=== PATIENT | female | born 1950 | race Caucasian/White ===

== ENCOUNTER 2020-02-12 14:49 | Outpatient (REF) | payer MEDICARE, OTHER, SELFPAY ==
--- NOTE | 2020-02-12 15:06 | XR_ITS ---
EXAMINATION: XR CHEST CLINICAL INFORMATION: Squamous cell carcinoma of the left lung. COMPARISON: Chest x-ray 11/20/2019. CT chest 08/18/2018 TECHNIQUE: 2 views of the chest were obtained. FINDINGS: There are linear opacities at the left lung around the hilum and left upper lobe with elevation of the left hilum. This is stable since CAT scan 08/18/2018. There is no acute change. No focal consolidation. No pulmonary vascular congestion. There is no pleural effusion or pneumothorax. The cardiac and mediastinal contours are unchanged. Heart size is normal. Multilevel degenerative spondylosis spine. XR/XR chest 2V IMPRESSION: 1. No acute abnormality. 2. Stable chronic changes in left lung.
[2020-02-12 15:20] LABS: MANUAL DIFF FLAG NO
[2020-02-12 15:21] LABS: Basophils Percent Auto 0.5 % (0-2); Eosinophils Absolute Auto 0.3 X10*3/uL (0.0-0.4); Eosinophils Percent Auto 3.5 % (0-4); Hematocrit 39.3 % (37-47); Hemoglobin 12.8 g/dl (12.0-16.0); Imm Gran Abs Auto 0.04 X10*3/uL (0.00-0.03); Imm Gran Pct Auto 0.5 % (0.0-0.4); Lymphocytes Absolute Auto 1.1 X10*3/uL (1.2-4.9); Lymphocytes Percent Auto 14.1 % (20-40); Mean Corpuscular HGB Conc 32.6 g/dl (31.0-35.0); Mean Corpuscular Hemoglobin 31.8 pg (27.0-33.0); Mean Corpuscular Volume 97.8 fL (80-98); Mean Platelet Volume 9.3 fL (9.4-12.3); Monocytes Absolute Auto 0.5 X10*3/uL (0.1-1.2); Monocytes Percent Auto 6.6 % (2-11); Neutrophils Absolute Auto 6.1 X10*3/uL (2.0-8.3); Neutrophils Percent Auto 74.8 % (45-73); Platelet Count 282 X10*3/uL (160-400); Red Blood Count 4.02 X10*6/uL (4.20-5.50); Red Cell Distribution Width 13.2 % (11.0-16.0); White Blood Count 8.1 X10*3/uL (4.8-10.8)
[2020-02-12 15:47] LABS: Alanine Aminotransferase 16 U/L (0-31); Albumin Level 4.3 g/dL (3.5-5.0); Alkaline Phosphatase 69 U/L (39-117); Anion Gap 13 (12-20); Aspartate Amino Transferase 16 U/L (5-31); Bilirubin Total 0.2 mg/dL (0.0-1.0); Blood Urea Nitrogen 15 mg/dL (9-16); Calcium 8.7 mg/dL (8.4-10.2); Carbon Dioxide 30 mmol/L (22-29); Chloride 102 mmol/L (96-108); Estimated Glomerular Filt Rate > 60; Glucose Random 123 mg/dL (60-115); Sodium 140 mmol/L (135-145); Total Protein 6.7 g/dL (6.5-8.0)
[2020-02-12 16:08] LABS: Free T4 (Free Thyroxine) 1.27 ng/dL (0.71-1.85); Thyroid Stimulating Hormone 1.68 uIU/mL (0.32-4.0); Vitamin D 25-OH Total 23.8 ng/mL (>30)
== END 2020-02-12 14:50 | disposition home or self-care (01) ==
LOC: HO.LAB 14:49
PROVIDERS: Absent Provider Internal Medicine Medical Oncology; PCP Internal Medicine; Visit Provider Internal Medicine
DX: E55.9 Vitamin D deficiency, unspecified (principal); E03.9 Hypothyroidism, unspecified; C34.92 Malignant neoplasm of unspecified part of left bronchus or lung; E78.00 Pure hypercholesterolemia, unspecified; E66.9 Obesity, unspecified
CPT/HCPCS: 36415; 71046; 80053; 82306; 84439; 84443; 85025

== ENCOUNTER 2020-05-25 11:09 | Outpatient (REF) | payer MEDICARE, OTHER, SELFPAY ==
--- NOTE | ~2020-05-25 | MM_ITS ---
EXAMINATION: MM SCREENING DIGITAL BREAST TOMOSYNTHESIS, BILATERAL CLINICAL INFORMATION: Screening. Asymptomatic. The lifetime risk of breast cancer based on the Tyrer-Cuzick Model is 4%. COMPARISON: Mammography: 01/19/2019, 01/09/2018, 11/26/2016 TECHNIQUE: Digital breast tomosynthesis is performed in both the craniocaudal and mediolateral oblique views along with computer-aided detection (CAD). Synthesized 2D images are generated from the tomosynthesis. FINDINGS: There are scattered areas of fibroglandular density (ACR BI-RADS breast composition Category b). There are no significant masses, abnormal calcifications, or other abnormalities. Parenchymal pattern is similar to prior studies. The axilla and skin contours are unremarkable. MM/MM tomosynthesis screening BI IMPRESSION: No mammographic evidence of malignancy. ASSESSMENT: BI-RADS 1: Negative RECOMMENDATION: Routine annual mammography screening. This patient's information was entered into a reminder system with a target due date for their next mammogram.
== END 2020-05-25 11:10 | disposition home or self-care (01) ==
LOC: HO.MAMMO 11:09
PROVIDERS: PCP Internal Medicine; Visit Provider Internal Medicine
DX: Z12.31 Encounter for screening mammogram for malignant neoplasm of breast (principal)
CPT/HCPCS: 77063; 77067

== ENCOUNTER 2020-06-15 08:42 | Outpatient (REF) | payer MEDICARE, OTHER, SELFPAY ==
--- NOTE | ~2020-06-15 | XR_ITS ---
EXAMINATION: XR CHEST CLINICAL INFORMATION: Squamous cell carcinoma of left lung. COMPARISON: None TECHNIQUE: 2 views of the chest were obtained. FINDINGS: The lungs are well-expanded and clear. The heart size and pulmonary vascularity is normal. There is mild ventral spondylosis throughout dorsal spine. No lytic or sclerotic process seen. XR/XR chest 2V IMPRESSION: Unremarkable chest exam.
[2020-06-15 09:42] LABS: MANUAL DIFF FLAG NO
[2020-06-15 09:48] LABS: Basophils Percent Auto 0.6 % (0-2); Eosinophils Absolute Auto 0.3 X10*3/uL (0.0-0.4); Eosinophils Percent Auto 4.2 % (0-4); Hematocrit 40.1 % (37-47); Imm Gran Abs Auto 0.02 X10*3/uL (0.00-0.03); Imm Gran Pct Auto 0.3 % (0.0-0.4); Lymphocytes Absolute Auto 0.8 X10*3/uL (1.2-4.9); Lymphocytes Percent Auto 11.7 % (20-40); Mean Corpuscular HGB Conc 32.4 g/dl (31.0-35.0); Mean Corpuscular Hemoglobin 31.3 pg (27.0-33.0); Mean Corpuscular Volume 96.6 fL (80-98); Mean Platelet Volume 9.9 fL (9.4-12.3); Monocytes Absolute Auto 0.5 X10*3/uL (0.1-1.2); Neutrophils Percent Auto 75.2 % (45-73); Platelet Count 280 X10*3/uL (160-400); Red Blood Count 4.15 X10*6/uL (4.20-5.50); Red Cell Distribution Width 13.1 % (11.0-16.0); White Blood Count 6.6 X10*3/uL (4.8-10.8)
[2020-06-15 09:58] LABS: Estimated Average Glucose 111 mg/dL; Hemoglobin A1c % 5.5 %
[2020-06-15 10:04] LABS: Alanine Aminotransferase 15 U/L (0-31); Albumin Level 4.2 g/dL (3.5-5.0); Alkaline Phosphatase 67 U/L (39-117); Anion Gap 12 (12-20); Aspartate Amino Transferase 16 U/L (5-31); Bilirubin Total 0.5 mg/dL (0.0-1.0); Blood Urea Nitrogen 16 mg/dL (9-16); Calcium 9.1 mg/dL (8.4-10.2); Carbon Dioxide 29 mmol/L (22-29); Chloride 104 mmol/L (96-108); Cholesterol 180 mg/dL; Estimated Glomerular Filt Rate > 60; Glucose Fasting 89 mg/dL (60-99); HDL Cholesterol 42 mg/dL; LDL Cholesterol Calculated 91 mg/dl; Potassium 4.4 mmol/L (3.3-5.1); Sodium 141 mmol/L (135-145); Total Protein 6.4 g/dL (6.5-8.0); Triglycerides 237 mg/dL
== END 2020-06-15 08:43 | disposition home or self-care (01) ==
LOC: HO.LAB 08:42
PROVIDERS: Absent Provider Internal Medicine Medical Oncology; PCP Internal Medicine; Visit Provider Internal Medicine
DX: E03.9 Hypothyroidism, unspecified (principal); E78.5 Hyperlipidemia, unspecified; R73.03 Prediabetes; C34.92 Malignant neoplasm of unspecified part of left bronchus or lung
CPT/HCPCS: 36415; 71046; 80053; 80061; 83036; 84439; 84443; 85025

== ENCOUNTER 2020-09-22 11:47 | Outpatient (REF) | payer MEDICARE, OTHER, SELFPAY ==
--- NOTE | ~2020-09-22 | XR_ITS ---
EXAMINATION: XR CHEST CLINICAL INFORMATION: Squamous cell carcinoma of left lung. COMPARISON: None TECHNIQUE: 2 views of the chest were obtained. FINDINGS: The lungs are well-expanded with platelike atelectasis/scarring left parahilar region. Heart size and pulmonary vascularity is normal. No gross bony abnormality seen. XR/XR chest 2V IMPRESSION: Left midlung parahilar atelectasis/scarring.
[2020-09-22 12:35] LABS: MANUAL DIFF FLAG NO
[2020-09-22 12:44] LABS: Basophils Percent Auto 0.4 % (0-2); Eosinophils Absolute Auto 0.2 X10*3/uL (0.0-0.4); Eosinophils Percent Auto 2.5 % (0-4); Hematocrit 38.6 % (37-47); Hemoglobin 12.4 g/dl (12.0-16.0); Imm Gran Abs Auto 0.03 X10*3/uL (0.00-0.03); Imm Gran Pct Auto 0.4 % (0.0-0.4); Lymphocytes Percent Auto 13.3 % (20-40); Mean Corpuscular HGB Conc 32.1 g/dl (31.0-35.0); Mean Corpuscular Hemoglobin 30.8 pg (27.0-33.0); Mean Corpuscular Volume 95.8 fL (80-98); Mean Platelet Volume 9.8 fL (9.4-12.3); Monocytes Absolute Auto 0.6 X10*3/uL (0.1-1.2); Monocytes Percent Auto 8.6 % (2-11); Neutrophils Absolute Auto 5.4 X10*3/uL (2.0-8.3); Neutrophils Percent Auto 74.8 % (45-73); Platelet Count 294 X10*3/uL (160-400); Red Blood Count 4.03 X10*6/uL (4.20-5.50); Red Cell Distribution Width 12.8 % (11.0-16.0); White Blood Count 7.2 X10*3/uL (4.8-10.8)
[2020-09-22 13:15] LABS: Alanine Aminotransferase 15 U/L (0-31); Albumin Level 4.3 g/dL (3.5-5.0); Alkaline Phosphatase 76 U/L (39-117); Anion Gap 12 (12-20); Aspartate Amino Transferase 17 U/L (5-31); Bilirubin Total 0.6 mg/dL (0.0-1.0); Blood Urea Nitrogen 13 mg/dL (9-16); Calcium 9.8 mg/dL (8.4-10.2); Carbon Dioxide 30 mmol/L (22-29); Chloride 105 mmol/L (96-108); Estimated Glomerular Filt Rate > 60; Glucose Random 104 mg/dL (60-115); Sodium 142 mmol/L (135-145); Total Protein 6.6 g/dL (6.5-8.0)
== END 2020-09-22 11:48 | disposition home or self-care (01) ==
LOC: HO.LAB 11:47
PROVIDERS: PCP Internal Medicine; Visit Provider Internal Medicine Medical Oncology
DX: C34.92 Malignant neoplasm of unspecified part of left bronchus or lung (principal)
CPT/HCPCS: 36415; 71046; 80053; 85025

== ENCOUNTER 2020-10-31 10:40 | Outpatient (REF) | payer MEDICARE, OTHER, SELFPAY ==
[2020-10-31 11:14] LABS: MANUAL DIFF FLAG NO
[2020-10-31 11:18] LABS: Basophils Percent Auto 0.6 % (0-2); Eosinophils Absolute Auto 0.3 X10*3/uL (0.0-0.4); Eosinophils Percent Auto 3.9 % (0-4); Hematocrit 39.2 % (37-47); Hemoglobin 12.6 g/dl (12.0-16.0); Imm Gran Abs Auto 0.04 X10*3/uL (0.00-0.03); Imm Gran Pct Auto 0.6 % (0.0-0.4); Lymphocytes Percent Auto 14.3 % (20-40); Mean Corpuscular HGB Conc 32.1 g/dl (31.0-35.0); Mean Corpuscular Hemoglobin 30.5 pg (27.0-33.0); Mean Corpuscular Volume 94.9 fL (80-98); Mean Platelet Volume 9.9 fL (9.4-12.3); Monocytes Absolute Auto 0.6 X10*3/uL (0.1-1.2); Monocytes Percent Auto 8.3 % (2-11); Neutrophils Percent Auto 72.3 % (45-73); Platelet Count 289 X10*3/uL (160-400); Red Blood Count 4.13 X10*6/uL (4.20-5.50); White Blood Count 6.9 X10*3/uL (4.8-10.8)
[2020-10-31 11:39] LABS: Alanine Aminotransferase 16 U/L (0-31); Albumin Level 4.4 g/dL (3.5-5.0); Alkaline Phosphatase 67 U/L (39-117); Anion Gap 13 (12-20); Aspartate Amino Transferase 17 U/L (5-31); Bilirubin Total 0.3 mg/dL (0.0-1.0); Blood Urea Nitrogen 16 mg/dL (9-16); Calcium 9.2 mg/dL (8.4-10.2); Carbon Dioxide 26 mmol/L (22-29); Chloride 105 mmol/L (96-108); Estimated Glomerular Filt Rate > 60; Glucose Random 115 mg/dL (60-115); Potassium 4.2 mmol/L (3.3-5.1); Sodium 140 mmol/L (135-145); Total Protein 6.6 g/dL (6.5-8.0)
[2020-10-31 12:03] LABS: Free T4 (Free Thyroxine) 1.33 ng/dL (0.71-1.85); Thyroid Stimulating Hormone 0.66 uIU/mL (0.32-4.0); Vitamin D 25-OH Total 24.8 ng/mL (>30)
== END 2020-10-31 10:41 | disposition home or self-care (01) ==
LOC: HO.LAB 10:40
PROVIDERS: PCP Internal Medicine; Visit Provider Internal Medicine
DX: E03.9 Hypothyroidism, unspecified (principal); E55.9 Vitamin D deficiency, unspecified; E78.5 Hyperlipidemia, unspecified
CPT/HCPCS: 36415; 80053; 82306; 84439; 84443; 85025

== ENCOUNTER 2020-12-28 12:59 | Outpatient (REF) | payer MEDICARE, OTHER, SELFPAY ==
--- NOTE | ~2020-12-28 | XR_ITS ---
EXAMINATION: XR CHEST CLINICAL INFORMATION: Chronic cough. COMPARISON: Multiple priors. Most recent chest radiograph dated from 09/22/2020. TECHNIQUE: 2 views of the chest were obtained. FINDINGS: Unchanged appearance of the cardiomediastinal silhouette. Redemonstration of platelike atelectasis/scarring in the left perihilar region without significant change. No new airspace opacities. No pleural effusions or pneumothorax. No acute osseous abnormalities. Thoracic spondylosis. XR/XR chest 2V IMPRESSION: Left mid lung atelectasis/scarring unchanged.
[2020-12-28 13:29] LABS: MANUAL DIFF FLAG NO
[2020-12-28 13:36] LABS: Basophils Percent Auto 0.6 % (0-2); Eosinophils Absolute Auto 0.2 X10*3/uL (0.0-0.4); Eosinophils Percent Auto 3.3 % (0-4); Hematocrit 39.4 % (37-47); Hemoglobin 12.9 g/dl (12.0-16.0); Imm Gran Abs Auto 0.03 X10*3/uL (0.00-0.03); Imm Gran Pct Auto 0.4 % (0.0-0.4); Lymphocytes Absolute Auto 1.2 X10*3/uL (1.2-4.9); Lymphocytes Percent Auto 17.1 % (20-40); Mean Corpuscular HGB Conc 32.7 g/dl (31.0-35.0); Mean Corpuscular Hemoglobin 31.4 pg (27.0-33.0); Mean Corpuscular Volume 95.9 fL (80-98); Mean Platelet Volume 9.8 fL (9.4-12.3); Monocytes Absolute Auto 0.6 X10*3/uL (0.1-1.2); Monocytes Percent Auto 8.5 % (2-11); Neutrophils Absolute Auto 4.9 X10*3/uL (2.0-8.3); Neutrophils Percent Auto 70.1 % (45-73); Platelet Count 295 X10*3/uL (160-400); Red Blood Count 4.11 X10*6/uL (4.20-5.50); Red Cell Distribution Width 13.4 % (11.0-16.0); White Blood Count 6.9 X10*3/uL (4.8-10.8)
[2020-12-28 14:03] LABS: Alanine Aminotransferase 17 U/L (0-31); Albumin Level 4.3 g/dL (3.5-5.0); Alkaline Phosphatase 70 U/L (39-117); Anion Gap 13 (12-20); Aspartate Amino Transferase 18 U/L (5-31); Bilirubin Total 0.5 mg/dL (0.0-1.0); Blood Urea Nitrogen 12 mg/dL (9-16); Calcium 9.3 mg/dL (8.4-10.2); Carbon Dioxide 27 mmol/L (22-29); Chloride 106 mmol/L (96-108); Estimated Glomerular Filt Rate 58; Glucose Random 99 mg/dL (60-115); Potassium 4.9 mmol/L (3.3-5.1); Sodium 141 mmol/L (135-145); Total Protein 6.5 g/dL (6.5-8.0)
== END 2020-12-28 13:00 | disposition home or self-care (01) ==
LOC: HO.XRAY 12:59
PROVIDERS: PCP Internal Medicine; Visit Provider Internal Medicine Medical Oncology
DX: C34.92 Malignant neoplasm of unspecified part of left bronchus or lung (principal); R05 Cough
CPT/HCPCS: 36415; 71046; 80053; 85025

== ENCOUNTER 2021-04-27 09:25 | Outpatient (REF) | payer MEDICARE, OTHER, SELFPAY ==
--- NOTE | ~2021-04-27 | XR_ITS ---
EXAMINATION: XR CHEST CLINICAL INFORMATION: Squamous cell carcinoma of left lung. COMPARISON: Chest x-ray 12/28/2020. TECHNIQUE: 2 views of the chest were obtained. FINDINGS: The lungs are well expanded with patchy left perihilar plate-like atelectasis or scarring, similar to the previous study of 12/28/2020. The rest of lungs are expanded and clear. Heart size and pulmonary vascularity are normal. No gross bony abnormality is seen. XR/XR chest 2V IMPRESSION: Left mid lung chronic scarring, unchanged from 12/28/2020. No acute process seen.
[2021-04-27 09:57] LABS: MANUAL DIFF FLAG NO
[2021-04-27 10:08] LABS: Basophils Percent Auto 0.6 % (0-2); Eosinophils Absolute Auto 0.3 X10*3/uL (0.0-0.4); Eosinophils Percent Auto 3.8 % (0-4); Hematocrit 40.4 % (37.0-47.0); Hemoglobin 13.1 g/dl (12.0-16.0); Imm Gran Abs Auto 0.04 X10*3/uL (0.00-0.03); Imm Gran Pct Auto 0.6 % (0.0-0.4); Lymphocytes Absolute Auto 0.8 X10*3/uL (1.2-4.9); Lymphocytes Percent Auto 11.1 % (20-40); Mean Corpuscular HGB Conc 32.4 g/dl (31.0-35.0); Mean Corpuscular Hemoglobin 30.9 pg (27.0-33.0); Mean Corpuscular Volume 95.3 fL (80.0-98.0); Mean Platelet Volume 9.2 fL (9.4-12.3); Monocytes Absolute Auto 0.6 X10*3/uL (0.1-1.2); Monocytes Percent Auto 8.4 % (2-11); Neutrophils Absolute Auto 5.3 x10*3/uL (2.0-8.3); Neutrophils Percent Auto 75.5 % (45-73); Platelet Count 270 X10*3/uL (160-400); Red Blood Count 4.24 X10*6/uL (4.20-5.50); Red Cell Distribution Width 13.3 % (11.0-16.0)
[2021-04-27 10:34] LABS: Alanine Aminotransferase 20 U/L (0-31); Albumin Level 4.2 g/dL (3.5-5.0); Alkaline Phosphatase 68 U/L (39-117); Anion Gap 15 (12-20); Aspartate Amino Transferase 21 U/L (5-31); Bilirubin Total 0.5 mg/dL (0.0-1.0); Blood Urea Nitrogen 12 mg/dL (9-16); Calcium 9.6 mg/dL (8.4-10.2); Carbon Dioxide 27 mmol/L (22-29); Chloride 109 mmol/L (96-108); Cholesterol 160 mg/dL; Estimated Glomerular Filt Rate > 60; Glucose Fasting 98 mg/dL (60-99); HDL Cholesterol 40 mg/dL; LDL Cholesterol Calculated 94 mg/dl; Potassium 4.5 mmol/L (3.3-5.1); Sodium 146 mmol/L (135-145); Total Protein 6.9 g/dL (6.5-8.0); Triglycerides 133 mg/dL
== END 2021-04-27 09:26 | disposition home or self-care (01) ==
LOC: HO.XRAY 09:25
PROVIDERS: PCP Internal Medicine; Visit Provider Internal Medicine Medical Oncology
DX: C34.92 Malignant neoplasm of unspecified part of left bronchus or lung (principal); E78.00 Pure hypercholesterolemia, unspecified
CPT/HCPCS: 36415; 71046; 80053; 80061; 85025

== ENCOUNTER 2021-05-24 10:58 | Outpatient (REF) | payer MEDICARE, OTHER, SELFPAY ==
[2021-05-24 14:28] LABS: Free T4 (Free Thyroxine) 1.31 ng/dL (0.71-1.85); Thyroid Stimulating Hormone 0.58 uIU/mL (0.32-4.0)
== END 2021-05-24 10:59 | disposition home or self-care (01) ==
LOC: HO.10HDL 10:58
PROVIDERS: Visit Provider Internal Medicine
DX: E03.9 Hypothyroidism, unspecified (principal)
CPT/HCPCS: 36415; 84439; 84443

== ENCOUNTER 2021-06-05 08:57 | Outpatient (REF) | payer MEDICARE, OTHER, SELFPAY ==
--- NOTE | ~2021-06-05 | MM_ITS ---
EXAMINATION: MM SCREENING DIGITAL BREAST TOMOSYNTHESIS, BILATERAL CLINICAL INFORMATION: Screening. Asymptomatic. The lifetime risk of breast cancer based on the Tyrer-Cuzick Model is 3%. COMPARISON: Mammography: 05/25/2020, 01/19/2019, 01/09/2018 TECHNIQUE: Digital breast tomosynthesis is performed in both the craniocaudal and mediolateral oblique views along with computer-aided detection (CAD). Synthesized 2D images are generated from the tomosynthesis. FINDINGS: There are scattered areas of fibroglandular density (ACR BI-RADS breast composition Category b). There are no significant masses, abnormal calcifications, or other abnormalities. Parenchymal pattern is similar to prior studies. There is no developing density or architectural abnormality. The axilla and skin contours are unremarkable. No significant changes. MM/MM tomosynthesis screening BI IMPRESSION: No mammographic evidence of malignancy. ASSESSMENT: BI-RADS 1: Negative RECOMMENDATION: Routine annual mammography screening. This patient's information was entered into a reminder system with a target due date for their next mammogram.
== END 2021-06-05 08:58 | disposition home or self-care (01) ==
LOC: HO.MAMMO 08:57
PROVIDERS: Visit Provider Internal Medicine
DX: Z12.31 Encounter for screening mammogram for malignant neoplasm of breast (principal)
CPT/HCPCS: 77063; 77067

== ENCOUNTER 2021-10-27 07:43 | Outpatient (REF) | payer MEDICARE, OTHER, SELFPAY ==
--- NOTE | ~2021-10-27 | XR_ITS ---
EXAMINATION: XR CHEST CLINICAL INFORMATION: Squamous cell carcinoma of the left lung. COMPARISON: Multiple priors with the last chest x-ray of 04/27/2021. Chest CT of 08/18/2018. TECHNIQUE: 2 views of the chest were obtained. FINDINGS: Mild left lung volume loss is stable. Left upper lung zone paramediastinal opacity reflecting posttreatment changes with associated bronchiectasis and scarring is a stable finding compared to several previous x-rays. No new airspace opacities. No evidence of pulmonary edema, pleural effusions or pneumothorax. Cardiomediastinal silhouette is unchanged. Multilevel mild degenerative changes in the spine. XR/XR chest 2V IMPRESSION: Chronic changes in the left lung, as described above, are stable. No acute pulmonary process.
[2021-10-27 08:04] LABS: MANUAL DIFF FLAG NO
[2021-10-27 08:45] LABS: Basophils Absolute Auto 0.1 X10*3/uL (0.0-0.2); Basophils Percent Auto 0.8 % (0-2); Eosinophils Absolute Auto 0.2 X10*3/uL (0.0-0.4); Eosinophils Percent Auto 3.4 % (0-4); Hematocrit 41.4 % (37.0-47.0); Hemoglobin 13.4 g/dl (12.0-16.0); Imm Gran Abs Auto 0.02 X10*3/uL (0.00-0.03); Imm Gran Pct Auto 0.3 % (0.0-0.4); Lymphocytes Absolute Auto 1.3 X10*3/uL (1.2-4.9); Lymphocytes Percent Auto 19.9 % (20-40); Mean Corpuscular HGB Conc 32.4 g/dl (31.0-35.0); Mean Corpuscular Hemoglobin 30.5 pg (27.0-33.0); Mean Corpuscular Volume 94.1 fL (80.0-98.0); Monocytes Absolute Auto 0.6 X10*3/uL (0.1-1.2); Monocytes Percent Auto 8.9 % (2-11); Neutrophils Absolute Auto 4.3 x10*3/uL (2.0-8.3); Neutrophils Percent Auto 66.7 % (45-73); Platelet Count 296 X10*3/uL (160-400); Red Cell Distribution Width 13.4 % (11.0-16.0); White Blood Count 6.5 X10*3/uL (4.8-10.8)
[2021-10-27 09:06] LABS: Alanine Aminotransferase 17 U/L (0-31); Albumin Level 4.4 g/dL (3.5-5.0); Alkaline Phosphatase 74 U/L (39-117); Anion Gap 13 (12-20); Aspartate Amino Transferase 17 U/L (5-31); Bilirubin Total 0.5 mg/dL (0.0-1.0); Blood Urea Nitrogen 13 mg/dL (9-16); Calcium 9.3 mg/dL (8.4-10.2); Carbon Dioxide 29 mmol/L (22-29); Chloride 104 mmol/L (96-108); Cholesterol 172 mg/dL; Estimated Glomerular Filt Rate > 60; Glucose Fasting 103 mg/dL (60-99); HDL Cholesterol 44 mg/dL; LDL Cholesterol Calculated 97 mg/dl; Potassium 5.3 mmol/L (3.3-5.1); Sodium 141 mmol/L (135-145); Total Protein 6.8 g/dL (6.5-8.0); Triglycerides 158 mg/dL
== END 2021-10-27 07:44 | disposition home or self-care (01) ==
LOC: HO.XRAY 07:43
PROVIDERS: PCP Internal Medicine; Visit Provider Internal Medicine Medical Oncology
DX: C34.92 Malignant neoplasm of unspecified part of left bronchus or lung (principal); E78.00 Pure hypercholesterolemia, unspecified
CPT/HCPCS: 36415; 71046; 80053; 80061; 85025

== ENCOUNTER 2022-01-12 14:19 | Outpatient (REF) | payer MEDICARE, OTHER, SELFPAY ==
--- NOTE | ~2022-01-12 | MM_ITS ---
EXAMINATION: MM DIAGNOSTIC DIGITAL BREAST TOMOSYNTHESIS, LEFT US DIAGNOSTIC ULTRASOUND BREAST, LEFT CLINICAL INFORMATION: Palpable nodule noted by patient anterior medial left breast. The lifetime risk of breast cancer based on the Tyrer-Cuzick Model is 3%. COMPARISON: Mammography: 06/05/2021, 05/25/2020, 01/19/2019, 01/09/2018 TECHNIQUE: Digital breast tomosynthesis is performed in both the craniocaudal and mediolateral oblique views along with computer-aided detection (CAD). Synthesized 2D images are generated from the tomosynthesis. Ultrasound left breast is targeted to the area of clinical concern. Grayscale imaging and color Doppler are performed without and with harmonics. Patient is imaged supine and upright. Patient is able to point to the vicinity of concern at time of imaging. FINDINGS: There are scattered areas of fibroglandular density (ACR BI-RADS breast composition Category b). There are no significant masses, abnormal calcifications, or other abnormalities. Parenchymal pattern is similar to prior studies and there is no developing density or interval architectural abnormality or mass. There is mild retroareolar duct ectasia, stable from prior studies. No skin thickening or coarsening of the Lupillo's ligaments. Ultrasound demonstrates no cystic or solid mass or architectural abnormality. No intradermal lesion. No skin thickening or ultrasound correlate for patient's symptoms. Results are discussed with the patient at time of visit. MM/MM tomosynthesis diagnostic LT IMPRESSION: -No mammographic evidence of malignancy. -Unremarkable targeted left breast ultrasound. -No imaging correlate for patient's palpable concern. ASSESSMENT: BI-RADS 2: Benign RECOMMENDATION: 1. Patient should be managed based on the clinical impression. If clinically indicated, further evaluation may be considered with surgical consult. Decision to proceed with biopsy should be based on clinical grounds and degree of clinical concern. 2. Otherwise, routine annual screening mammography. This patient's information was entered into a reminder system with a target due date for their next mammogram.
== END 2022-01-12 14:20 | disposition home or self-care (01) ==
LOC: HO.MAMMO 14:19
PROVIDERS: PCP Internal Medicine; Visit Provider Obstetrics & Gynecology
DX: N63.22 Unspecified lump in the left breast, upper inner quadrant (principal)
CPT/HCPCS: 76642; 77061; 77065

== ENCOUNTER 2022-01-31 11:00 | Outpatient (REF) | payer MEDICARE, OTHER, SELFPAY ==
[2022-01-31 14:44] LABS: Free T4 (Free Thyroxine) 1.32 ng/dL (0.71-1.85); Thyroid Stimulating Hormone 1.06 uIU/mL (0.32-4.0); Vitamin D 25-OH Total 27.2 ng/mL (>30)
== END 2022-01-31 11:01 | disposition home or self-care (01) ==
LOC: HO.10HDL 11:00
PROVIDERS: Visit Provider Internal Medicine
DX: E55.9 Vitamin D deficiency, unspecified (principal)
CPT/HCPCS: 36415; 82306; 84439; 84443

== ENCOUNTER 2022-03-27 09:34 | Outpatient (REF) | payer MEDICARE, OTHER, SELFPAY ==
--- NOTE | ~2022-03-27 | XR_ITS ---
EXAMINATION: XR CHEST CLINICAL INFORMATION: Carcinoma of left lung. COMPARISON: None TECHNIQUE: 2 views of the chest were obtained. FINDINGS: The lungs are well-expanded with left upper lobe paramediastinal linear scarring or atelectasis. Mild loss of left lung volume is seen. The right lung appears unremarkable. The heart size and pulmonary vascularity is normal. XR/XR chest 2V IMPRESSION: Chronic scarring left upper lobe with mild loss of left lung volume. No change from 10/27/2021. No new findings.
[2022-03-27 09:55] LABS: MANUAL DIFF FLAG NO
[2022-03-27 10:35] LABS: Basophils Absolute Auto 0.1 X10*3/uL (0.0-0.2); Basophils Percent Auto 0.6 % (0-2); Eosinophils Absolute Auto 0.3 X10*3/uL (0.0-0.4); Eosinophils Percent Auto 3.1 % (0-4); Hematocrit 38.9 % (37.0-47.0); Hemoglobin 12.3 g/dl (12.0-16.0); Imm Gran Abs Auto 0.04 X10*3/uL (0.00-0.03); Imm Gran Pct Auto 0.5 % (0.0-0.4); Lymphocytes Absolute Auto 1.1 X10*3/uL (1.2-4.9); Lymphocytes Percent Auto 12.1 % (20-40); Mean Corpuscular HGB Conc 31.6 g/dl (31.0-35.0); Mean Corpuscular Hemoglobin 30.1 pg (27.0-33.0); Mean Corpuscular Volume 95.1 fL (80.0-98.0); Mean Platelet Volume 9.3 fL (9.4-12.3); Monocytes Absolute Auto 0.6 X10*3/uL (0.1-1.2); Monocytes Percent Auto 7.4 % (2-11); Neutrophils Absolute Auto 6.7 x10*3/uL (2.0-8.3); Neutrophils Percent Auto 76.3 % (45-73); Platelet Count 421 X10*3/uL (160-400); Red Blood Count 4.09 X10*6/uL (4.20-5.50); Red Cell Distribution Width 12.9 % (11.0-16.0); White Blood Count 8.7 X10*3/uL (4.8-10.8)
[2022-03-27 13:35] LABS: Alanine Aminotransferase 12 U/L (0-31); Albumin Level 4.1 g/dL (3.5-5.0); Alkaline Phosphatase 68 U/L (39-117); Anion Gap 15 (12-20); Aspartate Amino Transferase 14 U/L (5-31); Bilirubin Total 0.4 mg/dL (0.0-1.0); Blood Urea Nitrogen 11 mg/dL (9-16); Calcium 9.2 mg/dL (8.4-10.2); Carbon Dioxide 28 mmol/L (22-29); Chloride 105 mmol/L (96-108); Cholesterol 149 mg/dL; Estimated Glomerular Filt Rate > 60; Glucose Fasting 92 mg/dL (60-99); HDL Cholesterol 30 mg/dL; LDL Cholesterol Calculated 94 mg/dl; Potassium 4.8 mmol/L (3.3-5.1); Sodium 143 mmol/L (135-145); Total Protein 6.3 g/dL (6.5-8.0); Triglycerides 125 mg/dL
== END 2022-03-27 09:35 | disposition home or self-care (01) ==
LOC: HO.LAB 09:34
PROVIDERS: PCP Internal Medicine; Visit Provider Internal Medicine Medical Oncology
DX: C34.92 Malignant neoplasm of unspecified part of left bronchus or lung (principal); E78.00 Pure hypercholesterolemia, unspecified
CPT/HCPCS: 36415; 71046; 80053; 80061; 85025

== ENCOUNTER 2022-05-16 11:36 | Outpatient (REF) | payer MEDICARE, OTHER, SELFPAY ==
[2022-05-16 13:42] LABS: MANUAL DIFF FLAG NO
[2022-05-16 13:51] LABS: Basophils Absolute Auto 0.1 X10*3/uL (0.0-0.2); Basophils Percent Auto 0.7 % (0-2); Eosinophils Absolute Auto 0.2 X10*3/uL (0.0-0.4); Eosinophils Percent Auto 2.7 % (0-4); Hematocrit 37.7 % (37.0-47.0); Hemoglobin 12.3 g/dl (12.0-16.0); Imm Gran Abs Auto 0.03 X10*3/uL (0.00-0.03); Imm Gran Pct Auto 0.4 % (0.0-0.4); Lymphocytes Absolute Auto 1.2 X10*3/uL (1.2-4.9); Lymphocytes Percent Auto 17.3 % (20-40); Mean Corpuscular HGB Conc 32.6 g/dl (31.0-35.0); Mean Corpuscular Hemoglobin 30.4 pg (27.0-33.0); Mean Corpuscular Volume 93.1 fL (80.0-98.0); Mean Platelet Volume 10.3 fL (9.4-12.3); Monocytes Absolute Auto 0.6 X10*3/uL (0.1-1.2); Monocytes Percent Auto 8.9 % (2-11); Neutrophils Absolute Auto 4.9 x10*3/uL (2.0-8.3); Platelet Count 266 X10*3/uL (160-400); Red Blood Count 4.05 X10*6/uL (4.20-5.50); Red Cell Distribution Width 13.3 % (11.0-16.0); White Blood Count 7.1 X10*3/uL (4.8-10.8)
[2022-05-16 14:48] LABS: Alanine Aminotransferase 10 U/L (0-31); Alkaline Phosphatase 72 U/L (39-117); Anion Gap 16 (12-20); Aspartate Amino Transferase 12 U/L (5-31); Bilirubin Total 0.5 mg/dL (0.0-1.0); Blood Urea Nitrogen 12 mg/dL (9-16); C Reactive Protein 2.38 mg/dL (< or = 0.50); Carbon Dioxide 25 mmol/L (22-29); Chloride 105 mmol/L (96-108); Estimated Glomerular Filt Rate > 60; Glucose Random 81 mg/dL (60-115); Lipase 27 U/L (8-78); Potassium 4.6 mmol/L (3.3-5.1); Sodium 141 mmol/L (135-145); Total Protein 6.1 g/dL (6.5-8.0)
[2022-05-16 14:54] LABS: Free T4 (Free Thyroxine) 1.43 ng/dL (0.71-1.85); Thyroid Stimulating Hormone 0.85 uIU/mL (0.32-4.0)
== END 2022-05-16 11:37 | disposition home or self-care (01) ==
LOC: HO.10HDL 11:36
PROVIDERS: Visit Provider Internal Medicine
DX: R10.9 Unspecified abdominal pain (principal); J44.9 Chronic obstructive pulmonary disease, unspecified; E03.9 Hypothyroidism, unspecified
CPT/HCPCS: 36415; 80053; 83690; 84439; 84443; 85025; 86140

== ENCOUNTER 2022-05-17 12:28 | Outpatient (REF) | payer MEDICARE, OTHER, SELFPAY ==
--- NOTE | ~2022-05-17 | CT_ITS ---
EXAMINATION: CT ABDOMEN AND PELVIS WITH CONTRAST CLINICAL INFORMATION: Abdominal pain COMPARISON: Previous CT of the abdomen and pelvis August 2018 TECHNIQUE: Multidetector volumetric images were obtained from the superior aspect of the liver through the pubic symphysis following administration 85 mL of Omnipaque 350 intravenous contrast. Sagittal and coronal reformatted images were obtained on the technologist's workstation. Oral contrast: Yes This CT examination was performed using dose optimization techniques as appropriate, variously including the following: *Automated exposure control *Adjustment of mA and/or kV according to patient size (this includes techniques or standardized protocols for targeted exams where dose is matched to indication/reason for exam; i.e. extremities or head) *Use of iterative reconstruction technique DLP: 436 mGy-cm FINDINGS: LUNG BASES: The visualized lung bases are clear. There is a small pericardial effusion similar to previous exam. LIVER, GALLBLADDER, AND BILIARY TREE: 2 small low-attenuation liver lesions similar to a 2019 exam and probably representing small cysts. Liver is otherwise normal. The gallbladder is normal.. PANCREAS: There is a 1 cm cyst exophytic to the uncinate process of the head of the pancreas axial image 31 series 3. There is question of a smaller 8 mm cyst in the uncinate process of the head of the pancreas axial image 31 series 3. These are not definitely identified on old exam. The pancreas is otherwise normal. SPLEEN: Unremarkable. ADRENAL GLANDS: Unremarkable. KIDNEYS AND URETERS: The kidneys are normal in size, shape, and attenuation. No hydronephrosis, hydroureter, or calculi seen. No perinephric stranding. BLADDER: Not optimally distended. GASTROINTESTINAL TRACT: Diverticulosis of the colon. No evidence of diverticulitis. The small and large bowel are otherwise unremarkable. The appendix is unremarkable. ABDOMINAL WALL: No significant hernia is appreciated. LYMPH NODES: Normal. VASCULAR: Atherosclerotic disease. No aneurysm. PELVIC VISCERA: Unremarkable. OSSEOUS STRUCTURES: Degenerative changes of the spine. CT/CT abdomen pelvis w IV con IMPRESSION: 2 cysts in the head of the pancreas, largest measuring 1 cm. These are not definitely appreciated on previous exam. Follow-up MR with MRCP of the pancreas recommended. Small stable liver lesions probably representing cysts. Diverticulosis of the colon. No evidence of diverticulitis. Fleischner guidelines were followed.
[2022-05-17] MEDS: iohexoL 350 MG/ML 100 ML INFUS..BTL IV (15:36)
[2022-05-17] MEDS: Barium Sulfate Oral (Vanilla) 450 ML ORAL.SUSP 900 ML PO (15:36)
== END 2022-05-17 12:29 | disposition home or self-care (01) ==
LOC: HO.CT 12:28
PROVIDERS: Visit Provider Internal Medicine
DX: R10.0 Acute abdomen (principal)
CPT/HCPCS: 74177; Q9967

== ENCOUNTER 2022-06-28 10:22 | Outpatient (REF) | payer MEDICARE, OTHER, SELFPAY ==
--- NOTE | ~2022-06-28 | MR_ITS ---
EXAMINATION: MRI ABDOMEN WITH AND WITHOUT CONTRAST CLINICAL INFORMATION: ABD PAIN PANCREATIC CYST COMPARISON: 05/17/2022 CT scan TECHNIQUE: Multiple routine MRI sequences through the abdomen were obtained on a high-field 1.5Tesla MRI. Pre-and postcontrast images with 8 mL of Gadavist intravenous contrast were obtained. This included a dynamic contrast-enhanced technique. FINDINGS: Lung bases: The visualized lung bases are unremarkable. Small pericardial effusion noted. Liver: The liver is normal in size, shape, and signal. A few tiny millimeter sized probable hepatic cysts noted but these are too small to characterize. No suspicious focal hepatic lesions seen. Specifically no suspicious arterial phase enhancing lesions or suspicious washout of contrast on later phases. No biliary ductal dilatation. Gallbladder: Gallbladder is contracted but otherwise unremarkable. No suspicious gallstones or filling defects. No gallbladder wall thickening or pericholecystic inflammatory changes. Pancreas: Pancreatic parenchyma demonstrates homogeneous T1 bright precontrast signal in the tail, body, and neck of the pancreas. There is loss of the normal T1 signal in the anterior pancreatic head with associated decreased enhancement in this location. I do not appreciate any pancreatic ductal dilatation or common bile duct dilatation. There is a T2 bright 1.3 cm cyst in the uncinate process the pancreas and a somewhat irregularly shaped 1 cm cyst in the anterior pancreatic head. There are additional tiny millimeter sized cysts scattered throughout the pancreatic parenchyma. Spleen: Unremarkable Adrenals: Unremarkable Kidneys: Kidneys are normal in size, shape, and signal. No suspicious renal mass lesion seen. No hydronephrosis or perinephric edema. Other: Simple appearing 1.6 cm left adnexal cyst likely not significant a change from prior study and of no clinical significance. MR/MR abdomen wo/w con IMPRESSION: There is loss of the normal T1 signal in the anterior pancreatic head with associated decreased postcontrast enhancement. This is of uncertain etiology and significance. I do not appreciate any pancreatic ductal dilatation or common bile duct dilatation. There are several small T2 bright cysts scattered throughout the pancreatic parenchyma as described above. These could represent sequela of prior pancreatitis. I do not appreciate any suspicious or worrisome features to these small pancreatic cysts but they are difficult to define further due to their tiny size. Clinical correlation would be recommended. The possibility of underlying lesion in this area of probable pancreatitis cannot be excluded but would be considered less likely without significant mass effect on adjacent structures. Continued follow-up to assure stability of these findings would be recommended. If there is more clinical concern, endoscopic ultrasound could be obtained
== END 2022-06-28 10:23 | disposition home or self-care (01) ==
LOC: HO.MRI 10:22
PROVIDERS: PCP Internal Medicine; Visit Provider Internal Medicine
DX: R10.0 Acute abdomen (principal)
CPT/HCPCS: 74183; A9585

== ENCOUNTER → 2022-07-06 09:37 | Outpatient (BNVA) | payer MEDICARE, OTHER, SELFPAY | PROVIDERS: PCP Internal Medicine; Visit Provider Internal Medicine | DX: R10.84 Generalized abdominal pain (principal); R11.2 Nausea with vomiting, unspecified; Z86.010 Personal history of colon polyps | CPT/HCPCS: 99202 ==

== ENCOUNTER 2022-07-11 07:18 | Day surgery (SDC) | payer MEDICARE, OTHER, SELFPAY ==
[2022-07-11 07:32] VITALS: BMI 30.6
[2022-07-11 07:37] VITALS: BP 112/65; PULSE 75; RESP 18; TEMP 36.7; O2SAT 98
--- NOTE | 2022-07-11 07:42 | P.CONAN_ITS ---
[facility] Active Problems Active Problems: All Active Problems (Updated 07/11/22 @ 07:39 by Blessing Morton, RN) Generalized postprandial abdominal pain (Acute) Nausea & vomiting (Acute) Personal history of colonic polyps (Acute) Past Medical History Medical History (Updated 07/11/22 @ 07:39 by Blessing Morton, ANH) Lung cancer Family History Family history of problems with anesthesia: No Surgical History History of Problems with Anesthesia: No Social History Social History (Updated 07/06/22 @ 09:49 by Betty Herrera) Household Members: Spouse Alcohol intake: former Patient Tobacco Use Status: Former Tobacco user Use of substances other than those prescribed or required for medical reasons: No Are you DNR?: No Advance Directives: No Advance Directives Information Provided: Yes Meds Allergies Allergy/AdvReac Type Severity Reaction Status Date / Time No Known Allergies Allergy Verified 07/06/22 09:40 [No Known Allergies*] Home Medications Medication Instructions Recorded Confirmed Last Taken Type atorvastatin 20 mg tablet 20 mg PO DAILY 07/06/22 07/11/22 07/11/22 History clonazepam 1 mg tablet 1 mg PO BEDTIME PRN anxiety 07/06/22 07/11/22 07/11/22 History gabapentin 100 mg capsule mg PO 07/06/22 Unknown History levothyroxine 112 mcg tablet 112 mcg PO DAILY 07/06/22 07/11/22 07/11/22 History omeprazole 20 mg capsule,delayed 20 mg PO BID 07/06/22 07/11/22 07/11/22 History release propranolol 80 mg capsule,24 80 mg PO BID 07/06/22 07/11/22 07/11/22 History hr,extended release Exam Exam Date and Time: July 11, 2022 0742 Height,Weight and Vital Signs: Height 5 ft 3 in Weight 78.471 kg Last Vital Signs Temp 98.0 F 07/11/22 07:37 Pulse 75 07/11/22 07:37 Resp 18 07/11/22 07:37 BP 112/65 07/11/22 07:37 Pulse Ox 98 07/11/22 07:37 O2 Del Method Room Air 07/11/22 07:37 Airway Mallampati Class: II (multiple implants lateral) TM Dist: >3cm Neck ROM: Full Heart: rrr Lungs: cta Assessment and Plan Assessment Anesthesia Assessment: Anesthesia Plan Discussed and Chart Reviewed Final Anesthetic Review Family History of Problems with Anesthesia: No History of Problems with Anesthesia: No NPO: Yes ASA Class: II Final Preanesthetic Review: No Changes in Pt Med Stat, Meds/Allgs Chart Reviewed and Consent Obtained/Reviewed Patient Risk: Intermediate Procedure Risk: Intermediate Anesthetic Plan Anesthetic Plan: MAC: Disposition: Standard PACU
--- NOTE | 2022-07-11 08:26 | MHC.SHP ---
Pre-Procedural Eval Section A Date of Service: 07/11/22 The patient is an INPATIENT: No The History & Physical has been completed within 30 days and I have reviewed it.: Yes Section B Chief Complaint: Unspecified abdominal pain Allergies: Allergies Allergy/AdvReac Type Severity Reaction Status Date / Time No Known Allergies Allergy Verified 07/06/22 09:40 [No Known Allergies*] Plan Diagnosis/Plan: Unchanged I have reviewed the history and physical and performed a pertinent physical examination on my patient. No changes have occurred unless specified. Time Spent With Patient Time: Total time managing care of this patient today ____ minutes.
--- NOTE | 2022-07-11 08:32 | P.OP_ITS ---
Operative Note Operative Note Date of Service: 07/11/22 Narrative: Procedure: Esophagogastroduodenoscopy Endoscopist: Maylin Anand MD Indication: Abd pain Anesthesia Provider: Dr Marii Sanchez Anesthesia Type: MAC Instrument: Olympus [id number] ?? EGD Procedure:?? The procedure, indications, preparation and potential complications were reviewed with the patient, who indicated understanding and gave written informed consent to proceed. A physical exam was performed. The endoscope was introduced through the mouth, and advanced to the second part of duodenum. The mucosa was carefully examined on slow withdrawal of the endoscope. The patient tolerated the procedure well. There were no immediate complications.? ? EGD Findings:? * Esophagus:? Normal mucosa noted in the entire esophagus. The Z line was at 36 cm and irregular up to 35 cm. Cold forceps biopsies were taken to r/o Hernandez's. There was a small hiatal hernia with diaphragmatic hiatus at 38 cm. * Stomach:? Normal mucosa was noted in the stomach. Random cold forceps gastric biopsies were taken to rule out H Pylori infection. Retroflexion confirmed the morphology of the hiatal hernia as Hill Class I. * Duodenum:? Erythema and erosions were noted in the duodenal bulb and proximal sweep. The second portion of the duodenum was normal. Cold forceps biopsies were taken from duodenal bulb and second portion of the duodenum to r/o celiac sprue. ? EGD Impressions:? * Irregular Z line (biopsy) * Hiatal hernia * Normal stomach (biopsy) * Duodenitis (biopsy) ?? Recommendations:?? * Follow biopsy results. Our office will call or send a letter with results within 7-10 days. * Start/continue PPI therapy. * If H pylori +, patient will be prescribed eradication therapy followed by test of cure. * Avoid NSAIDs. * MRI results reviewed with the pt in pre-op. Ideally would be due for another MRI in 1 year given small cysts size however due to hypoenhancement of pancratic head of unknown significance, will obtain a repeat MRI in 6 months for surveillance. Above has been reviewed with the patient. Relevant educational hand outs were provided at discharge.
[2022-07-11 08:53] VITALS: BP 96/54; PULSE 72; RESP 16; TEMP 36.3; O2SAT 97
[2022-07-11 09:08] VITALS: BP 104/55; PULSE 70; RESP 16; TEMP 36.3; O2SAT 96
== END 2022-07-11 09:48 | disposition home or self-care (01) ==
PROVIDERS: PCP Internal Medicine; Visit Provider Internal Medicine
PROC: 0DJ08ZZ Inspection of Upper Intestinal Tract, Via Natural or Artificial Opening Endoscopic (ICD-10-PCS; CPT 43235; principal; 2022-07-11 08:30)
DX: K29.80 Duodenitis without bleeding (principal); K22.89 Other specified disease of esophagus; K44.9 Diaphragmatic hernia without obstruction or gangrene; R11.2 Nausea with vomiting, unspecified; I10 Essential (primary) hypertension; E78.5 Hyperlipidemia, unspecified; Z79.899 Other long term (current) drug therapy; Z87.891 Personal history of nicotine dependence; Z85.118 Personal history of other malignant neoplasm of bronchus and lung; Z92.3 Personal history of irradiation; Z92.21 Personal history of antineoplastic chemotherapy
CPT/HCPCS: 43239; 88305; 88342

== ENCOUNTER 2022-08-22 11:34 | Outpatient (REF) | payer MEDICARE, OTHER, SELFPAY ==
--- NOTE | ~2022-08-22 | MM_ITS ---
EXAMINATION: MM SCREENING DIGITAL BREAST TOMOSYNTHESIS, BILATERAL CLINICAL INFORMATION: Screening. Asymptomatic. The lifetime risk of breast cancer based on the Tyrer-Cuzick Model is 3.1%. COMPARISON: Mammography: January 12, 2022 and studies dating back to October 14, 2014 TECHNIQUE: Digital breast tomosynthesis is performed in both the craniocaudal and mediolateral oblique views along with computer-aided detection (CAD). Synthesized 2D images are generated from the tomosynthesis. FINDINGS: There are scattered areas of fibroglandular density (ACR BI-RADS breast composition Category b). There are no significant masses, abnormal calcifications, or other abnormalities. There are again noted be prominent ducts retroareolar region of the left breast. MM/MM tomosynthesis screening BI IMPRESSION: No significant changes from prior exam. ASSESSMENT: BI-RADS 1: Negative RECOMMENDATION: Routine annual mammography screening. This patient's information was entered into a reminder system with a target due date for their next mammogram.
== END 2022-08-22 11:35 | disposition home or self-care (01) ==
LOC: HO.MAMMO 11:34
PROVIDERS: PCP Internal Medicine; Visit Provider Internal Medicine
DX: Z12.31 Encounter for screening mammogram for malignant neoplasm of breast (principal)
CPT/HCPCS: 77063; 77067

== ENCOUNTER → 2022-08-29 14:39 | Outpatient (BNVA) | payer MEDICARE, OTHER, SELFPAY | PROVIDERS: PCP Internal Medicine; Visit Provider Internal Medicine | DX: R10.84 Generalized abdominal pain (principal); R93.5 Abnormal findings on diagnostic imaging of other abdominal regions, including retroperitoneum | CPT/HCPCS: 99212 ==

== ENCOUNTER 2022-09-12 13:58 | Outpatient (REF) | payer MEDICARE, OTHER, SELFPAY ==
[2022-09-12 16:00] LABS: T4 Thyroxine 12.9 ug/dL (4.5-12.0); Thyroid Stimulating Hormone 0.52 uIU/mL (0.32-4.0); Vitamin D 25-OH Total 29.7 ng/mL (>30)
== END 2022-09-12 13:59 | disposition home or self-care (01) ==
LOC: HO.LAB 13:58
PROVIDERS: PCP Internal Medicine; Visit Provider Internal Medicine
DX: E03.9 Hypothyroidism, unspecified (principal); E78.5 Hyperlipidemia, unspecified; E55.9 Vitamin D deficiency, unspecified
CPT/HCPCS: 36415; 82306; 84436; 84443

== ENCOUNTER 2022-09-25 10:36 | Outpatient (REF) | payer MEDICARE, OTHER, SELFPAY ==
--- NOTE | ~2022-09-25 | XR_ITS ---
EXAMINATION: XR CHEST CLINICAL INFORMATION: Squamous cell cancer left lung COMPARISON: Previous chest x-ray most recent October 2021 TECHNIQUE: 2 views of the chest were obtained. FINDINGS: The cardiac and mediastinal contours are stable. There is prominence of the left pulmonary hilum and increased linear perihilar markings. There may be volume loss to the left upper lobe. These findings are similar to previous exam. The lungs are otherwise clear. No pleural effusion or pneumothorax. Degenerative changes of the spine. XR/XR chest 2V IMPRESSION: No evidence for acute disease in the chest. Stable appearance of the left pulmonary hilum/central left upper lobe from prior chest x-ray.
== END 2022-09-25 10:37 | disposition home or self-care (01) ==
LOC: HO.XRAY 10:36
PROVIDERS: PCP Internal Medicine; Visit Provider Internal Medicine Medical Oncology
DX: C34.92 Malignant neoplasm of unspecified part of left bronchus or lung (principal)
CPT/HCPCS: 71046

== ENCOUNTER 2022-10-01 06:17 | Outpatient (REF) | payer MEDICARE, OTHER, SELFPAY ==
[2022-10-01 06:36] LABS: MANUAL DIFF FLAG NO
[2022-10-01 07:25] LABS: Basophils Percent Auto 0.6 % (0-2); Eosinophils Absolute Auto 0.2 X10*3/uL (0.0-0.4); Eosinophils Percent Auto 3.5 % (0-4); Hematocrit 38.5 % (37.0-47.0); Hemoglobin 12.2 g/dl (12.0-16.0); Imm Gran Abs Auto 0.02 X10*3/uL (0.00-0.03); Imm Gran Pct Auto 0.3 % (0.0-0.4); Lymphocytes Absolute Auto 1.2 X10*3/uL (1.2-4.9); Lymphocytes Percent Auto 17.3 % (20-40); Mean Corpuscular HGB Conc 31.7 g/dl (31.0-35.0); Mean Corpuscular Hemoglobin 28.2 pg (27.0-33.0); Mean Corpuscular Volume 88.9 fL (80.0-98.0); Mean Platelet Volume 9.8 fL (9.4-12.3); Monocytes Absolute Auto 0.6 X10*3/uL (0.1-1.2); Monocytes Percent Auto 8.5 % (2-11); Neutrophils Absolute Auto 4.8 x10*3/uL (2.0-8.3); Neutrophils Percent Auto 69.8 % (45-73); Platelet Count 279 X10*3/uL (160-400); Red Blood Count 4.33 X10*6/uL (4.20-5.50); Red Cell Distribution Width 13.3 % (11.0-16.0); White Blood Count 6.9 X10*3/uL (4.8-10.8)
[2022-10-01 08:11] LABS: Alanine Aminotransferase 11 U/L (0-31); Albumin Level 4.1 g/dL (3.5-5.0); Alkaline Phosphatase 75 U/L (39-117); Anion Gap 13 (12-20); Aspartate Amino Transferase 13 U/L (5-31); Bilirubin Total 0.5 mg/dL (0.0-1.0); Blood Urea Nitrogen 9 mg/dL (9-16); Calcium 9.4 mg/dL (8.4-10.2); Carbon Dioxide 29 mmol/L (22-29); Chloride 107 mmol/L (96-108); Cholesterol 155 mg/dL; Estimated Glomerular Filt Rate > 60; Glucose Fasting 97 mg/dL (60-99); HDL Cholesterol 38 mg/dL; LDL Cholesterol Calculated 89 mg/dl; Potassium 4.6 mmol/L (3.3-5.1); Sodium 144 mmol/L (135-145); Total Protein 6.4 g/dL (6.5-8.0); Triglycerides 142 mg/dL
[2022-10-01 08:27] LABS: Thyroid Stimulating Hormone 0.33 uIU/mL (0.32-4.0)
== END 2022-10-01 06:18 | disposition home or self-care (01) ==
LOC: HO.LAB 06:17
PROVIDERS: PCP Internal Medicine; Visit Provider Internal Medicine Medical Oncology
DX: C34.92 Malignant neoplasm of unspecified part of left bronchus or lung (principal); E78.00 Pure hypercholesterolemia, unspecified; R25.1 Tremor, unspecified; E03.9 Hypothyroidism, unspecified
CPT/HCPCS: 36415; 80053; 80061; 84443; 85025

== ENCOUNTER 2022-10-08 09:41 | Outpatient (REF) | payer MEDICARE, OTHER, SELFPAY ==
--- NOTE | ~2022-10-08 | MR_ITS ---
EXAMINATION: MR ABDOMEN WITHOUT AND WITH CONTRAST CLINICAL INFORMATION: Follow-up pancreatic cyst. COMPARISON: 06/28/2022 TECHNIQUE: MR abdomen was performed without and with use of 7.5 mL intravenous Gadavist gadolinium contrast. Postcontrast images are performed in multiphase dynamic sequences. Imaging was performed in 3 planes. MRCP was also performed. FINDINGS: Lung bases: No pleural effusion. Liver: The liver is normal in size and contour. A few hepatic cysts noted but are too small to characterize. No suspicious hepatic lesions. No biliary ductal dilatation. Gallbladder: Gallbladder is contracted but otherwise unremarkable. Pancreas: Pancreatic parenchyma demonstrates normal homogeneous T1 bright precontrast signal in the tail, body, and neck of the pancreas. There is loss of the normal T1 signal in the anterior pancreatic head with associated relative decreased enhancement in this location. Approximate measurements are 4.1 x 3.6 cm, previously 4.0 x 3.3. No dilatation of the main pancreatic duct. There is a stable T2 hyperintense 1.3 x 1.4 cm cystic lesion in the uncinate process. No definite communication with the main pancreatic duct. No abnormal enhancement. Spleen: Not enlarged. Adrenals: No adrenal mass. Kidneys: Kidneys are normal in size, shape, and signal. No suspicious renal mass lesion seen. No hydronephrosis or perinephric edema. MR/MR abdomen wo/w con IMPRESSION: Interval increase in size of 4.1 x 3.6 cm mass in the head of the pancreas. The mass is relatively hypoenhancing. No dilatation of the main pancreatic duct. There is increased central cystic component. Endoscopic ultrasound and biopsy should be considered. Stable cystic lesion in the uncinate process.
== END 2022-10-08 09:42 | disposition home or self-care (01) ==
LOC: HO.MRI 09:41
PROVIDERS: PCP Internal Medicine; Visit Provider Internal Medicine
DX: K86.2 Cyst of pancreas (principal)
CPT/HCPCS: 74183; A9585

== ENCOUNTER 2022-10-12 11:21 | Outpatient (REF) | payer MEDICARE, OTHER, SELFPAY ==
[2022-10-12 15:23] LABS: Free T4 (Free Thyroxine) 1.67 ng/dL (0.71-1.85); Thyroid Stimulating Hormone 0.35 uIU/mL (0.32-4.0)
== END 2022-10-12 11:22 | disposition home or self-care (01) ==
LOC: HO.10HDL 11:21
PROVIDERS: Visit Provider Internal Medicine
DX: E03.9 Hypothyroidism, unspecified (principal)
CPT/HCPCS: 36415; 84439; 84443

== ENCOUNTER 2022-12-18 15:25 | Outpatient (REF) | payer MEDICARE, OTHER, SELFPAY ==
[2022-12-18 15:41] LABS: MANUAL DIFF FLAG NO
[2022-12-18 16:33] LABS: Basophils Percent Auto 0.4 % (0-2); Eosinophils Absolute Auto 0.2 X10*3/uL (0.0-0.4); Hematocrit 39.1 % (37.0-47.0); Hemoglobin 12.2 g/dl (12.0-16.0); Imm Gran Abs Auto 0.03 X10*3/uL (0.00-0.03); Imm Gran Pct Auto 0.4 % (0.0-0.4); Lymphocytes Absolute Auto 1.2 X10*3/uL (1.2-4.9); Lymphocytes Percent Auto 17.8 % (20-40); Mean Corpuscular HGB Conc 31.2 g/dl (31.0-35.0); Mean Corpuscular Hemoglobin 27.9 pg (27.0-33.0); Mean Corpuscular Volume 89.3 fL (80.0-98.0); Mean Platelet Volume 9.9 fL (9.4-12.3); Monocytes Absolute Auto 0.5 X10*3/uL (0.1-1.2); Monocytes Percent Auto 7.8 % (2-11); Neutrophils Absolute Auto 4.8 x10*3/uL (2.0-8.3); Neutrophils Percent Auto 70.6 % (45-73); Platelet Count 300 X10*3/uL (160-400); Red Blood Count 4.38 X10*6/uL (4.20-5.50); Red Cell Distribution Width 13.2 % (11.0-16.0); White Blood Count 6.8 X10*3/uL (4.8-10.8)
[2022-12-18 16:44] LABS: Prothrombin Time 12.4 SEC (11.1-13.3)
[2022-12-18 16:46] LABS: Partial Thromboplastin Time 30.5 SEC (26.0-36.4)
[2022-12-18 17:08] LABS: Alanine Aminotransferase 9 U/L (0-31); Albumin Level 4.2 g/dL (3.5-5.0); Alkaline Phosphatase 71 U/L (39-117); Anion Gap 11 (12-20); Aspartate Amino Transferase 11 U/L (5-31); Bilirubin Total 0.3 mg/dL (0.0-1.0); Blood Urea Nitrogen 11 mg/dL (9-16); Calcium 9.7 mg/dL (8.4-10.2); Carbon Dioxide 30 mmol/L (22-29); Chloride 107 mmol/L (96-108); Estimated Glomerular Filt Rate > 60; Glucose Random 85 mg/dL (60-115); Potassium 4.6 mmol/L (3.3-5.1); Sodium 143 mmol/L (135-145); Total Protein 6.7 g/dL (6.5-8.0)
[2022-12-24 14:49] LABS: Carbohydrate Antigen 19-9 48 U/mL (<34)
== END 2022-12-18 15:26 | disposition home or self-care (01) ==
LOC: HO.LAB 15:25
PROVIDERS: Visit Provider Internal Medicine Medical Oncology
DX: Z01.812 Encounter for preprocedural laboratory examination (principal); C34.92 Malignant neoplasm of unspecified part of left bronchus or lung; C25.0 Malignant neoplasm of head of pancreas
CPT/HCPCS: 36415; 80053; 85025; 85610; 85730; 86301

== ENCOUNTER 2022-12-19 09:52 | Outpatient (AMB) | payer MEDICARE, OTHER, SELFPAY ==
--- NOTE | 2022-12-19 09:58 | MHC.OFFVIS ---
Intake Vital Signs 12/19/22 10:00 Height 5 ft 3 in Weight 160 lb 14.999 oz BMI 28.5 BP 97/49 L Blood Pressure Location Lt brachial Position Sitting Pulse 72 Intake Visit Reasons: 3 month follow up Intake Note: Aziza presents in the office as a 3 month follow up. CC: No concerns today - just would like to hear the report from [facility] biopsy. Allergies No Known Allergies [No Known Allergies*] Allergy (Verified 08/29/22 14:43) HPI HPI Comments History of Present Illness Details 71y.o F with PMH of HTN, HLD who is here to establish care for abd pain. Since Apr of this year has been having upper abdominal pain going from left to right side. This was associated with postprandial nausea and vomiting particularly after fatty food such pizza, chilli etc. Nausea and vomiting has resolved since May however the abd discomfort remains. Abd discomfort gets worse after eating within 10-15 mins. Also gets triggered by etOH. Gets better when she walks around. Pain has also woken her up in the night david in the past few weeks. Was started on Omeprazole 20 BID by PCP but has mostly been taking it once everyday notices some difference david in nausea. No change in appetite, bowel habits unintentional weight loss. Had CT abd pelvis that showed panc cysts and liver cysts. See detailed report below. Follow up MRI was done last week, report pending. Last colo: 2015. x1 diminutive TA at hepatic flexure. MRI Abd 06/28/22: There is loss of the normal T1 signal in the anterior pancreatic head with associated decreased postcontrast enhancement. This is of uncertain etiology and significance. I do not appreciate any pancreatic ductal dilatation or common bile duct dilatation. There are several small T2 bright cysts scattered throughout the pancreatic parenchyma as described above. These could represent sequela of prior pancreatitis. I do not appreciate any suspicious or worrisome features to these small pancreatic cysts but they are difficult to define further due to their tiny size. Clinical correlation would be recommended. The possibility of underlying lesion in this area of probable pancreatitis cannot be excluded but would be considered less likely without significant mass effect on adjacent structures. Continued follow-up to assure stability of these findings would be recommended. If there is more clinical concern, endoscopic ultrasound could be obtained. EGD 07/11/22: Irregular Z line (biopsy) Hiatal hernia Normal stomach (biopsy) Duodenitis (biopsy) Path: A.? Duodenum, biopsy:? Duodenal mucosa within normal limits. B.? Stomach, biopsy:? Antral-type and oxyntic mucosa with mild chronic inactive inflammation; no Helicobacter organisms seen C.? GE junction, biopsy: - Cardiofundic-type mucosa with mild chronic inactive inflammation; no intestinal metaplasia seen. - Squamous mucosa within normal limits. D.? Esophagus, mid, biopsy:? Squamous epithelium within normal limits; no inflammation seen. 08/29/22: No new complaints. Abd discomfort still persistent, david with etOH intake. Feels that also gets bloated and distended with it. Feels better when passes flatulence or has hot fluids such as tea. Moving around also helps. Does not take carbonated beverages or artificial sweeteners. Has been taking omeprazole 20 BID which has helped nausea and vomiting but as above, post prandial abd pain remains. MRI 10/09/22: Pancreas: Pancreatic parenchyma demonstrates normal homogeneous T1 bright precontrast signal in the tail, body, and neck of the pancreas. There is loss of the normal T1 signal in the anterior pancreatic head with associated relative decreased enhancement in this location. Approximate measurements are 4.1 x 3.6 cm, previously 4.0 x 3.3. No dilatation of the main pancreatic duct. There is a stable T2 hyperintense 1.3 x 1.4 cm cystic lesion in the uncinate process. No definite communication with the main pancreatic duct. No abnormal enhancement. 12/19/22: Had interval imaging 10/08/2022 that showed increased in heterogeneity in the head of the pancreas to 4.1 x 3.6 cm without any dilation of PD or CBD. She was [facility] to [facility] for an MELISSA EUS with FNA/FNB (Dr Garcia). Records are not available, however per her report, was noted to have adenocarcinoma. She has reestablish care with Dr. Head and is scheduled for PET scan next week for further staging. Continues to have intermittent abdominal discomfort, especially postprandially. [facility] Medical History Lung cancer Surgical History Hx of colonoscopy History of esophagogastroduodenoscopy (EGD) Social History Household Members: Spouse Alcohol intake: former Patient Tobacco Use Status: Former Tobacco user Review of Systems Const All systems reviewed & are unremarkable except as noted in HPI and below Physical Exam Vital Signs: Last Vital Signs Pulse 72 12/19/22 10:00 BP 97/49 L 12/19/22 10:00 BMI result Body Mass Index 28.5 Gen appear: NAD HEENT: nonicteric, no cervical lymphadenopathy Chest: CTA CVS: Regular S1/S2 Abd: soft, nontender, nondistended, bowel sounds + Ext: no peripheral edema Neuro: A/Ox3, noted to move all extremities spontaneously Psych: interacting appropriately Assessment & Plan Assessment & Plan (1) Generalized postprandial abdominal pain: Code(s): R10.84 - Generalized abdominal pain (2) Abnormal magnetic resonance imaging of abdomen and pelvis: Code(s): R93.5 - Abnormal findings on diagnostic imaging of other abdominal regions, including retroperitoneum Plan Per pt's report, EUS + for adenoca of the pancreas. Based on review of MRI appears to be localised however PET pending. Will also request EUS and path report from [facility]. Pt so far has been coping well with this difficult diagnosis and awaiting further management direction based on staging PET. Her overall treatment plan as per her Oncologist +/- surgeon, however I remain available shall any concerns arise in future. Follow up PRN Coding Level of Care Code Est Pt Level 4 (11358) Diagnoses Generalized postprandial abdominal pain R10.84 Abnormal magnetic resonance imaging of abdomen and pelvis R93.5
[2022-12-19 10:00] VITALS: BP 97/49; PULSE 72; BMI 28.5
== END 2022-12-19 12:52 | disposition home or self-care (01) ==
PROVIDERS: PCP Internal Medicine; Visit Provider Internal Medicine
DX: R10.84 Generalized abdominal pain (principal); R93.5 Abnormal findings on diagnostic imaging of other abdominal regions, including retroperitoneum
CPT/HCPCS: 99214

== ENCOUNTER → 2022-12-19 09:52 | Outpatient (BNVA) | payer MEDICARE, OTHER, SELFPAY | PROVIDERS: PCP Internal Medicine; Visit Provider Internal Medicine | DX: R10.84 Generalized abdominal pain (principal); R93.5 Abnormal findings on diagnostic imaging of other abdominal regions, including retroperitoneum | CPT/HCPCS: 99212 ==

== ENCOUNTER 2023-01-01 09:13 | Outpatient (REF) | payer MEDICARE, OTHER, SELFPAY ==
--- NOTE | ~2023-01-01 | PE_ITS ---
EXAMINATION: Fluorine-18 FDG PET/CT Scan CLINICAL INDICATION: Initial treatment management. Adenocarcinoma of the pancreas. PROCEDURE: 60 minutes following the intravenous administration of 17.5 mCi of fluorine 18 FDG, images from the base of the skull to the mid thighs were obtained using a combined PET/CT scanner with CT scan based attenuation correction. No intravenous contrast was administered. Transverse, coronal, sagittal, and volume reconstruction projections were obtained. The patient's blood glucose as determined by a finger stick, was 90 mg/dl immediately prior to injection. The radiotracer was injected intravenously through the left antecubital superficial vein, without any complications. Total CT exam dose-length product 620.89 mGy-cm * These CT images were obtained using dose optimization techniques as appropriate, variously including the following: Automated exposure control * Adjustment of mA and/or kV according to patient size (this includes techniques or standardized protocols for targeted exams where dose is matched to indication/reason for exam; i.e. extremities or head) * Use of iterative reconstruction technique COMPARISON: CT of the abdomen done on 05/17/2022, MRI of the abdomen done on 06/28/2022 and 10/08/2022. FINDINGS: SUV max REFERENCE: Blood: 3.2 (74/267). Liver: 3.9 (119/267). NECK AND VISUALIZED HEAD: No tracer avid disease. Specifically, no evidence of any cervical lymphadenopathy or soft tissue mass present. THORAX: Mild tracer avidity (SUV max of 3.7-80/267) is noted at left perihilar region corresponding to nonspecific soft tissue fullness/soft tissue mass producing partial obstruction/collapse consolidation of left upper lobe of the lung. A follow-up diagnostic CT scan of the chest with intravenous contrast is recommended for further clarification. Note is also made of nonspecific mild tracer avid partial opacification of the superior segment of left lower lobe of the lung with SUV max of 2.2 (81/267). There are no tracer avid mediastinal, hilar, axillary or internal mammary lymphadenopathy or pleural effusion. Note is made of trace amount of simple appearing no tracer avid pericardial effusion. ABDOMEN AND PELVIS: The index heterogeneous mass involving the head/uncinate process of the pancreas measures approximately 4.0 x 3.4 cm associated with intense tracer avidity with SUV max of 16.9 (146/267). There are no peripancreatic or adjacent retroperitoneal or periportal lymphadenopathy. The pancreatic duct remain decompressed. No definite focal liver, splenic or adrenal disease to suspect metastasis. The appearance of the liver however is slightly heterogeneous. The gallbladder, biliary tree appears unremarkable. The bowel loops are decompressed. There are no retroperitoneal, mesenteric, pelvic and/or groin lymphadenopathy. Atherosclerotic disease of the aorta and is branches without aneurysm formation. MUSCULOSKELETAL: No suspicious focal osseous disease. Multilevel degenerative spondylosis. VASCULAR: Calcific atherosclerotic disease of the aorta and its branches including coronary artery calcifications. THE SITE(S) OF MOST INTENSE FDG AVIDITY AND SUV MAX: The pancreatic mass in the region of the head, uncinate process with SUV max of 16.9. PET/PET CT fusion skull to thigh IMPRESSION: 1. Abnormal study. Intense tracer avidity is noted corresponding to the site of the soft tissue mass measuring approximately 4.0 x 3.4 cm involving the head and uncinate process of the pancreas with SUV max of 16.9. 2. No definite evidence of any regional or metastatic lymphadenopathy. 3. The liver appears somewhat heterogeneous without evidence of any discrete tracer avid disease. 4. Abnormal chest showing evidence of mild tracer avidity at left perihilar region corresponding to the site of nonspecific soft tissue fullness/mass producing partial obstruction and partial collapse consolidation of left upper lobe of the lung with SUV max of 3.7. A follow-up diagnostic contrast enhanced CT scan of the chest is recommended for further clarification. 5. Trace amount of non-tracer avid pericardial effusion.
== END 2023-01-01 09:14 | disposition home or self-care (01) ==
LOC: HO.PET 09:13
PROVIDERS: PCP Internal Medicine; Visit Provider Internal Medicine Medical Oncology
DX: Z13.89 Encounter for screening for other disorder (principal)

== ENCOUNTER 2023-10-01 09:09 | Outpatient (REF) | payer MEDICARE, OTHER, SELFPAY | END 2023-10-01 09:10 | disposition home or self-care (01) | LOC: HO.MAMMO 09:09 | PROVIDERS: PCP Internal Medicine; Visit Provider Internal Medicine | DX: Z12.31 Encounter for screening mammogram for malignant neoplasm of breast (principal) | CPT/HCPCS: 77063; 77067 ==

== ENCOUNTER → 2023-10-01 09:15 | Outpatient (BNV) | payer MEDICARE, OTHER, SELFPAY | PROVIDERS: PCP Internal Medicine; Visit Provider Radiology Diagnostic Radiology | DX: Z12.31 Encounter for screening mammogram for malignant neoplasm of breast (principal) | CPT/HCPCS: 77063; 77067 ==

== ENCOUNTER 2024-08-28 09:27 | Outpatient (AMB) | payer MEDICARE, OTHER, SELFPAY ==
--- NOTE | 2024-08-28 09:27 | MHC.PC.OV ---
Vital Signs 08/28/24 09:35 Height 5 ft 4 in Weight 139 lb BMI 23.9 BP 118/70 Blood Pressure Location Rt brachial Position Sitting Pulse 72 Pulse Source Pulse Oximeter Temp 98.2 F Temp Source Axillary Pulse Oximetry (%) 96 Oxygen Delivery Method Room Air Intake Visit Reasons: Routine Snuff Drier Required: No Accompanied by: Self / Same As Patient Allergies No Known Allergies [No Known Allergies*] Allergy (Verified 08/28/24 09:27) Tobacco use date assessed: 08/28/24 Fall risk assessment: No Falls in past year Last assessed Fall Risk: 08/28/24 Dental Screening Dental Screen Date: 08/28/24 Did you have a dental visit in the last 12 months?: Yes Did you have a dental problem in the last 6 months where you did not have access to dental care?: No HPI HPI Comments History of Present Illness Details 71y.o F with PMH of HTN, HLD, pancreatic adenocarcinoma, lung cancer presenting for follow up. Has not been seen for a few years CV: on statin therapy. Anxiety: On propranolol (tremors), clonazepam. Sees neurology once a year. Dr Weber. Hypothyroid: on levothyroxine Heme/Onc: followed by Dr Head and [facility] -Pancreatic [id number] chemotherapy immunotherapy at [facility] [place]. Radiation 2023. Surgery November 05 2023-[facility]. q3 months cat scans -Lung cancer-in remission -Follows GI Dr Lehman for upper endoscopy Mammo: UTD ROS CONSTITUTIONAL: Denies weight loss, fever and chills. HEENT: Denies changes in vision and hearing. RESPIRATORY: Denies SOB and cough. CV: Denies palpitations and CP GI: Denies abdominal pain, nausea, vomiting and diarrhea. : Denies dysuria and urinary frequency. MSK: Denies new myalgia and joint pain. SKIN: Denies rash and pruritus. NEUROLOGICAL: Denies headache PSYCHIATRIC: Denies recent changes in mood. PHYSICAL EXAM: GENERAL: Alert and oriented x 3. NAD EYES: EOMI. Anicteric. HENT: Moist mucous membranes. No scleral icterus. No cervical lymphadenopathy. LUNGS: Clear to auscultation bilaterally. CARDIOVASCULAR: Regular rate and rhythm. No murmur. No JVD. ABDOMEN: Soft, non-tender +bs EXTREMITIES: No edema. Non-tender. SKIN: No rashes or lesions. Warm. NEUROLOGIC: No focal neurological deficits. CN II-XII grossly intact PSYCHIATRIC: Cooperative. Appropriate mood and affect [facility] Medical History Lung cancer Surgical History Hx of colonoscopy History of esophagogastroduodenoscopy (EGD) Family History Mother No problems noted. Father No problems noted. Social History Household Members: Spouse Housing: House Alcohol intake: former Patient Tobacco Use Status: Former Tobacco user e-Cigarette/Vaping Use: Former Use service: No Current occupational status: retired Cognitive needs: No Hearing needs: No Vision needs: Yes (reading glasses) Questionnaire PHQ-9 Over the last 2 weeks, how often have you been bothered by any of the following problems? 1. Little interest or pleasure in doing things: not at all 2. Feeling down, depressed, or hopeless: not at all 3. Trouble falling or staying asleep, or sleeping too much: not at all 4. Feeling tired or having little energy: not at all 5. Poor appetite or overeating: not at all 6. Feeling bad about yourself - or that you are a failure or have let yourself or your family down: not at all 7. Trouble concentrating on things, such as reading the newspaper or watching television: not at all 8. Moving or speaking so slowly that other people could have noticed. Or the opposite - being so fidgety or restless that you have been moving around a lot more than usual: not at all 9. Thoughts that you would be better off or of hurting yourself in some way: not at all Total score: 0 Depression Screening Interpretation: Negative Depression Screening Done: Yes [id number] - PHQ-9 Billing: Yes Source: Developed by Drs. Vimal Quiroz, Gaviota Chairez, Calin Flowers and colleagues, with an educational jaiden from [employer]. Thrive Questionnaire Date Thrive assessed: 08/28/24 I am a: Patient Within the past 12 months, did the food you bought not last and you didn't have the money to get more?: Never true Within the past 12 months, did you worry whether your food would run out before you got money to buy more?: Never true Do you have trouble paying for medicines?: No Do you have trouble getting transportation to medical appointments?: No Do you have trouble paying your heating and electricity bill?: No Do you have trouble taking care of your child, family member or friend?: No Do you have trouble with day-to-day activities such as bathing, preparing meals, shopping, managing finances, etc.?: No Are you currently unemployed and looking for a job?: No THRIVE Score: 0 AUDIT C Alcohol Use Questionnaire (AUDIT-C) 1. How often do you have a drink containing alcohol?: Monthly or less 3. How often do you have six or more drinks on one occasion?: Less than monthly Total Score: 2 ASHELY-7 AMB Questionnaire ASHELY-7 Date ASHELY - 7 assessed: 08/28/24 Feeling nervous, anxious, or on edge: 0 = Not at all Not being able to stop or control worryin = Not at all Worrying too much about different things: 0 = Not at all Trouble relaxin = Not at all Being so restless that it is hard to sit still: 0 = Not at all Becoming easily annoyed or irritable: 0 = Not at all Feeling afraid as if something awful might happen: 0 = Not at all Total ASHELY-7 score (0-4 normal; 5-9 mild; 10-14 moderate; 15-21 severe): 0 Source: Developed by Drs. Vimal Quiroz, Gaviota Chairez, Calin Flowers and colleagues, with an educational jaiden from [employer]. Physical exam (Primary Care) Vital Signs: Last Vital Signs Temp 98.2 F 08/28/24 09:35 Pulse 72 08/28/24 09:35 BP 118/70 08/28/24 09:35 Pulse Ox 96 08/28/24 09:35 Oxygen Delivery Method Room Air 08/28/24 09:35 BMI result Body Mass Index 23.9 Tobacco/Smoking Status: Tobacco use Status Tobacco use date assessed 08/28/24 08/28/24 09:30 Patient Tobacco Use Status Former Tobacco user 08/28/24 09:30 e-Cigarette/Vaping Use Former Use 08/28/24 09:41 PHQ-9: PHQ-9 Score PHQ-9: Total score 0 08/28/24 09:40 Depression Screening Interpretation: Negative Thrive Assessment: Date of Thrive Assessment Date Thrive assessed 08/28/24 08/28/24 09:32 Coding Level of Care Code New Pt Level 4 (43971) Complex EM visit Add On G2211 Diagnoses Hypothyroidism, unspecified type E03.9 Hypothyroidism type: unspecified Elevated glucose R73.09 Generalized postprandial abdominal pain R10.84 Pancreatic mass K86.89 Additional Codes PHQ-9 - 95136 - PHQ-9 Billing: Yes ([id number]) Assessment & Plan Assessment & Plan (1) Hypothyroid: Code(s): E03.9 - Hypothyroidism, unspecified Category: Medical Qualifiers: Hypothyroidism type: unspecified Qualified Code(s): E03.9 - Hypothyroidism, unspecified (2) Elevated glucose: Code(s): R73.09 - Other abnormal glucose Category: Medical (3) Generalized postprandial abdominal pain: Code(s): R10.84 - Generalized abdominal pain Category: Medical (4) Pancreatic mass: Code(s): K86.89 - Other specified diseases of pancreas Category: Medical Plan 73 year old female to establish care Past medical, surgical, social reviewed Labs ordered. Mammo ordered Orders: Orders Hemoglobin A1c 08/28/24 E03.9 - Hypothyroidism, unspecified, R73.09 - Other abnormal glucose TSH reflex Free T4 08/28/24 E03.9 - Hypothyroidism, unspecified, R73.09 - Other abnormal glucose MM screening mammo BI 08/28/24 Z12.31 - Encounter for screening mammogram for malignant neoplasm of breast
[2024-08-28 09:35] VITALS: BP 118/70; PULSE 72; TEMP 36.8; O2SAT 96; BMI 23.9
--- OUTSIDE RECORDS SUMMARY | 2024-08-28 09:38 | XMS_ITS | Clinical Summary ---
Author Organization [facility] Address [address] [place] [address] Care Team Providers Care Barrel Scraper Name Role Phone Florentino Medeiros Primary Care Provider [phone] Allergies No known active allergies Medications atorvastatin (LIPITOR) 20 mg tablet Take 20 mg by mouth. 3 7 Active clonazePAM (KlonoPIN) 1 mg tablet Take 1 mg by mouth nightly. 5 7 Active levothyroxine (SYNTHROID, LEVOTHROID) 112 mcg tablet Take 112 mcg by mouth. 3 8 Active propranolol LA (INDERAL LA) 80 mg capsule Take 80 mg by mouth. 5 8 Active gabapentin (NEURONTIN) 100 mg capsule 100 mg as needed. 3 Active betamethasone, augmented, (DIPROLENE) 0.05 % lotion Apply topically to the affected area as needed. 2 Active simethicone (MYLICON) 80 mg chewable tablet SMARTSI Tablet(s) By Mouth 2-4 Times Daily PRN 3 Active Active Problems Problem Noted Date Diagnosed Date Pancreatic cyst 11/26/2022 Hypothyroidism 11/26/2022 Familial tremor 11/26/2022 Overview (11/26/2022): Per patient, neck and head Hyperlipidemia 11/26/2022 Squamous cell carcinoma of left lung 04/29/2017 Cancer Staging:Clinical:Stage Unknown(cTX, cN3, cM0) - Signed by Vahe Bull MD on 04/29/2017 Pathologic stage from 04/29/2017:Stage Unknown(pTX, pN3, cM0) - Signed by Vahe Bull MD on 04/29/2017 Family History Medical History Relation Name Comments Myocardial Infarction Father Heart failure Mother Hyperlipidemia Mother Relation Name Status Comments Father Mother Social History Tobacco Use Types Packs/Day Years Used Date Smoking Tobacco: Former Cigarettes 0.8 40 Smokeless Tobacco: Never Alcohol Use Standard Drinks/Week Comments Not Currently 0 (1 standard drink = 0.6 oz pure alcohol) previously drank 7-10 drinks weekly Comments No Sex and Gender Information Value Date Recorded Sex Assigned at Not on file Legal Sex Female 10:17 AM EST Gender Identity Not on file Sexual Orientation Not on file Last Filed Vital Signs Vital Sign Reading Time Taken Comments Blood Pressure 103/68 12/06/2022 1:35 PM EDT Pulse 82 12/06/2022 1:35 PM EDT Temperature 36.4 ??C (97.5 ??F) 12/06/2022 1:05 PM ED T Respiratory Rate 22 12/06/2022 1:35 PM EDT Oxygen Saturation 99% 12/06/2022 1:35 PM EDT Inhaled Oxygen Concentration - - Weight 73 kg (161 lb) 12/06/2022 10:17 AM EDT Height 162.6 cm (5' 4 ) 12/06/2022 10:17 AM EDT Body Mass Index 27.64 12/06/2022 10:17 AM EDT Plan of Treatment Health Maintenance Due Date Last Done Comments Cologuard 1950 Colon Cancer Screening 1950 Colonoscopy 1950 FOBT / Fit Test 1950 Sigmoidoscopy 1950 DTaP,Tdap,and Td Vaccines (1 - Tdap) 10/02/1973 CT Lung Cancer Screening (Baseline) 10/02/2001 Osteoporosis Screening 10/02/2001 Pneumococcal Vaccine: 50+ Years (1 of 1 - PCV) 10/02/2001 Zoster Vaccines (1 of 2) 10/02/2001 COVID-19 Vaccine ( - 2023-2 5 season) 2023 03/14/2021, 06/28/2020, 05/31/2020 Alcohol/Substance Use Screening 04/08/2024 Health Care Proxy Review 04/08/2024 Influenza Vaccine (Season Ended) 2024 RSV Vaccine (60+ years old a nd patients) (1 - 1-dose 75+ series) 10/02/2026 Hepatitis B Vaccines Aged Out No long er eligible based on patient's age to complete this topic Insurance MEDICARE [facility] Care Teams Barrel Scraper Relationship Specialty Start Date End Date Florentino Medeiros [address] [place] [address] [place] [address] PCP - General Internal Medicine 04/25/17
== END 2024-08-28 10:06 | disposition home or self-care (01) ==
LOC: HO.HMCHD 09:28
PROVIDERS: PCP Internal Medicine; Visit Provider Internal Medicine
DX: E03.9 Hypothyroidism, unspecified (principal); R73.09 Other abnormal glucose; R10.84 Generalized abdominal pain; K86.89 Other specified diseases of pancreas

== ENCOUNTER → 2024-08-28 09:27 | Outpatient (BNVA) | payer MEDICARE, OTHER, SELFPAY | PROVIDERS: PCP Internal Medicine; Visit Provider Internal Medicine | DX: Z13.89 Encounter for screening for other disorder (principal) | CPT/HCPCS: 96127; 99202 ==

== ENCOUNTER 2024-08-28 10:42 | Outpatient (REF) | payer MEDICARE, OTHER, SELFPAY ==
[2024-08-28 14:14] LABS: Estimated Average Glucose 111 mg/dL; Hemoglobin A1c % 5.5 % (<6.0); Total Hemoglobin (HGBA1C) 3014.5232 umol/L
[2024-08-28 14:28] LABS: TSH reflex Free T4 0.04 uIU/mL (0.32-4.0)
[2024-08-28 15:11] LABS: Free T4 (Free Thyroxine) 1.57 ng/dL (0.71-1.85)
== END 2024-08-28 10:43 | disposition home or self-care (01) ==
LOC: HO.10HDL 10:42
PROVIDERS: Visit Provider Internal Medicine
DX: E03.9 Hypothyroidism, unspecified (principal); R73.09 Other abnormal glucose; I10 Essential (primary) hypertension; E78.5 Hyperlipidemia, unspecified; R10.84 Generalized abdominal pain; K86.89 Other specified diseases of pancreas; Z85.118 Personal history of other malignant neoplasm of bronchus and lung; Z85.07 Personal history of malignant neoplasm of pancreas
CPT/HCPCS: 36415; 83036; 84439; 84443; 96127; 99202

== ENCOUNTER 2024-10-13 09:45 | Outpatient (REF) | payer MEDICARE, OTHER, SELFPAY ==
--- OUTSIDE RECORDS SUMMARY | 2024-08-18 05:30 | XMS_ITS ---
Author Organization Vimal Head III, MD Address [address] [facility] [place] [address] Care Team Providers Care Front Desk Coordinator Name Role Phone Mindy Saunders Primary Care Provider Vimal Rutledge [phone] Allergies Allergen (clinical drug ingredient) Drug/Non Drug [...] EVERY DAY AT BEDTIME Oral Active Creon 91137-314726 UNIT TAKE 1 CAPSULE ( 36,000 UNITS [...] Date Provider Diagnosis Vimal Head III, MD [address] [place] [address] [place] [address] 08/18/2024 Vimal Head Malignant neoplasm o f [...] oxaliplatin. A resection was then attempted at [facility] but the tumor was inoperable. She was then treated aggressively with intraoperative radiation therapy. She then received adjuvant chemotherapy at [facility] in [facility]. She has finished her treatment at [...] MOUTH EVERY DAY AT BEDTIME Oral Creon 97355-975944 UNIT TAKE 1 CAPSULE ( 36,000 UNITS OF LIPASE TOTAL) BY MOUTH 3 (THREE) TIMES A DAY WITH MEALS. Oral Omeprazole 20 MG 1 capsule 1/2 to 1 h our before morning meal Orally Once a day 08/18/2024 Next Appt Details Follow Up: 3 Months, Reason: OV Provider Name:Vimal Head, 11/18/2024 09:30:00 AM, [address] [place] [address] [place], [address], Progress Notes * SYDNIE BOLANOSDOB:1950 ([age] yo F)Acc No.[id number]:08/18/2024 Progress Notes Patient: SYDNIE CARVALHO Provider: Akua Head MD :1950 A ge:73 Y S ex:Female Date:08/18/2024 Address:[address] [place], [place] [id number] Pcp:Mindy Saunders Subjective: * Chief Complaints: * S tage IIIA non-small cell lung cancer in remissionPancreatic cancer, undergoing therapyHypothyroidism * HPI: C OVID-19 Screening: S he returns for medical management of numerous issues. She has been treated at [facility] for inoperable cancer of the pancreas [...] an appointment with Dr. Lehman, gastroenterology at [facility], for an upper endoscopy. She is taking omeprazole from the faculty physician. Her last chemotherapy was in June of [...] Hospitalization/Major Diagno stic Procedure: H ospitalized at [facility] for surgery on november 0410/2023 * Family [...] x-cigarette smoker S he was born in [place], [place]. She has been to Morteza, who she calls [employer], since 1974. They are both retired school teachers. They have 2 children, Sofía and Angélica, and 2 grandchildren. They live in [place]. She began smoking at the age of [...] MOUTH EVERY DAY AT BEDTIME Oral Creon 55048-157779 UNIT Capsule Delayed Release Particles TAKE 1 [...] EVERY DAY AT BEDTIME Oral Taking Creon [id number] UNIT Capsule Delayed Release Particles TAKE 1 [...] oxaliplatin. A resection was then attempted at [facility] but the tumor was inoperable. She was then treated aggressively with intraoperative radiation therapy. She then received adjuvant chemotherapy at [facility] in [facility]. She has finished her treatment at [...] her treatment is done. 6 . F gutierrez smoker - Z87.891 N otes :She seems [...] 0 08/18/2024 Generated for Cheyennei alonzo/Jesusita/eTransmitting on: 0 10/13/2024 10:19 AM EDT History and Physical Notes * HPI [...]
--- OUTSIDE RECORDS SUMMARY | 2024-10-13 10:19 | XMS_ITS | Clinical Summary ---
Author Organization [facility] Address [address] [place] [address] Care Team Providers Care Rebar Bender Name Role Phone Florentino Medeiros Primary Care Provider [phone] Allergies No known active allergies Medications atorvastatin [...] 82 12/06/2022 1:35 PM EDT Temperature 36.4 C (97.5 F) 12/06/2022 1:05 PM EDT Respiratory Rate 22 12/06/2022 1:35 PM EDT [...] Health Care Proxy Review 04/08/2024 Influenza Vaccine (#1) 2024 RSV Vaccine (60+ years old a nd patients) (1 - 1-dose 75+ series) 10/02/2026 Hepatitis B Vaccines Aged Out No long er eligible based on patient's age to complete this topic Insurance MEDICARE [facility] Care Teams Rebar Bender Relationship Specialty Start Date End Date Florentino Medeiros [address] [place] [address] [place] [address] PCP - General Internal Medicine 04/25/17
--- OUTSIDE RECORDS SUMMARY | 2024-10-13 10:19 | XMS_ITS | Patient Health Record ---
Author Organization [facility] Address [address] [facility] [place] [address] Care Team Providers Care Transportation Superintendent Name Role Phone Florentino Medeiros MD Primary Care Provider Emekaa Andrea Peterson Unavailable [phone] Reason For Referral No Information Medications Medication SIG (Take, Route, Frequency, Duration) Notes Start Date End Date Status Levothyroxine Sodium 112 MCG 1 tablet ev fei morning on an empty stomach Orally Once a day; Duration: 30 day(s) Active Propranolol HCl 80 MG 1 tablet Orally Tw ice a day; Duration: 30 day(s) Active Lipitor 10 MG 1 tablet Orally Once a day; Duration: 30 day(s) Active clonazePAM 1 MG 1 tablet at bedtime Orally Once a day Active Problems Problem Type SNOMED Code ICD Code Onset Dates Problem Status W/U Status Risk Notes Problem Hallux Valgus (735.0) Active confirmed Plan Of Treatment No Information Insurance Providers Payer Name Payer Address Payer Phone Subscriber Number Group Number Insured Name Patient Relationship to Insured Coverage Start Date Coverage End Date [facility] [address] [facility] [place] [id number] Aziza Bolanos Self - patient is the insured Medical (General) History Medical History History ICD Code Cholesterol thyroid disorder joint implants/screws Surgical History Surgery Date(Month/Year) throat polyp removed 2008
== END 2024-10-13 09:46 | disposition home or self-care (01) ==
LOC: HO.MAMMO 09:45
PROVIDERS: Visit Provider Internal Medicine
DX: Z12.31 Encounter for screening mammogram for malignant neoplasm of breast (principal)
CPT/HCPCS: 77063; 77067

== ENCOUNTER → 2024-10-13 10:00 | Outpatient (BNV) | payer MEDICARE, OTHER, SELFPAY | PROVIDERS: Visit Provider Radiology Body Imaging | DX: Z12.31 Encounter for screening mammogram for malignant neoplasm of breast (principal) | CPT/HCPCS: 77063; 77067 ==

== ENCOUNTER → 2024-12-17 11:00 | Outpatient (BNV) | payer MEDICARE, OTHER, SELFPAY | PROVIDERS: PCP Internal Medicine; Visit Provider Radiology Diagnostic Radiology | DX: E28.39 Other primary ovarian failure (principal) | CPT/HCPCS: 77080 ==

== ENCOUNTER 2024-12-17 11:02 | Outpatient (REF) | payer MEDICARE, OTHER, SELFPAY ==
--- OUTSIDE RECORDS SUMMARY | 2024-02-19 05:30 | XMS_ITS ---
Author Organization Vimal Head III, MD Address [address] [place] [address] Care Team Providers Care Bank Representative Name Role Phone CarterMindy Lott ([place]) Primary Care Provider Un available Vimal Head Unavailable [phone] Allergies Allergen (clinical drug ingredient) Drug/Non Drug Allergy documented on EMR Reaction Allergy Type Onset Date Status No Known Drug Allergy Unknown Drug Allergy Active REASON FOR VISIT History of stage III non-small cell lung cancer Medications Medication SIG (Take, Route, Frequency, Duration) Notes Start Date End Date Status Creon [id number] UNIT TAKE 1 CAPSULE ( 36,000 UNITS [...] Date Provider Diagnosis Vimal Head III, MD [address] [place] [address] [place] [address] 02/19/2024 Vimal Head Malignant neoplasm o f [...] oxaliplatin. A resection was then attempted at [facility] but the tumor was inoperable. She was then treated aggressively with intraoperative radiation therapy. She is now receiving adjuvant chemotherapy at [facility] in [facility]. 02/19/2024 Former smoker (ICD-10 - Z87.891) [...] Sig Start Date Stop Date Notes Creon 97806-207805 UNIT TAKE 1 CAPSULE ( 36,000 UNITS [...] OV, Follow-up for pancreatic tumor Provider Name:Vimal Head, 03/23/2025 10:00:00 AM, [address] [place] [address], [place] [address], [place], [address], Progress Notes * SYDNIE BOLANOSDOB:1950 ([age] yo F)Acc No.[id number]:02/19/2024 Progress Notes Patient: SYDNIE CARVALHO Provider: Akua Head MD :1950 A ge:73 Y S ex:Female Date:02/19/2024 Address:[address] [place], [place] [address] Pcp:Florentino Medeiros MD Subjective: * Chief Complaints: [...] a pancreatic tumor on November 04 at [facility]. The tumor was involved with her vascular [...] Hospitalization/Major Diagno stic Procedure: H ospitalized at [facility] for surgery on november 0410/2023 * Family [...] x-cigarette smoker S he was born in [place], [place]. She has been to Morteza, who she calls H[place]kster, since 1974. They are both retired school teachers. They have 2 children, Sofía and Angélica, and 2 grandchildren. They live in [place]. She began smoking at the age of [...] MOUTH EVERY DAY AT BEDTIME Oral Not-Taking/PRNCreon [id number] UNIT Capsule Delayed Release Particles TAKE 1 CAPSULE (36,000 UNITS OF LIPASE TOTAL) BY MOUTH 3 (THREE) TIMES A DAY WITH MEALS. Oral Medication List reviewed and reconciled with the patientNot-Taking/PRN Creon [id number] UNIT Capsule Delayed Release Particles TAKE 1 [...] oxaliplatin. A resection was then attempted at [facility] but the tumor was inoperable. She was then treated aggressively with intraoperative radiation therapy. She is now receiving adjuvant chemotherapy at [facility] in [facility]. 2 . F ormer smoker - [...] Date: 04/20/2023 Generated for Cheyennei ng/Jesusita/eTransmitting on: 0 12/17/2024 03:15 PM EDT History and Physical Notes * HPI (History [...]
--- OUTSIDE RECORDS SUMMARY | 2024-08-18 05:30 | XMS_ITS ---
Author Organization Vimal Head III, MD Address [address] [place] [address] Care Team Providers Care Ehs Engineer Name Role Phone CarterMindy Lott ([place]) Primary Care Provider Un available Vimal Head Unavailable [phone] Allergies Allergen (clinical drug ingredient) Drug/Non Drug [...] EVERY DAY AT BEDTIME Oral Active Creon 55502-745013 UNIT TAKE 1 CAPSULE ( 36,000 UNITS [...] Date Provider Diagnosis Vimal Head III, MD [address] [place] [address] [place] [address] 08/18/2024 Vimal Head Malignant neoplasm o f [...] oxaliplatin. A resection was then attempted at [facility] but the tumor was inoperable. She was then treated aggressively with intraoperative radiation therapy. She then received adjuvant chemotherapy at [facility] in [facility]. She has finished her treatment at [...] MOUTH EVERY DAY AT BEDTIME Oral Creon 61259-071890 UNIT TAKE 1 CAPSULE ( 36,000 UNITS OF LIPASE TOTAL) BY MOUTH 3 (THREE) TIMES A DAY WITH MEALS. Oral Omeprazole 20 MG 1 capsule 1/2 to 1 h our before morning meal Orally Once a day 08/18/2024 Next Appt Details Follow Up: 3 Months, Reason: OV Provider Name:Vimal Head, 03/23/2025 10:00:00 AM, [address] [place] [address], [address], Progress Notes * SYDNIE BOLANOSDOB:1950 ([age] yo F)Acc No.[id number]:08/18/2024 Progress Notes Patient: SYDNIE CARVALHO Provider: Akua Head MD :1950 A ge:73 Y S ex:Female Date:08/18/2024 Address:[address] [place], [place] [id number] Pcp:Mindy Saunders Subjective: * Chief Complaints: * S tage IIIA non-small cell lung cancer in remissionPancreatic cancer, undergoing therapyHypothyroidism * HPI: C OVID-19 Screening: S he returns for medical management of numerous issues. She has been treated at [facility] for inoperable cancer of the pancreas with [...] an appointment with Dr. Lehman, gastroenterology at [facility], for an upper endoscopy. She is taking omeprazole from the road engineer freight. Her last chemotherapy was in June of [...] Hospitalization/Major Diagno stic Procedure: H ospitalized at [facility] for surgery on november 0410/2023 * [...] x-cigarette smoker S he was born in [place], [place]. She has been to Morteza, who she calls [employer], since 1974. They are both retired school teachers. They have 2 children, Sofía and Angélica, and 2 grandchildren. They live in [place]. She began smoking at the age of [...] MOUTH EVERY DAY AT BEDTIME Oral Creon 93317-122643 UNIT Capsule Delayed Release Particles TAKE 1 [...] EVERY DAY AT BEDTIME Oral Taking Creon 89334-031668 UNIT Capsule Delayed Release Particles TAKE 1 [...] oxaliplatin. A resection was then attempted at [facility] but the tumor was inoperable. She was then treated aggressively with intraoperative radiation therapy. She then received adjuvant chemotherapy at [facility] in [facility]. She has finished her treatment at [...] MD Date: 0 08/18/2024 Generated for Cheyennei ng/Jesusita/eTransmitting on: 0 12/17/2024 [...]
--- OUTSIDE RECORDS SUMMARY | 2024-11-18 05:45 | XMS_ITS ---
Author Organization Vimal Head III, MD Address [address] [place] [address] Care Team Providers Care Gas Meter Installer Name Role Phone CarterMindy Lott ([place]) Primary Care Provider Un available Vimal Head Unavailable [phone] Allergies Allergen (clinical drug ingredient) Drug/Non Drug [...] BY MOUTH EVERY DAY Oral Active Creon [id number] UNIT TAKE 1 CAPSULE ( 36,000 UNITS [...] Provider Diagnosis Vimal Head III, MD [address] [place] [address] [place] [address] 11/18/2024 Vimal Head Malignant neoplasm o f [...] oxaliplatin. A resection was then attempted at [facility] but the tumor was inoperable. She was then treated aggressively with intraoperative radiation therapy. She then received adjuvant chemotherapy at [facility] [...] TABLET BY MOUTH EVERY DAY Oral Creon [id number] UNIT TAKE 1 CAPSULE ( 36,000 UNITS [...] Up: 3 Months, Reason: ov Provider Name:Vimal Head, 03/23/2025 10:00:00 AM, [address] [place] [address] [address], [place], [address], Progress Notes * SYDNIE BOLANOSDOB:1950 ([age] yo F)Acc No.[id number]:11/18/2024 Progress Notes Patient: SYDNIE CARVALHO Provider: Akua Head MD :1950 A ge:74 Y S ex:Female Date:11/18/2024 Address:[address] [place] [address], [place] [id number] Pcp:Mindy Saunders ([place]) Subjective: * Chief Complaints: * 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 Since her last visit she had an upper endoscopy at [facility] by Dr. Lehman who told her [...] Diagno stic Procedure: H ospitalized at [facility] for surgery on november 0410/2023 * Family [...] x-cigarette smoker S he was born in [place], [place]. She has been to Morteza, who she calls Downstream, since 1974. They are both retired school teachers. They have 2 children, Sofía and Angélica, and 2 grandchildren. They live in [place]. She began smoking at the age of [...] MOUTH EVERY DAY AT BEDTIME Oral Creon 29367-164017 UNIT Capsule Delayed Release Particles TAKE 1 [...] EVERY DAY AT BEDTIME Oral Taking Creon 21102-369141 UNIT Capsule Delayed Release Particles TAKE 1 [...] oxaliplatin. A resection was then attempted at [facility] but the tumor was inoperable. She was then treated aggressively with intraoperative radiation therapy. She then received adjuvant chemotherapy at [facility] [...] true * Provider: Akua Head MD Date: 11/18/2024 Generated for Chanelle rosado/Jesusita/Jaswinderitting on: 0 12/17/2024 03:18 PM EDT History and Physical Notes * [...]
--- OUTSIDE RECORDS SUMMARY | 2024-11-26 07:38 | XMS_ITS ---
Author Organization Vimal Head III, MD Address [address] [place] [address] Care Team Providers Care Trial Attorney Name Role Phone Mindy Saunders ([place]) Primary Care Provider Un available Vimla Head Unavailable [phone] REASON FOR VISIT Rx Request Medications Medication SIG (Take, Route, Frequency, Duration) Notes Start Date End Date Status Ciprofloxacin HCl 250 MG 1 tablet Orally every 12 hrs for 7 days 11/26/2024 12/03/2024 Active Social History Sex Assigned At : Social History Observation Description Sex Assigned At Female Encounters Encounter Location Date Provider Diagnosis Vimal Head III, MD [address] [place] [address] [place] [address] 11/26/2024 Vimal Head Plan Of Treatment Medication Medication Name Sig Start Date Stop Date Notes Ciprofloxacin HCl 250 MG 1 tablet Orally every 12 hrs for 7 days 11/26/2024 12/03/2024 Next Appt Details Provider Name:Vimal Head, 03/23/2025 10:00:00 AM, [address] [place] [address] [place], [address], Progress Notes * LEYLA BOLANOS:1950 ([age] yo F)Acc No.[id number]:11/26/2024 Patient: SYDNIE CARVALHO :1950 A ge:74 Y S ex:Female Address:[address] [place] [address], [place], [address] * Refills Start Ciprofloxacin HCl Tablet, 250 MG, Orally, 14 Tablet, 1 tablet, every 12 hrs, 7 days, Refills=0 * true * Date: Generated for Chanelle rosado/Jesusita/Luciasmitting on: 0 12/17/2024 03:13 PM EDT
--- OUTSIDE RECORDS SUMMARY | 2024-11-26 11:59 | XMS_ITS ---
Author Organization Vimal Head III, MD Address [address] [facility] [place] [address] Care Team Providers Care Connie Cleaner Name Role Phone Mindy Saunders ([place]) Primary Care Provider Un available Vimal Head Unavailable [phone] REASON FOR VISIT Rx Request Medications Medication SIG (Take, Route, Frequency, Duration) Notes Start Date End Date Status Ciprofloxacin HCl 250 MG 1 tablet Orally every 12 hrs for 7 days 11/26/2024 12/03/2024 Active Social History Sex Assigned At : Social History Observation Description Sex Assigned At Female Encounters Encounter Location Date Provider Diagnosis Vimal Head III, MD [address] [place] [address] [place] [address] 11/26/2024 Vimal Head Plan Of Treatment Medication Medication Name Sig Start Date Stop Date Notes Ciprofloxacin HCl 250 MG 1 tablet Orally every 12 hrs for 7 days 11/26/2024 12/03/2024 Next Appt Details Provider Name:Vimal Head, 03/23/2025 10:00:00 AM, [address] [place] [address] [place], [address], Progress Notes * LEYLA BOLANOS:1950 ([age] yo F)Acc No.[id number]:11/26/2024 Patient: SYDNIE CARVALHO :1950 A ge:74 Y S ex:Female Address:[address] [place] [address], [place], [address] * Refills Start Ciprofloxacin HCl Tablet, 250 MG, Orally, 14 Tablet, 1 tablet, every 12 hrs, 7 days, Refills=0 * true * Date: Generated for Chanelle rosado/Jesusita/Luciasmitting on: 0 12/17/2024 03:20 PM EDT
--- NOTE | ~2024-12-17 | MM_ITS ---
EXAMINATION: DXA BONE DENSITY AXIAL HISTORY: Z78.0 TECHNIQUE: [employer] Dual energy absorptiometry (DEXA) of the lumbar spine, total left hip, and femoral neck was performed. COMPARISON: Comparison is made with the prior examination dated 03/03/2019. FINDINGS: The bone mineral density of the lumbar spine is 1.335 g/cm2, corresponding to a T-score of 1.4, and a Z-score of 3.1. This is indicative of normal bone mineral density. This represents a BMD change of 4.1% compared to the prior exam. This is not statistically significant. The bone mineral density of the left total hip is 0.947 g/cm2, corresponding to a T-score of -0.5, and a Z-score of 1.1. This is indicative of normal bone mineral density. This represents a BMD change of 9.2% compared to the prior exam. This is statistically significant. The bone mineral density of the left femoral neck is 0.844 g/cm2, corresponding to a T-score of -1.4, and a Z-score of 0.4. This is indicative of osteopenia. This represents a BMD change of 5.9% compared to the prior exam. FRACTURE RISK: The FRAX index suggests a ten year probability of major osteoporotic fracture of 10.6%, and of hip fracture 1.8%. MM/XR DEXA axial skeleton IMPRESSION: Based on bone mineral density, and according to World Health Organization (WHO) criteria, the diagnosis is consistent with osteopenia. Statistically, 68% of repeat scans fall within 1 SD (+/- 0.010 g/cm2 for AP spine L1-L4) and 1 SD (+/- 0.012 g/cm2 for femur total) FRAX is a trademark of the [employer]'s [employer] Met[employer], a World Health Organization (WHO) Collaborating Center. Electronically signed by: Vimal Rosas MD 12/17/2024 11:33 AM EDT
--- OUTSIDE RECORDS SUMMARY | 2024-12-17 15:13 | XMS_ITS | Encounter Summary ---
Author Organization [facility] Address [address] [place] [address] Care Team Providers Care Generating Station Mechanic Name Role Phone Mindy Saunders MD Primary Care Provider [phone] Encounter Details Date Type Department Care Team (Latest Contact Info) Description 12/15/2024 Lab Requisition [facility] - Main Lab [address] [facility] [place] [address] Kameron Evans MD [address] [address] Encounter for gynecological examination (general) (routine) without abnormal findings Social History Tobacco Use Types Packs/Day Years Used Date Smoking Tobacco: Never Assessed Comments Unknown Sex and Gender Information Value Date Recorded Sex Assigned at Not on file Legal Sex Female 11:00 PM EST Gender Identity Not on file Sexual Orientation Not on file documented as of this encounter Plan of Treatment Pending Results Name Type Priority Associated Diagnoses Date /Time Pap smear Pathology and Cytology Routine Encounter for gynecological examination (general) (routine) without abnormal findings 12/14/2024 12:00 AM EDT documented as of this encounter Visit Diagnoses Diagnosis Encounter for gynecological examination (general) (routine) without abnormal findings documented in this encounter Care Teams Generating Station Mechanic Relationship Specialty Start Date End Date Mindy Saunders MD [address] [place] [phone] PCP - General Internal Medicine 12/15/24 documented as of this encounter
--- OUTSIDE RECORDS SUMMARY | 2024-12-17 15:13 | XMS_ITS | Clinical Summary ---
Author Organization [facility] Address [address] [place] [address] Phone Care Team Providers Care Casino Runner Name Role Phone Mindy Saunders MD Primary Care Provider [phone] Encounters Date Type Department Care Team Description 12/15/2024 Lab Requisition [facility] - Main Lab [address] [place] [address] Kameron Evans MD Encounter for gynecological examination (general) (routine) without abnormal findings from Last 3 Months Social History Tobacco Use Types Packs/Day Years Used Date Smoking Tobacco: Never Assessed Comments Unknown Sex and Gender Information Value Date Recorded Sex Assigned at Not on file Legal Sex Female 11:00 PM EST Gender Identity Not on file Sexual Orientation Not on file Plan of Treatment Health Maintenance Due Date Last Done Comments Breast Cancer Screening 1950 DTaP,Tdap,and Td Vaccines (1 - Tdap) 10/02/1970 Pneumococcal Vaccine: 50+ Ye ars (1 of 1 - PCV) 10/02/2001 Zoster Vaccines (1 of 2) 10/02/2001 Depression Screening 04/08/2024 COVID-19 Vaccine (1 - 2023-2 5 season) 2024 Influenza Vaccine (#1) 2024 Colorectal Cancer Screening: Colonoscopy 12/15/2024 Falls Risk Assessment 12/15/2024 Hepatitis C Screening 12/15/2024 Medicare Annual Wellness Visit 12/15/2024 Osteoporosis Screening (Bone Density Screening) 12/15/2024 Social Influencers of Health Screening 12/15/2024 RSV Immunization Adult Patie nts (1 - 1-dose 75+ series) 10/02/2026 HIB Vaccines Aged Out No longer eligi ble based on patient's age to complete this topic HPV Vaccines Aged Out No longer eligi ble based on patient's age to complete this topic Hepatitis A Vaccines Aged Out No long er eligible based on patient's age to complete this topic Hepatitis B Vaccines Aged Out No long er eligible based on patient's age to complete this topic IPV Vaccines Aged Out No longer eligi ble based on patient's age to complete this topic MMR Vaccines Aged Out No longer eligi ble based on patient's age to complete this topic Meningococcal ACWY Vaccine Aged Out N o longer eligible based on patient's age to complete this topic Meningococcal B Vaccine Aged Out No l onger eligible based on patient's age to complete this topic RSV Immunization Patients Un yahaira 20 months Aged Out No longer eligible b ased on patient's age to complete this topic Varicella Vaccines Aged Out No longer eligible based on patient's age to complete this topic Insurance MEDICARE Care Teams Casino Runner Relationship Specialty Start Date End Date Mindy Saunders MD [address] [place] [phone] PCP - General Internal Medicine 12/15/24
--- OUTSIDE RECORDS SUMMARY | 2024-12-17 15:13 | XMS_ITS | Encounter Summary ---
Author Organization [facility] Address [address] [place] [address] Phone Care Team Providers Care Digital Composer Name Role Phone Florentino Medeiros MD Primary Care Provider Charity Phoenix MBBS Unavailable [phone] PackNancy FEDERAL AIR MARSHAL Unavailable Mindy Lin MD Primary Care Provider [phone] Encounter Details Date Type Department Care Team (Late st Contact Info) Description 09/03/2023 Procedure Pass [facility], Ct Scan - [address] [address] Social History Tobacco Use Types Packs/Day Years Used Date Smoking Tobacco: Former Cigarettes 0.5 46.6 0 06/08/1970 - 01/15/2017 Smokeless Tobacco: Never Comments:Quit >10 years ago Alcohol Use Standard Drinks/Week Comments Never 0 (1 standard drink = 0.6 oz pur e alcohol) Education Answer Date Recorded Are you interested in more education? Not on derick e 08/03/2022 Are you concerned about learning? Not on file 08/03/2022 No 08/03/2022 No 08/03/2022 Digital Access Answer Date Recorded No 09/01/2022 No 09/01/2022 Reliable internet access at home? Not on file 09/01/2022 Device with a working camera? Not on file Comments No Sex and Gender Information Value Date Recorded Sex Assigned at Female 05/17/2023 8:55 PM EST Legal Sex Female 1:52 PM EDT Gender Identity Female 05/17/2023 8:55 PM EST Sexual Orientation Straight 05/17/2023 8: 55 PM EST documented as of this encounter Plan of Treatment Upcoming Encounters Date Type Department Care Team (Late st Contact Info) Description 10/08/2024 Procedure Pass [address] [address] 10/08/2024 Procedure Pass [address] [address] 01/11/2025 11:15 AM EDT Appointment [address] [address] Charity Phoenix MBBS [address] [place] [address] [email or web address] 01/20/2025 1:30 PM EDT Appointment [facility] [address] [place] [address] Charity Phoenix MBBS [address] [place] [address] [email or web address] 01/20/2025 2:30 PM EDT Office Visit [facility] at [address] [address] Mary Lou Mcfarland PA-C [address] [place] [email or web address] documented as of this encounter Visit Diagnoses Not on filedocumented in this encounter Additional Health Concerns Infection Onset Date Last Indicated Resolved Time CoV-Risk 05/16/2024 05/16/2024 05/27/2024 1:22 AM EST Influenza A 05/16/2024 05/16/2024 05/23/2024 1:22 AM EST documented as of this encounter Care Teams Digital Composer Relationship Specialty Start Date End Date Florentino Medeiros MD [address] [place] [address] [place] [address] PCP - General Internal Medicine 10/17/19 07/15/24 Mindy Lin MD [address] [place] [address] PCP - General Internal Medicine 07/16/24 Charity Phoenix MBBS [address] [place] [address] [place] [address] [email or web address] Primary Oncologist Hematology and Oncology 02/04/23 Nancy Contreras CNP [address] [place] [address] [email or web address] Nurse Practitioner Medical Oncology 05/16/23 documented as of this encounter Additional Source Comments The information contained in this document represents components of the legal health record. It is not the complete legal health record.[facility]
--- OUTSIDE RECORDS SUMMARY | 2024-12-17 15:13 | XMS_ITS | Encounter Summary ---
Author Organization [facility] Address [email or web address] [place] [address] Phone Care Team Providers Care Furnace Erector Name Role Phone Florentino Medeiros MD Primary Care Provider Charity Phoenix MBBS Unavailable [phone] PackNancy RESEARCH AND DEVELOPMENT ENGINEER Unavailable Mindy Lin MD Primary Care Provider Encounter Details Date Type Department Care Team (Late st Contact Info) Description 09/03/2023 Procedure Pass [facility], Ct Scan - [address] [address] Social History Tobacco Use Types Packs/Day Years [...] st Contact Info) Description 10/08/2024 Procedure Pass [address] [address] 10/08/2024 Procedure Pass [address] [address] 01/11/2025 11:15 AM EDT Appointment [address] [address] Charity Phoenix MBBS [address] [place] [address] [email or web address] 01/20/2025 1:30 PM EDT Appointment [facility] [address] [place] [address] Charity Phoenix MBBS [address] [place] [address] [email or web address] 01/20/2025 2:30 PM EDT Office Visit [facility] at [address] [address] Mary Lou Mcfarland PA-C [address] [place] [address] [email or web address] documented as of this encounter Visit Diagnoses Not on filedocumented in this encounter Additional Health Concerns Infection Onset Date Last Indicated Resolved Time CoV-Risk 05/16/2024 05/16/2024 05/27/2024 1:22 AM EST Influenza A 05/16/2024 05/16/2024 05/23/2024 1:22 AM EST documented as of this encounter Care Teams Furnace Erector Relationship Specialty Start Date End Date Florentino eMdeiros MD [address] [place] [address] [place] [address] PCP - General Internal Medicine 10/17/19 07/15/24 Mindy Lin MD [address] [place] [address] PCP - General Internal Medicine 07/16/24 Charity Phoenix MBBS [address] [place] [address] [place] [address] [email or web address] Primary Oncologist Hematology and Oncology 02/04/23 Nancy Contreras CNP [address] [place] [address] [email or web address] Nurse Practitioner Medical Oncology 05/16/23 documented as of this encounter Additional Source Comments The information contained in this document represents components of the legal health record. It is not the complete legal health record.[facility]
--- OUTSIDE RECORDS SUMMARY | 2024-12-17 15:15 | XMS_ITS | Patient Health Record ---
Author Organization Vimal Head III, MD Address [address] [place] [address] [address] [place] [address] Care Team Providers Care Social Organization Professor Name Role Phone CarterMindy Lott ([place]) Primary Care Provider Un available Vimal Head Unavailable [phone] Allergies Allergen (clinical drug ingredient) Drug/Non Drug Allergy documented on EMR Reaction Allergy Type Onset Date Status No Known Drug Allergy Unknown Drug Allergy Active Reason For Referral No Information Medications Medication SIG (Take, Route, Frequency, Duration) Notes Start Date End Date Status Propranolol HCl ER 80 MG TAKE ONE CAPSUL E BY MOUTH TWICE A DAY Oral Active Omeprazole 20 MG 1 capsule 1/2 to 1 h our before morning meal Orally Once a day 08/18/2024 Active Levothyroxine Sodium 112 MCG TAKE 1 TABL ET BY MOUTH ONCE A DAY Oral Active Atorvastatin Calcium 20 MG TAKE 1 TABLET BY MOUTH EVERY DAY Oral Active Creon 34061-127648 UNIT TAKE 1 CAPSULE ( 36,000 UNITS [...] Additional Findings: Tobacco Non-User Ex-cigaret te smoker Alcohol Screen Question Answer Notes Did you have a drink containing alcohol in the p ast year? No Points 0 Interpretation Negative Problems Problem Type SNOMED Code ICD Code Onset Dates Problem Status W/U Status Risk Notes Problem 41350045 Chronic cough (R05) Active confirmed Her cough continues but she has had no hemoptysis. Problem 6040713 Former smoker (Z87.891) Active confirmed She seems motivated not to smoke. We discussed means by which relapse could be prevented in times of stress and illness. Problem 035134016 Overweight (BMI 25.0-29.9) (E66.3) Active confirmed Her body mass index is 29. I recommended she stabilize her weight at this level until her treatment is done. Problem 933726444 Malignant neoplasm of head of pancreas (C25.0) Active confirmed When the tumor was discovered she was treated with neoadjuvant chemotherapy consisting of fluorouracil, leucovorin, irinotecan and oxaliplatin. A resection was then attempted at [facility] but the tumor was inoperable. She was then treated aggressively with intraoperative radiation therapy. She then received adjuvant chemotherapy at [facility]. She has finished her treatment at this point and is being observed at 4 month intervals. Problem 369900382 Acquired hypothyroidism (E03.9) Active confirmed She has been compliant with her thyroid medication and her levels are euthyroid. 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 Problem 43575848 Hypercholestero lemia (E78.00) Active confirmed The current lipid profile shows continued good control of her lipids. No change in her regimen is needed. Problem 26723291 Tremor (R25.1) Active confirmed There has been no change in the mild tremor. Problem 26596626 Laryngeal polyp (J38.1) Active confirmed We have requested the records from Dr. Villanueva. She continues with hoarseness. Vital Signs Heart Rate 70 /min 11/18/2024 Temperature 97.2 degrees Fahrenheit 11/18/2024 Blood pressure diastolic 45 mm Hg 11/18/2024 Height 62 in 11/18/2024 Blood pressure systolic 97 mm Hg 11/18/2024 Weight 140 lbs 11/18/2024 BMI 25.6 kg/m2 11/18/2024 Encounters Encounter Location Date Provider Diagnosis Vimal Head III, MD [address] [place] [address] [place] [address] 02/19/2024 Vimal Head Malignant neoplasm o f head of pancreas C25.0 ; Former smoker Z87.891 ; Acquired hypothyroidism E03.9 ; Squamous cell carcinoma of left lung C34.92 and Chronic cough R05 Vimal Head III, MD [address] [place] [address] [place] [address] 08/18/2024 Vimal Head Malignant neoplasm o f head of pancreas C25.0 ; Squamous cell carcinoma of left lung C34.92 ; Acquired hypothyroidism E03.9 ; Chronic cough R05 ; Overweight (BMI 25.0-29.9) E66.3 and Former smoker Z87.891 Vimal Head III, MD [address] [place] [address] [place] [address] 11/18/2024 Vimal Head Malignant neoplasm o f head of pancreas C25.0 ; Squamous cell carcinoma of left lung C34.92 ; Chronic cough R05 ; Overweight (BMI 25.0-29.9) E66.3 ; Acquired hypothyroidism E03.9 ; Tremor R25.1 ; Hypercholesterolemia E78.00 and Former smoker Z87.891 Vimal Head III, MD [address] [place] [address] [place] [address] 11/26/2024 Vimal Head III, MD [address] [place] [address] [place] [address] 11/26/2024 Vimal Head Assessments Encounter Date Diagnosis (ICD Code) Assessment Notes T reatment Notes Treatment Clinical Notes 02/19/2024 Former smoker (ICD-1 0 - Z87.891) She seems motivated not to smoke. We discussed means by which relapse could be prevented in times of stress and illness. 02/19/2024 Malignant neoplasm o f head of pancreas (ICD-10 - C25.0) When the tumor was discovered she was treated with neoadjuvant chemotherapy consisting of fluorouracil, leucovorin, irinotecan and oxaliplatin. A resection was then attempted at [facility] but the tumor was inoperable. She was then treated aggressively with intraoperative radiation therapy. She is now receiving adjuvant chemotherapy at [facility]. 08/18/2024 Malignant neoplasm o f head of pancreas (ICD-10 - C25.0) When the tumor was discovered she was treated with neoadjuvant chemotherapy consisting of fluorouracil, leucovorin, irinotecan and oxaliplatin. A resection was then attempted at [facility] but the tumor was inoperable. She was then treated aggressively with intraoperative radiation therapy. She then received adjuvant chemotherapy at [facility]. She has finished her treatment at this point and is being observed at 4 month intervals. 08/18/2024 Squamous cell carcin abhay of left lung (ICD-10 - C34.92) There was no sign of recurrent lung cancer on today's examination. 11/18/2024 Malignant neoplasm o f head of pancreas (ICD-10 - C25.0) When the tumor was discovered she was treated with neoadjuvant chemotherapy consisting of fluorouracil, leucovorin, irinotecan and oxaliplatin. A resection was then attempted at [facility] but the tumor was inoperable. She was then treated aggressively with intraoperative radiation therapy. She then received adjuvant chemotherapy at [facility]. She has finished her treatment at this point and is being observed at 4 month intervals. 11/18/2024 Squamous cell carcin abhay of left lung (ICD-10 - C34.92) There was no sign of recurrent lung cancer on today's examination. 02/19/2024 Acquired hypothyroid ism (ICD-10 - E03.9) She has been compliant with her thyroid medication and her levels are euthyroid. 08/18/2024 Acquired hypothyroid ism (ICD-10 - E03.9) She has been compliant with her thyroid medication and her levels are euthyroid. 11/18/2024 Chronic cough (ICD-1 0 - R05) Her cough continues but she has had no hemoptysis. 02/19/2024 Squamous cell carcin abhay of left lung (ICD-10 - C34.92) There was no sign of recurrent lung cancer on today's examination. 08/18/2024 Chronic cough (ICD-1 0 - R05) Her cough continues but she has had no hemoptysis. 11/18/2024 Overweight (BMI 25.0-29.9) (ICD-10 - E66.3) Her body mass index is 29. I recommended she stabilize her weight at this level until her treatment is done. 02/19/2024 Chronic cough (ICD-1 0 - R05) Her cough continues but she has had no hemoptysis. 08/18/2024 Overweight (BMI 25.0-29.9) (ICD-10 - E66.3) Her body mass index is 29. I recommended she stabilize her weight at this level until her treatment is done. 11/18/2024 Acquired hypothyroid ism (ICD-10 - E03.9) She has been compliant with her thyroid medication and her levels are euthyroid. 08/18/2024 Former smoker (ICD-1 0 - Z87.891) She seems motivated not to smoke. We discussed means by which relapse could be prevented in times of stress and illness. 11/18/2024 Tremor (ICD-10 - R25.1) There dawson [...] of stress and illness. Plan Of Treatment Pending Test Test Name Order Date PROFILE, FASTING (COMPREHENSIVE METABOLI C) 2022 PROFILE, RANDOM (COMPREHENSIVE METABOLIC ) 12/18/2022 LIPID PANEL 2022 CBC w DIFF 12/18/2022 CBC w DIFF 2022 PROTHROMBIN TIME (PT, INR) 12/18/2022 PARTIAL THROMBOPLASTIN TIME (PTT) [address] SKULL TO THIGHS 07/28/2018 XR CHEST 2 VIEW PA & LAT 2022 Next Appt Details Provider Name:Vimal Borjasne, 03/23/2025 10:00:00 AM, [address] [place] [address] [address], [place], [address], Insurance Providers Payer Name Payer Address Payer Phone Subscriber Number Group Number Insured Name Patient Relationship to Insured Coverage Start Date Coverage End Date MEDICARE NGS [address] [place] [phone] [id number] SYDNIE BOLANOS Self - patient is the insured [address] [facility], [place] [phone] [id number] SYDNIE BOLANOS Self - patient is the insured Medical (General) History Medical History History ICD Code Congenital hypothyroidism E03.1 Hypercholesterolemia E78.00 Tremor R25.1 Laryngeal polyp J38.1 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 2018 former smoker chronic cough obesity duodenitis Surgical History Surgery Date(Month/Year) Left thoracotomy Surgery for pancreatic tumor on october h 10/[address] Anand 07/2022 removal of polyp fron the larynx 12 yrs ago Hospitalization History Reason Date(Month/Year) Hospitalized at [facility] for surgery on november 0410/2023
--- OUTSIDE RECORDS SUMMARY | 2024-12-17 15:15 | XMS_ITS | Encounter Summary ---
Author Organization [facility] Address [address] [place] [address] Phone Care Team Providers Care Scrap Sorter Name Role Phone Florention Medeiros MD Primary Care Provider Charity [place] MBBS Unavailable Nancy Contreras MANAGER BUSINESS OPERATIONS Unavailable Mindy Lin MD Primary Care Provider Encounter Details Date Type Department Care Team (Late st Contact Info) Description 02/18/2023 Procedure Pass [facility] [address] [place] [address] Social History Tobacco Use Types Packs/Day Years [...] a working camera? Not on file Comments Unknown Sex and Gender Information Value Date Recorded Sex Assigned at Female 05/17/2023 8:55 PM EST Legal Sex Female 1:52 PM EDT Gender Identity Female 05/17/2023 8:55 PM EST Sexual Orientation Straight 05/17/2023 8: 55 PM EST documented as of this encounter Plan of Treatment Upcoming Encounters Date Type Department Care Team (Late st Contact Info) Description 10/08/2024 Procedure Pass [address] [address] 10/08/2024 Procedure Pass [address] [address] 01/11/2025 11:15 AM EDT Appointment [address] [address] Charity [place] MBBS [address] [place] [address] [email or web address] 01/20/2025 1:30 PM EDT Appointment [facility] [address] [place] [address] Charity [place] MBBS [address] [place] [address] [email or web address] 01/20/2025 2:30 PM EDT Office Visit [facility] at [address] [address] Mary Lou Mcfarland PA-C [address] [place] [address] [email or web address] documented as of this encounter Visit Diagnoses Not on filedocumented in this encounter Additional Health Concerns Infection Onset Date Last Indicated Resolved Time CoV-Risk 05/17/2023 05/17/2023 05/28/2023 1:23 AM EST CoV-Risk 05/16/2024 05/16/2024 05/27/2024 1:22 AM EST Influenza A 05/16/2024 05/16/2024 05/23/2024 1:22 AM EST documented as of this encounter Care Teams Scrap Sorter Relationship Specialty Start Date End Date Florentino Medeiros MD [address] [place] [address] [place] [address] PCP - General Internal Medicine 10/17/19 07/15/24 Mindy Lin MD [address] [place] [address] PCP - General Internal Medicine 07/16/24 Charity [place] MBBS [address] [place] [address] [place] [address] [email or web address] Primary Oncologist Hematology and Oncology 02/04/23 Nancy Contreras CNP [address] [place] [address] [email or web address] Nurse Practitioner Medical Oncology 05/16/23 documented as of this encounter Additional Source Comments The information contained in this document represents components of the legal health record. It is not the complete legal health record.[facility]
--- OUTSIDE RECORDS SUMMARY | 2024-12-17 15:16 | XMS_ITS | Encounter Summary ---
Author Organization [facility] Address [address] [place] [address] Phone Care Team Providers Care Fastener Sewing Machine Operator Name Role Phone Florentino Medeiros MD Primary Care Provider Charity [place] MBBS Unavailable [phone] PackNancy PERSONAL INJURY PARALEGAL Unavailable Mindy Lin MD Primary Care Provider Encounter Details Date Type Department Care Team (Late st Contact Info) Description 07/08/2024 Procedure Pass [facility], [address] [address] Social History Tobacco Use Types Packs/Day Years Used Date Smoking Tobacco: Former Cigarettes 0.5 46.6 0 06/08/1970 - 01/15/2017 Smokeless Tobacco: Never Comments:Quit >10 years ago Alcohol Use Standard Drinks/Week Comments Yes 7 (1 standard drink = 0.6 oz pur e alcohol) Education Answer Date Recorded Are you interested in more education? Not on derick e 08/03/2022 Are you concerned about learning? Not on file 08/03/2022 No 08/03/2022 No 08/03/2022 Digital Access Answer Date Recorded No 09/01/2022 No 09/01/2022 Reliable internet access at home? Not on file 09/01/2022 Device with a working camera? Not on file Intimate Partner Violence Answer Date R ecorded Are you denied basic needs s uch as food, clothing, or medical care? No 06/27/2024 In the past 12 months have y ou been in a relationship with a person who hurts, threatens, or tries to control you? No 06/27/2024 Are you denied basic needs s uch as food, clothing, or medical care? No 06/27/2024 In the past 12 months have y ou been in a relationship with a person who hurts, threatens, or tries to control you? No 06/27/2024 Comments No Sex and Gender Information Value Date Recorded Sex Assigned at Female 05/17/2023 8:55 PM EST Legal Sex Female 1:52 PM EDT Gender Identity Female 05/17/2023 8:55 PM EST Sexual Orientation Straight 05/17/2023 8: 55 PM EST documented as of this encounter Last Filed Vital Signs Vital Sign Reading Time Taken Comments Blood Pressure - - Pulse - - Temperature - - Respiratory Rate - - Oxygen Saturation - - Inhaled Oxygen Concentration - - Weight 64.2 kg (141 lb 9.6 oz) 07/08/2024 2:04 P M EDT Height 162.6 cm (5' 4.02 ) 07/08/2024 2:04 PM ED T Body Mass Index 24.29 07/08/2024 2:04 PM EDT documented in this encounter Plan of Treatment Upcoming Encounters Date Type Department Care Team (Late st Contact Info) Description 10/08/2024 Procedure Pass [address] [address] 10/08/2024 Procedure Pass [address] [address] 01/11/2025 11:15 AM EDT Appointment [address] [address] Charity [place] MBBS [address] [place] [address] [email or web address] 01/20/2025 1:30 PM EDT Appointment [facility] [address] [place] [address] Charity [place] MBBS [address] [place] [address] [email or web address] 01/20/2025 2:30 PM EDT Office Visit [facility] [place] [address] [place] [address] Mary Lou Mcfarland PA-C [address] [place] [address] documented as of this encounter Visit Diagnoses Not on filedocumented in this encounter Care Teams Fastener Sewing Machine Operator Relationship Specialty Start Date End Date Florentino Medeiros MD [address] [place] [address] Dr RICHARDS [address] [place] [address] PCP - General Internal Medicine 10/17/19 07/15/24 Mindy Lin MD [address] [place] [address] PCP - General Internal Medicine 07/16/24 Charity [place] MBBS [address] [place] [address] Dr RICHARDS [address] [place] [address] [email or web address] .[email or web address] Primary Oncologist Hematology and Oncology 02/04/23 Nancy Contreras CNP [address] [place] [address] [email or web address] Nurse Practitioner Medical Oncology 05/16/23 documented as of this encounter Additional Source Comments The information contained in this document represents components of the legal health record. It is not the complete legal health record.[facility]
--- OUTSIDE RECORDS SUMMARY | 2024-12-17 15:16 | XMS_ITS | Encounter Summary ---
Author Organization [facility] Address [address] [place] [address] Phone Care Team Providers Care Timers Inspector Name Role Phone Florentino Medeiros MD Primary Care Provider Charity [place] MBBS Unavailable [phone] PackNancy CUSHION MAKER HAND Unavailable Mindy Lin MD Primary Care Provider [phone] Encounter Details Date Type Department Care Team (Late st Contact Info) Description 07/02/2024 Procedure Pass [facility], Ct Scan - [address] [address] Social History Tobacco Use Types Packs/Day Years [...] (Late st Contact Info) Description 10/08/[address] [address] 10/08/[address] [address] 01/11/2025 11:15 AM EDT Appointment [address] [address] Charity [place] MBBS [address] [place] [address] [email or web address] 01/20/2025 1:30 PM EDT Appointment [facility] [address] [place] [address] Charity [place] MBBS [address] [place] [address] [email or web address] 01/20/2025 2:30 PM EDT Office [facility] [place] [address] [place] [address] Mary Lou Mcfarland PA-C 30 [place] [address] @[email or web address] documented as of this encounter Visit Diagnoses Not on filedocumented in this encounter Care Teams Timers Inspector Relationship Specialty Start Date End Date Florentino Medeiros MD [address] [place] [address] Dr RICHARDS [address] [place] [address] PCP - General Internal Medicine 10/17/19 07/15/24 Mindy Lin MD [address] [place] [address] PCP - General Internal Medicine 07/16/24 Charity [place] MBBS [address] [place] [address] Dr RICHARDS [address] [place] [address] [email or web address] .[email or web address] Primary Oncologist Hematology and Oncology 02/04/23 Nancy Contreras CNP [address] [place] [address] [email or web address] Nurse Practitioner Medical Oncology 05/16/23 documented as of this encounter Additional Source Comments The information contained in this document represents components of the legal health record. It is not the complete legal health record.[facility]
--- OUTSIDE RECORDS SUMMARY | 2024-12-17 15:16 | XMS_ITS | Encounter Summary ---
Author Organization [facility] Address [email or web address] [place] [address] Phone Care Team Providers Care Consumer Studies Professor Name Role Phone Florentino Medeiros MD Primary Care Provider Charity [place] MBBS Unavailable [phone] PackNancy LANDFILL GAS PLANT FIELD TECHNICIAN Unavailable Mindy Lin MD Primary Care Provider Encounter Details Date Type Department Care Team (Late st Contact Info) Description 07/02/2024 Procedure Pass [facility], Ct Scan - [address] [address] Social History Tobacco Use Types Packs/Day Years [...] (Late st Contact Info) Description 10/08/[address] [address] 10/08/[address] [address] 01/11/2025 11:15 AM EDT Appointment [address] [address] Charity [place] MBBS [address] [place] [address] [email or web address] 01/20/2025 1:30 PM EDT Appointment [facility] [address] [place] [address] Charity [place] MBBS [address] [place] [address] [email or web address] 01/20/2025 2:30 PM EDT Office Visit [facility] [place] [address] [place] [address] Mary Lou Mcfarland PA-C [address] [place] [address] [email or web address] documented as of this encounter Visit Diagnoses Not on filedocumented in this encounter Care Teams Consumer Studies Professor Relationship Specialty Start Date End Date Florentino Medeiros MD [address] [place] [address] Dr RICHARDS [address] [place] [address] PCP - General Internal Medicine 10/17/19 07/15/24 Mindy Lin MD [address] [place] [address] PCP - General Internal Medicine 07/16/24 Charity [place] MBBS [address] [place] [address] Dr RICHARDS [address] [place] [address] [email or web address] .[email or web address] Primary Oncologist Hematology and Oncology 02/04/23 Nancy Contreras CNP [address] [place] [address] [email or web address] Nurse Practitioner Medical Oncology 05/16/23 documented as of this encounter Additional Source Comments The information contained in this document represents components of the legal health record. It is not the complete legal health record.[facility]
--- OUTSIDE RECORDS SUMMARY | 2024-12-17 15:18 | XMS_ITS | Encounter Summary ---
Author Organization [facility] Address [address] [place] [address] Phone Care Team Providers Care Operations Assistant Name Role Phone Florentino Medeiros MD Primary Care Provider Charity [place] MBBS Unavailable [phone] PackNancy CORPORATE CONCIERGE Unavailable Mindy Lin MD Primary Care Provider Encounter Details Date Type Department Care Team (Late st Contact Info) Description 06/03/2023 Procedure Pass [facility], Ct Scan - [address] [address] Social History Tobacco Use Types Packs/Day Years [...] st Contact Info) Description 10/08/2024 Procedure Pass [address] [address] 10/08/2024 Procedure Pass [address] [address] 01/11/2025 11:15 AM EDT Appointment [address] [address] Charity [place] MBBS [address] [place] [address] [email or web address] 01/20/2025 1:30 PM EDT Appointment [facility] [address] [place] [address] Charity [place] MBBS [address] [place] [address] [email or web address] 01/20/2025 2:30 PM EDT Office Visit [facility] at [address] [address] Mary Lou Mcfarland PA-C [address] [place] [address] [email or web address] documented as of this encounter Visit Diagnoses Not on filedocumented in this encounter Additional Health Concerns Infection Onset Date Last Indicated Resolved Time CoV-Risk 05/16/2024 05/16/2024 05/27/2024 1:22 AM EST Influenza A 05/16/2024 05/16/2024 05/23/2024 1:22 AM EST documented as of this encounter Care Teams Operations Assistant Relationship Specialty Start Date End Date Florentino Medeiros MD [address] [place] [address] [place] [address] PCP - General Internal Medicine 10/17/19 07/15/24 Mindy Lin MD [address] [place] [address] PCP - General Internal Medicine 07/16/24 Charity [place] MBBS [address] [place] [address] [place] [address] [email or web address] [email or web address] Primary Oncologist Hematology and Oncology 02/04/23 Nancy Contreras CNP [address] [place] [address] [email or web address] Nurse Practitioner Medical Oncology 05/16/23 documented as of this encounter Additional Source Comments The information contained in this document represents components of the legal health record. It is not the complete legal health record.[facility]
--- OUTSIDE RECORDS SUMMARY | 2024-12-17 15:18 | XMS_ITS | Encounter Summary ---
Author Organization [facility] Address [address] [place] [address] Phone Care Team Providers Care Agricultural Research Technician Name Role Phone Florentino Medeiros MD Primary Care Provider Charity [place] MBBS Unavailable PackNancy MINERAL ECONOMIST Unavailable Mindy Lin MD Primary Care Provider Encounter Details Date Type Department Care Team (Late st Contact Info) Description 01/22/2023 Procedure Pass [facility], Parveen 2 [address] [facility], [address]nd Floor, [address] [place] [address] Social History Tobacco Use Types Packs/Day Years Used Date Smoking Tobacco: Former Cigarettes 0.5 46.6 0 06/08/1970 - 01/15/2017 Smokeless Tobacco: Never Comments:Quit >10 years ago Alcohol Use Standard Drinks/Week Comments Not Currently [...] st Contact Info) Description 10/08/2024 Procedure Pass [address] [address] 10/08/[address] [address] 01/11/2025 11:15 AM EDT Appointment [address] [address] Charity [place] MBBS [address] [place] [address] [email or web address] 01/20/2025 1:30 PM EDT Appointment [facility] [address] [place] [address] Charity [place] MBBS [address] [place] [address] [email or web address] 01/20/2025 2:30 PM EDT Office Visit [facility] at [address] [address] Mary Lou Mcfarland PA-C [address] [place] [address] [email or web address] documented as of this encounter Visit Diagnoses Not on filedocumented in this encounter Additional Health Concerns Infection Onset Date Last Indicated Resolved Time CoV-Risk 05/17/2023 05/17/2023 05/28/2023 1:23 AM EST CoV-Risk 05/16/2024 05/16/2024 05/27/2024 1:22 AM EST Influenza A 05/16/2024 05/16/2024 05/23/2024 1:22 AM EST documented as of this encounter Care Teams Agricultural Research Technician Relationship Specialty Start Date End Date Florentino Medeiros MD [address] [place] [address] Dr [place] [address] PCP - General Internal Medicine 10/17/19 07/15/24 Mindy Lin MD [address] [place] [address] PCP - General Internal Medicine 07/16/24 Charity [place] MBBS [address] [place] [address] Dr [place] [address] [email or web address] [facility] Primary Oncologist Hematology and Oncology 02/04/23 Nancy Contreras CNP [address] [place] [address] [email or web address] Nurse Practitioner Medical Oncology 05/16/23 documented as of this encounter Additional Source Comments The information contained in this document represents components of the legal health record. It is not the complete legal health record.[facility]
--- OUTSIDE RECORDS SUMMARY | 2024-12-17 15:18 | XMS_ITS | Encounter Summary ---
Author Organization [facility] Address [address] [place] [address] Phone Care Team Providers Care Criminal Defense Attorney Name Role Phone Florentino Medeiros MD Primary Care Provider Charity [place] MBBS Unavailable [phone] PackNancy SOLAR WATER HEATER INSTALLER Unavailable Mindy Lin MD Primary Care Provider Encounter Details Date Type Department Care Team (Late st Contact Info) Description 01/22/2023 Procedure Pass [facility], Parveen 2 [address] [facility], 2nd Floor, [address] [place] [address] Social History Tobacco Use Types Packs/Day Years [...] st Contact Info) Description 10/08/2024 Procedure Pass [address] [address] 10/08/[address] [address] 01/11/2025 11:15 AM EDT Appointment [address] [address] Charity [place] MBBS [address] [place] [address] [email or web address] 01/20/2025 1:30 PM EDT Appointment [facility] [address] [place] [address] Charity [place] MBBS [address] [place] [address] [email or web address] 01/20/2025 2:30 PM EDT Office Visit [facility] at [address] [address] Mary Lou Mcfarland PA-C [address] [place] [address] [email or web address] documented as of this encounter Visit Diagnoses Not on filedocumented in this encounter Additional Health Concerns Infection Onset Date Last Indicated Resolved Time CoV-Risk 05/17/2023 05/17/2023 05/28/2023 1:23 AM EST CoV-Risk 05/16/2024 05/16/2024 05/27/2024 1:22 AM EST Influenza A 05/16/2024 05/16/2024 05/23/2024 1:22 AM EST documented as of this encounter Care Teams Criminal Defense Attorney Relationship Specialty Start Date End Date Florentino Medeiros MD [address] [place] [address] [place] [address] PCP - General Internal Medicine 10/17/19 07/15/24 Mindy Lin MD [address] [place] [address] PCP - General Internal Medicine 07/16/24 Charity [place] MBBS [address] [place] [address] [place] [address] [email or web address] Primary Oncologist Hematology and Oncology 02/04/23 Nancy Contreras CNP [address] [place] [address] [email or web address] Nurse Practitioner Medical Oncology 05/16/23 documented as of this encounter Additional Source Comments The information contained in this document represents components of the legal health record. It is not the complete legal health record.[facility]
--- OUTSIDE RECORDS SUMMARY | 2024-12-17 15:18 | XMS_ITS | Encounter Summary ---
Author Organization [facility] Address [address] [place] [address] Phone Care Team Providers Care Slitter Scorer Name Role Phone Florentino Medeiros MD Primary Care Provider Charity [place] MBBS Unavailable [phone] PackNancy EDUCATION ADMINISTRATOR Unavailable Mindy Lin MD Primary Care Provider Encounter Details Date Type Department Care Team (Late st Contact Info) Description 06/03/2023 Procedure Pass [facility], Ct Scan - [address] [address] Social History Tobacco Use Types Packs/Day Years [...] st Contact Info) Description 10/08/2024 Procedure Pass [address] [address] 10/08/2024 Procedure Pass [address] [address] 01/11/2025 11:15 AM EDT Appointment [address] [address] Charity [place] MBBS [address] [place] [address] [email or web address] 01/20/2025 1:30 PM EDT Appointment [facility] [address] [place] [address] Charity [place] MBBS [address] [place] [address] [email or web address] 01/20/2025 2:30 PM EDT Office Visit [facility] at [address] [address] Mary Lou Mcfarland PA-C [address] [place] [address] [email or web address] documented as of this encounter Visit Diagnoses Not on filedocumented in this encounter Additional Health Concerns Infection Onset Date Last Indicated Resolved Time CoV-Risk 05/16/2024 05/16/2024 05/27/2024 1:22 AM EST Influenza A 05/16/2024 05/16/2024 05/23/2024 1:22 AM EST documented as of this encounter Care Teams Slitter Scorer Relationship Specialty Start Date End Date Florentino Medeiros MD [address] [place] [address] [place] [address] PCP - General Internal Medicine 10/17/19 07/15/24 Mindy Lin MD [address] [place] [address] PCP - General Internal Medicine 07/16/24 Charity [place] MBBS [address] [place] [address] [place] [address] [email or web address] Primary Oncologist Hematology and Oncology 02/04/23 Nancy Contreras CNP [address] [place] [address] [email or web address] Nurse Practitioner Medical Oncology 05/16/23 documented as of this encounter Additional Source Comments The information contained in this document represents components of the legal health record. It is not the complete legal health record.[facility]
--- OUTSIDE RECORDS SUMMARY | 2024-12-17 15:18 | XMS_ITS | Encounter Summary ---
Author Organization [facility] Address [address] [place] [address] Phone Care Team Providers Care Chief Dispatcher Name Role Phone Florentino Medeiros MD Primary Care Provider Charity Phoenix MBBS Unavailable [phone] PackNancy PUBLIC SPEAKING INSTRUCTOR Unavailable Mindy Lin MD Primary Care Provider [phone] Encounter Details Date Type Department Care Team (Late st Contact Info) Description 06/27/2024 Procedure Pass [facility], Ct Scan - [address] [address] Social History Tobacco Use Types Packs/Day Years [...] PM EST documented as of this encounter Functional Status * Calculated C-SSRS Risk Score (Lifetime/Recent) Answer Date of Assessment Author No Risk Indicated 06/27/2024 7:03 AM EDT Shin Gaines, ANH * [place] Suicide Severity Rating Scale (Screener/Recent Self-Report) Question Answer Date of Assessment Author 1. Wish to be (Past 1 Month) No 06/27/2024 7:03 AM EDT Shin Pisano, ANH 2. Non-Specific Active Suicidal Thoughts (Past 1 Month) No 06/27/2024 7:03 AM EDT Shin Pisano, ANH 6. Suicidal Behavior (Lifetime) No 06/27/2024 7:03 AM EDT Shin Pisano, ANH documented as of this encounter Plan of Treatment Upcoming Encounters Date Type Department Care Team (Late st Contact Info) Description 10/08/2024 Procedure Pass [address] [address] 10/08/2024 Procedure Pass [address] [address] 01/11/2025 11:15 AM EDT Appointment [address] [address] Charity Phoenix MBBS [address] [place] [address] [email or web address] 01/20/2025 1:30 PM EDT Appointment [facility] 30 [place] [address] Charity Phoenix MBBS 30 [place] [address] [email or web address] 01/20/2025 2:30 PM EDT Office Visit [facility] 30 [place] [address] Mary Lou Mcfarland PA-C 30 [place] [address] [email or web address] documented as of this encounter Visit Diagnoses Not on filedocumented in this encounter Care Teams Chief Dispatcher Relationship Specialty Start Date End Date Florentino Medeiros MD [address] [place] [address] [place] [address] PCP - General Internal Medicine 10/17/19 07/15/24 Mindy Lin MD [address] [place] [address] PCP - General Internal Medicine 07/16/24 Charity Phoenix MBBS [address] [place] [address] [place] [address] [email or web address] Primary Oncologist Hematology and Oncology 02/04/23 Nancy Contreras CNP [address] [place] [address] [email or web address] Nurse Practitioner Medical Oncology 05/16/23 documented as of this encounter Additional Source Comments The information contained in this document represents components of the legal health record. It is not the complete legal health record.[facility]
--- OUTSIDE RECORDS SUMMARY | 2024-12-17 15:18 | XMS_ITS | Encounter Summary ---
Author Organization [facility] Address [address] [place] [address] Phone Care Team Providers Care Calibrator Barometers Name Role Phone Florentino Medeiros MD Primary Care Provider Charity Phoenix MBBS Unavailable [phone] PackNancy CNC CUTTING OPERATOR Unavailable Mindy Lin MD Primary Care Provider Encounter Details Date Type Department Care Team (Late st Contact Info) Description 06/27/2024 Procedure Pass [facility], Ct Scan - [address] [address] Social History Tobacco Use Types Packs/Day Years [...] 7:03 AM EDT Shin Gaines, ANH * [place] Suicide Severity Rating Scale (Screener/Recent Self-Report) Question [...] st Contact Info) Description 10/08/2024 Procedure Pass [address] [address] 10/08/2024 Procedure Pass [address] [address] 01/11/2025 11:15 AM EDT Appointment [address] [address] Charity Phoenix MBBS 30 [place] [address] [email or web address] 01/20/2025 1:30 PM EDT Appointment [facility] 30 [place] [address] Charity Phoenix MBBS 30 [place] [address] [email or web address] 01/20/2025 2:30 PM EDT Office Visit [facility] 30 [place] [address] Mary Lou Mcfarland PA-C 30 [place] [address] [email or web address] documented as of this encounter Visit Diagnoses Not on filedocumented in this encounter Care Teams Calibrator Barometers Relationship Specialty Start Date End Date Florentino Medeiros MD [address] [place] [address] [place] [address] PCP - General Internal Medicine 10/17/19 07/15/24 Mindy Lin MD [address] [place] [address] PCP - General Internal Medicine 07/16/24 Charity Phoenix MBBS [address] [place] [address] [place] [address] [email or web address] Primary Oncologist Hematology and Oncology 02/04/23 Nancy Contreras CNP [address] [place] [address] [email or web address] Nurse Practitioner Medical Oncology 05/16/23 documented as of this encounter Additional Source Comments The information contained in this document represents components of the legal health record. It is not the complete legal health record.[facility]
--- OUTSIDE RECORDS SUMMARY | 2024-12-17 15:19 | XMS_ITS | Encounter Summary ---
Author Organization [facility] Address [address] [place] [address] Phone Care Team Providers Care Superintendent Generating Plant Name Role Phone Florentino Medeiros MD Primary Care Provider Charity Phoenix MBBS Unavailable [phone] Nancy Contreras RETAIL GROCER Unavailable Mindy Lin MD Primary Care Provider [phone] Encounter Details Date Type Department Care Team (Late st Contact Info) Description 11/05/2023 Procedure Pass [facility] [address] [place] [phone] Social History Tobacco Use Types Packs/Day Years [...] as food, clothing, or medical care? No 11/05/2023 In the past 12 months have y ou been in a relationship with a person who hurts, threatens, or tries to control you? No 11/05/2023 Are you denied basic needs s uch as food, clothing, or medical care? No 11/05/2023 In the past 12 months have y ou been in a relationship with a person who hurts, threatens, or tries to control you? No 11/05/2023 Comments No Sex and Gender Information Value Date Recorded Sex Assigned at Female 05/17/2023 8:55 PM EST Legal Sex Female 1:52 PM EDT Gender Identity Female 05/17/2023 8:55 PM EST Sexual Orientation Straight 05/17/2023 8: 55 PM EST documented as of this encounter Functional Status * Calculated C-SSRS Risk Score (Lifetime/Recent) Answer Date of Assessment Author No Risk Indicated 11/05/2023 6:07 PM EDT Nandini Luna RN * [place] Suicide Severity Rating Scale (Screener/Recent Self-Report) Question Answer Date of Assessment Author 1. Wish to be (Past 1 Month) No 024 6:07 PM EDT Nandini Luna, ANH 2. Non-Specific Active Suici obdulio Thoughts (Past 1 Month) No 11/05/2023 6:07 PM EDT Randee Luna RN 6. Suicidal Behavior (Lifetime) No 6:07 PM EDT Nandini Luna, ANH documented as of this encounter Plan of Treatment Upcoming Encounters Date Type Department Care Team (Late st Contact Info) Description 10/08/2024 Procedure Pass [address] [address] 10/08/2024 Procedure Pass [address] [address] 01/11/2025 11:15 AM EDT Appointment [address] [address] Charity Phoenix MBBS 30 [place] [address] [email or web address] 01/20/2025 1:30 PM EDT Appointment [facility] 30 [place] [address] Charity Phoenix MBBS 30 [place] [address] [email or web address] 01/20/2025 2:30 PM EDT Office [facility] 30 [place] [address] Mary Lou Mcfarland PA-C [address] [place] [address] [email or web address] documented as of this encounter Visit Diagnoses Not on filedocumented in this encounter Additional Health Concerns Infection Onset Date Last Indicated Resolved Time CoV-Risk 05/16/2024 05/16/2024 05/27/2024 1:22 AM EST Influenza A 05/16/2024 05/16/2024 05/23/2024 1:22 AM EST documented as of this encounter Care Teams Superintendent Generating Plant Relationship Specialty Start Date End Date Florentino Medeiros MD [address] [place] [address] [place] [address] PCP - General Internal Medicine 10/17/19 07/15/24 Mindy Lin MD [address] [place] [address] PCP - General Internal Medicine 07/16/24 Charity Phoenix MBBS [address] [place] [address] [place] [address] [email or web address] Primary Oncologist Hematology and Oncology 02/04/23 Nancy Contreras CNP [address] [place] [address] [email or web address] Nurse Practitioner Medical Oncology 05/16/23 documented as of this encounter Additional Source Comments The information contained in this document represents components of the legal health record. It is not the complete legal health record.[facility]
--- OUTSIDE RECORDS SUMMARY | 2024-12-17 15:20 | XMS_ITS | Encounter Summary ---
Author Organization [facility] Address [address] [place] [address] Phone Care Team Providers Care Document Analyst Name Role Phone Florentino Medeiros MD Primary Care Provider Charity Phoenix MBBS Unavailable [phone] PackNancy SUPERVISOR CALIBRATION Unavailable Mindy Lin MD Primary Care Provider [phone] Encounter Details Date Type Department Care Team (Late st Contact Info) Description 01/28/2024 Procedure Pass [facility], Ct Scan - [address] [address] Social History Tobacco Use Types Packs/Day Years [...] (Late st Contact Info) Description 10/08/[address] [address] 10/08/[address] [address] 01/11/2025 11:15 AM EDT Appointment [address] [address] Charity Phoenix MBBS [address] [place] [address] [email or web address] 01/20/2025 1:30 PM EDT Appointment [facility] [address] [place] [address] Charity Phoenix MBBS [address] [place] [address] [email or web address] 01/20/2025 2:30 PM EDT Office Visit [facility] 30 [place] [address] Mary Lou Mcfarland PA-C 30 [place] [address] [email or web address] documented as of this encounter Visit Diagnoses Not on filedocumented in this encounter Additional Health Concerns Infection Onset Date Last Indicated Resolved Time CoV-Risk 05/16/2024 05/16/2024 05/27/2024 1:22 AM EST Influenza A 05/16/2024 05/16/2024 05/23/2024 1:22 AM EST documented as of this encounter Care Teams Document Analyst Relationship Specialty Start Date End Date Florentino Medeiros MD [address] [place] [address] [address] PCP - General Internal Medicine 10/17/19 07/15/24 Mindy Lin MD [address] [place] [address] PCP - General Internal Medicine 07/16/24 Charity Phoenix MBBS [address] [place] [address] Dr RICHARDS [address] [place] [address] [email or web address] Primary Oncologist Hematology and Oncology 02/04/23 Nancy Contreras CNP [address] [place] [address] [email or web address] Nurse Practitioner Medical Oncology 05/16/23 documented as of this encounter Additional Source Comments The information contained in this document represents components of the legal health record. It is not the complete legal health record.[facility]
--- OUTSIDE RECORDS SUMMARY | 2024-12-17 15:20 | XMS_ITS | Encounter Summary ---
Author Organization [facility] Address [address] [place] [address] Phone Care Team Providers Care Lumber Tripper Name Role Phone Florentino Medeiros MD Primary Care Provider Charity Phoenix MBBS Unavailable [phone] PackNancy LIGHTING ADVISER Unavailable Mindy Lin MD Primary Care Provider Encounter Details Date Type Department Care Team (Late st Contact Info) Description 03/20/2023 Procedure Pass [facility], Ct Scan - [address] [address] Social History Tobacco Use Types Packs/Day Years [...] st Contact Info) Description 10/08/2024 Procedure Pass [address] [address] 10/08/2024 Procedure Pass [address] [address] 01/11/2025 11:15 AM EDT Appointment [address] [address] Charity Phoenix MBBS [address] [place] [address] [email or web address] 01/20/2025 1:30 PM EDT Appointment [facility] [address] [place] [address] Charity Phoenix MBBS [address] [place] [address] [email or web address] 01/20/2025 2:30 PM EDT Office Visit [facility] at [address] [address] Mary Lou Mcfarland PA-C [address] [place] [address] [email or web address] documented as of this encounter Visit Diagnoses Not on filedocumented in this encounter Additional Health Concerns Infection Onset Date Last Indicated Resolved Time CoV-Risk 05/17/2023 05/17/2023 05/28/2023 1:23 AM EST CoV-Risk 05/16/2024 05/16/2024 05/27/2024 1:22 AM EST Influenza A 05/16/2024 05/16/2024 05/23/2024 1:22 AM EST documented as of this encounter Care Teams Lumber Tripper Relationship Specialty Start Date End Date Florentino Medeiros MD [address] [place] [address] [place] [address] PCP - General Internal Medicine 10/17/19 07/15/24 Mindy Lin MD [address] [place] [address] PCP - General Internal Medicine 07/16/24 Charity Phoenix MBBS [address] [place] [address] [place] [address] [email or web address] Primary Oncologist Hematology and Oncology 02/04/23 Nancy Contreras CNP [address] [place] [address] [email or web address] Nurse Practitioner Medical Oncology 05/16/23 documented as of this encounter Additional Source Comments The information contained in this document represents components of the legal health record. It is not the complete legal health record.[facility]
--- OUTSIDE RECORDS SUMMARY | 2024-12-17 15:20 | XMS_ITS | Encounter Summary ---
Author Organization [facility] Address [address] [place] [address] Care Team Providers Care Supervisor Stage Carpentry Name Role Phone Florentino Medeiros Primary Care Provider [phone] Encounter Details Date Type Department Care Team (Late st Contact Info) Description 04/26/2017 Lab Requisition [facility] [address] [place] [address] Vahe Bull MD [address] [place] [phone] Social History Tobacco Use Types Packs/Day Years Used Date Smoking Tobacco: Never Assessed Comments Unknown Sex and Gender Information Value Date Recorded Sex Assigned at Not on file Legal Sex Female 10:17 AM EST Gender Identity Not on file Sexual Orientation Not on file documented as of this encounter Plan of Treatment Not on file documented as of this encounter Procedures * Due to [place] law, this organization might not be sharing negative HIV tests. Procedure Name Priority Date/Time Associated Diagnosis Comments TISSUE EXAM Routine 03/28/2017 documented in this encounter Results * Due to [place] law, this organization might not be sharing negative HIV tests. * (ABNORMAL) Tissue Exam (03/28/2017) Final Diagnosis Review of Outside Slides Received from [facility], [place], [place], Labeled [id number] , Procedure Date 03/28/17: A- Lung (Left Upper Lobe), Biopsy: - Fragments of benign bronchial and scant alveolar lung parenchyma. B,C- Lymph Node-R4, Biopsies: - FRAGMENTS OF FIBROADIPOSE AND LYMPHOID TISSUE WITH METASTATIC SQUAMOUS CELL CARCINOMA, POORLY DIFFERENTIATED, SEE NOTE. Note: The following immunostains performed at the outside institution have been reviewed: Positive: Cytokeratin TIMMY, cytokeratin 7, P40. Negative: Cytokeratin 7, TTF-1, Napsin A, S100, Melan-A. These results support the diagnosis. [facility] MANUAL 04/26/2017 2:03 PM EST [facility] ANATOMIC PATHOLOGY - [facility] THREE at 1403 EST Clinical History Metastatic poorly differentiated squamous cell carcinoma. [employer] MANUAL 04/26/2017 2:03 PM EST [facility] ANATOMIC PATHOLOGY - BIOTE[facility] THREE Gross Description Client Facility: [facility] Slide Identification: [id number] Number of Glass Slides Received: 11 Number of Blocks Received: 0 Client Pathologist: Dr. Fransico Choi Accompanying Report Received: Yes [employer] MANUAL 04/26/2017 2:03 PM EST [facility] ANATOMIC PATHOLOGY - BIOTE[facility] THREE Embedded Images [facility] MANUAL 04/26/2017 2:03 PM EST [facility] ANATOMIC PATHOLOGY - [facility]OTE[facility] THREE Resulting Agency Case was signed out at [facility], Department of Pathology, Bi[facility] 3 CLIA [id number] [facility] MANUAL 04/26/2017 2:03 PM EST [facility] ANATOMIC PATHOLOGY - BIOTECH THREE Abnormal Yes(A) (none) [employer] MANUAL 04/26/2017 2:03 PM EST [facility] ANATOMIC PATHOLOGY - BIOTECH THREE Report Header Surgical Pathology Report Case: [id number] Authorizing Provider: Vahe Bull MD Collected: 03/28/2017 Pathologist: Harley Brandt MD Received: 04/26/2017 1159 Specimen: Lung, Left Upper Lobe 04/26/2017 2:03 PM EST [facility] ANATOMIC PATHOLOGY - BIOTECH THREE Tissue specimen (specimen) Entire upper lobe of left lung / Unknown 03/28/2017 04/26/2017 11:59 AM EST us Vahe Bull MD LAB PATHOLOGY/CYTOLOGY ORDERABLES Final Result [facility] ANATOMIC PATHOLOGY - [facility] THREE [address] [place] [address], documented in this encounter Visit Diagnoses Not on filedocumented in this encounter Care Teams Supervisor Stage Carpentry Relationship Specialty Start Date End Date Florentino Medeiros [address] [place] [address] dr Prasanna Mims, AMAN [address] PCP - General Internal Medicine 04/25/17 documented as of this encounter
--- OUTSIDE RECORDS SUMMARY | 2024-12-17 15:20 | XMS_ITS | Clinical Summary ---
Author Organization [facility] Address [address] [place] [address] Care Team Providers Care Jordan Man Name Role Phone Florentino Mdeeiros Primary Care Provider [phone] Allergies No known active allergies Medications atorvastatin [...] 10/02/2001 Zoster Vaccines (1 of 2) 10/02/2001 Alcohol/Substance Use Screening 04/08/2024 Health Care Proxy Review 04/08/2024 COVID-19 Vaccine (4 - 2024-2 6 season) 2024 03/14/2021, 06/28/2020, 05/31/2020 Influenza Vaccine (#1) 2024 RSV Vaccine (60+ years old a nd patients) (1 - 1-dose 75+ series) 10/02/2026 Hepatitis B Vaccines Aged Out No long er eligible based on patient's age to complete this topic Insurance MEDICARE [facility] Care Teams Jordan Man Relationship Specialty Start Date End Date Florentino Medeiros [address] [place] [address] [place] [address] PCP - General Internal Medicine 04/25/17
--- OUTSIDE RECORDS SUMMARY | 2024-12-17 15:20 | XMS_ITS | Encounter Summary ---
Author Organization [facility] Address [address] [place] [address] Phone Care Team Providers Care Dining Room Coordinator Name Role Phone Florentino Medeiros MD Primary Care Provider Charity Phoenix MBBS Unavailable [phone] PackNancy COUNCILOR Unavailable Mindy Lin MD Primary Care Provider Encounter Details Date Type Department Care Team (Late st Contact Info) Description 03/20/2023 Procedure Pass [facility], Ct Scan - [address] [address] Social History Tobacco Use Types Packs/Day Years [...] st Contact Info) Description 10/08/2024 Procedure Pass [address] [address] 10/08/2024 Procedure Pass [address] [address] 01/11/2025 11:15 AM EDT Appointment [address] [address] Charity Phoenix MBBS [address] [place] [address] [email or web address] 01/20/2025 1:30 PM EDT Appointment [facility] [address] [place] [address] Charity Phoenix MBBS [address] [place] [address] [email or web address] 01/20/2025 2:30 PM EDT Office Visit [facility] at [address] [address] Mary Lou Mcfarland PA-C [address] [place] [address] [email or web address] documented as of this encounter Visit Diagnoses Not on filedocumented in this encounter Additional Health Concerns Infection Onset Date Last Indicated Resolved Time CoV-Risk 05/17/2023 05/17/2023 05/28/2023 1:23 AM EST CoV-Risk 05/16/2024 05/16/2024 05/27/2024 1:22 AM EST Influenza A 05/16/2024 05/16/2024 05/23/2024 1:22 AM EST documented as of this encounter Care Teams Dining Room Coordinator Relationship Specialty Start Date End Date Florentino Medeiros MD [address] [place] [address] [place] [address] PCP - General Internal Medicine 10/17/19 07/15/24 Mindy Lin MD [address] [place] [address] PCP - General Internal Medicine 07/16/24 Charity Phoenix MBBS [address] [place] [address] [place] [address] [email or web address] Primary Oncologist Hematology and Oncology 02/04/23 Nancy Contreras CNP [address] [place] [address] [email or web address] Nurse Practitioner Medical Oncology 05/16/23 documented as of this encounter Additional Source Comments The information contained in this document represents components of the legal health record. It is not the complete legal health record.[facility]
--- OUTSIDE RECORDS SUMMARY | 2024-12-17 15:20 | XMS_ITS ---
Author Organization [facility] Address [address] [place] [phone] Phone Care Team Providers Care Assistant Professor Of Art Name Role Phone Charity Phoenix MBBS Unavailable Nancy Contreras [employer] Unavailable Mindy Lin MD Primary Care Provider Active Problems Patient Care Coordination No te Formatting of this note migh t be different from the original. Height 162.6cm 10/08/24 Problem Noted Date Diagnosed Date Liver enzyme elevation 10/08/2024 Pancreatic cancer 11/05/2023 Anemia due to antineoplastic chemotherapy 2023 Peripheral neuropathy due to chemotherapy 2023 Hypercholesterolemia 04/08/2023 Weight loss 02/05/2023 Assessment & Plan (04/09/2023 10:12 AM EST): IMPRESSION: Patient initially lost significant weight around diagnosis of pancreatic cancer. DISCUSSION/RECOMMENDATIONS: I discussed overall impression and further management in this regard. Advised her to take smaller but more frequent meals and increase her nutritional intake to prevent any further weight loss or even to gain weight. Her weight is stable at this time. Thank you very much for allowing to participate in this patient's care Assessment & Plan (03/08/2023 11:59 AM EST): IMPRESSION: Patient initially lost significant weight around diagnosis of pancreatic cancer. DISCUSSION/RECOMMENDATIONS: I discussed overall impression and further management in this regard. Advised her to take smaller but more frequent meals and increase her nutritional intake to prevent any further weight loss or even to gain weight. Her weight is stable at this time. Thank you very much for allowing to participate in this patient's care Assessment & Plan (02/23/2023 5:57 PM EST): IMPRESSION: Patient has lost significant weight around diagnosis of pancreatic cancer. DISCUSSION/RECOMMENDATIONS: I discussed overall impression and further management in this regard. Advised her to take smaller but more frequent meals and increase her nutritional intake to prevent any further weight loss or even to gain weight. Patient is going to meet with our enterprise systems engineer to discuss this further. Thank you very much for allowing to participate in this patient's care Assessment & Plan (02/05/2023 8:57 AM EDT): IMPRESSION: Patient has lost significant weight around diagnosis of pancreatic cancer. DISCUSSION/RECOMMENDATIONS: I discussed overall impression and further management in this regard. Advised her to take smaller but more frequent meals and increase her nutritional intake to prevent any further weight loss or even to gain weight. Patient is going to meet with our enterprise systems engineer to discuss this further. Thank you very much for allowing to participate in this patient's care Malignant neoplasm of head of pancreas Cancer Staging:Clinical stage from 01/23/2023:Stage IB(cT2, cN0, cM0) - Signed by Charity Phoenix MBBS on 02/05/2023 Assessment & Plan (10/08/2024 3:40 PM EDT): IMPRESSION: 12/06/2022: This is a 73-year-old woman who is 1 year and and 7 months out from the diagnosis of pancreatic adenocarcinoma, head of the pancreas, Stage IB (cT2,cN0,cM0) unresectable disease. Patient is s/p neoadjuvant chemotherapy followed by concurrent chemoradiation therapy followed by attempt for Whipple's procedure but tumor was found to be unresectable and patient underwent IORT Mild neuropathy from chemotherapy -stable Anemia - mild and intermittent Abdominal pain - resolved Mild liver enzyme elevation of unclear etiology -continue to monitor Weight loss is likely intentional DISCUSSION: I discussed overall impression, stage of the disease, prognosis and further management in this regard. Patient met with the multidisciplinary GI cancer oncology team at [facility]. Options were discussed including upfront surgical resection followed by adjuvant therapy versus neoadjuvant chemotherapy to down size the tumor and then resection. After discussion decision was made to proceed with neoadjuvant chemotherapy to be the best option for her. After discussing the above-mentioned patient agreed to proceed. Patient completed 8 cycles of recommended neoadjuvant chemotherapy with FOLFIRINOX with some expected mild and manageable side effects. Restaging CT scans after 4 cycles of chemotherapy showed shrinkage of her primary tumor. Restaging CT scans after 8 cycles of chemotherapy showed stable disease. I discussed the case with the [place] team and consensus is to proceed with concurrent chemoradiation therapy followed by surgical evaluation. She completed planned neoadjuvant concurrent chemoradiation therapy with mild expected toxicity. 10/11/2023: Restaging CT scans showed stable disease and I reassured her about this. 11/05/23: Pt was taken to the OR for Whipple's procedure. Intraoperatively she was not found to be a candidate for Whipple procedure because of significant vascular involvement. So GASTROJEJUNOSTOMY, Open Liver Biopsy & MODIFIER IORT was done. Patient is now SUMIT. No further treatment was indicated at this time. I discussed surveillance as per NCCN guidelines. 03/12/2024: Surveillance CT scans showed stable changes. 06/27/2024: CT scans did not show any evidence of cancer recurrence. It showed stable changes. 10/01/2024: CT scans did not show any evidence of cancer recurrence. It showed stable changes. I reassured her about this. She has been doing well from oncological standpoint without any evidence of cancer recurrence and I reassured her about this. RECOMMENDATIONS: Continue surveillance as per NCCN guidelines LFTs check in 2 weeks Continue PORT flush every 6 weeks Incidental finding of small benign-appearing ovarian cyst for which she is going to see her field examiner Return for follow-up in 3 months with labs and scans Thank you very much for allowing me to participate in her care Assessment & Plan (07/03/2024 5:27 PM EDT): IMPRESSION: 12/06/2022: This is a 73-year-old woman who is 1 year and and 7 months out from the diagnosis of pancreatic adenocarcinoma, head of the pancreas, Stage IB (cT2,cN0,cM0) unresectable disease. Patient is s/p neoadjuvant chemotherapy followed by concurrent chemoradiation therapy followed by attempt for Whipple's procedure but tumor was found to be unresectable and patient underwent IORT Mild neuropathy from chemotherapy -stable Anemia -resolved Abdominal pain of unclear etiology -secondary to constipation DISCUSSION: I discussed overall impression, stage of the disease, prognosis and further management in this regard. Patient met with the multidisciplinary GI cancer oncology team at [facility]. Options were discussed including upfront surgical resection followed by adjuvant therapy versus neoadjuvant chemotherapy to down size the tumor and then resection. After discussion decision was made to proceed with neoadjuvant chemotherapy to be the best option for her. After discussing the above-mentioned patient agreed to proceed. Patient completed 8 cycles of recommended neoadjuvant chemotherapy with FOLFIRINOX with some expected mild and manageable side effects. Restaging CT scans after 4 cycles of chemotherapy showed shrinkage of her primary tumor. Restaging CT scans after 8 cycles of chemotherapy showed stable disease. I discussed the case with the [place] team and consensus is to proceed with concurrent chemoradiation therapy followed by surgical evaluation. She completed planned neoadjuvant concurrent chemoradiation therapy with mild expected toxicity. 10/11/2023: Restaging CT scans showed stable disease and I reassured her about this. 11/05/23: Pt was taken to the OR for Whipple's procedure. Intraoperatively she was not found to be a candidate for Whipple procedure because of significant vascular involvement. So GASTROJEJUNOSTOMY, Open Liver Biopsy & MODIFIER IORT was done. Patient is now SUMIT. No further treatment was indicated at this time. I discussed surveillance as per NCCN guidelines. 03/12/2024: Surveillance CT scans showed stable changes. 06/27/2024: CT scans did not show any evidence of cancer recurrence. It showed stable changes. I reassured her about this. She has been doing well from oncological standpoint without any evidence of cancer recurrence and I reassured her about this. No clear etiology of abdominal pain. This looks like some sort of gaseous pain secondary to constipation. I discussed the bowel regimen with her. I advised her to let me know if pain does not improve/resolve in the next few days in which case I would send her to GI. RECOMMENDATIONS: Continue to complete the course of antibiotics for UTI Continue surveillance as per NCCN guidelines Continue PORT flush every 6 weeks Return for follow-up in 3 months with labs and scans Thank you very much for allowing me to participate in her care Assessment & Plan (03/19/2024 11:50 AM EST): IMPRESSION: 12/06/2022: This is a 73-year-old woman who is 1 year and and 4 months out from the diagnosis of pancreatic adenocarcinoma, head of the pancreas, Stage IB (cT2,cN0,cM0) unresectable disease. Patient is s/p neoadjuvant chemotherapy followed by concurrent chemoradiation therapy followed by attempt for Whipple's procedure but tumor was found to be unresectable and patient underwent IORT Mild neuropathy from chemotherapy -stable Anemia -multifactorial -mild and improving DISCUSSION: I discussed overall impression, stage of the disease, prognosis and further management in this regard. Patient met with the multidisciplinary GI cancer oncology team at [facility]. Options were discussed including upfront surgical resection followed by adjuvant therapy versus neoadjuvant chemotherapy to down size the tumor and then resection. After discussion decision was made to proceed with neoadjuvant chemotherapy to be the best option for her. After discussing the above-mentioned patient agreed to proceed. Patient completed 8 cycles of recommended neoadjuvant chemotherapy with FOLFIRINOX with some expected mild and manageable side effects. Restaging CT scans after 4 cycles of chemotherapy showed shrinkage of her primary tumor. Restaging CT scans after 8 cycles of chemotherapy showed stable disease. I discussed the case with the [place] team and consensus is to proceed with concurrent chemoradiation therapy followed by surgical evaluation. She completed planned neoadjuvant concurrent chemoradiation therapy with mild expected toxicity. 10/11/2023: Restaging CT scans showed stable disease and I reassured her about this. 11/05/23: Pt was taken to the OR for Whipple's procedure. Intraoperatively she was not found to be a candidate for Whipple procedure because of significant vascular involvement. So GASTROJEJUNOSTOMY, Open Liver Biopsy & MODIFIER IORT was done. Patient is now SUMIT. No further treatment was indicated at this time. I discussed surveillance as per NCCN guidelines. 03/12/2024: Surveillance CT scans showed stable changes and I reassured her about this. She has been doing well from oncological standpoint without any evidence of cancer recurrence and I reassured her about this. RECOMMENDATIONS: Continue surveillance as per NCCN guidelines Continue PORT flush every 6 weeks Return for follow-up in 3 months with labs and scans Thank you very much for allowing me to participate in her care Assessment & Plan (01/28/2024 2:09 PM EDT): IMPRESSION: 12/06/2022: This is a 73-year-old woman who is 1 year and and 2 months out from the diagnosis of pancreatic adenocarcinoma, head of the pancreas, Stage IB (cT2,cN0,cM0) unresectable disease. Patient is s/p neoadjuvant chemotherapy followed by concurrent chemoradiation therapy followed by attempt for Whipple's procedure but tumor was found to be unresectable and patient underwent IORT Mild neuropathy from chemotherapy -stable Anemia - intermittent Pain management: Resolved Weight loss: Stable Thrombocytopenia from chemotherapy -resolved Hypokalemia -resolved DISCUSSION: I discussed overall impression, stage of the disease, prognosis and further management in this regard. Patient met with the multidisciplinary GI cancer oncology team at [facility]. Options were discussed including upfront surgical resection followed by adjuvant therapy versus neoadjuvant chemotherapy to down size the tumor and then resection. After discussion decision was made to proceed with neoadjuvant chemotherapy to be the best option for her. After discussing the above-mentioned patient agreed to proceed. Patient completed 8 cycles of recommended neoadjuvant chemotherapy with FOLFIRINOX with some expected mild and manageable side effects. Restaging CT scans after 4 cycles of chemotherapy showed shrinkage of her primary tumor. Restaging CT scans after 8 cycles of chemotherapy showed stable disease. I discussed the case with the [place] team and consensus is to proceed with concurrent chemoradiation therapy followed by surgical evaluation. She completed planned neoadjuvant concurrent chemoradiation therapy with mild expected toxicity. 10/11/2023: Restaging CT scans showed stable disease and I reassured her about this. 11/05/23: Pt was taken to the OR for Whipple's procedure. Intraoperatively she was not found to be a candidate for Whipple procedure because of significant vascular involvement. So GASTROJEJUNOSTOMY, Open Liver Biopsy & MODIFIER IORT was done. Patient is now SUMIT. No further treatment is indicated at this time. I discussed surveillance as per NCCN guidelines. RECOMMENDATIONS: Continue surveillance as per NCCN guidelines We will keep the PORT until next CT scans PORT flush every [address] scans in 6 weeks Anemia labs with next blood draw Return for follow-up in 6 weeks with labs and CT scans Thank you very much for allowing me to participate in her care Assessment & Plan (12/18/2023 12:58 PM EDT): IMPRESSION: 12/06/2022: This is a 73-year-old woman who is 1 year and 2 weeks out from the diagnosis of pancreatic adenocarcinoma, head of the pancreas, Stage IB (cT2,cN0,cM0) unresectable disease. Patient is s/p neoadjuvant chemotherapy followed by concurrent chemoradiation therapy followed by attempt for Whipple's procedure but tumor was found to be unresectable and patient underwent IORT Mild neuropathy from chemotherapy -stable Anemia - improving Pain management: Resolved Weight loss:ongoing Thrombocytopenia from chemotherapy -resolved Hypokalemia -resolved DISCUSSION: I discussed overall impression, stage of the disease, prognosis and further management in this regard. Patient met with the multidisciplinary GI cancer oncology team at [facility]. Options were discussed including upfront surgical resection followed by adjuvant therapy versus neoadjuvant chemotherapy to down size the tumor and then resection. After discussion decision was made to proceed with neoadjuvant chemotherapy to be the best option for her. After discussing the above-mentioned patient agreed to proceed. Patient completed 8 cycles of recommended neoadjuvant chemotherapy with FOLFIRINOX with some expected mild and manageable side effects. Restaging CT scans after 4 cycles of chemotherapy showed shrinkage of her primary tumor. Restaging CT scans after 8 cycles of chemotherapy showed stable disease. I discussed the case with the [place] team and consensus is to proceed with concurrent chemoradiation therapy followed by surgical evaluation. She completed planned neoadjuvant concurrent chemoradiation therapy with mild expected toxicity. 10/11/2023: Restaging CT scans showed stable disease and I reassured her about this. 11/05/23: Pt was taken to the OR for Whipple's procedure. Intraoperatively she was not found to be a candidate for Whipple procedure because of significant vascular involvement. So GASTROJEJUNOSTOMY, Open Liver Biopsy & MODIFIER IORT was done. Patient is now SUMIT. No further treatment is indicated at this time. I discussed surveillance as per NCCN guidelines. RECOMMENDATIONS: Labs in 6 weeks We will keep the PORT until next CT scans PORT flush every [address] scans in 3 months Return for follow-up in 6 weeks with labs Thank you very much for allowing me to participate in her care Assessment & Plan (10/19/2023 6:13 PM EDT): IMPRESSION: 12/06/2022: This is a 73-year-old woman who is 10 months and 2 weeks out from the diagnosis of pancreatic adenocarcinoma, head of the pancreas, Stage IB (cT2,cN0,cM0), potentially resectable disease. Mild intermittent diarrhea from chemotherapy - resolved Mild neuropathy from chemotherapy -stable Anemia -improved after PRBC transfusion - improved Pain management: Resolved Weight loss: Improving Thrombocytopenia from chemotherapy -resolved Hypokalemia -resolved DISCUSSION: I discussed overall impression, stage of the disease, prognosis and further management in this regard. Patient met with the multidisciplinary GI cancer oncology team at [facility]. Options were discussed including upfront surgical resection followed by adjuvant therapy versus neoadjuvant chemotherapy to down size the tumor and then resection. After discussion decision was made to proceed with neoadjuvant chemotherapy to be the best option for her. Patient is going to get neoadjuvant chemotherapy here locally at [facility]. She will undergo her surgery and radiation therapy in [place]. After discussing the above-mentioned patient agreed to proceed. Patient has completed 8 cycles of recommended neoadjuvant chemotherapy with FOLFIRINOX with some expected mild and manageable side effects. Restaging CT scans after 4 cycles of chemotherapy showed shrinkage of her primary tumor. Restaging CT scans after 8 cycles of chemotherapy showed stable disease. I discussed the above-mentioned with her and reassured her about this. I discussed the case with the [place] team and consensus is to proceed with concurrent chemoradiation therapy followed by surgical evaluation. I discussed various concurrent chemotherapy options with her including infusional 5-FU, capecitabine, gemcitabine. I recommended concurrent capecitabine/Xeloda chemotherapy with RT. She completed plan neoadjuvant concurrent chemoradiation therapy with mild expected toxicity. 10/11/2023: Restaging CT scans showed stable disease and I reassured her about this. I have requested to follow-up with [facility] team so that she can undergo her planned surgical resection. RECOMMENDATIONS: Follow up with [facility] team regarding surgical resection of her pancreatic cancer I have sent a message to [facility] team Continue to monitor anemia Continue to monitor neuropathy at this time Return for follow-up after surgery Thank you very much for allowing me to participate in her care Assessment & Plan (09/03/2023 10:49 PM EDT): IMPRESSION: 12/06/2022: This is a 72-year-old woman who is 8 months and 3 weeks out from the diagnosis of pancreatic adenocarcinoma, head of the pancreas, Stage IB (cT2,cN0,cM0), potentially resectable disease. 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 Patient met with the multidisciplinary GI cancer oncology team at [facility]. Options were discussed including upfront surgical resection followed by adjuvant therapy versus neoadjuvant chemotherapy to down size the tumor and then resection. After discussion decision was made to proceed with neoadjuvant chemotherapy to be the best option for her. Patient is going to get neoadjuvant chemotherapy here locally at [facility]. She will undergo her surgery and radiation therapy in [place]. After discussing the above-mentioned patient agreed to proceed. Patient has completed 8 cycles of recommended neoadjuvant chemotherapy with FOLFIRINOX with some expected mild and manageable side effects. Restaging CT scans after 4 cycles of chemotherapy showed shrinkage of her primary tumor. Restaging CT scans after 8 cycles of chemotherapy showed stable disease. I discussed the above-mentioned with her and reassured her about this. I discussed the case with the [place] team and consensus is to proceed with concurrent chemoradiation therapy followed by surgical evaluation. I discussed various concurrent chemotherapy options with her including infusional 5-FU, capecitabine, gemcitabine. I recommended concurrent capecitabine/Xeloda chemotherapy with RT. I discussed potential side effects from this approach including but not limited to allergic reactions, [id number] syndrome, diarrhea, nausea and pancytopenia's. I also discussed preventative measures for hand and foot syndrome. She has been tolerating current therapy without any significant side effects or complications and will continue as planned. RECOMMENDATIONS: Continue concurrent chemoradiation therapy with Xeloda/capecitabine in the dose of 830 mg/m every 12 hours Saturday through Saturday concurrently with radiation therapy, for total of 28 days She will complete current therapy on Patient will undergo restaging scans 4 weeks after completion of concurrent chemoradiation therapy and then evaluation for surgical resection Follow up with [facility] team after CT scans Continue to monitor anemia Continue to monitor neuropathy at this time Return for follow-up in 6 week with labs Thank you very much for allowing me to participate in her care Assessment & Plan (08/25/2023 10:20 AM EDT): IMPRESSION: 12/06/2022: This is a 72-year-old woman who is 8 months and 3 weeks out from the diagnosis of pancreatic adenocarcinoma, head of the pancreas, Stage IB (cT2,cN0,cM0), potentially resectable disease. 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 Patient met with the multidisciplinary GI cancer oncology team at [facility]. Options were discussed including upfront surgical resection followed by adjuvant therapy versus neoadjuvant chemotherapy to down size the tumor and then resection. After discussion decision was made to proceed with neoadjuvant chemotherapy to be the best option for her. Patient is going to get neoadjuvant chemotherapy here locally at [facility]. She will undergo her surgery and radiation therapy in [place]. After discussing the above-mentioned patient agreed to proceed. Patient has completed 8 cycles of recommended neoadjuvant chemotherapy with FOLFIRINOX with some expected mild and manageable side effects. Restaging CT scans after 4 cycles of chemotherapy showed shrinkage of her primary tumor. Restaging CT scans after 8 cycles of chemotherapy showed stable disease. I discussed the above-mentioned with her and reassured her about this. I discussed the case with the [place] team and consensus is to proceed with concurrent chemoradiation therapy followed by surgical evaluation. I discussed various concurrent chemotherapy options with her including infusional 5-FU, capecitabine, gemcitabine. I recommended concurrent capecitabine/Xeloda chemotherapy with RT. I discussed potential side effects from this approach including but not limited to allergic reactions, [id number]-ebvq syndrome, diarrhea, nausea and pancytopenia's. I also discussed preventative measures for hand and foot syndrome. She has been tolerating current therapy without any significant side effects or complications and will continue as planned. RECOMMENDATIONS: Continue concurrent chemoradiation therapy with Xeloda/capecitabine in the dose of 830 mg/m every 12 hours Saturday through Saturday concurrently with radiation therapy, for total of 28 days Patient will undergo restaging scans 4 weeks after completion of concurrent chemoradiation therapy and then evaluation for surgical resection Continue to monitor anemia Continue to monitor neuropathy at this time Return for follow-up in 1 week with labs Thank you very much for allowing me to participate in her care Assessment & Plan (08/19/2023 12:45 PM EDT): IMPRESSION: 12/06/2022: This is a 72-year-old woman who is 8 months and 2 weeks out from the diagnosis of pancreatic adenocarcinoma, head of the pancreas, Stage IB (cT2,cN0,cM0), potentially resectable disease. 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 Patient met with the multidisciplinary GI cancer oncology team at [facility]. Options were discussed including upfront surgical resection followed by adjuvant therapy versus neoadjuvant chemotherapy to down size the tumor and then resection. After discussion decision was made to proceed with neoadjuvant chemotherapy to be the best option for her. Patient is going to get neoadjuvant chemotherapy here locally at [facility]. She will undergo her surgery and radiation therapy in [place]. After discussing the above-mentioned patient agreed to proceed. Patient has completed 8 cycles of recommended neoadjuvant chemotherapy with FOLFIRINOX with some expected mild and manageable side effects. Restaging CT scans after 4 cycles of chemotherapy showed shrinkage of her primary tumor. Restaging CT scans after 8 cycles of chemotherapy showed stable disease. I discussed the above-mentioned with her and reassured her about this. I discussed the case with the [place] team and consensus is to proceed with concurrent chemoradiation therapy followed by surgical evaluation. I discussed various concurrent chemotherapy options with her including infusional 5-FU, capecitabine, gemcitabine. I recommended concurrent capecitabine/Xeloda chemotherapy with RT. I discussed potential side effects from this approach including but not limited to allergic reactions, xrxl-bqd-[id number] syndrome, diarrhea, nausea and pancytopenia's. I also discussed preventative measures for hand and foot syndrome. She has been tolerating current therapy without any significant side effects or complications and will continue as planned. RECOMMENDATIONS: Continue concurrent chemoradiation therapy with Xeloda/capecitabine in the dose of 830 mg/m every 12 hours Saturday through Saturday concurrently with radiation therapy, for total of 28 days Patient will undergo restaging scans after completion of concurrent chemoradiation therapy and then evaluation for surgical resection Continue to monitor anemia Continue to monitor neuropathy at this time Return for follow-up in 1 week with labs Thank you very much for allowing me to participate in her care Assessment & Plan (08/11/2023 9:55 PM EDT): IMPRESSION: 12/06/2022: This is a 72-year-old woman who is 8 months out from the diagnosis of pancreatic adenocarcinoma, head of the pancreas, Stage IB (cT2,cN0,cM0), potentially resectable disease. 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 Patient met with the multidisciplinary GI cancer oncology team at [facility]. Options were discussed including upfront surgical resection followed by adjuvant therapy versus neoadjuvant chemotherapy to down size the tumor and then resection. After discussion decision was made to proceed with neoadjuvant chemotherapy to be the best option for her. Patient is going to get neoadjuvant chemotherapy here locally at [facility]. She will undergo her surgery and radiation therapy in [place]. After discussing the above-mentioned patient agreed to proceed. Patient has completed 8 cycles of recommended neoadjuvant chemotherapy with FOLFIRINOX with some expected mild and manageable side effects. Restaging CT scans after 4 cycles of chemotherapy showed shrinkage of her primary tumor. Restaging CT scans after 8 cycles of chemotherapy showed stable disease. I discussed the above-mentioned with her and reassured her about this. I discussed the case with the [place] team and consensus is to proceed with concurrent chemoradiation therapy followed by surgical evaluation. I discussed various concurrent chemotherapy options with her including infusional 5-FU, capecitabine, gemcitabine. I recommended concurrent capecitabine/Xeloda chemotherapy with RT. I discussed potential side effects from this approach including but not limited to allergic reactions, bpjc-foz-tuva syndrome, diarrhea, nausea and pancytopenia's. I also discussed preventative measures for hand and foot syndrome. She has been tolerating current therapy without any significant side effects or complications and will continue as planned. RECOMMENDATIONS: Continue concurrent chemoradiation therapy with Xeloda/capecitabine in the dose of 830 mg/m every 12 hours Saturday through Saturday concurrently with radiation therapy, for total of 28 days Patient will undergo restaging scans after completion of concurrent chemoradiation therapy and then evaluation for surgical resection Continue to monitor anemia Continue to monitor neuropathy at this time Return for follow-up in 1 week with labs Thank you very much for allowing me to participate in her care Assessment & Plan (08/07/2023 6:39 PM EDT): IMPRESSION: 12/06/2022: This is a 72-year-old woman who is 8 months out from the diagnosis of pancreatic adenocarcinoma, head of the pancreas, Stage IB (cT2,cN0,cM0), potentially resectable disease. 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 Patient met with the multidisciplinary GI cancer oncology team at [facility]. Options were discussed including upfront surgical resection followed by adjuvant therapy versus neoadjuvant chemotherapy to down size the tumor and then resection. After discussion decision was made to proceed with neoadjuvant chemotherapy to be the best option for her. Patient is going to get neoadjuvant chemotherapy here locally at [facility]. She will undergo her surgery and radiation therapy in [place]. After discussing the above-mentioned patient agreed to proceed. Patient has completed 8 cycles of recommended neoadjuvant chemotherapy with FOLFIRINOX with some expected mild and manageable side effects. Restaging CT scans after 4 cycles of chemotherapy showed shrinkage of her primary tumor. Restaging CT scans after 8 cycles of chemotherapy showed stable disease. I discussed the above-mentioned with her and reassured her about this. I discussed the case with the [place] team and consensus is to proceed with concurrent chemoradiation therapy followed by surgical evaluation. I discussed various concurrent chemotherapy options with her including infusional 5-FU, capecitabine, gemcitabine. I recommended concurrent capecitabine/Xeloda chemotherapy with RT. I discussed potential side effects from this approach including but not limited to allergic reactions, ebmz-ggy-iudc syndrome, diarrhea, nausea and pancytopenia's. I also discussed preventative measures for hand and foot syndrome. She has been tolerating current therapy without any significant side effects or complications and will continue as planned. RECOMMENDATIONS: Continue concurrent chemoradiation therapy with Xeloda/capecitabine in the dose of 830 mg/m every 12 hours Saturday through Saturday concurrently with radiation therapy, for total of 28 days Patient will undergo restaging scans after completion of concurrent chemoradiation therapy and then evaluation for surgical resection Continue to monitor anemia Continue to monitor neuropathy at this time Return for follow-up in 1 week with labs Thank you very much for allowing me to participate in her care Assessment & Plan (07/15/2023 3:07 PM EDT): IMPRESSION: 12/06/2022: This is a 72-year-old woman who is 7 months and 1 week out from the diagnosis of pancreatic adenocarcinoma, head of the pancreas, Stage IB (cT2,cN0,cM0), potentially resectable disease. 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 Patient met with the multidisciplinary GI cancer oncology team at [facility]. Options were discussed including upfront surgical resection followed by adjuvant therapy versus neoadjuvant chemotherapy to down size the tumor and then resection. After discussion decision was made to proceed with neoadjuvant chemotherapy to be the best option for her. Patient is going to get neoadjuvant chemotherapy here locally at [facility]. She will undergo her surgery and radiation therapy in [place]. After discussing the above-mentioned patient agreed to proceed. Patient has completed 8 cycles of recommended neoadjuvant chemotherapy with FOLFIRINOX with some expected mild and manageable side effects. Restaging CT scans after 4 cycles of chemotherapy showed shrinkage of her primary tumor. Restaging CT scans after 8 cycles of chemotherapy showed stable disease. I discussed the above-mentioned with her and reassured her about this. I discussed the case with the [place] team and consensus is to proceed with concurrent chemoradiation therapy followed by surgical evaluation. I discussed various concurrent chemotherapy options with her including infusional 5-FU, capecitabine, gemcitabine. I recommended concurrent capecitabine/Xeloda chemotherapy with RT. I discussed potential side effects from this approach including but not limited to allergic reactions, uper-ium-wizr syndrome, diarrhea, nausea and pancytopenia's. Patient signed the informed consent. I also discussed preventative measures for hand and foot syndrome. RECOMMENDATIONS: Patient is going to start concurrent chemoradiation therapy with Xeloda/capecitabine in the dose of 830 mg/m every 12 hours Saturday through Saturday concurrently with radiation therapy, for total of 28 days Continue to monitor anemia Continue to monitor neuropathy at this time Return for follow-up in 3 weeks with labs Thank you very much for allowing me to participate in her care Assessment & Plan (07/01/2023 11:03 PM EDT): IMPRESSION: 12/06/2022: This is a 72-year-old woman who is 6 months out from the diagnosis of pancreatic adenocarcinoma, head of the pancreas, Stage IB (cT2,cN0,cM0), resectable disease. 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 Patient met with the multidisciplinary GI cancer oncology team at [facility]. Options were discussed including upfront surgical resection followed by adjuvant therapy versus neoadjuvant chemotherapy to down size the tumor and then resection. After discussion decision was made to proceed with neoadjuvant chemotherapy to be the best option for her. Patient is going to get neoadjuvant chemotherapy here locally at [facility]. She will undergo her surgery and radiation therapy in [place]. After discussing the above-mentioned patient agreed to proceed. Patient has completed 8 cycles of recommended neoadjuvant chemotherapy with FOLFIRINOX with some expected mild and manageable side effects. Restaging CT scans after 4 cycles of chemotherapy showed shrinkage of her primary tumor. Restaging CT scans after 8 cycles of chemotherapy showed stable disease. I discussed the above-mentioned with her and reassured her about this. I discussed the case with the [place] team and consensus is to proceed with concurrent chemoradiation therapy followed by surgical evaluation. I discussed various concurrent chemotherapy options with her including infusional 5-FU, capecitabine, gemcitabine. RECOMMENDATIONS: Refer to radiation oncology Patient to start concurrent chemoradiation therapy in the next 2 to 3 weeks. Discontinue KCl supplements Continue to monitor anemia Continue to monitor neuropathy at this time Return for follow-up in 2 weeks Thank you very much for allowing me to participate in her care Assessment & Plan (06/19/2023 1:56 PM EDT): IMPRESSION: 12/06/2022: This is a 72-year-old woman who is 6 months and 2 weeks out from the diagnosis of pancreatic adenocarcinoma, head of the pancreas, Stage IB (cT2,cN0,cM0), resectable disease. 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 Patient met with the multidisciplinary GI cancer oncology team at [facility]. Options were discussed including upfront surgical resection followed by adjuvant therapy versus neoadjuvant chemotherapy to down size the tumor and then resection. After discussion decision was made to proceed with neoadjuvant chemotherapy to be the best option for her. Patient is going to get neoadjuvant chemotherapy here locally at [facility]. She will undergo her surgery and radiation therapy in [place]. After discussing the above-mentioned patient agreed to proceed. Patient has completed 8 cycles of recommended neoadjuvant chemotherapy with FOLFIRINOX with some expected mild and manageable side effects. Restaging CT scans after 4 cycles of chemotherapy showed shrinkage of her primary tumor. Restaging CT scans after 8 cycles of chemotherapy showed stable disease. I discussed the above-mentioned with her and reassured her about this. I recommended a follow-up with [place] team to see what is next in her treatment. Initial plan was to proceed with surgical resection after neoadjuvant chemotherapy. I have sent a message to her team in [place]. RECOMMENDATIONS: Follow-up with [place] team in regards to the next step in her treatment Initial plan was surgical resection after neoadjuvant chemotherapy Continue KCl supplements 20 mg daily Anemia is worsening and she is somewhat symptomatic from this I recommended a unit of PRBC transfusion Continue to monitor neuropathy at this time Continue to use Imodium as needed for diarrhea Return for follow-up in 2 weeks Thank you very much for allowing me to participate in her care Assessment & Plan (05/06/2023 11:02 AM EST): IMPRESSION: This is a 72-year-old woman who is 5 months out from the diagnosis of pancreatic adenocarcinoma, head of the pancreas, Stage IB (cT2,cN0,cM0), resectable disease. 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 Patient met with the multidisciplinary GI cancer oncology team at [facility]. Options were discussed including upfront surgical resection followed by adjuvant therapy versus neoadjuvant chemotherapy to down size the tumor and then resection. After discussion decision was made to proceed with neoadjuvant chemotherapy to be the best option for her. Patient is going to get neoadjuvant chemotherapy here locally at [facility]. She will undergo her surgery and radiation therapy in [place]. I discussed side effects from chemotherapy including but not limited to allergic reaction, alopecia, nausea, vomiting, diarrhea, mucositis, pancytopenia, neutropenic fever, bleeding, thrombosis, infections, renal/liver/neuro/pulmonary/skin toxicity and the small risk of from these complications. After discussing the above-mentioned patient agreed to proceed. Patient has been tolerating current therapy with some expected but manageable side effects. She is primarily having issues with fatigue, intermittent loose bowel movements, mild neuropathy, anemia and more recently thrombocytopenia. Her CBCD if from few days ago showed platelet count of 89 so I repeated the CBCD today which came back showing platelet count above 100 so she was cleared to resume at cycle of chemotherapy today. RECOMMENDATIONS: C6D1 of neoadjuvant chemotherapy with modified FOLFIRINOX today- every 2 weeks x 8 cycles Patient will receive oral KCl supplements in the clinic today and then at home, prescription was sent. Restaging scans after 8 cycles Patient will follow-up with [facility] team after 8 cycles of chemotherapy regarding next treatment and evaluation for surgical resection Thrombocytopenia improved, continue to monitor Anemia is asymptomatic at this time. Continue to monitor Continue to monitor neuropathy at this time Continue to use Imodium as needed for diarrhea Return for follow-up in 2 weeks Thank you very much for allowing me to participate in her care Assessment & Plan (04/09/2023 10:39 AM EST): IMPRESSION: This is a 72-year-old woman who is 4 months out from the diagnosis of pancreatic adenocarcinoma, head of the pancreas, Stage IB (cT2,cN0,cM0), resectable disease. 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 Patient met with the multidisciplinary GI cancer oncology team at [facility]. Options were discussed including upfront surgical resection followed by adjuvant therapy versus neoadjuvant chemotherapy to down size the tumor and then resection. After discussion decision was made to proceed with neoadjuvant chemotherapy to be the best option for her. Patient is going to get neoadjuvant chemotherapy here locally at [facility]. She will undergo her surgery and radiation therapy in [place]. I discussed side effects from chemotherapy including but not limited to allergic reaction, alopecia, nausea, vomiting, diarrhea, mucositis, pancytopenia, neutropenic fever, bleeding, thrombosis, infections, renal/liver/neuro/pulmonary/skin toxicity and the small risk of from these complications. After discussing the above-mentioned patient agreed to proceed. She has been tolerating her current chemotherapy without any significant side effects or complications and will continue as planned. RECOMMENDATIONS: C4D1 of neoadjuvant chemotherapy with modified FOLFIRINOX today- every 2 weeks x 8 cycles Restaging scans after 4 cycles and then 8 cycles Anemia is asymptomatic at this time. Continue to monitor Continue to monitor neuropathy at this time Continue to use Imodium as needed for diarrhea Robitussin syrup for dry cough Return for follow-up in 2 weeks Thank you very much for allowing me to participate in her care Assessment & Plan (03/25/2023 10:46 AM EST): IMPRESSION: This is a 72-year-old woman who is 3 months and 2 weeks out from the diagnosis of pancreatic adenocarcinoma, head of the pancreas, Stage IB (cT2,cN0,cM0), resectable disease. Leukocytosis secondary to growth factor URI: Cough with some sputum production. Lungs are clear. Some of the leukocytosis could be secondary to this. I recommended a course of antibiotic. Patient is cleared for chemotherapy today. She will watch for any fevers and will go to the ER or call me. I advised her to check for COVID again today. DISCUSSION: I discussed overall impression, stage of the disease, prognosis and further management in this regard. Patient met with the multidisciplinary GI cancer oncology team at [facility]. Options were discussed including upfront surgical resection followed by adjuvant therapy versus neoadjuvant chemotherapy to down size the tumor and then resection. After discussion decision was made to proceed with neoadjuvant chemotherapy to be the best option for her. Patient is going to get neoadjuvant chemotherapy here locally at [facility]. She will undergo her surgery and radiation therapy in [place]. I discussed side effects from chemotherapy including but not limited to allergic reaction, alopecia, nausea, vomiting, diarrhea, mucositis, pancytopenia, neutropenic fever, bleeding, thrombosis, infections, renal/liver/neuro/pulmonary/skin toxicity and the small risk of from these complications. After discussing the above-mentioned patient agreed to proceed. She has been tolerating her current chemotherapy without any significant side effects or complications and will continue as planned. RECOMMENDATIONS: C3D1 of neoadjuvant chemotherapy with modified FOLFIRINOX today- every 2 weeks x 8 cycles Restaging scans after 4 cycles and then 8 cycles Antibiotic Zithromax for URI Advised her to check for COVID again today and call me if it is positive Return for follow-up in 2 weeks Thank you very much for allowing me to participate in her care Assessment & Plan (03/08/2023 10:55 AM EST): IMPRESSION: This is a 72-year-old woman who is 3 months out from the diagnosis of pancreatic adenocarcinoma, head of the pancreas, Stage IB (cT2,cN0,cM0), resectable disease. DISCUSSION: I discussed overall impression, stage of the disease, prognosis and further management in this regard. Patient met with the multidisciplinary GI cancer oncology team at [facility]. Options were discussed including upfront surgical resection followed by adjuvant therapy versus neoadjuvant chemotherapy to down size the tumor and then resection. After discussion decision was made to proceed with neoadjuvant chemotherapy to be the best option for her. Patient is going to get neoadjuvant chemotherapy here locally at [facility]. She will undergo her surgery and radiation therapy in [place]. I discussed side effects from chemotherapy including but not limited to allergic reaction, alopecia, nausea, vomiting, diarrhea, mucositis, pancytopenia, neutropenic fever, bleeding, thrombosis, infections, renal/liver/neuro/pulmonary/skin toxicity and the small risk of from these complications. After discussing the above-mentioned patient agreed to proceed. She has been tolerating her current chemotherapy without any significant side effects or complications and will continue as planned. RECOMMENDATIONS: C2D1 of neoadjuvant chemotherapy with modified FOLFIRINOX on 03/11/2023- every 2 weeks x 8 cycles Restaging scans after 4 cycles and then 8 cycles Return for follow-up in 2 weeks Thank you very much for allowing me to participate in her care Assessment & Plan (02/24/2023 4:44 PM EST): IMPRESSION: This is a 72-year-old woman with recent diagnosis of pancreatic adenocarcinoma, head of the pancreas, Stage IB (cT2,cN0,cM0), resectable disease. DISCUSSION: I discussed overall impression, stage of the disease, prognosis and further management in this regard. Patient met with the multidisciplinary GI cancer oncology team at [facility]. Options were discussed including upfront surgical resection followed by adjuvant therapy versus neoadjuvant chemotherapy to down size the tumor and then resection. After discussion decision was made to proceed with neoadjuvant chemotherapy to be the best option for her. Patient is going to get neoadjuvant chemotherapy here locally at [facility]. She will undergo her surgery and radiation therapy in [place]. I discussed side effects from chemotherapy including but not limited to allergic reaction, alopecia, nausea, vomiting, diarrhea, mucositis, pancytopenia, neutropenic fever, bleeding, thrombosis, infections, renal/liver/neuro/pulmonary/skin toxicity and the small risk of from these complications. After discussing the above-mentioned patient agreed to proceed. RECOMMENDATIONS: C1D1 of neoadjuvant chemotherapy with modified FOLFIRINOX today - every 2 weeks x 8 cycles Restaging scans after 4 cycles and then 8 cycles Return for follow-up in 2 weeks Thank you very much for allowing me to participate in her care Assessment & Plan (02/05/2023 12:28 PM EDT): IMPRESSION: This is a 72-year-old woman with recent diagnosis of pancreatic adenocarcinoma, head of the pancreas, Stage IB (cT2,cN0,cM0), resectable disease. DISCUSSION: I discussed overall impression, stage of the disease, prognosis and further management in this regard. Patient met with the multidisciplinary GI cancer oncology team at [facility]. Options were discussed including upfront surgical resection followed by adjuvant therapy versus neoadjuvant chemotherapy to down size the tumor and then resection. After discussion decision was made to proceed with neoadjuvant chemotherapy to be the best option for her. Patient is going to get neoadjuvant chemotherapy here locally at [facility]. She will undergo her surgery and radiation therapy in [place]. I discussed side effects from chemotherapy including but not limited to allergic reaction, alopecia, nausea, vomiting, diarrhea, mucositis, pancytopenia, neutropenic fever, bleeding, thrombosis, infections, renal/liver/neuro/pulmonary/skin toxicity and the small risk of from these complications. Patient will undergo chemotherapy teaching. After discussing the above-mentioned patient agreed to proceed. RECOMMENDATIONS: Labs today Schedule PORT placement Scheduled to start neoadjuvant chemotherapy with modified FOLFIRINOX x 8 cycles Restaging scans after 4 cycles and then 8 cycles Thank you very much for allowing me to participate in her care Acquired hypothyroidism 11/26/2022 Familial tremor 11/26/2022 Overview (04/08/2023): Per patient, neck and head Squamous cell carcinoma of left lung 04/29/2017 Cancer Staging:Clinical: Unsigned Assessment & Plan (10/08/2024 3:36 PM EDT): IMPRESSION: This is a 74-year-old woman who is 7 years and 5 months out from the diagnosis of stage IIIb non-small cell lung cancer of the left upper lobe of the lung who is s/p definitive chemoradiation therapy with carboplatinum and paclitaxel followed by maintenance durvalumab completing in July 2018. DISCUSSION: I discussed overall impression, prognosis and further management in this regard. Stage III lung cancer has significant high risk of recurrence although she is more than 5 years out from a lung cancer and is likely cured from it. She has been doing well from oncological standpoint without any evidence of lung cancer recurrence and I reassured her about this. RECOMMENDATIONS: NCCN guidelines do not recommend any routine surveillance scans after 5 years although she will be undergoing scans for her recent diagnosis of pancreatic cancer Thank you very much for allowing to participate in this patient's care Assessment & Plan (03/19/2024 11:49 AM EST): IMPRESSION: This is a 72-year-old woman who is 6 years and 5 months out from the diagnosis of stage IIIb non-small cell lung cancer of the left upper lobe of the lung who is s/p definitive chemoradiation therapy with carboplatinum and paclitaxel followed by maintenance durvalumab completing in July 2018. DISCUSSION: I discussed overall impression, prognosis and further management in this regard. Stage III lung cancer has significant high risk of recurrence although she is more than 5 years out from a lung cancer and is likely cured from it. She has been doing well from oncological standpoint without any evidence of lung cancer recurrence and I reassured her about this. RECOMMENDATIONS: NCCN guidelines do not recommend any routine surveillance scans after 5 years although she will be undergoing scans for her recent diagnosis of pancreatic cancer Thank you very much for allowing to participate in this patient's care Assessment & Plan (12/18/2023 12:58 PM EDT): IMPRESSION: This is a 72-year-old woman who is 6 years and 5 months out from the diagnosis of stage IIIb non-small cell lung cancer of the left upper lobe of the lung who is s/p definitive chemoradiation therapy with carboplatinum and paclitaxel followed by maintenance durvalumab completing in July 2018. DISCUSSION: I discussed overall impression, prognosis and further management in this regard. Stage III lung cancer has significant high risk of recurrence although she is more than 5 years out from a lung cancer and is likely cured from it. She has been doing well from oncological standpoint without any evidence of lung cancer recurrence and I reassured her about this. RECOMMENDATIONS: NCCN guidelines do not recommend any routine surveillance scans after 5 years although she will be undergoing scans for her recent diagnosis of pancreatic cancer Thank you very much for allowing to participate in this patient's care Assessment & Plan (08/18/2023 3:31 PM EDT): IMPRESSION: This is a 72-year-old woman who is 6 years and 5 months out from the diagnosis of stage IIIb non-small cell lung cancer of the left upper lobe of the lung who is s/p definitive chemoradiation therapy with carboplatinum and paclitaxel followed by maintenance durvalumab completing in July 2018. DISCUSSION: I discussed overall impression, prognosis and further management in this regard. Stage III lung cancer has significant high risk of recurrence although she is more than 5 years out from a lung cancer and is likely cured from it. She has been doing well from oncological standpoint without any evidence of lung cancer recurrence and I reassured her about this. RECOMMENDATIONS: NCCN guidelines do not recommend any routine surveillance scans after 5 years although she will be undergoing scans for her recent diagnosis of pancreatic cancer Thank you very much for allowing to participate in this patient's care Current Treatment and Therapy Plans ACCESS AND FLUSH ([facility])* Plan Start Date:03/27/2023 Plan Provider:Nancy Contreras CNP Linked Problems Malignant neoplasm of head o f pancreas Treatment Medications No medications scheduled. CAPECITABINE WITH XRT - 5 DAY PER WEEK SCHEDULE* Plan Start Date:07/30/2023 Plan Provider:Charity Phoenix MBBS Linked Problems Malignant neoplasm of head o f pancreas Treatment Medications Current Day (Day 8 , Cycle 1 - Planned for 08/06/2023) Next Day (Day 15, Cycle 1 - Planned for 08/13/2023) capecitabine (XELODA) No medications scheduled. No medications scheduled. Past Treatment and Therapy Plans TREATMENT PLAN Plan Name Start Date Discontinue Date Treatment Medications Discontinue Reason Plan Provider Cycles CAPECITABINE WITH XRT - 5 DAY PER WEEK SCHEDULE 07/30/19 24 07/15/2023 capecitabine (XELODA) f. Change in Level of Care Charity Phoenix MBBS Treatment not started FOLFIRINOX - FLUOROURACIL/L EUCOVORIN/IRIN OTECAN/OXALIPL ATIN-ADJUVANT DOSING 023 06/18/2023 fluorouracil (ADRACIL)fluorour acil (ADRUCIL) CADD pump infusion (total dose > 5000 mg, infusion time > 24 hours) (336 mL)irinotecan (CAMPTOSAR) IVPBoxaliplatin (ELOXATIN) IVPB a. Therapy Complete Charity Phoenix [employer] 8 of 11 cycles started Lifetime Dose Tracking * Chemical Lifetime Dose Automatic Entry Manual Entr y Invasive Cardiology Radiation Exposure 1 mGy 0 mGy 1 mGy 2. DAP 16.81 uGy-m2 0 uGy-m2 16.81 uGy-m2 Resolved Problems Problem Noted Date Diagnosed Date Resolved Date Hypokalemia 05/06/2023 03/19/2024 Thrombocytopenia due to drugs 05/06/2023 01/28/2024 Chronic cough 04/08/2023 03/19/2024 Obesity (BMI 30.0-34.9) 04/08/202303/08 Pain management 02/05/2023 03/19/2024 Assessment & Plan (04/09/2023 10:37 AM EST): IMPRESSION: Patient has been experiencing pain from her pancreatic cancer. This is mild and manageable at this time with gabapentin 100 mg twice a day and Tylenol once or twice a day. RECOMMENDATIONS: Pain has resolved.Continue current prn pain meds Thank very much for allowing me to participate in her care Assessment & Plan (03/08/2023 11:59 AM EST): IMPRESSION: Patient has been experiencing pain from her pancreatic cancer. This is mild and manageable at this time with gabapentin 100 mg twice a day and Tylenol once or twice a day. RECOMMENDATIONS: Pain is also improved. Continue current pain meds Thank very much for allowing me to participate in her care Assessment & Plan (02/25/2023 9:57 AM EST): IMPRESSION: Patient has been experiencing pain from her pancreatic cancer. This is mild and manageable at this time with gabapentin 100 mg twice a day and Tylenol once or twice a day. RECOMMENDATIONS: Continue current pain meds Thank very much for allowing me to participate in her care Assessment & Plan (02/05/2023 12:29 PM EDT): IMPRESSION: Patient has been experiencing pain from her pancreatic cancer. This is mild and manageable at this time with gabapentin 100 mg twice a day. RECOMMENDATIONS: Continue gabapentin 100 mg twice a day at this time. Thank very much for allowing me to participate in her care
--- OUTSIDE RECORDS SUMMARY | 2024-12-17 15:20 | XMS_ITS | Patient Health Record ---
Author Organization [facility] Address [address] [place] [address] Care Team Providers Care Pressure Steamer Tender Name Role Phone Florentino Medeiros MD Primary Care Provider Andrea Barkley Unavailable [phone] Reason For Referral No Information Medications Medication [...] Status W/U Status Risk Notes Problem Hallux valgus ([id number]) Hallux Valgus (735.0) Active confirmed Plan Of Treatment No Information Insurance Providers Payer Name Payer Address Payer Phone Subscriber Number Group Number Insured Name Patient Relationship to Insured Coverage Start Date Coverage End Date [facility] [address] [place] [address] [id number] Aziza Bolanos Self - patient is the insured Medical (General) History Medical History History ICD Code Cholesterol thyroid disorder joint implants/screws Surgical History Surgery Date(Month/Year) throat polyp removed 2008
--- OUTSIDE RECORDS SUMMARY | 2024-12-17 15:20 | XMS_ITS | Encounter Summary ---
Author Organization [facility] Address [address] [place] [phone] Phone Care Team Providers Care Brownell Operator Name Role Phone Florentino Medeiros MD Primary Care Provider Charity Phoenix [employer]BS Unavailable [phone] PackNancy STITCH WELDER Unavailable Mindy Lin MD Primary Care Provider Encounter Details Date Type Department Care Team (Late st Contact Info) Description 01/28/2024 Procedure Pass [facility], Ct Scan - [address] [address] Social History Tobacco Use Types Packs/Day Years [...] (Late st Contact Info) Description 10/08/[address] [address] 10/08/[address] [address] 01/11/2025 11:15 AM EDT Appointment [address] [address] Charity Phoenix MBBS [address] [place] [phone] [email or web address] 01/20/2025 1:30 PM EDT Appointment [facility] [address] [place] [phone] Charity Phoenix MBBS [address] [place] [phone] [email or web address] 01/20/2025 2:30 PM EDT Office Visit [facility] [address] [place] [address] Mary Lou Mcfarland PA-C [address] [place] [address] [email or web address] documented as of this encounter Visit Diagnoses Not on filedocumented in this encounter Additional Health Concerns Infection Onset Date Last Indicated Resolved Time CoV-Risk 05/16/2024 05/16/2024 05/27/2024 1:22 AM EST Influenza A 05/16/2024 05/16/2024 05/23/2024 1:22 AM EST documented as of this encounter Care Teams Brownell Operator Relationship Specialty Start Date End Date Florentino Medeiros MD [address] [place] [address] [address] PCP - General Internal Medicine 10/17/19 07/15/24 Mindy Lin MD [address] [place] [address] PCP - General Internal Medicine 07/16/24 Charity Phoenix [employer]BS [address] [place] [address] Dr RICHARDS [address] [place] [id number] [email or web address] Primary Oncologist Hematology and Oncology 02/04/23 Nancy Contreras CNP [address] [place] [phone] [email or web address] Nurse Practitioner Medical Oncology 05/16/23 documented as of this encounter Additional Source Comments The information contained in this document represents components of the legal health record. It is not the complete legal health record.[facility]
== END 2024-12-17 11:03 | disposition home or self-care (01) ==
LOC: HO.MAMMO 11:02
PROVIDERS: PCP Internal Medicine; Visit Provider Obstetrics & Gynecology
DX: Z13.820 Encounter for screening for osteoporosis (principal); Z78.0 Asymptomatic menopausal state
CPT/HCPCS: 77080

== ENCOUNTER 2025-02-26 10:46 | Outpatient (AMB) | payer MEDICARE, OTHER, SELFPAY ==
--- OUTSIDE RECORDS SUMMARY | 2023-08-29 10:45 | XMS_ITS ---
Author Organization Vimal Head III, MD Address [address] [place] [address] Care Team Providers Care Creative Project Manager Name Role Phone CarterMindy Lott ([place]) Primary Care Provider Un available Dr. Vimal Head III Unavailable [phone] REASON FOR VISIT Followup Social History Sex Assigned At : Social History Observation Description Sex Assigned At Female Encounters Encounter Location Date Provider Diagnosis Vimal Head III, MD [address] [place] [address] [place] [address] 08/29/2023 Vimal Head Plan Of Treatment Next Appt Details Provider Name:Vimal Head , 03/23/2025 10:00:00 AM, [address] [place] [address] [place], [id number], Progress Notes * SYDNIE BOLANOSDOB:1950 ([age] yo F)Acc No.[id number]:08/29/2023 Progress Notes Patient: SYDNIE CARVALHO Provider: Akua Head MD :1950 A ge:72 Y S ex:Female Date:08/29/2023 Address:[address] [place], [place] [address] , [id number] Pcp:Mindy Saunders ([place]) Subjective: * Chief Complaints: * 1 . Followup. * Medical History: Objective: * Vitals: Assessment: Plan: * Treatment: * Images: * The named appointment provid er may or may not be the originator of this progress note, and it is not deemed complete until electronically signed by the appointment provider. Sign off status: Pending * Provider: Akua Head MD Date: 0 08/29/2023 Generated for Chanelle rosado/Jesusita/Luciasmitting on: 1 04/28/2024 11:30 AM EST
--- OUTSIDE RECORDS SUMMARY | 2023-09-19 04:00 | XMS_ITS ---
Author Organization Vimal Head III, MD Address [address] [place] [address] Care Team Providers Care Finger Buffs Assembler Name Role Phone CarterMindy Lott ([place]) Primary Care Provider Un available Dr. 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 Oral Active clonazePAM 1 MG (Schedule IV Drug) T MALIA 1 TABLET BY MOUTH EVERY DAY AT BEDTIME Oral Active Propranolol HCl ER 80 MG TAKE ONE CAPSUL E BY MOUTH TWICE A DAY Oral Active Levothyroxine Sodium 112 MCG TAKE 1 TABL ET BY MOUTH ONCE A DAY Oral Active Atorvastatin Calcium 20 MG TAKE 1 TABLET BY MOUTH EVERY DAY Oral Active Social History Tobacco Use: Social History Observation Description Date Details (start date - stop date) Former Smoker NA - NA Sex Assigned At : Social History Observation Description Sex Assigned At Female Tobacco Use/Smoking Question Answer Notes Patient is a former smoker How long has it been since you last smoked? > 10 years Additional Findings: Tobacco Non-User Ex-cigaret te smoker Vital Signs Temperature 97.4 degrees Fahrenheit 09/19/19 24 Blood pressure systolic 98 mm Hg 09/19/19 24 Blood pressure diastolic 46 mm Hg 024 Heart Rate 70 /min 09/19/2023 Height 62 in 09/19/2023 Weight 145 lbs 09/19/2023 BMI 26.52 kg/m2 09/19/2023 Encounters Encounter Location Date Provider Diagnosis Vimal Head III, MD [address] [place] [address] [place] [address] 09/19/2023 Vimal Head Malignant neoplasm o f head of pancreas C25.0 ; Squamous cell carcinoma of left lung C34.92 ; Obesity (BMI 30.0-34.9) E66.9 ; Acquired hypothyroidism E03.9 ; Tremor R25.1 ; Anemia due to antineoplastic chemotherapy D64.81 and Former smoker Z87.891 Assessments Encounter Date Diagnosis (ICD Code) Assessment Notes Treat ment Notes Treatment Clinical Notes 09/19/2023 Malignant neoplasm o f head of pancreas (ICD-10 - C25.0) Her next chemotherapy is scheduled October 17, 2023. I will continue to follow her at long intervals. 09/19/2023 Squamous cell carcinoma of left lung (ICD-10 - C34.92) There was no sign of recurrent lung cancer on today's examination. 09/19/2023 Obesity (BMI 30.0-34.9) (ICD-10 - E66.9) Her weight is stable with a BMI of 30.5. 4. We discussed diet and nutrition. We made a plan to lose weight at a rate of one half of a pound per week through a diet restricted in fat calories and sodium. 09/19/2023 Acquired hypothyroidism (ICD-10 - E03.9) She has been compliant with her thyroid medication and her levels are euthyroid. 09/19/2023 Tremor (ICD-10 - R25.1) There has been no change in the mild tremor. 09/19/2023 Anemia due to antineoplastic chemotherapy (ICD-10 - D64.81) Her hematocrit has dropped from 42-32. In recent months. During this time she received chemotherapy and radiation. The value will be followed carefully. If it continues to fall bleeding will be ruled out. 09/19/2023 Former smoker (ICD-1 0 - Z87.891) She seems motivated not to smoke. We discussed means by which relapse could be prevented in times of stress and illness. Plan Of Treatment Medication Medication Name Sig Start Date Stop Date Notes Creon [id number] UNIT TAKE 1 CAPSULE ( 36,000 UNITS OF LIPASE TOTAL) BY MOUTH 3 (THREE) TIMES A DAY WITH MEALS. Oral clonazePAM 1 MG (Schedule IV Drug) T MALIA 1 TABLET BY MOUTH EVERY DAY AT BEDTIME Oral Propranolol HCl ER 80 MG TAKE ONE CAPSUL E BY MOUTH TWICE A DAY Oral Levothyroxine Sodium 112 MCG TAKE 1 TABL ET BY MOUTH ONCE A DAY Oral Atorvastatin Calcium 20 MG TAKE 1 TABLET BY MOUTH EVERY DAY Oral Next Appt Details Follow Up: 6 Months, Reason: Office visit Provider Name:Vimal Head , 03/23/2025 10:00:00 AM, [address] [place] [address], [address], [id number], Progress Notes * SYDNIE BOLANOSDOB:1950 ([age] yo F)Acc No.[id number]:09/19/2023 Progress Notes Patient: SYDNIE CARVALHO Provider: Akua Head MD :1950 A ge:72 Y S ex:Female Date:09/19/2023 Address:[address] [place], [place] [id number] Pcp:Florentino Medeiros MD Subjective: * Chief Complaints: * S tage IIIB non-small cell carcinoma of the lungCarcinoma the pancreas * HPI: C OVID-19 Screening: Questions H ave you experienced fever, chills, cough, sore throat, shortness of breath, difficulty breathing, muscle aches, loss of taste or smell? N o H ave you been exposed to the virus within the last 10 days? N o H ave you travelled internationally in the last 10 days? N o H ave you been exposed to COVID-19 in the past? Y es [facility] next 10/16. She continues on her chemotherapy for carcinoma of the pancreas at [facility] with Dr. [place] of the medical oncology Department. Her next chemotherapy will be October 17, 2023. She is feeling tired and says she has no energy. She has alopecia. Her appetite is good. She is sleeping well. She has lost 22 pounds since this time last year. * ROS: G eneral/Constitutional: pain o nly normal aches and pains. C hills d enies.?Fatigue a dmits. F ever d enies. E NT: Decreased hearing m ild. R espiratory: Cough d enies. C ardiovascular: Chest pain with exertion d enies. D yspnea on exertion?denies. S hortness of breath d enies. G astrointestinal: Constipation a lternating with diarrhea. D ecreased appetite d enies. D iarrhea d enies. H eartburn d enies. N ausea d enies.?Rectal bleeding d enies. V omiting d enies. H ematology: bruising d enies. p etechiae d enies. S wollen glands n one have been noted. G enitourinary: Frequent urination a small amount. M usculoskeletal: Muscle aches d enies. P ainful joints d enies. S ciatica d enies. W eakness t hat is moderate. S kin: Itching d enies. R calvin d enies. S kin lesion(s)?denies. N eurologic: Difficulty speaking d enies. D izziness d enies.?Headache d enies. L ow back pain d enies. P sychiatric: Depressed mood w hich is mild. * Medical History: * Surgical History: r emoval of polyp fron the larynx [address] Anand 07/2022 * Hospitalization/Major Diagno stic Procedure: D enies Past Hospitalization * Family History: F ather: 65 yrs, emphysema. M other: alive 92 yrs, Alive and well, diagnosed with Hyperlipidemia. 6 brother(s) , 4 sister(s) . 2 daughter(s) - healthy. . She has a twin brother who has had a stroke. There is no family history of malignancy. * Social History: T obacco Use: T obacco Use/Smoking P atient is a f ormer smoker H ow long has it been since you last smoked??> 10 years A dditional Findings: Tobacco Non-User E x-cigarette smoker S he was born in [place], [place]. She has been to Morteza, who she calls [place], since 1974. They are both retired school teachers. They have 2 children, Sofía and Angélica, and 2 grandchildren. They live in [place]. She began smoking at the age of 20 and stopped recently. * Medications: T akingPropranolol HCl ER 80 MG Capsule Extended Release 24 Hour TAKE ONE CAPSULE BY MOUTH TWICE A DAY Oral Atorvastatin Calcium 20 MG Tablet TAKE 1 TABLET BY MOUTH EVERY DAY Oral Levothyroxine Sodium 112 MCG Tablet TAKE 1 TABLET BY MOUTH ONCE A DAY Oral clonazePAM 1 MG Tablet (Schedule IV Drug) TAKE 1 TABLET BY MOUTH EVERY DAY AT BEDTIME Oral Creon [id number] UNIT Capsule Delayed Release Particles TAKE 1 CAPSULE (36,000 UNITS OF LIPASE TOTAL) BY MOUTH 3 (THREE) TIMES A DAY WITH MEALS. Oral Taking Propranolol HCl ER 80 MG Capsule Extended Release 24 Hour TAKE ONE CAPSULE BY MOUTH TWICE A DAY Oral Taking Atorvastatin Calcium 20 MG Tablet TAKE 1 TABLET BY MOUTH EVERY DAY Oral Taking Levothyroxine Sodium 112 MCG Tablet TAKE 1 TABLET BY MOUTH ONCE A DAY Oral Taking clonazePAM 1 MG Tablet (Schedule IV Drug) TAKE 1 TABLET BY MOUTH EVERY DAY AT BEDTIME Oral Taking Creon [id number] UNIT Capsule Delayed Release Particles TAKE 1 CAPSULE (36,000 UNITS OF LIPASE TOTAL) BY MOUTH 3 (THREE) TIMES A DAY WITH MEALS. Oral DiscontinuedGabapentin 100 MG Capsule 1 capsule Orally Once a dayOmeprazole 20 MG Capsule Delayed Release 1 capsule 30 minutes before morning meal Orally Once a dayTriamcinolone Acetonide 0.1 % Cream 1 application to affected area Externally Three times a dayMedication List reviewed and reconciled with the patientDiscontinued Gabapentin 100 MG Capsule 1 capsule Orally Once a dayDiscontinued Omeprazole 20 MG Capsule Delayed Release 1 capsule 30 minutes before morning meal Orally Once a dayDiscontinued Triamcinolone Acetonide 0.1 % Cream 1 application to affected area Externally Three times a dayMedication List reviewed and reconciled with the patient * Allergies: N o Known Drug Allergyno[Allergies Verified] Objective: * Vitals: H t: 62, Wt:145, BMI:26.52, BP:98/46, HR:70, Temp:97.4, Wt-k.77. * Examination: G eneral Examination: GENERAL APPEARANCE: p aruna, well nourished, well developed, in no acute distress, calm and relaxed , overweight , woman. HEAD: a traumatic, normocephalic , alopecia. EYES: e susan, perrla, anicteric, conjugate. EARS: n ormal. NOSE: s eptum intact. ORAL CAVITY: n ormal, unremarkable. NECK/THYROID: n o jugular venous distention, no carotid bruit, thyroid normal. LYMPH NODES: n o enlarged lymph nodes,spleen normal. SKIN: n o suspicious lesions, anicteric. HEART: n o clicks, gallops, murmurs, or rubs, regular rhythm, S1, S2 normal, no s3, or vascular bruits. LUNGS: , diminished breath sounds throughout , no wheezes, rales, rhonchi. BREASTS: n ot examined. ABDOMEN: b owel sounds normal, no ascites, no organomegaly, no mass , centripital obesity. RECTAL EXAM: n ot examined. MUSCULOSKELETAL: e xtremities unremarkable, no clubbing, cyanosis or edema. PERIPHERAL PULSES: n ormal. NEUROLOGIC: a lert and oriented, cranial nerves 2-12 grossly intact, deep tendon reflexes 2+ symmetrical, motor strength normal upper and lower extremities, sensory exam intact. PSYCH: a lert, oriented, Tired appearing, , speech clear , thought process logical, goal directed , cooperative with exam , good eye contact , cognitive function intact. Assessment: * Assessment: 1. S quamous cell carcinoma of left lung - C34.92, There was no sign of recurrent lung cancer on today's examination. 2 . M alignant neoplasm of head of pancreas - C25.0, Her next chemotherapy is scheduled October 17, 2023. I will continue to follow her at long intervals. 3 . O besity (BMI 30.0-34.9) - E66.9, Her weight is stable with a BMI of 30.5. 4. We discussed diet and nutrition. We made a plan to lose weight at a rate of one half of a pound per week through a diet restricted in fat calories and sodium. 4 . A cquired hypothyroidism - E03.9, She has been compliant with her thyroid medication and her levels are euthyroid. 5 . T remor - R25.1, There has been no change in the mild tremor. 6 . A nemia due to antineoplastic chemotherapy - D64.81, Her hematocrit has dropped from 42-32. In recent months. During this time she received chemotherapy and radiation. The value will be followed carefully. If it continues to fall bleeding will be ruled out. 7 . F ormer smoker - Z87.891, She seems motivated not to smoke. We discussed means by which relapse could be prevented in times of stress and illness. Plan: * Treatment: * Procedure Codes: * Preventive Medicine: Counseling: C are goal follow-up plan: Counseling for abnormal BMI given Y es Above Normal BMI Follow-up D ietary management education, guidance, and counseling, Dietary needs education, Exercise promotion: strength training, Exercise promotion: stretching, Feeding regime, Giving encouragement to exercise, Lifestyle education regarding diet, Nutrition / feeding management, Nutrition therapy, Prescribed activity/exercise education, Prescribed diet education, Prescribed dietary intake, Special diet education, Weight monitoring , Intervention, Order not done: Medical or Other reason not done S moking/Tobacco Use Patient counseled on the dangers of tobacco use and urged to quit. 0 09/19/2023 * Follow Up: 6 Months (Reason: Office visit) * Images: * Sign off status: Completed true * Provider: Akua Head MD Date: 0 09/19/2023 Generated for Chanelle rosado/Jesusita/eTdannysmitting on: 1 04/28/2024 11:31 AM EST History and Physical Notes * HPI (History of Present Illness) Category Sub-Category Detail Notes COVID-19 Screening Questions Have you had any new onset fever, chills, cough, congestion, sore throat, shortness of breath, muscle aches?: No Have you been exposed to the virus withi n the last 10 days?: No Have you travelled internationally in [facility] last 10 days?: No Have you been exposed to COVID-19 in the past?: Yes Examination Category Sub-Category Detail Notes General Examination GENERAL APPEARANCE: pleasant , well nourished, well developed, in no acute distress, calm and relaxed , overweight , woman HEAD: atraumatic, normocep halic , alopecia EYES: eomi, perrla, anicte rose, conjugate EARS: normal NOSE: septum intact NECK/THYROID: no jugular venous di stention, no carotid bruit, thyroid normal HEART: no clicks, gallops, murmurs, or rubs, regular rhythm, S1, S2 normal, no s3, or vascular bruits LUNGS: , diminished breath sounds throughout , no wheezes, rales, rhonchi ABDOMEN: bowel sounds normal, no ascites, no organomegaly, no mass , centripital obesity NEUROLOGIC: alert and oriented, cranial nerves 2-12 grossly intact, deep tendon reflexes 2+ symmetrical, motor strength normal upper and lower extremities, sensory exam intact SKIN: no suspicious lesion s, anicteric PERIPHERAL PULSES: normal BREASTS: not examined MUSCULOSKELETAL: extremities unremark able, no clubbing, cyanosis or edema LYMPH NODES: no enlarged lymph no joseph,spleen normal RECTAL EXAM: not examined PSYCH: alert, oriented, Tir ed appearing, , speech clear , thought process logical, goal directed , cooperative with exam , good eye contact , cognitive function intact ORAL CAVITY: normal, unremarkable
--- OUTSIDE RECORDS SUMMARY | 2024-02-19 04:30 | XMS_ITS ---
Author Organization Vimal Head III, MD Address [address] [place] [address] [address] [place] [address] Care Team Providers Care Filler Spreader Name Role Phone CarterMindy Lott ([place]) Primary Care Provider Un available Dr. Vimal Head III Unavailable Allergies Allergen (clinical drug ingredient) Drug/Non Drug Allergy documented on EMR Reaction Allergy Type Onset Date Status No Known Drug Allergy Unknown Drug Allergy Active REASON FOR VISIT History of stage III non-small cell lung cancer Medications Medication SIG (Take, Route, Frequency, Duration) Notes Start Date End Date Status Creon [id number] UNIT TAKE 1 CAPSULE ( 36,000 UNITS OF LIPASE TOTAL) BY MOUTH 3 (THREE) TIMES A DAY WITH MEALS. Oral Active Propranolol HCl ER 80 MG TAKE ONE CAPSUL E BY MOUTH TWICE A DAY Oral Active Atorvastatin Calcium 20 MG TAKE 1 TABLET BY MOUTH EVERY DAY Oral Active Levothyroxine Sodium 112 MCG TAKE 1 TABL ET BY MOUTH ONCE A DAY Oral Active clonazePAM 1 MG (Schedule IV Drug) T MALIA 1 TABLET BY MOUTH EVERY DAY AT BEDTIME Oral Active Social History Tobacco Use: Social [...] Non-User Ex-cigaret te smoker Vital Signs Temperature 97.2 degrees Fahrenheit 02/19/20 24 Blood pressure systolic 106 mm Hg 02/19/20 24 Blood pressure diastolic 51 mm Hg 024 Heart Rate 73 /min 02/19/2024 Height 62 in 02/19/2024 Weight 124 lbs 02/19/2024 BMI 22.68 kg/m2 02/19/2024 Encounters Encounter Location Date Provider Diagnosis Vimal Head III, MD [address] [place] [address] [place] [address] 02/19/2024 Vimal Head Malignant neoplasm o f head of pancreas C25.0 ; Former smoker Z87.891 ; Acquired hypothyroidism E03.9 ; Squamous cell carcinoma of left lung C34.92 and Chronic cough R05 Assessments Encounter Date Diagnosis (ICD Code) Assessment Notes Treat ment Notes Treatment Clinical Notes 02/19/2024 Malignant neoplasm of head of pancreas (ICD-10 - C25.0) When the tumor was discovered she was treated with neoadjuvant chemotherapy consisting of fluorouracil, leucovorin, irinotecan and oxaliplatin. A resection was then attempted [place] [facility] but the tumor was inoperable. She was then treated aggressively with intraoperative radiation therapy. She is now receiving adjuvant chemotherapy at [facility] in [facility]. 02/19/2024 Former smoker (ICD-10 - Z87.891) She seems motivated not to smoke. We discussed means by which relapse could be prevented in times of stress and illness. 02/19/2024 Acquired hypothyroidism (ICD-10 - E03.9) She has been compliant with her thyroid medication and her levels are euthyroid. 02/19/2024 Squamous cell carcinoma of left lung (ICD-10 - C34.92) There was no sign of recurrent lung cancer on today's examination. 02/19/2024 Chronic cough (ICD-10 - R05) Her cough continues but she has had no hemoptysis. Plan Of Treatment Medication Medication Name Sig Start Date Stop Date Notes Creon [id number] UNIT TAKE 1 CAPSULE ( 36,000 UNITS OF LIPASE TOTAL) BY MOUTH 3 (THREE) TIMES A DAY WITH MEALS. Oral Propranolol HCl ER 80 MG TAKE ONE CAPSUL E BY MOUTH TWICE A DAY Oral Atorvastatin Calcium 20 MG TAKE 1 TABLET BY MOUTH EVERY DAY Oral Levothyroxine Sodium 112 MCG TAKE 1 TABL ET BY MOUTH ONCE A DAY Oral clonazePAM 1 MG (Schedule IV Drug) T MALIA 1 TABLET BY MOUTH EVERY DAY AT BEDTIME Oral Next Appt Details Follow Up: 6 Months, Four we eks, Reason: OV, Follow-up for pancreatic tumor Provider Name:Vimal Chaitanya Sonido , 03/23/2025 10:00:00 AM, [address] [place] [address] DR, [place] [address], [place], [address], Progress Notes * SYDNIE BOLANOSDOB:1950 ([age] yo F)Acc No.[id number]:02/19/2024 Progress Notes Patient: SYDNIE CARVALHO Provider: Akua Head MD :1950 A ge:73 Y S ex:Female Date:02/19/2024 Address:[address] [place], [place] [id number] Pcp:Florentino Medeiros MD Subjective: * Chief Complaints: * H istory of stage III non-small cell lung cancer * HPI: C OVID-19 Screening: Questions H [...] to COVID-19 in the past? Y es * : The patient, a 73-year-old female, underwent surgery for a pancreatic tumor on November 04 at [facility]. The tumor was involved with her vascular system and could not be removed, so it was destroyed with intraoperative radiation. The patient reported that it took until the beginning of January for her system to feel normal again. She also underwent chemotherapy from January to May. The patient reported no abdominal pain and an increased appetite since mid-January. She had a CT scan scheduled for March 12. * ROS: G eneral/Constitutional: pain M ild intermittent abdominal pain, otherwise only normal aches and pains. C hills d enies. F atigue a dmits. F ever d enies. ? E NT: Decreased hearing m ild. R espiratory: Cough d enies. C ardiovascular: Chest pain with exertion d enies. D yspnea on exertion?denies. S hortness of breath d enies. G astrointestinal: Denies A bdominal pain, M ild intermittent centralized abdominal discomfort. C onstipation o ccasional. D ecreased appetite d enies. D iarrhea d enies. H eartburn d enies. N ausea d enies. R ectal bleeding d enies. V omiting d enies. H ematology: bruising d enies. p etechiae d enies. S wollen glands n one have been noted. G enitourinary: Frequent urination a t night. M usculoskeletal: Muscle aches d enies. P ainful joints d enies. S ciatica d enies. W eakness d enies. S kin: Itching d enies. R calvin d enies. S kin lesion(s)?denies. N eurologic: Difficulty speaking d enies. D izziness d enies.?Headache d enies. L ow back pain d enies. P sychiatric: Depressed mood d enies. * Medical History: * Surgical History: r emoval of polyp fron the larynx [address] Anand 07/2022Surgery for pancreatic tumor on november 0410/2023Left thoracotomy * Hospitalization/Major Diagno stic Procedure: H ospitalized at [facility] for surgery on november 0410/2023 * Family History: F ather: 65 yrs, [...] x-cigarette smoker S he was born in [place], [place]. She has been to Morteza, who she calls Giphy, since 1974. They are both retired school teachers. They have 2 children, Sofía and Angélica, and 2 grandchildren. They live in [place]. She began smoking at the age of [...] MOUTH EVERY DAY AT BEDTIME Oral Taking Propranolol HCl ER 80 MG [...] BY MOUTH EVERY DAY AT BEDTIME Oral Not-Taking/PRNCreon [id number] UNIT Capsule Delayed Release Particles TAKE 1 CAPSULE (36,000 UNITS OF LIPASE TOTAL) BY MOUTH 3 (THREE) TIMES A DAY WITH MEALS. Oral Medication List reviewed and reconciled with the patientNot-Taking/PRN Creon [id number] UNIT Capsule Delayed Release Particles TAKE 1 CAPSULE (36,000 UNITS OF LIPASE TOTAL) BY MOUTH 3 (THREE) TIMES A DAY WITH MEALS. Oral Medication List reviewed and reconciled with the patient * Allergies: N o Known Drug Allergyno[Allergies Verified] Objective: * Vitals: H t: 62, Wt:124, BMI:22.68, BP:106/51, HR:73, Temp:97.2, Wt-k.25. * Examination: G eneral Examination: GENERAL APPEARANCE: p leasant, well nourished, well developed, in no acute distress, calm and relaxed, overweight, woman. HEAD: a traumatic, normocephalic. EYES: e susan, perrla, anicteric, conjugate. EARS: n ormal. NOSE: s eptum intact. ORAL CAVITY: n ormal, unremarkable. NECK/THYROID: n o jugular venous distention, no carotid bruit, thyroid normal. LYMPH NODES: n o enlarged lymph nodes,spleen normal. SKIN: n o suspicious lesions, anicteric. HEART: n o clicks, gallops, murmurs, or rubs, regular rhythm, S1, S2 normal, no s3, or vascular bruits. LUNGS: c lear to auscultation, Healed Left-sided surgical incision thorax. BREASTS: N ot examined. ABDOMEN: b owel sounds normal, no ascites, no organomegaly, no mass, Recent vertical surgical incision in the midline which is well-healed. RECTAL EXAM: n ot examined. MUSCULOSKELETAL: e xtremities unremarkable, no clubbing, cyanosis or edema. PERIPHERAL PULSES: n ormal. NEUROLOGIC: a lert and oriented, cranial nerves 2-12 grossly intact, deep tendon reflexes 2+ symmetrical, motor strength normal upper and lower extremities, sensory exam intact. PSYCH: a lert, oriented. Assessment: * Assessment: 1. M alignant neoplasm of head of pancreas - C25.0 (Primary) N otes :When the tumor was discovered she was treated with neoadjuvant chemotherapy consisting of fluorouracil, leucovorin, irinotecan and oxaliplatin. A resection was then attempted at [facility] but the tumor was inoperable. She was then treated aggressively with intraoperative radiation therapy. She is now receiving adjuvant chemotherapy at [facility] in [facility]. 2 . F ormer smoker - Z87.891 N otes :She seems motivated not to smoke. We discussed means by which relapse could be prevented in times of stress and illness. 3 . A cquired hypothyroidism - E03.9 N otes :She has been compliant with her thyroid medication and her levels are euthyroid. 4 . S quamous cell carcinoma of left lung - C34.92 N otes :There was no sign of recurrent lung cancer on today's examination. 5 . C hronic cough - R05 N otes :Her cough continues but she has had no hemoptysis. Plan: * Treatment: * Procedure Codes: * Preventive Medicine: Counseling: C are goal follow-up plan: Counseling for abnormal BMI given Y es Above Normal BMI Follow-up D ietary management education, guidance, and counseling, Dietary needs education S moking/Tobacco Use Patient counseled on the dangers of tobacco use and urged to quit. 1 04/20/2023 * Follow Up: 6 Months, Four weeks (Reason: OV, Follow-up for pancreatic tumor) * Images: * Sign off status: Completed true * Provider: Akua Head MD Date: 04/20/2023 Generated for Cheyennei ng/Jesusita/eTransmitting on: 04/28/2024 11:31 AM EST History and Physical Notes * HPI (History of Present Illness) Category Sub-Category Detail Notes COVID-19 Screening Questions Have you had any new onset fever, chills, cough, congestion, sore throat, shortness of breath, muscle aches?: No Have you been exposed to the virus withi n the last 10 days?: No Have you travelled internationally in last 10 days?: No Have you been exposed to COVID-19 in the past?: Yes Examination Category Sub-Category Detail Notes General Examination GENERAL APPEARANCE: pleasant , well nourished, well developed, in no acute distress, calm and relaxed, overweight, woman HEAD: atraumatic, normocep halic EYES: eomi, perrla, anicte rose, conjugate EARS: normal NOSE: septum intact NECK/THYROID: no jugular venous di stention, no carotid bruit, thyroid normal HEART: no clicks, gallops, murmurs, or rubs, regular rhythm, S1, S2 normal, no s3, or vascular bruits LUNGS: clear to auscultatio n, Healed Left-sided surgical incision thorax ABDOMEN: bowel sounds normal, no ascites, no organomegaly, no mass, Recent vertical surgical incision in the midline which is well-healed NEUROLOGIC: alert and oriented, cranial nerves 2-12 grossly intact, deep tendon reflexes 2+ symmetrical, motor strength normal upper and lower extremities, sensory exam intact SKIN: no suspicious lesion s, anicteric PERIPHERAL PULSES: normal BREASTS: Not examined MUSCULOSKELETAL: extremities unremark able, no clubbing, cyanosis or edema LYMPH NODES: no enlarged lymph no joseph,spleen normal RECTAL EXAM: not examined PSYCH: alert, oriented ORAL CAVITY: normal, unremarkable
--- OUTSIDE RECORDS SUMMARY | 2024-08-18 04:30 | XMS_ITS ---
Author Organization Vimal Head III, MD Address [address] [place] [address] [address] [place] [address] Care Team Providers Care Bow Maker Machine Tender Name Role Phone CarterMindy Lott ([place]) Primary Care Provider Un available Dr. Vimal Head III Unavailable [phone] Allergies Allergen (clinical drug ingredient) Drug/Non Drug [...] EVERY DAY AT BEDTIME Oral Active Creon [id number] UNIT TAKE 1 CAPSULE ( 36,000 UNITS [...] Date Provider Diagnosis Vimal Head III, MD [address] [place] [address] [place] [address] 08/18/2024 Vimal Head Malignant neoplasm o f [...] oxaliplatin. A resection was then attempted at [facility] but the tumor was inoperable. She was then treated aggressively with intraoperative radiation therapy. She then received adjuvant chemotherapy at [facility] in [facility]. She has finished her treatment at this [...] MOUTH EVERY DAY AT BEDTIME Oral Creon [id number] UNIT TAKE 1 CAPSULE ( 36,000 UNITS OF LIPASE TOTAL) BY MOUTH 3 (THREE) TIMES A DAY WITH MEALS. Oral Omeprazole 20 MG 1 capsule 1/2 to 1 h our before morning meal Orally Once a day 08/18/2024 Next Appt Details Follow Up: 3 Months, Reason: OV Provider Name:Vimal Head , 03/23/2025 10:00:00 AM, [address] [place] [address], [address], Progress Notes * SYDNIE BOLANOSDOB:1950 ([age] yo F)Acc No.[id number]:08/18/2024 Progress Notes Patient: SYDNIE CARVALHO Provider: Akua Heda MD :1950 A ge:73 Y S ex:Female Date:08/18/2024 Address:[address] [place] [address], [facility] Pcp:Mindy Saunders Subjective: * Chief Complaints: * S tage IIIA non-small cell lung cancer in remissionPancreatic cancer, undergoing therapyHypothyroidism * HPI: C OVID-19 Screening: S yuli returns for medical management of numerous issues. She has been treated at [facility] for inoperable cancer of the pancreas with [...] an appointment with Dr. Lehman, gastroenterology at [facility], for an upper endoscopy. She is taking omeprazole from the fishing rod trimmer. Her last chemotherapy was in June of [...] Hospitalization/Major Diagno stic Procedure: H ospitalized at [facility] for surgery on november 0410/2023 * [...] x-cigarette smoker S he was born in [place], [place]. She has been to Morteza, who she calls [employer], since 1974. They are both retired school teachers. They have 2 children, Sofía and Angélica, and 2 grandchildren. They live in [place]. She began smoking at the age of [...] MOUTH EVERY DAY AT BEDTIME Oral Creon 66602-253811 UNIT Capsule Delayed Release Particles TAKE 1 [...] EVERY DAY AT BEDTIME Oral Taking Creon 82400-120582 UNIT Capsule Delayed Release Particles TAKE 1 [...] oxaliplatin. A resection was then attempted at [facility] but the tumor was inoperable. She was then treated aggressively with intraoperative radiation therapy. She then received adjuvant chemotherapy at [facility] in [facility]. She has finished her treatment at this [...] 08/18/2024 Generated for Cheyennei alonzo/Jesusita/eTransmitting on: 1 04/28/2024 11:31 AM EST History [...]
--- OUTSIDE RECORDS SUMMARY | 2024-11-18 04:45 | XMS_ITS ---
Author Organization Vimal Head III, MD Address [address] [place] [address] [address] [place] [address] Care Team Providers Care Marketing Database Coordinator Name Role Phone CarterMindy Lott ([place]) Primary Care Provider Un available Dr. Vimal [...] BY MOUTH EVERY DAY Oral Active Creon [id number] UNIT TAKE 1 CAPSULE ( 36,000 UNITS [...] Date Provider Diagnosis Vimal Head III, MD [address] [place] [address] [place] [address] 11/18/2024 Vimal Head Malignant neoplasm o f [...] oxaliplatin. A resection was then attempted at [facility] but the tumor was inoperable. She was then treated aggressively with intraoperative radiation therapy. She then received adjuvant chemotherapy at [facility]. 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 Since her last visit she had an upper endoscopy at [facility] by Dr. Lehman who told her she [...] Hospitalization/Major Diagno stic Procedure: H ospitalized at [facility] for surgery on november 0410/2023 [...] x-cigarette smoker S he was born in [place], [place]. She has been to Morteza, who she calls [employer]Door, since 1974. They are both retired school teachers. They have 2 children, Sofía and Angélica, and 2 grandchildren. They live in [place]. She began smoking at the age of [...] MOUTH EVERY DAY AT BEDTIME Oral Creon 38695-785153 UNIT Capsule Delayed Release Particles TAKE 1 [...] EVERY DAY AT BEDTIME Oral Taking Creon 83314-485130 UNIT Capsule Delayed Release Particles TAKE 1 [...] oxaliplatin. A resection was then attempted at [facility] but the tumor was inoperable. She was then treated aggressively with intraoperative radiation therapy. She then received adjuvant chemotherapy at [facility]. She has finished her treatment at this [...] 0 11/18/2024 Generated for Chanelle rosado/Jesusita/Jaswinderitting on: 04/28/2024 11:33 AM EST History and Physical Notes * [...]
--- OUTSIDE RECORDS SUMMARY | 2024-11-26 06:38 | XMS_ITS ---
Author Organization Vimal Head III, MD Address [address] [place] [address] [place] [address] Care Team Providers Care Other Sales Support Worker Name Role Phone Mindy Saunders ([place]) Primary Care Provider Un available Dr. Vimal Head III Unavailable [phone] REASON FOR VISIT Rx Request Medications Medication SIG (Take, Route, Frequency, Duration) Notes Start Date End Date Status Ciprofloxacin HCl 250 MG 1 tablet Orally every 12 hrs for 7 days 11/26/2024 12/03/2024 Active Social History Sex Assigned At : Social History Observation Description Sex Assigned At Female Encounters Encounter Location Date Provider Diagnosis Vimal Head III, MD [address] [place] [address] [place] [address] 11/26/2024 Vimal Head Plan Of Treatment Medication Medication Name Sig Start Date Stop Date Notes Ciprofloxacin HCl 250 MG 1 tablet Orally every 12 hrs for 7 days 11/26/2024 12/03/2024 Next Appt Details Provider Name:Vimal Head , 03/23/2025 10:00:00 AM, [address] [place] [address] [place], [address], Progress Notes * SYDNIE BOLANOSDOB:1950 ([age] yo F)Acc No.[id number]:11/26/2024 Patient: SYDNIE CARVALHO :1950 A ge:74 Y S ex:Female Address:[address] [place] [address], [place], [address] * Refills Start Ciprofloxacin HCl Tablet, 250 MG, Orally, 14 Tablet, 1 tablet, every 12 hrs, 7 days, Refills=0 * true * Date: Generated for Chanelle rosado/Jesusita/Luciasmitting on: 04/28/2024 11:30 AM EST
--- OUTSIDE RECORDS SUMMARY | 2024-11-26 10:59 | XMS_ITS ---
Author Organization Vimal Head III, MD Address [address] [place] [address] [place] [address] Care Team Providers Care Sweatband Cutting Machine Operator Name Role Phone Mindy Saunders ([place]) Primary Care Provider Un available Dr. Vimal Head III Unavailable [phone] REASON FOR VISIT Rx Request Medications Medication SIG (Take, Route, Frequency, Duration) Notes Start Date End Date Status Ciprofloxacin HCl 250 MG 1 tablet Orally every 12 hrs for 7 days 11/26/2024 12/03/2024 Active Social History Sex Assigned At : Social History Observation Description Sex Assigned At Female Encounters Encounter Location Date Provider Diagnosis Vimal Head III, MD [address] [place] [address] [place] [address] 11/26/2024 Vimal Head Plan Of Treatment Medication Medication Name Sig Start Date Stop Date Notes Ciprofloxacin HCl 250 MG 1 tablet Orally every 12 hrs for 7 days 11/26/2024 12/03/2024 Next Appt Details Provider Name:Vimal Head , 03/23/2025 10:00:00 AM, [address] [place] [address] [place], [address], Progress Notes * SYDNIE BOLANOSDOB:1950 ([age] yo F)Acc No.[id number]:11/26/2024 Patient: SYDNIE CARVALHO :1950 A ge:74 Y S ex:Female Address:[address] [place] [address], [place], [address] * Refills Start Ciprofloxacin HCl Tablet, 250 MG, Orally, 14 Tablet, 1 tablet, every 12 hrs, 7 days, Refills=0 * true * Date: Generated for Chanelle rosado/Jesusita/Luciasmitting on: 04/28/2024 11:35 AM EST
--- NOTE | 2025-02-26 10:54 | MHC.PC.OV ---
Vital Signs 02/26/25 10:58 Height 5 ft 4 in Weight 147 lb 8 oz BMI 25.3 BP 102/62 Blood Pressure Location Rt brachial Position Sitting Respiration 14 Pulse 66 Pulse Source Pulse Oximeter Pulse Oximetry (%) 95 Oxygen Delivery Method Room Air Intake Visit Reasons: Hypothyroidism follow up Intake Note: Follow up Manager Multicultural Required: No Accompanied by: Spouse Allergies No Known Allergies (No Known Allergies*) Allergy (Verified 02/26/25 10:56) Tobacco use date assessed: 08/28/24 Fall risk assessment: 1 Fall in past year Last assessed Fall Risk: 02/26/25 Dental Screening Dental Screen Date: 08/28/24 HPI HPI Comments History of Present Illness Details 74 y/o F with PMH of HTN, HLD, pancreatic adenocarcinoma, lung cancer presenting for follow up. CV: on statin therapy. Anxiety: On propranolol (tremors), clonazepam. Sees neurology once a year. Dr Weber. Hypothyroid: on levothyroxine. Last TSH suppressed, recheck today Heme/Onc: followed by Dr Head and [facility] -Pancreatic vzieeg-1948-23 chemotherapy immunotherapy at [facility]. Radiation 2023. Surgery November 05 2023-[facility] [place]. q3 months cat scans the most recent 01/2025. Reassuring -Lung cancer-in remission -Follows GI Dr Lehman for upper endoscopy She twisted her left ankle falling on the sidewalk ~3 weeks ago. She is able to move the foot/ankle but persistent discomfort and swelling Mammo: 10/2024 DXA: 12/2024 Flu shot today. ROS CONSTITUTIONAL: Denies weight loss, fever and chills. HEENT: Denies changes in vision and hearing. RESPIRATORY: Denies SOB and cough. CV: Denies palpitations and CP GI: Denies abdominal pain, nausea, vomiting and diarrhea. : Denies dysuria and urinary frequency. MSK: see HPI SKIN: Denies rash and pruritus. NEUROLOGICAL: Denies headache PSYCHIATRIC: Denies recent changes in mood. PHYSICAL EXAM: GENERAL: Alert and oriented x 3. NAD EYES: EOMI. Anicteric. HENT: Moist mucous membranes. No scleral icterus. No cervical lymphadenopathy. LUNGS: Clear to auscultation bilaterally. CARDIOVASCULAR: Regular rate and rhythm. No murmur. No JVD. ABDOMEN: Soft, non-tender +bs EXTREMITIES: No edema. Swelling left ankle and foot with good mobility SKIN: No rashes or lesions. Warm. NEUROLOGIC: No focal neurological deficits. CN II-XII grossly intact PSYCHIATRIC: Cooperative. Appropriate mood and affect [facility] Medical History (Updated 02/26/25 @ 13:05 by Mindy Saunders MD) Lung cancer Surgical History H/O endoscopy Hx of colonoscopy History of esophagogastroduodenoscopy (EGD) Family History Mother No problems noted. Father No problems noted. Social History Household Members: Spouse Housing: House Alcohol intake: former Patient Tobacco Use Status: Former Tobacco user e-Cigarette/Vaping Use: Former Use service: No Current occupational status: retired Cognitive needs: No Hearing needs: No Vision needs: Yes (reading glasses) Questionnaire PHQ-9 Over the last 2 weeks, how often have you been bothered by any of the following problems? 1. Little interest or pleasure in doing things: not at all 2. Feeling down, depressed, or hopeless: not at all 3. Trouble falling or staying asleep, or sleeping too much: not at all 4. Feeling tired or having little energy: not at all 5. Poor appetite or overeating: not at all 6. Feeling bad about yourself - or that you are a failure or have let yourself or your family down: not at all 7. Trouble concentrating on things, such as reading the newspaper or watching television: not at all 8. Moving or speaking so slowly that other people could have noticed. Or the opposite - being so fidgety or restless that you have been moving around a lot more than usual: not at all 9. Thoughts that you would be better off or of hurting yourself in some way: not at all Total score: 0 Depression Screening Interpretation: Negative Depression Screening Done: Yes 28655 - PHQ-9 Billing: Yes Source: Developed by Drs. Vimal Quiroz, Gaviota Chairez, Calin Flowers and colleagues, with an educational jaiden from [employer]. Thrive Questionnaire Date Thrive assessed: 02/19/25 I am a: Patient What is your living situation today?: I have a steady place to live Within the past 12 months, did the food you bought not last and you didn't have the money to get more?: Never true Within the past 12 months, did you worry whether your food would run out before you got money to buy more?: Never true Do you have trouble paying for medicines?: No Do you have trouble getting transportation to medical appointments?: No Do you have trouble paying your heating and electricity bill?: No Do you have trouble taking care of your child, family member or friend?: No Do you have trouble with day-to-day activities such as bathing, preparing meals, shopping, managing finances, etc.?: No Are you currently unemployed and looking for a job?: No Are you interested in more education?: No Please select the resources that you would like help with: None Currently or been in a relationship where the following occur: No concerns reported THRIVE Score: 0 AUDIT C Alcohol Use Questionnaire (AUDIT-C) 1. How often do you have a drink containing alcohol?: 2-3 times a week 2. How many drinks containing alcohol do you have on a typical day when you are drinking?: 1 or 2 3. How often do you have six or more drinks on one occasion?: Never Total Score: 3 ASHELY-7 AMB Questionnaire ASHELY-7 Date ASHELY - 7 assessed: 08/28/24 Feeling nervous, anxious, or on edge: 0 = Not at all Not being able to stop or control worryin = Not at all Worrying too much about different things: 0 = Not at all Trouble relaxin = Not at all Being so restless that it is hard to sit still: 0 = Not at all Becoming easily annoyed or irritable: 0 = Not at all Feeling afraid as if something awful might happen: 0 = Not at all Total ASHELY-7 score (0-4 normal; 5-9 mild; 10-14 moderate; 15-21 severe): 0 Source: Developed by Drs. Vimal Quiroz, Gaviota Chairez, Calin Flowers and colleagues, with an educational jaiden from [employer]. Physical exam (Primary Care) Vital Signs: Last Vital Signs Pulse 66 02/26/25 10:58 Resp 14 02/26/25 10:58 BP 102/62 02/26/25 10:58 Pulse Ox 95 02/26/25 10:58 Oxygen Delivery Method Room Air 02/26/25 10:58 BMI result Body Mass Index 25.3 Tobacco/Smoking Status: Tobacco use Status Tobacco use date assessed 08/28/24 02/26/25 11:01 Patient Tobacco Use Status Former Tobacco user 02/26/25 11:15 e-Cigarette/Vaping Use Former Use 02/26/25 11:15 PHQ-9: PHQ-9 Score PHQ-9: Total score 0 02/26/25 11:05 Depression Screening Interpretation: Negative Thrive Assessment: Date of Thrive Assessment Date Thrive assessed 02/19/25 02/26/25 11:01 Currently or been in a relationship where the following occur: No concerns reported Coding Level of Care Code Complex visit Add On G2211 Diagnoses Elevated glucose R73.09 Hypothyroidism, unspecified type E03.9 Hypothyroidism type: unspecified Malignant neoplasm of pancreas, unspecified location of malignancy C25.9 Pancreatic malignancy location: unspecified Additional Codes PHQ-9 - 87057 - PHQ-9 Billing: Yes ([id number]) Assessment & Plan Assessment & Plan (1) Elevated glucose: Code(s): R73.09 - Other abnormal glucose Category: Medical (2) Hypothyroid: Code(s): E03.9 - Hypothyroidism, unspecified Category: Medical Qualifiers: Hypothyroidism type: unspecified Qualified Code(s): E03.9 - Hypothyroidism, unspecified (3) Pancreatic cancer: Code(s): C25.9 - Malignant neoplasm of pancreas, unspecified Category: Medical Qualifiers: Pancreatic malignancy location: unspecified Qualified Code(s): C25.9 - Malignant neoplasm of pancreas, unspecified Plan 74 year old for follow up History of pancreatic, lung cancer in remission Hypothyroid-check TSH. continue levothyroxine Anxiety, tremor. continue neurology follow up Orders: Orders TSH reflex Free T4 Today E03.9 - Hypothyroidism, unspecified, R73.09 - Other abnormal glucose XR ankle LT min 3V Today M25.572 - Pain in left ankle and joints of left foot XR ankle LT 2V Today M25.572 - Pain in left ankle and joints of left foot Lipid Panel Today Z13.220 - Encounter for screening for lipoid disorders Hemoglobin A1c Today E03.9 - Hypothyroidism, unspecified, R73.09 - Other abnormal glucose
[2025-02-26 10:58] VITALS: BP 102/62; PULSE 66; RESP 14; O2SAT 95; BMI 25.3
--- OUTSIDE RECORDS SUMMARY | 2025-02-26 11:30 | XMS_ITS | Encounter Summary ---
Author Organization [facility] Address [address] [place] [address] Phone Care Team Providers Care Wire Puller Name Role Phone Florentino Medeiros MD Primary Care Provider Charity Phoenix MBBS Unavailable Nancy Contreras CNP Unavailable Mindy Lin MD Primary Care Provider Mary Lou Mcfarland-C Unavailable [phone] Encounter Details Date Type Department Care Team (Late st Contact Info) Description 09/03/2023 Procedure Pass [facility], Ct Scan - [facility] [address] [place] [address] Social History Tobacco Use Types Packs/Day Years [...] Care Team (Late st Contact Info) Description 02/01/2025 Procedure Pass [address] [address] 02/01/2025 Procedure Pass [address] [address] 03/24/2025 10:00 AM EST Infusion [facility] Center at [address] [address] Charity Phoenix MBBS [address] [place] [address] [email or web address] 04/29/2025 11:15 AM EST Appointment [address] [address] Charity Phoenix MBBS [address] [place] [address] [email or web address] 05/06/2025 10:00 AM EST Blood Draw [facility] [address] [address] Charity Phoenix MBBS [address] [place] [address] [email or web address] 05/06/2025 11:00 AM EST Office Visit [facility] [address] [place] [address] Charity Phoenix MBBS [address] [place] [address] [email or web address] documented as of this encounter Visit Diagnoses Not on filedocumented in this encounter Additional Health Concerns Infection Onset Date Last Indicated Resolved Time CoV-Risk 05/16/2024 05/16/2024 05/27/2024 1:22 AM EST Influenza A 05/16/2024 05/16/2024 05/23/2024 1:22 AM EST documented as of this encounter Care Teams Wire Puller Relationship Specialty Start Date End Date Florentino Medeiros MD [address] [place] [address] Dr RICHARDS [address] [place] [address] PCP - General Internal Medicine 10/17/19 07/15/24 Mindy Lin MD [address] [place] [address] PCP - General Internal Medicine 07/16/24 Charity Phoenix MBBS [address] [place] [address] Dr RICHARDS [address] [place] [address] [email or web address] Primary Oncologist Hematology and Oncology 02/04/23 Nancy Contreras CNP [address] [place] [address] [email or web address] Nurse Practitioner Medical Oncology 05/16/23 Mary Lou Mcfarland PA-C [address] [place] [address] [email or web address] Physician Panama Hat Hydraulic Press Operator 01/11/25 documented as of this encounter Additional Source Comments The information contained in this document represents components of the legal health record. It is not the complete legal health record.[facility]
--- OUTSIDE RECORDS SUMMARY | 2025-02-26 11:30 | XMS_ITS | Encounter Summary ---
Author Organization [facility] Address [address] [place] [address] Phone Care Team Providers Care Visual Merchandising Director Name Role Phone Florentino Medeiros MD Primary Care Provider Charity Phoenix MBBS Unavailable Nancy Contreras CNP Unavailable Mindy Lin MD Primary Care Provider Mary Lou Mcfarland-C Unavailable [phone] Encounter Details Date Type Department Care Team (Late st Contact Info) Description 09/03/2023 Procedure Pass [facility], Ct Scan - [facility] [address] [place] [address] Social History Tobacco Use Types Packs/Day Years [...] st Contact Info) Description 02/01/2025 Procedure Pass [address] [address] 02/01/2025 Procedure Pass [address] [address] 03/24/2025 10:00 AM EST Infusion [facility] at [address] [address] Charity Phoenix MBBS [address] [place] [address] [email or web address] 04/29/2025 11:15 AM EST Appointment [address] [address] Charity Phoenix MBBS [address] [place] [address] [email or web address] 05/06/2025 10:00 AM EST Blood Draw [facility]le[facility] [address] [address] Charity Phoenix MBBS [address] [place] [address] [email or web address] 05/06/2025 11:00 AM EST Office Visit [facility] at [address] [place] [address] Charity Phoenix MBBS [address] [place] [address] [email or web address] documented as of this encounter Visit Diagnoses Not on filedocumented in this encounter Additional Health Concerns Infection Onset Date Last Indicated Resolved Time CoV-Risk 05/16/2024 05/16/2024 05/27/2024 1:22 AM EST Influenza A 05/16/2024 05/16/2024 05/23/2024 1:22 AM EST documented as of this encounter Care Teams Visual Merchandising Director Relationship Specialty Start Date End Date Florentino Medeiros MD [address] [place] [address] Dr RICHARDS [address] [place] [address] PCP - General Internal Medicine 10/17/19 07/15/24 Mindy Lin MD [address] [place] [address] PCP - General Internal Medicine 07/16/24 Charity Phoenix MBBS [address] [place] [address] Dr RICHARDS [address] [place] [address] [email or web address] Primary Oncologist Hematology and Oncology 02/04/23 Nancy Contreras CNP [address] [place] [address] [email or web address] Nurse Practitioner Medical Oncology 05/16/23 Mary Lou Mcfarland PA-C [address] [place] [address] [email or web address] Physician Aquarium Tank Attendant 01/11/25 documented as of this encounter Additional Source Comments The information contained in this document represents components of the legal health record. It is not the complete legal health record.[facility]
--- OUTSIDE RECORDS SUMMARY | 2025-02-26 11:30 | XMS_ITS | Clinical Summary ---
Author Organization [address] [facility] Address [address] [place] [address] Phone Care Team Providers Care Air Sampling And Monitoring Name Role Phone Mindy Saunders MD Primary Care Provider [phone] Encounters Date Type Department Care Team Description 12/15/2024 Lab Requisition [facility] - Main Lab [address] [place] [address] Kameron Evans MD Encounter for [...] Last Done Comments Breast Cancer Screening 1950 Colorectal Cancer Screening: Colonoscopy 1950 DTaP,Tdap,and Td Vaccines (1 - Tdap) 10/02/1970 Pneumococcal Vaccine: 50+ Ye ars (1 of 1 - PCV) 10/02/2001 Zoster Vaccines (1 of 2) 10/02/2001 Depression Screening 04/08/2024 COVID-19 Vaccine (1 - 2024-2 6 season) 2024 Influenza Vaccine (#1) 2024 Falls Risk Assessment 12/15/2024 Hepatitis C Screening [...] on patient's age to complete this topic Procedures Procedure Name Priority Date/Time Associated Diagnosis Comments PAP SMEAR Routine 12/14/2024 12:00 AM EDT Encounter for gynecological examination (general) (routine) without abnormal findings from Last 3 Months Results * Pap smear (12/14/2024 12:00 AM EDT) Interpretation Negative for intraepithelial lesion or malignancy 12/18/2024 8:37 AM T [facility] General Categorization Negative 12/18/2024 8:37 AM [facility] Specimen Adequacy Satisfactory for evaluation, endocervical/bobby sformation zone component present 12/18/2024 8:37 AM EDT [facility] Pap Methodology Liquid Based Pap Test 12/18/2024 8:37 AM [facility] Disclaimer The Pap test is a screening test which carries an inherent false negative rate. These test results should be correlated with the patient's clinical findings and history. This Pap test was processed using an automated screening system. Technical cytopathology services provided by [facility], at [address] [place] [address], [place] [address] (CLIA # [id number]/Kaitlyn Choi MD, Outbound Telemarketer.) 12/18/2024 8:37 AM EDT [facility] Console Pap Interpretation Reported 12/18/2024 8:37 AM EDT [facility] Brushing/Spatula Cervix uteri structure / Unknown 12/14/2024 12/15/2024 7:13 AM EDT us Kameron Evans MD LAB CYTOLOGY ORDERABLES Final Result [facility] [address] [place] [address], from Last 3 Months Insurance MEDICARE Care Teams Air Sampling And Monitoring Relationship Specialty Start Date End Date Mindy Saunders MD [address] [place] [id number] PCP - General Internal Medicine 12/15/24
--- OUTSIDE RECORDS SUMMARY | 2025-02-26 11:30 | XMS_ITS | Encounter Summary ---
Author Organization [facility] Address [address] [place] [id number] Care Team Providers Care Calender Roll Operator Name Role Phone Mindy Saunders MD Primary Care Provider [phone] Encounter Details Date Type Department Care Team (Latest Contact Info) Description 12/15/2024 Lab Requisition [facility] [address] [facility] [place] [address] Kameron Evans MD [address] [address] Encounter for gynecological examination (general) [...] file documented as of this encounter Procedures Procedure Name Priority Date/Time Associated Diagnosis Comments PAP SMEAR Routine 12/14/2024 12:00 AM EDT Encounter for gynecological examination (general) (routine) without abnormal findings documented in this encounter Results * Pap smear (12/14/2024 12:00 AM EDT) Interpretation Negative for intraepithelial lesion or malignancy 12/18/2024 8:37 AM EDT [facility] General Categorization Negative 12/18/2024 8:37 AM EDT [facility] Specimen Adequacy Satisfactory for evaluation, endocervical/bobby sformation zone component present 12/18/2024 8:37 AM EDT [facility] Pap Methodology Liquid Based Pap Test 12/18/2024 8:37 AM EDT [facility] Disclaimer The Pap test is a screening test which carries an inherent false negative rate. These test results should be correlated with the patient's clinical findings and history. This Pap test was processed using an automated screening system. Technical cytopathology services provided by [facility], at [address] [place] [address] (CLIA # [id number]/Kaitlyn Choi MD, Seat Installer.) 12/18/2024 8:37 AM EDT [facility] Console Pap Interpretation Reported 12/18/2024 8:37 AM EDT [facility] Brushing/Spatula Cervix uteri structure / Unknown 12/14/2024 12/15/2024 7:13 AM EDT us Kameron Evans MD LAB CYTOLOGY ORDERABLES Final Result [facility] [address] [place] [address], documented in this encounter Visit Diagnoses Diagnosis Encounter for gynecological examination (general) (routine) without abnormal findings documented in this encounter Care Teams Calender Roll Operator Relationship Specialty Start Date End Date Mindy Saunders MD [address] [place] [address] PCP - General Internal Medicine 12/15/24 documented as of this encounter
--- OUTSIDE RECORDS SUMMARY | 2025-02-26 11:32 | XMS_ITS | Patient Health Record ---
Author Organization Vimal Head III, MD Address [address] [place] [address] DR [address]ICHAR[address] [place] [id number] Care Team Providers Care Prize Coordinator Name Role Phone CarterMindy Lott ([place]) Primary Care Provider Un available Dr. Vimal [...] BY MOUTH EVERY DAY Oral Active Creon [id number] UNIT TAKE 1 CAPSULE ( 36,000 UNITS [...] Problem Status W/U Status Risk Notes Problem 60428468 Chronic cough (R05) Active confirmed Her cough continues but she has had no hemoptysis. Problem 4633259 Former smoker (Z87.891) Active confirmed She seems motivated not to smoke. We discussed means by which relapse could be prevented in times of stress and illness. Problem 398778119 Overweight (BMI 25.0-29.9) (E66.3) Active confirmed Her body mass index is 29. I recommended she stabilize her weight at this level until her treatment is done. Problem 820045114 Malignant neoplasm of head of pancreas (C25.0) Active confirmed When the tumor was discovered she was treated with neoadjuvant chemotherapy consisting of fluorouracil, leucovorin, irinotecan and oxaliplatin. A resection was then attempted at [facility] but the tumor was inoperable. She was then treated aggressively with intraoperative radiation therapy. She then received adjuvant chemotherapy at [facility] in [facility]. She has finished her treatment at this point and is being observed at 4 month intervals. Problem 489266288 Acquired hypothyroidism (E03.9) Active confirmed She has been compliant with her thyroid medication and her levels are euthyroid. 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 Problem 28060198 Hypercholestero lemia (E78.00) Active confirmed The current lipid profile shows continued good control of her lipids. No change in her regimen is needed. Problem 88836477 Tremor (R25.1) Active confirmed There has been no change in the mild tremor. 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 confirmed We have [...] Date Provider Diagnosis Vimal Head III, MD [address] [place] [address] [place] [id number] 08/18/2024 Vimal Head Malignant neoplasm o f head of pancreas C25.0 ; Squamous cell carcinoma of left lung C34.92 ; Acquired hypothyroidism E03.9 ; Chronic cough R05 ; Overweight (BMI 25.0-29.9) E66.3 and Former smoker Z87.891 Vimal Head III, MD [address] [place] [address] [place] [address] 11/18/2024 Vimal Head Malignant neoplasm o f head of pancreas C25.0 ; Squamous cell carcinoma of left lung C34.92 ; Chronic cough R05 ; Overweight (BMI 25.0-29.9) E66.3 ; Acquired hypothyroidism E03.9 ; Tremor R25.1 ; Hypercholesterolemia E78.00 and Former smoker Z87.891 Vimal Head III, MD [address] [place] [address] [place] [address] 11/26/2024 Vimal Head III, MD [address] [place] [address] [place] [address] 11/26/2024 Vimal Head Assessments Encounter Date Diagnosis (ICD Code) Assessment Notes T reatment Notes Treatment Clinical Notes 08/18/2024 Malignant neoplasm o f head of pancreas (ICD-10 - C25.0) When the tumor was discovered she was treated with neoadjuvant chemotherapy consisting of fluorouracil, leucovorin, irinotecan and oxaliplatin. A resection was then attempted at [facility] but the tumor was inoperable. She was then treated aggressively with intraoperative radiation therapy. She then received adjuvant chemotherapy at [facility] in [facility]. She has finished her treatment at [...] oxaliplatin. A resection was then attempted at [facility] but the tumor was inoperable. She was then treated aggressively with intraoperative radiation therapy. She then received adjuvant chemotherapy at [facility] in [facility]. She has finished her treatment at this point and is being observed at 4 month intervals. 11/18/2024 Squamous cell carcin abhay of left lung (ICD-10 - C34.92) There was no sign of recurrent lung cancer on today's examination. 08/18/2024 Acquired hypothyroid ism (ICD-10 - E03.9) She has been compliant with her thyroid medication and her levels are euthyroid. 11/18/2024 Chronic cough (ICD-1 0 - R05) Her cough continues but she has had no hemoptysis. 08/18/2024 Chronic cough (ICD-1 0 - R05) Her cough continues but she has had no hemoptysis. 11/18/2024 Overweight (BMI 25.0-29.9) (ICD-10 - E66.3) Her body mass index is 29. I recommended she stabilize her weight at this level until her treatment is done. 08/18/2024 Overweight (BMI 25.0-29.9) (ICD-10 - E66.3) [...] LAT 2022 Next Appt Details Provider Name:Vimal Head , 03/23/2025 10:00:00 AM, [address] [place] [address] , [address], [place], [address], Insurance Providers Payer Name Payer Address Payer Phone Subscriber Number Group Number Insured Name Patient Relationship to Insured Coverage Start Date Coverage End Date MEDICARE NGS [address] [facility] [place] [phone] [id number] BOLANOSSYDNIE Self - patient is the insured [address] [place] [id number] [id number] SYDNIE BOLANOS Self - patient is the [...] ago Hospitalization History Reason Date(Month/Year) Hospitalized at [facility] for surgery on november 0410/2023
--- OUTSIDE RECORDS SUMMARY | 2025-02-26 11:32 | XMS_ITS | Encounter Summary ---
Author Organization [facility] Address [email or web address] [place] [address] Phone Care Team Providers Care [place] Utility Worker Name Role Phone Florentino Medeiros MD Primary Care Provider Charity Phoenix MBBS Unavailable [phone] Nancy Contreras CNP Unavailable Mindy Lin MD Primary Care Provider Mary Lou Mcfarland PA-C Unavailable Encounter Details Date Type Department Care Team (Late st Contact Info) Description 02/18/2023 Procedure Pass [facility] [address] [place] [address] Social History Tobacco Use Types Packs/Day Years [...] st Contact Info) Description 02/01/2025 Procedure Pass [address] [address] 02/01/2025 Procedure Pass [address] [address] 03/24/2025 10:00 AM EST Infusion [facility] Center at [address] [address] Charity Phoenix MBBS [address] [place] [address] [email or web address] 04/29/2025 11:15 AM EST Appointment [address] [address] Charity Phoenix MBBS [address] [place] [address] [email or web address] 05/06/2025 10:00 AM EST Blood Draw [facility] Phle[facility] [address] [address] Charity Phoenix MBBS [address] [place] [address] [email or web address] 05/06/2025 11:00 AM EST Office Visit [facility] at [place] [address] [place] [address] Charity Phoenix MBBS [address] [place] [address] [email or web address] documented as of this encounter Visit Diagnoses Not on filedocumented in this encounter Additional Health Concerns Infection Onset Date Last Indicated Resolved Time CoV-Risk 05/17/2023 05/17/2023 05/28/2023 1:23 AM EST CoV-Risk 05/16/2024 05/16/2024 05/27/2024 1:22 AM EST Influenza A 05/16/2024 05/16/2024 05/23/2024 1:22 AM EST documented as of this encounter Care Teams [place] Utility Worker Relationship Specialty Start Date End Date Florentino Medeiros MD [address] [place] [address] Dr RICHARDS [address] [place] [address] PCP - General Internal Medicine 10/17/19 07/15/24 Mindy Lin MD [address] [place] [address] PCP - General Internal Medicine 07/16/24 Charity Phoenix MBBS [address] [place] [address] Dr RICHARDS [address] [place] [address] [email or web address] Primary Oncologist Hematology and Oncology 02/04/23 Nancy Contreras CNP [address] [place] [address] [email or web address] Nurse Practitioner Medical Oncology 05/16/23 Mary Lou Mcfarland PA-C [address] [place] [address] [email or web address] Physician Fence Repairman 01/11/25 documented as of this encounter Additional Source Comments The information contained in this document represents components of the legal health record. It is not the complete legal health record.[facility]
--- OUTSIDE RECORDS SUMMARY | 2025-02-26 11:33 | XMS_ITS | Encounter Summary ---
Author Organization [facility] Address [address] [place] [address] Phone Care Team Providers Care Research Phlebotomist Name Role Phone Florentino Medeiros MD Primary Care Provider Charity Phoenix MBBS Unavailable [phone] Nancy Contreras CNP Unavailable Mindy Lin MD Primary Care Provider Mary Lou Mcfarland-C Unavailable Encounter Details Date Type Department Care Team (Late st Contact Info) Description 07/02/2024 Procedure Pass [facility], Ct Scan - [facility] [address] [place] [address] Social History Tobacco Use Types Packs/Day Years [...] st Contact Info) Description 02/01/2025 Procedure Pass [address] [address] 02/01/2025 Procedure Pass [address] [address] 03/24/2025 10:00 AM EST Infusion [facility] at [address] [address] Charity Phoenix MBBS [address] [place] [address] [email or web address] 04/29/2025 11:15 AM EST Appointment [address] [address] Charity Phoenix MBBS [address] [place] [address] [email or web address] 05/06/2025 10:00 AM EST Blood Draw [facility] Phleb [facility] [address] [place] [address] Charity Phoenix MBBS [address] [place] [address] [email or web address] 05/06/2025 11:00 AM EST Office Visit [facility] Center at [place] [address] [place] [address] Charity Phoenix MBBS [address] [place] [address] [email or web address] documented as of this encounter Visit Diagnoses Not on filedocumented in this encounter Care Teams Research Phlebotomist Relationship Specialty Start Date End Date Florentino Medeiros MD [address] [place] [address] Dr RICHARDS [address] [place] [address] PCP - General Internal Medicine 10/17/19 07/15/24 Mindy Lin MD [address] [place] [address] PCP - General Internal Medicine 07/16/24 Charity Phoenxi MBBS [address] [place] [address] [place] [address] [email or web address] Primary Oncologist Hematology and Oncology 02/04/23 Nancy Contreras CNP [address] [place] [address] [email or web address] Nurse Practitioner Medical Oncology 05/16/23 Mary Lou Mcfarland PA-C [address] [place] [phone] [email or web address] Physician Biology Research Assistant 01/11/25 documented as of this encounter Additional Source Comments The information contained in this document represents components of the legal health record. It is not the complete legal health record.[facility]
--- OUTSIDE RECORDS SUMMARY | 2025-02-26 11:33 | XMS_ITS | Encounter Summary ---
Author Organization [facility] Address [address] [place] [address] Phone Care Team Providers Care Mower Operator Name Role Phone Florentino Medeiros MD Primary Care Provider Charity Phoenix MBBS Unavailable Nancy Contreras CNP Unavailable Mindy Lin MD Primary Care Provider Mary Lou Mcfarland-C Unavailable Encounter Details Date Type Department Care Team (Late st Contact Info) Description 07/02/2024 Procedure Pass [facility], Ct Scan - [facility] 30 [place] [address] Social History Tobacco Use Types Packs/Day Years [...] st Contact Info) Description 02/01/2025 Procedure Pass [address] [address] 02/01/2025 Procedure Pass [address] [address] 03/24/2025 10:00 AM EST Infusion [facility] at [address] [address] Charity Phoenix MBBS [address] [place] [address] [email or web address] 04/29/2025 11:15 AM EST Appointment [address] [address] Charity Phoenix MBBS [address] [place] [address] [email or web address] 05/06/2025 10:00 AM EST Blood Draw [facility]le[facility] [address] [place] [address] Charity Phoenix MBBS [address] [place] [address] [email or web address] 05/06/2025 11:00 AM EST Office Visit [facility] Center at [place] [address] [place] [address] Charity Phoenix MBBS [address] [place] [address] [email or web address] documented as of this encounter Visit Diagnoses Not on filedocumented in this encounter Care Teams Mower Operator Relationship Specialty Start Date End Date Florentino Medeiros MD [address] [place] [address] Dr RICHARDS [address] [place] [address] PCP - General Internal Medicine 10/17/19 07/15/24 Mindy Lin MD [address] [place] [address] PCP - General Internal Medicine 07/16/24 Charity Phoenix MBBS [address] [place] [address] [place] [address] [email or web address] Primary Oncologist Hematology and Oncology 02/04/23 Nancy Contreras CNP [address] [place] [address] [email or web address] Nurse Practitioner Medical Oncology 05/16/23 Mary Lou Mcfarland PA-C [address] [place] [address] [email or web address] Physician Potato Loader 01/11/25 documented as of this encounter Additional Source Comments The information contained in this document represents components of the legal health record. It is not the complete legal health record.[facility]
--- OUTSIDE RECORDS SUMMARY | 2025-02-26 11:33 | XMS_ITS | Encounter Summary ---
Author Organization [facility] Address [address] [place] [address] Phone Care Team Providers Care Licensing Director Name Role Phone Florentino Medeiros MD Primary Care Provider Charity Phoenix MBBS Unavailable [phone] Nancy Contreras CNP Unavailable Mindy Lin MD Primary Care Provider Mary Lou Mcfarland-C Unavailable Encounter Details Date Type Department Care Team (Late st Contact Info) Description 06/27/2024 Procedure Pass [facility], Ct Scan - [facility] [address] [place] [address] Social History Tobacco Use Types Packs/Day Years [...] 7:03 AM EDT Shin Gaines, ANH * Sandy Suicide Severity Rating Scale (Screener/Recent Self-Report) Question Answer Date of Assessment Author 1. Wish to be (Past 1 Month) No 06/27/2024 7:03 AM IVANNAT Shin Pisano, ANH 2. Non-Specific Active Suicidal Thoughts (Past 1 Month) No 06/27/2024 7:03 AM EDT Shin Pisano, ANH 6. Suicidal Behavior (Lifetime) No 06/27/2024 7:03 AM IVANNAT Shin Pisano, ANH documented as of this encounter Plan of Treatment Upcoming Encounters Date Type Department Care Team (Late st Contact Info) Description 02/01/[address] [address] 02/01/[address] [address] 03/24/2025 10:00 AM EST Infusion [facility] at [address] [address] Charity Phoenix [address] [address] [email or web address] 04/29/2025 11:15 AM EST Appointment [facility], Ct Scan - [address] [address] Charity Phoenix MBBS [address] [place] [address] [email or web address] 05/06/2025 10:00 AM EST Blood Draw [facility] Phleb [address] [address] Charity Phoenix MBBS [address] [place] [address] [email or web address] 05/06/2025 11:00 AM EST Office Visit [facility] at [address] [address] Charity Phoenix MBBS [address] [place] [address] [email or web address] documented as of this encounter Visit Diagnoses Not on filedocumented in this encounter Care Teams Licensing Director Relationship Specialty Start Date End Date Florentino Medeiros MD [address] [place] [address] [place] [address] PCP - General Internal Medicine 10/17/19 07/15/24 Mindy Lin MD [address] [place] [address] PCP - General Internal Medicine 07/16/24 Charity Phoenix MBBS [address] [place] [address] [place] [address] [email or web address] Primary Oncologist Hematology and Oncology 02/04/23 Nancy Contreras CNP [address] [place] [address] Nurse Practitioner Medical Oncology 05/16/23 Mary Lou Mcfarland PA-C [address] [place] [email or web address] Physician Financial Sales Consultant 01/11/25 documented as of this encounter Additional Source Comments The information contained in this document represents components of the legal health record. It is not the complete legal health record.[facility]
--- OUTSIDE RECORDS SUMMARY | 2025-02-26 11:33 | XMS_ITS | Encounter Summary ---
Author Organization [facility] Address [address] [place] [address] Phone Care Team Providers Care Fisher Eel Spear Name Role Phone Florentino Medeiros MD Primary Care Provider Charity Phoenix MBBS Unavailable [phone] Nancy Contreras CNP Unavailable Mindy Lin MD Primary Care Provider Mary Lou Mcfarland-C Unavailable Encounter Details Date Type Department Care Team (Late st Contact Info) Description 06/03/2023 Procedure Pass [facility], Ct Scan - [facility] [address] [place] [address] Social History Tobacco Use Types Packs/Day Years [...] st Contact Info) Description 02/01/2025 Procedure Pass [address] [address] 02/01/2025 Procedure Pass [address] [address] 03/24/2025 10:00 AM EST Infusion [facility] at [address] [address] Charity Phoenix MBBS [address] [place] [address] [email or web address] 04/29/2025 11:15 AM EST Appointment [address] [address] Charity Phoenix MBBS [address] [place] [address] [email or web address] 05/06/2025 10:00 AM EST Blood Draw [facility] Phleb [address] [address] Charity Phoenix MBBS [address] [place] [address] [email or web address] 05/06/2025 11:00 AM EST Office [facility] at [place] [address] [place] [address] Charity Phoenix MBBS [address] [place] [address] [email or web address] documented as of this encounter Visit Diagnoses Not on filedocumented in this encounter Additional Health Concerns Infection Onset Date Last Indicated Resolved Time CoV-Risk 05/16/2024 05/16/2024 05/27/2024 1:22 AM EST Influenza A 05/16/2024 05/16/2024 05/23/2024 1:22 AM EST documented as of this encounter Care Teams Fisher Eel Spear Relationship Specialty Start Date End Date Florentino Medeiros MD [address] [place] [address] Dr RICHARDS [address] [place] [address] PCP - General Internal Medicine 10/17/19 07/15/24 Mindy Lin MD [address] [place] [address] PCP - General Internal Medicine 07/16/24 Charity Phoenix MBBS [address] [place] [address] Dr RICHARDS [address] [place] [address] [email or web address] Primary Oncologist Hematology and Oncology 02/04/23 Nancy Contreras CNP [address] [place] [address] [email or web address] Nurse Practitioner Medical Oncology 05/16/23 Mary Lou Mcfarland PA-C [address] [place] [address] [email or web address] Physician Supervisor Blood 01/11/25 documented as of this encounter Additional Source Comments The information contained in this document represents components of the legal health record. It is not the complete legal health record.[facility]
--- OUTSIDE RECORDS SUMMARY | 2025-02-26 11:33 | XMS_ITS | Encounter Summary ---
Author Organization [facility] Address [address] [place] [address] Phone Care Team Providers Care Auditing Specialist Name Role Phone Florentino Medeiros MD Primary Care Provider Charity Phoenix MBBS Unavailable Nancy Contreras CNP Unavailable Mindy Lin MD Primary Care Provider Mary Lou Mcfarland-C Unavailable Encounter Details Date Type Department Care Team (Late st Contact Info) Description 06/27/2024 Procedure Pass [facility], Ct Scan - [facility] [address] [place] [address] Social History Tobacco Use Types Packs/Day Years [...] 7:03 AM EDT Shin Gaines, ANH * [place] Suicide Severity Rating Scale (Screener/Recent Self-Report) Question [...] (Late st Contact Info) Description 02/01/[address] [address] 02/01/[address] [address] 03/24/2025 10:00 AM EST Infusion [facility] at [address] [address] Charity Phoenix [address] [address] [email or web address] 04/29/2025 11:15 AM EST Appointment [facility], Ct Scan - [address] [address] Charity Phoenix MBBS [address] [place] [address] [email or web address] 05/06/2025 10:00 AM EST Blood Draw [facility] Phleb [address] [address] Charity Phoenix MBBS [address] [place] [address] [email or web address] 05/06/2025 11:00 AM EST Office Visit [facility] at [address] [address] Charity Phoenix MBBS [address] [place] [address] [email or web address] documented as of this encounter Visit Diagnoses Not on filedocumented in this encounter Care Teams Auditing Specialist Relationship Specialty Start Date End Date Florentino Medeiros MD [address] [place] [address] [place] [address] PCP - General Internal Medicine 10/17/19 07/15/24 Mindy Lin MD [address] [place] [address] PCP - General Internal Medicine 07/16/24 Charity Phoenix MBBS [address] [place] [address] [place] [address] [email or web address] Primary Oncologist Hematology and Oncology 02/04/23 Nancy Contreras CNP [address] [place] [address] Nurse Practitioner Medical Oncology 05/16/23 Mary Lou Mcfarland PA-C [address] [place] [phone] [email or web address] Physician Natural Sciences Professor 01/11/25 documented as of this encounter Additional Source Comments The information contained in this document represents components of the legal health record. It is not the complete legal health record.[facility]
--- OUTSIDE RECORDS SUMMARY | 2025-02-26 11:33 | XMS_ITS | Encounter Summary ---
Author Organization [facility] Address [address] [place] [address] Phone Care Team Providers Care Dentures Lab Technician Name Role Phone Florentino Medeiros MD Primary Care Provider Charity Phoenix MBBS Unavailable Nancy Contreras CNP Unavailable Mindy Lin MD Primary Care Provider Mary Lou Mcfarland-C Unavailable [phone] Encounter Details Date Type Department Care Team (Late st Contact Info) Description 11/05/2023 Procedure Pass [facility] [address] [place] [address] Social History Tobacco Use Types Packs/Day Years [...] Risk Indicated 11/05/2023 6:07 PM EDT Nandini Luna, ANH * Erwin Suicide Severity Rating Scale (Screener/Recent Self-Report) Question Answer Date of Assessment Author 1. Wish to be (Past 1 Month) No 024 6:07 PM Nandini Nayak, ANH 2. Non-Specific Active Suici obdulio Thoughts (Past 1 Month) No 11/05/2023 6:07 PM IVANNAT Randee Luna RN 6. Suicidal Behavior (Lifetime) No 6:07 PM Nandini Nayak, RN documented as of this encounter Plan of Treatment Upcoming Encounters Date Type Department Care Team (Late st Contact Info) Description 02/01/[address] [address] 02/01/[address] [address] 03/24/2025 10:00 AM EST Infusion [facility] at [address] [address] Charity Phoenix [address] [address] [email or web address] 04/29/2025 11:15 AM EST Appointment [facility], Ct Scan - [address] [address] Charity Phoenix MBBS [address] [place] [address] [email or web address] 05/06/2025 10:00 AM EST Blood Draw [facility] [address] [address] Charity Phoenix MBBS [address] [place] [address] [email or web address] 05/06/2025 11:00 AM EST Office Visit [facility] at [address] [address] Charity Phoenix [address] [address] [email or web address] documented as of this encounter Visit Diagnoses Not on filedocumented in this encounter Additional Health Concerns Infection Onset Date Last Indicated Resolved Time CoV-Risk 05/16/2024 05/16/2024 05/27/2024 1:22 AM EST Influenza A 05/16/2024 05/16/2024 05/23/2024 1:22 AM EST documented as of this encounter Care Teams Dentures Lab Technician Relationship Specialty Start Date End Date Florentino Medeiros MD [address] [place] [address] [place] [address] PCP - General Internal Medicine 10/17/19 07/15/24 Mindy Lin MD [address] [place] [address] PCP - General Internal Medicine 07/16/24 Charity Phoenix MBBS [address] [place] [address] [place] [address] [email or web address] Primary Oncologist Hematology and Oncology 02/04/23 Nancy Contreras CNP [address] [place] [address] Nurse Practitioner Medical Oncology 05/16/23 Mary Lou Mcfarland PA-C [address] [place] [address] Physician Batch Freezer 01/11/25 documented as of this encounter Additional Source Comments The information contained in this document represents components of the legal health record. It is not the complete legal health record.[facility]
--- OUTSIDE RECORDS SUMMARY | 2025-02-26 11:33 | XMS_ITS | Encounter Summary ---
Author Organization [facility] Address [address] [place] [address] Phone Care Team Providers Care Kitchen Food Server Name Role Phone Florentino Medeiros MD Primary Care Provider Charity Phoenix MBBS Unavailable Nancy Conrteras CNP Unavailable Mindy Lin MD Primary Care Provider Mary Lou Mcfarland-C Unavailable Encounter Details Date Type Department Care Team (Late st Contact Info) Description 01/22/2023 Procedure Pass [facility], [place] [address] [facility], 2nd Floor, [address] [place] [address] Social History Tobacco Use Types Packs/Day Years [...] st Contact Info) Description 02/01/2025 Procedure Pass [address] [address] 02/01/[address] [address] 03/24/2025 10:00 AM EST Infusion [facility] at [address] [address] hCarity Phoenix MBBS [address] [place] [address] [email or web address] 04/29/2025 11:15 AM EST Appointment [address] [address] Charity Phoenix MBBS [address] [place] [address] [email or web address] 05/06/2025 10:00 AM EST Blood Draw [facility] [address] [address] Charity Phoenix MBBS [address] [place] [address] [email or web address] 05/06/2025 11:00 AM EST Office Visit [facility] Center at [address] [place] [address] Charity Phoenix MBBS [address] [place] [address] [email or web address] documented as of this encounter Visit Diagnoses Not on filedocumented in this encounter Additional Health Concerns Infection Onset Date Last Indicated Resolved Time CoV-Risk 05/17/2023 05/17/2023 05/28/2023 1:23 AM EST CoV-Risk 05/16/2024 05/16/2024 05/27/2024 1:22 AM EST Influenza A 05/16/2024 05/16/2024 05/23/2024 1:22 AM EST documented as of this encounter Care Teams Kitchen Food Server Relationship Specialty Start Date End Date Florentino Medeiros MD [address] [place] [address] Dr RICHARDS [address] [place] [address] PCP - General Internal Medicine 10/17/19 07/15/24 Mindy Lin MD [address] [place] [address] PCP - General Internal Medicine 07/16/24 Charity Phoenix MBBS [address] [place] [address] Dr RICHARDS [address] [place] [address] [email or web address] Primary Oncologist Hematology and Oncology 02/04/23 Nancy Contreras CNP [address] [place] [address] [email or web address] Nurse Practitioner Medical Oncology 05/16/23 Mary Lou Mcfarland PA-C [address] [place] [address] [email or web address] Physician Siene Maker 01/11/25 documented as of this encounter Additional Source Comments The information contained in this document represents components of the legal health record. It is not the complete legal health record.[facility]
--- OUTSIDE RECORDS SUMMARY | 2025-02-26 11:33 | XMS_ITS | Encounter Summary ---
Author Organization [facility] Address [address] [place] [address] Phone Care Team Providers Care Power Bender Operator Name Role Phone Florentino Medeiros MD Primary Care Provider Charity Phoenix MBBS Unavailable [phone] Nancy Contreras CNP Unavailable Mindy Lin MD Primary Care Provider Mary Lou Mcfarland-C Unavailable [phone] Encounter Details Date Type Department Care Team (Late st Contact Info) Description 06/03/2023 Procedure Pass [facility], Ct Scan - [facility] [address] [place] [address] Social History Tobacco Use Types Packs/Day Years [...] st Contact Info) Description 02/01/2025 Procedure Pass [address] [address] 02/01/2025 Procedure Pass [address] [address] 03/24/2025 10:00 AM EST Infusion [facility] at [address] [address] Charity Phoenix MBBS [address] [place] [address] [email or web address] 04/29/2025 11:15 AM EST Appointment [address] [address] Charity Phoenix MBBS [address] [place] [address] [email or web address] 05/06/2025 10:00 AM EST Blood Draw [facility] [address] [address] Charity Phoenix MBBS [address] [place] [address] [email or web address] 05/06/2025 11:00 AM EST Office Visit [facility] at [address] [place] [address] Charity Phoenix MBBS [address] [place] [address] [email or web address] documented as of this encounter Visit Diagnoses Not on filedocumented in this encounter Additional Health Concerns Infection Onset Date Last Indicated Resolved Time CoV-Risk 05/16/2024 05/16/2024 05/27/2024 1:22 AM EST Influenza A 05/16/2024 05/16/2024 05/23/2024 1:22 AM EST documented as of this encounter Care Teams Power Bender Operator Relationship Specialty Start Date End Date Florentino Medeiros MD [address] [place] [address] Dr RICHARDS [address] [place] [address] PCP - General Internal Medicine 10/17/19 07/15/24 Mindy Lin MD [address] [place] [address] PCP - General Internal Medicine 07/16/24 Charity Phoenix MBBS [address] [place] [address] Dr RICHARDS [address] [place] [address] [email or web address] Primary Oncologist Hematology and Oncology 02/04/23 Nancy Contreras CNP [address] [place] [address] [email or web address] Nurse Practitioner Medical Oncology 05/16/23 Mary Lou Mcfarland PA-C [address] [place] [address] [email or web address] Physician Enforcement Manager 01/11/25 documented as of this encounter Additional Source Comments The information contained in this document represents components of the legal health record. It is not the complete legal health record.[facility]
--- OUTSIDE RECORDS SUMMARY | 2025-02-26 11:33 | XMS_ITS | Encounter Summary ---
Author Organization [facility] Address [address] [place] [address] Phone Care Team Providers Care Fuel Buyer Name Role Phone Florentino Medeiros MD Primary Care Provider Charity Phoenix MBBS Unavailable Nancy Contreras CNP Unavailable Mindy Lin MD Primary Care Provider Mary Lou Mcfarland-C Unavailable [phone] Encounter Details Date Type Department Care Team (Late st Contact Info) Description 01/22/2023 Procedure Pass [facility] [place] [address] [facility], 2nd Floor, [address] [place] [address] Social History Tobacco Use Types Packs/Day Years [...] st Contact Info) Description 02/01/2025 Procedure Pass [address] [address] 02/01/[address] [address] 03/24/2025 10:00 AM EST Infusion [facility] Center at [address] [address] Charity Phoenix MBBS [address] [place] [address] [email or web address] 04/29/2025 11:15 AM EST Appointment [address] [address] Charity Phoenix MBBS [address] [place] [address] [email or web address] 05/06/2025 10:00 AM EST Blood Draw [facility] [address] [address] Charity Phoenix MBBS [address] [place] [address] [email or web address] 05/06/2025 11:00 AM EST Office Visit [facility] Center at [place] [address] [place] [address] Charity Phoenix MBBS [address] [place] [address] [email or web address] documented as of this encounter Visit Diagnoses Not on filedocumented in this encounter Additional Health Concerns Infection Onset Date Last Indicated Resolved Time CoV-Risk 05/17/2023 05/17/2023 05/28/2023 1:23 AM EST CoV-Risk 05/16/2024 05/16/2024 05/27/2024 1:22 AM EST Influenza A 05/16/2024 05/16/2024 05/23/2024 1:22 AM EST documented as of this encounter Care Teams Fuel Buyer Relationship Specialty Start Date End Date Florentino Medeiros MD [address] [place] [address] Dr RICHARDS [address] [place] [address] PCP - General Internal Medicine 10/17/19 07/15/24 Mindy Lin MD [address] [place] [address] PCP - General Internal Medicine 07/16/24 Charity Phoenix MBBS [address] [place] [address] Dr RICHARDS [address] [place] [address] [email or web address] Primary Oncologist Hematology and Oncology 02/04/23 Nancy Contreras CNP [address] [place] [address] [email or web address] Nurse Practitioner Medical Oncology 05/16/23 Mary Lou Mcfarland PA-C [address] [place] [address] [email or web address] Physician Wool Grader 01/11/25 documented as of this encounter Additional Source Comments The information contained in this document represents components of the legal health record. It is not the complete legal health record.[facility]
--- OUTSIDE RECORDS SUMMARY | 2025-02-26 11:33 | XMS_ITS | Encounter Summary ---
Author Organization [facility] Address [address] [place] [address] Phone Care Team Providers Care Museum Registrar Name Role Phone Florentino Medeiros MD Primary Care Provider Charity Phoenix MBBS Unavailable [phone] Nancy Contreras CNP Unavailable Mindy Lin MD Primary Care Provider Mary Lou Mcfarland-C Unavailable [phone] Encounter Details Date Type Department Care Team (Late st Contact Info) Description 07/08/2024 Procedure Pass [facility] [address] [place] [address] Social History Tobacco Use Types Packs/Day Years [...] st Contact Info) Description 02/01/2025 Procedure Pass [facility], Ct Scan - [address] [address] 02/01/2025 Procedure Pass [facility], Ct Scan - [address] [address] 03/24/2025 10:00 AM EST Infusion [facility] Center at [address] [address] Charity Phoenix MBBS [address] [place] [address] [email or web address] 04/29/2025 11:15 AM EST Appointment [facility], Ct Scan - [address] [address] Charity Phoenix MBBS [address] [place] [address] [email or web address] 05/06/2025 10:00 AM EST Blood Draw [facility] Phleb [address] [address] Charity Phoenix MBBS [address] [place] [address] [email or web address] 05/06/2025 11:00 AM EST Office Visit [facility] at [address] [address] Charity Phoenix MBBS [address] [place] [address] [email or web address] documented as of this encounter Visit Diagnoses Not on filedocumented in this encounter Care Teams Museum Registrar Relationship Specialty Start Date End Date Florentino Medeiros MD [address] [place] [address] [place] [address] PCP - General Internal Medicine 10/17/19 07/15/24 Mindy Lin MD [address] [place] [address] PCP - General Internal Medicine 07/16/24 Charity Phoenix MBBS [address] [place] [address] [place] [address] [email or web address] Primary Oncologist Hematology and Oncology 02/04/23 Nancy Contreras CNP [address] [place] [address] Nurse Practitioner Medical Oncology 05/16/23 Mary Lou Mcfarland PA-C [address] [place] [address] Physician Yarn Comber 01/11/25 documented as of this encounter Additional Source Comments The information contained in this document represents components of the legal health record. It is not the complete legal health record.[facility]
--- OUTSIDE RECORDS SUMMARY | 2025-02-26 11:34 | XMS_ITS | Encounter Summary ---
Author Organization [facility] Address [address] [place] [address] Phone Care Team Providers Care Nurse Discharge Name Role Phone Florentino Medeiros MD Primary Care Provider Charity Phoenix MBBS Unavailable Nancy Contreras CNP Unavailable Mindy Lin MD Primary Care Provider Mary Lou Mcfarland-C Unavailable Encounter Details Date Type Department Care Team (Late st Contact Info) Description 01/28/2024 Procedure Pass [facility], Ct Scan - [facility] [address] [place] [address] Social History Tobacco Use Types Packs/Day Years [...] st Contact Info) Description 02/01/2025 Procedure Pass [address] [address] 02/01/2025 Procedure Pass [address] [address] 03/24/2025 10:00 AM EST Infusion [facility] at [address] [address] Charity Phoenix MBBS [address] [place] [address] [email or web address] 04/29/2025 11:15 AM EST Appointment [address] [address] Charity Phoenix MBBS [address] [place] [address] [email or web address] 05/06/2025 10:00 AM EST Blood Draw [facility] Phle[facility] [address] [place] [address] Charity Phoenix MBBS [address] [place] [address] [email or web address] 05/06/2025 11:00 AM EST Office Visit [facility] Center at [place] [address] [place] [address] Charity Phoenix MBBS [address] [place] [address] [email or web address] documented as of this encounter Visit Diagnoses Not on filedocumented in this encounter Additional Health Concerns Infection Onset Date Last Indicated Resolved Time CoV-Risk 05/16/2024 05/16/2024 05/27/2024 1:22 AM EST Influenza A 05/16/2024 05/16/2024 05/23/2024 1:22 AM EST documented as of this encounter Care Teams Nurse Discharge Relationship Specialty Start Date End Date Florentino Medeiros MD [address] [place] [address] [place] [address] PCP - General Internal Medicine 10/17/19 07/15/24 Mindy Lin MD [address] [place] [address] PCP - General Internal Medicine 07/16/24 Charity Phoenix MBBS [address] [place] [address] [place] [address] [email or web address] Primary Oncologist Hematology and Oncology 02/04/23 Nancy Contreras CNP [address] [place] [address] [email or web address] Nurse Practitioner Medical Oncology 05/16/23 Mary Lou Mcfarland PA-C [address] [place] [address] [email or web address] Physician Adult Live In Caregiver 01/11/25 documented as of this encounter Additional Source Comments The information contained in this document represents components of the legal health record. It is not the complete legal health record.[facility]
--- OUTSIDE RECORDS SUMMARY | 2025-02-26 11:34 | XMS_ITS | Clinical Summary ---
Author Organization [facility] Address [address] [place] [address] Phone Care Team Providers Care Computerized Table Cutter Name Role Phone Charity PhoenixBS Unavailable [phone] Nancy Contreras CNP Unavailable Mindy Lin MD Primary Care Provider Mary Lou Mcfarland PA-C Unavailable [phone] Allergies No known active allergies Medications levothyroxine (SYNTHROID, LEVOTHROID) 112 MCG tablet Take 110 mcg by mouth every morning. Active propranoloL (INDERAL) 80 MG immediate release tablet Take 80 mg by mouth 2 (two) times a day. Active clonazePAM (KLONOPIN) 1 MG tablet Take 1 mg by mouth daily. For tremors familial Active atorvastatin (LIPITOR) 20 MG tablet Take 20 mg by mouth daily. Active fluocinonide 0.05 % cream APPLY TO RASH ON LEGS TWICE A DAY 2-3X A WEEK. 12/15/2023 Active pancrelipase, lipase-protease -amylase, (CREON) 36,000-114,000- 180,[address] Price ons:Malignant neoplasm of head of pancreas Take 1 capsule (36,000 units of lipase total) by mouth as directed. 1-3 times a day with meals 90 capsule 3 10/16/2024 Active omeprazole (PRILOSEC) 20 MG capsule Take 1 capsule by mouth every morning. 12/02/2024 Active Active Problems Patient Care Coordination No te [...] Patient is going to meet with our drilling and production superintendent to discuss this further. Thank you very [...] Patient is going to meet with our drilling and production superintendent to discuss this further. Thank you very much for allowing to participate in this patient's care Malignant neoplasm of head of pancreas Cancer Staging:Clinical stage from 01/23/2023:Stage IB(cT2, cN0, cM0) - Signed by Charity Phoenix MBBS on 02/05/2023 Assessment & Plan (02/01/2025 8:36 PM EDT): IMPRESSION: 12/06/2022: This is a 74-year-old woman who is 2 years and and 2 months out from the diagnosis of pancreatic adenocarcinoma, head of the pancreas, Stage IB (cT2,cN0,cM0) unresectable disease. 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 Patient met with the multidisciplinary GI cancer oncology team at [facility]. Options were discussed including upfront surgical [...] disease. I discussed the case with the [place] team and consensus is to proceed with [...] of cancer recurrence. It showed stable changes. 01/11/2025: CT scans did not show any evidence of cancer recurrence. It showed stable changes. I reassured her about this. She has been doing well from oncological standpoint without any evidence of cancer recurrence and I reassured her about this. RECOMMENDATIONS: Continue surveillance as per NCCN guidelines Continue PORT flush every 6 weeks Incidental finding of small benign-appearing ovarian cyst for which she was seen by quality manager LFTs have normalized Return for follow-up in 2 months with labs and scans Thank you very much for allowing me to participate in her care Assessment & Plan (10/08/2024 3:40 PM EDT): [...] the multidisciplinary GI cancer oncology team at [facility]. Options were discussed including upfront surgical [...] disease. I discussed the case with the [place] team and consensus is to proceed with [...] which she is going to see her quality manager Return for follow-up in 3 months with [...] the multidisciplinary GI cancer oncology team at [facility]. Options were discussed including upfront surgical [...] disease. I discussed the case with the [place] team and consensus is to proceed with [...] the multidisciplinary GI cancer oncology team at [facility]. Options were discussed including upfront surgical [...] disease. I discussed the case with the [place] team and consensus is to proceed with [...] the multidisciplinary GI cancer oncology team at [facility]. Options were discussed including upfront surgical [...] disease. I discussed the case with the [place] team and consensus is to proceed with [...] the multidisciplinary GI cancer oncology team at [facility]. Options were discussed including upfront surgical [...] disease. I discussed the case with the [place] team and consensus is to proceed with [...] the multidisciplinary GI cancer oncology team at [facility]. Options were discussed including upfront surgical resection followed by adjuvant therapy versus neoadjuvant chemotherapy to down size the tumor and then resection. After discussion decision was made to proceed with neoadjuvant chemotherapy to be the best option for her. Patient is going to get neoadjuvant chemotherapy here locally at [facility]. She will undergo her surgery and radiation therapy in [place]. After discussing the above-mentioned patient agreed to [...] this. I discussed the case with the [place] team and consensus is to proceed with [...] this. I have requested to follow-up with [facility] team so that she can undergo her planned surgical resection. RECOMMENDATIONS: Follow up with [facility] team regarding surgical resection of her pancreatic cancer I have sent a message to [facility] team Continue to monitor anemia Continue [...] the multidisciplinary GI cancer oncology team at [facility]. Options were discussed including upfront surgical resection followed by adjuvant therapy versus neoadjuvant chemotherapy to down size the tumor and then resection. After discussion decision was made to proceed with neoadjuvant chemotherapy to be the best option for her. Patient is going to get neoadjuvant chemotherapy here locally at [facility]. She will undergo her surgery and radiation therapy in [place]. After discussing the above-mentioned patient agreed to [...] this. I discussed the case with the [place] team and consensus is to proceed with concurrent chemoradiation therapy followed by surgical evaluation. I discussed various concurrent chemotherapy options with her including infusional 5-FU, capecitabine, gemcitabine. I recommended concurrent capecitabine/Xeloda chemotherapy with RT. I discussed potential side effects from this approach including but not limited to allergic reactions, altv-mdl-rorb syndrome, diarrhea, nausea and pancytopenia's. I also [...] evaluation for surgical resection Follow up with [facility] team after CT scans Continue to [...] the multidisciplinary GI cancer oncology team at [facility]. Options were discussed including upfront surgical resection followed by adjuvant therapy versus neoadjuvant chemotherapy to down size the tumor and then resection. After discussion decision was made to proceed with neoadjuvant chemotherapy to be the best option for her. Patient is going to get neoadjuvant chemotherapy here locally at [facility]. She will undergo her surgery and radiation therapy in [place]. After discussing the above-mentioned patient agreed to [...] this. I discussed the case with the [place] team and consensus is to proceed with concurrent chemoradiation therapy followed by surgical evaluation. I discussed various concurrent chemotherapy options with her including infusional 5-FU, capecitabine, gemcitabine. I recommended concurrent capecitabine/Xeloda chemotherapy with RT. I discussed potential side effects from this approach including but not limited to allergic reactions, goqs-yaw-vhcc syndrome, diarrhea, nausea and pancytopenia's. I also [...] the multidisciplinary GI cancer oncology team at [facility]. Options were discussed including upfront surgical resection followed by adjuvant therapy versus neoadjuvant chemotherapy to down size the tumor and then resection. After discussion decision was made to proceed with neoadjuvant chemotherapy to be the best option for her. Patient is going to get neoadjuvant chemotherapy here locally at [facility] cancer center. She will undergo her surgery and radiation therapy in [place]. After discussing the above-mentioned patient agreed to [...] this. I discussed the case with the [place] team and consensus is to proceed with concurrent chemoradiation therapy followed by surgical evaluation. I discussed various concurrent chemotherapy options with her including infusional 5-FU, capecitabine, gemcitabine. I recommended concurrent capecitabine/Xeloda chemotherapy with RT. I discussed potential side effects from this approach including but not limited to allergic reactions, paau-sug-ocev syndrome, diarrhea, nausea and pancytopenia's. I also [...] the multidisciplinary GI cancer oncology team at [facility]. Options were discussed including upfront surgical resection followed by adjuvant therapy versus neoadjuvant chemotherapy to down size the tumor and then resection. After discussion decision was made to proceed with neoadjuvant chemotherapy to be the best option for her. Patient is going to get neoadjuvant chemotherapy here locally at [facility] cancer center. She will undergo her surgery and radiation therapy in [place]. After discussing the above-mentioned patient agreed to [...] this. I discussed the case with the [place] team and consensus is to proceed with concurrent chemoradiation therapy followed by surgical evaluation. I discussed various concurrent chemotherapy options with her including infusional 5-FU, capecitabine, gemcitabine. I recommended concurrent capecitabine/Xeloda chemotherapy with RT. I discussed potential side effects from this approach including but not limited to allergic reactions, efpu-tjx-kciy syndrome, diarrhea, nausea and pancytopenia's. I also [...] the multidisciplinary GI cancer oncology team at [facility]. Options were discussed including upfront surgical resection followed by adjuvant therapy versus neoadjuvant chemotherapy to down size the tumor and then resection. After discussion decision was made to proceed with neoadjuvant chemotherapy to be the best option for her. Patient is going to get neoadjuvant chemotherapy here locally at [facility]. She will undergo her surgery and radiation therapy in [place]. After discussing the above-mentioned patient agreed to [...] this. I discussed the case with the [place] team and consensus is to proceed with concurrent chemoradiation therapy followed by surgical evaluation. I discussed various concurrent chemotherapy options with her including infusional 5-FU, capecitabine, gemcitabine. I recommended concurrent capecitabine/Xeloda chemotherapy with RT. I discussed potential side effects from this approach including but not limited to allergic reactions, uphq-pfj-vkck syndrome, diarrhea, nausea and pancytopenia's. I also [...] the multidisciplinary GI cancer oncology team at [facility]. Options were discussed including upfront surgical resection followed by adjuvant therapy versus neoadjuvant chemotherapy to down size the tumor and then resection. After discussion decision was made to proceed with neoadjuvant chemotherapy to be the best option for her. Patient is going to get neoadjuvant chemotherapy here locally at [facility]. She will undergo her surgery and radiation therapy in [place]. After discussing the above-mentioned patient agreed to [...] this. I discussed the case with the [place] team and consensus is to proceed with concurrent chemoradiation therapy followed by surgical evaluation. I discussed various concurrent chemotherapy options with her including infusional 5-FU, capecitabine, gemcitabine. I recommended concurrent capecitabine/Xeloda chemotherapy with RT. I discussed potential side effects from this approach including but not limited to allergic reactions, xnoh-dxz-jjza syndrome, diarrhea, nausea and pancytopenia's. Patient signed [...] the multidisciplinary GI cancer oncology team at [facility]. Options were discussed including upfront surgical resection followed by adjuvant therapy versus neoadjuvant chemotherapy to down size the tumor and then resection. After discussion decision was made to proceed with neoadjuvant chemotherapy to be the best option for her. Patient is going to get neoadjuvant chemotherapy here locally at [facility]. She will undergo her surgery and radiation therapy in [place]. After discussing the above-mentioned patient agreed to [...] this. I discussed the case with the [place] team and consensus is to proceed with [...] the multidisciplinary GI cancer oncology team at [facility]. Options were discussed including upfront surgical resection followed by adjuvant therapy versus neoadjuvant chemotherapy to down size the tumor and then resection. After discussion decision was made to proceed with neoadjuvant chemotherapy to be the best option for her. Patient is going to get neoadjuvant chemotherapy here locally at [facility]. She will undergo her surgery and radiation therapy in [place]. After discussing the above-mentioned patient agreed to [...] about this. I recommended a follow-up with [place] team to see what is next in her treatment. Initial plan was to proceed with surgical resection after neoadjuvant chemotherapy. I have sent a message to her team in [place]. RECOMMENDATIONS: Follow-up with [place] team in regards to the next step [...] the multidisciplinary GI cancer oncology team at [facility]. Options were discussed including upfront surgical resection followed by adjuvant therapy versus neoadjuvant chemotherapy to down size the tumor and then resection. After discussion decision was made to proceed with neoadjuvant chemotherapy to be the best option for her. Patient is going to get neoadjuvant chemotherapy here locally at [facility] cancer center. She will undergo her surgery and radiation therapy in [place]. I discussed side effects from chemotherapy including [...] after 8 cycles Patient will follow-up with [facility] team after 8 cycles of chemotherapy [...] the multidisciplinary GI cancer oncology team at [facility]. Options were discussed including upfront surgical resection followed by adjuvant therapy versus neoadjuvant chemotherapy to down size the tumor and then resection. After discussion decision was made to proceed with neoadjuvant chemotherapy to be the best option for her. Patient is going to get neoadjuvant chemotherapy here locally at [facility] center. She will undergo her surgery and radiation therapy in [place]. I discussed side effects from chemotherapy including [...] the multidisciplinary GI cancer oncology team at [facility]. Options were discussed including upfront surgical resection followed by adjuvant therapy versus neoadjuvant chemotherapy to down size the tumor and then resection. After discussion decision was made to proceed with neoadjuvant chemotherapy to be the best option for her. Patient is going to get neoadjuvant chemotherapy here locally at [facility] opal. She will undergo her surgery and radiation therapy in [place]. I discussed side effects from chemotherapy including [...] the multidisciplinary GI cancer oncology team at [facility]. Options were discussed including upfront surgical resection followed by adjuvant therapy versus neoadjuvant chemotherapy to down size the tumor and then resection. After discussion decision was made to proceed with neoadjuvant chemotherapy to be the best option for her. Patient is going to get neoadjuvant chemotherapy here locally at [facility] cancer center. She will undergo her surgery and radiation therapy in [place]. I discussed side effects from chemotherapy including [...] the multidisciplinary GI cancer oncology team at [facility]. Options were discussed including upfront surgical resection followed by adjuvant therapy versus neoadjuvant chemotherapy to down size the tumor and then resection. After discussion decision was made to proceed with neoadjuvant chemotherapy to be the best option for her. Patient is going to get neoadjuvant chemotherapy here locally at [facility] cancer center. She will undergo her surgery and radiation therapy in [place]. I discussed side effects from chemotherapy including [...] the multidisciplinary GI cancer oncology team at [facility]. Options were discussed including upfront surgical resection followed by adjuvant therapy versus neoadjuvant chemotherapy to down size the tumor and then resection. After discussion decision was made to proceed with neoadjuvant chemotherapy to be the best option for her. Patient is going to get neoadjuvant chemotherapy here locally at [facility] cancer center. She will undergo her surgery and radiation therapy in [place]. I discussed side effects from chemotherapy including [...] allowing to participate in this patient's care Resolved Problems Problem Noted Date Diagnosed Date [...] allowing me to participate in her care Encounters Date Type Department Care Team Description 02/01/2025 4:00 PM EDT Office Visit [facility] at [address] [address] Charity Phoenix MBBS Malignant neoplasm of head of pancreas (Primary Dx) 01/20/2025 1:30 PM EDT - 01/20/2025 11:59 PM EDT Hospital Encounter [facility] [address] [address] Charity Phoenix MBBS Discharge Disposition: Home or Self Care 01/20/2025 Orders Only [facility] at [address] [address] Charity Phoenix MBBS Malignant neoplasm of head of pancreas (Primary Dx) 01/11/2025 10:20 AM EDT - 01/11/2025 11:59 PM EDT Hospital Encounter [facility], Ct Scan - [address] [address] Charity Phoenix MBBS Discharge Disposition: Home or Self Care 10/08/2024 Procedure Pass [facility], Ct Scan - [facility] [address] [place] [address] 10/08/2024 Procedure Pass [facility], [place] Scan [facility] [address] [place] [address] from Last 3 Months Immunizations No known immunizations Family History Medical History Relation Comments Skin cancer Maternal Uncle Esophageal cancer Paternal Aunt Lung cancer Paternal Uncle 1 Lymphoma Paternal Uncle 2 Cancer Neg Hx Relation Status Comments Maternal Uncle Paternal Aunt Paternal Uncle 1 Paternal Uncle 2 Alive Social History Tobacco Use Types Packs/Day Years Used Date Smoking Tobacco: Former Cigarettes 0.5 46.6 0 06/08/1970 - 01/15/2017 Smokeless Tobacco: Never Tobacco Cessation:Counseling Given: Not Answered Comments:Quit >10 years ago Alcohol Use Standard [...] Orientation Straight 05/17/2023 8: 55 PM EST Last Filed Vital Signs Vital Sign Reading Time Taken Comments Blood Pressure 112/68 02/01/2025 3:27 PM EDT Pulse 81 02/01/2025 3:27 PM EDT Temperature 36.5 C (97.7 F) 02/01/2025 3:27 PM EDT Respiratory Rate 18 06/27/2024 1:48 PM EDT Oxygen Saturation 95% 02/01/2025 3:27 PM EDT Inhaled Oxygen Concentration - - Weight 66.9 kg (147 lb 8 oz) 02/01/2025 3:27 PM EDT Height 162.6 cm (5' 4.02 ) 02/01/2025 3:27 PM ED T Body Mass Index 25.31 02/01/2025 3:27 PM EDT Plan of Treatment Upcoming Encounters Date Type Department Care Team (Late st Contact Info) Description 02/01/2025 Procedure Pass [address] [address] 02/01/2025 Procedure Pass [address] [address] 03/24/2025 10:00 AM EST Infusion [facility] at [address] [address] Charity Phoenix MBBS [address] [place] [phone] [email or web address] 04/29/2025 11:15 AM EST Appointment [address] [address] Charity Phoenix MBBS [address] [place] [phone] [email or web address] 05/06/2025 10:00 AM EST Blood Draw [facility] [address] [address] Charity Phoenix MBBS [address] [place] [address] [email or web address] 05/06/2025 11:00 AM EST Office Visit [facility] at [facility] [address] [place] [address] Charity Phoenix MBBS [address] [place] [address] [email or web address] Health Maintenance Due Date Last Done Comments Adult Td,Tdap Booster 1950 LIPID PANEL 1951 TSH LEVEL 1951 DEPRESSION SCREENING 1963 HEPATITIS C SCREENING 10/02/1969 PNEUMOCOCCAL VACCINES (50+ years) (1 of 2 - PCV) 10/02/1970 ZOSTER VACCINES (1 of 2) 10/02/1970 MAMMOGRAM 1991 COLOGUARD 10/02/1996 COLONOSCOPY 10/02/1996 COLORECTAL CANCER SCREENING 10/02/1996 FIT TEST 10/02/1996 FOBT 10/02/1996 SIGMOIDOSCOPY 10/02/1996 VIRTUAL COLONOSCOPY 10/02/1996 RSV VACCINE (1 - Risk 50-74 years 1-dose series) 10/02/2001 OSTEOPOROSIS SCREENING INITIAL (ONE-TIME) 10/02/2016 INFLUENZA VACCINE (#1) 2024 COVID-19 VACCINE ( season) 2025 12/25/2024, 01/01/2024, 01/13/2023, Additional history exists SMOKING STATUS SCREENING (Every 5 Years) 02/01/2030 02/01/2025 HEPATITIS A VACCINES Aged Out No long er eligible based on patient's age to complete this topic HIB VACCINES Aged Out No longer eligi ble based on patient's age to complete this topic MENINGOCOCCAL VACCINES (ACWY) Aged Out No longer eligible based on patient's age to complete this topic MENINGOCOCCAL VACCINES (B) Aged Out N o longer eligible based on patient's age to complete this topic Medical Devices Implanted Type Area Campaign Marketing Manager Device Identifier Shelf Expiration Date Model / Serial / Lot Port Dignity 6.6fr Infusion Mid Size Attachable Silicone Filled Suture Hole - [id number] Implanted:Qty: 1 on 02/18/2023 by Shin Claros MD at [facility] Right: Chest Wall [employer] [id number] 02/05/2027 [id number] / / [id number] Procedures Procedure Name Priority Date/Time Associated Diagnosis Comments VITAMIN K Routine 01/20/2025 1:44 PM EDT Malignant neoplasm of head of pancreas VITAMIN E Routine 01/20/2025 1:44 PM EDT Malignant neoplasm of head of pancreas 25-OH VITAMIN D Routine 01/20/2025 1:44 PM EDT Malignant neoplasm of head of pancreas VITAMIN A Routine 01/20/2025 1:44 PM EDT Malignant neoplasm of head of pancreas CA-19-9 Routine 01/20/2025 1:31 PM EDT Malignant neoplasm of head of pancreas COMPREHENSIVE METABOLIC PANEL (CMP) Routine 01/20/2025 1:31 PM EDT Malignant neoplasm of head of pancreas CBC AND DIFFERENTIAL Routine 01/20/2025 1:31 PM EDT Malignant neoplasm of head of pancreas CT ABDOMEN/PELVIS WITH CONTRAST Routine 01/11/2025 11:10 AM EDT Malignant neoplasm of head of pancreas CT CHEST WITH CONTRAST Routine 11:10 AM EDT Malignant neoplasm of head of pancreas from Last 3 Months Results * Vitamin K (01/20/2025 1:44 PM EDT) VITAMIN K1 0.81 0.10 - 2.20 ng/mL [facility] [address] Comment: (NOTE) ADDITIONAL INFORMATION This test was developed and its performance characteristics determined by [facility] in a manner consistent with CLIA requirements. This test has not been cleared or approved by the U.S. Food and Drug Administration. Blood 01/20/2025 1:44 PM EDT 01/20/2025 1:53 PM EDT Charity [facility] BLOOD ORDERABLES Final Result Performing Organization Address [facility] de Phone Number [facility] MED/PATH [id number] [place] [address] * Vitamin A (01/20/2025 1:44 PM EDT) [facility] VITAMIN A 34.5 32.5 - 78.0 mcg/dL [facility] SUPERIOR Comment: (NOTE) ADDITIONAL INFORMATION This test was developed and its performance characteristics determined by [facility] in a manner consistent with CLIA requirements. This test has not been cleared or approved by the U.S. Food and Drug Administration. Blood 01/20/2025 1:44 PM EDT 01/20/2025 1:53 PM EDT Charity [facility] BLOOD ORDERABLES Final Result Performing Organization Address [facility] de Phone Number [facility] LAB MED/PATH [id number] [place] [address] * 25-OH vitamin D (01/20/2025 1:44 PM EDT) Pathologist [facility] 25 [place] VIT D (TOTAL) 30 30 - 60 ng/mL [facility] Blood 01/20/2025 1:44 PM EDT 01/20/2025 1:53 PM EDT Charity Phoenix [facility] [place] LAB BLOOD BKR ORDERABLES F inal Result Performing Organization Address City/[facility]/ZIP Co de Phone Number [facility] [address] [place] [address] * Vitamin E (01/20/2025 1:44 PM EDT) VIT E, A-TOCOPHEROL 9.4 5.5 - 17.0 mg/L [facility] MED/PATH SUPERIOR Comment: (NOTE) ADDITIONAL INFORMATION This test was developed and its performance characteristics determined by [facility] in a manner consistent with CLIA requirements. This test has not been cleared or approved by the U.S. Food and Drug Administration. Blood 01/20/2025 1:44 PM EDT 01/20/2025 1:53 PM EDT Charity Phoenix [facility] [place] LAB BLOOD ORDERABLES Final Result Performing Organization Address [facility] Co de Phone Number [facility] MED/PATH SUPERIOR [address] [place] [address] * (ABNORMAL) Comprehensive metabolic panel (01/20/2025 1:31 PM EDT) Pathologist [facility] SODIUM 141 133 - 146 mmol/L [facility] POTASSIUM 3.9 3.3 - 5.1 mmol/L [facility] CHLORIDE 104 96 - 108 mmol/L [facility] CO2 27 21 - 35 mmol/L [facility] BUN 13 6 - 19 mg/dL [facility] CREATININE 0.70 0.5 - 1.5 mg/dL [facility] GLUCOSE 124(H) 70 - 99 mg/dL [facility] ALBUMIN 4.1 3.9 - 4.8 g/dL [facility] TOTAL PROTEIN 6.3(L) 6.5 - 8.0 g/dL [facility] CALCIUM 9.4 8.4 - 10.3 mg/dL [facility] ALKALINE PHOSPHATASE 126(H) 39 - 117 U/L [facility] TOTAL BILIRUBIN 0.5 0.0 - 1.2 mg/dL [facility] AST 27 0 - 37 U/L [facility] ALT 27 0 - 40 U/L [facility] GLOBULIN 2.2 1 - 4.8 g/dL [facility] EGFR 91 >59 mL/min/1.7 3m2 [facility] Comment:Estimated glomerular filtration rate calculated using the CKD-EPI refit equation. ANION GAP 14 10 - 20 mmol/L [facility] Blood 01/20/2025 1:31 PM EDT 01/20/2025 1:37 PM EDT [facility] LAB BLOOD BKR ORDERABLES F inal Result Performing Organization Address City/[facility]/ZIP Co de Phone Number [address] [address] * CA-19-9 (01/20/2025 1:31 PM EDT) CA 19-9 4 <35 U/mL [facility] Comment: Test Methodology Mariana [id number] Patient results determined by assays using different manufacturers or methods may not be comparable. Blood 01/20/2025 1:31 PM EDT 01/20/2025 1:37 PM EDT [employer] [employer] D Phoenix [facility] LAB BLOOD BKR ORDERABLES F inal Result Performing Organization Address City/[facility]/ZIP Co de Phone Number [address] [address] * (ABNORMAL) CBC and differential (01/20/2025 1:31 PM EDT) WBC 4.42 4.00 - 11.00 K/uL [facility] RBC 3.54(L) 4.00 - 5.20 M/uL [facility] HGB 10.3(L) 12.0 - 16.0 g/dL [facility] HCT 33.0(L) 36.0 - 46.0 % [facility] PLT 204 150 - 450 K/uL [facility] MCV 93.2 80.0 - 100.0 fL [facility] MCH 29.1 27.0 - 31.0 pg [facility] MCHC 31.2(L) 32.0 - 36.0 g/dL [facility] RDW 13.4 11.5 - 14.5 % [facility] MPV 9.1 8.4 - 12.0 fL [facility] NRBC 0.00 0.00 /100 WBCs [facility] ABSOLUTE NRBC 0.00 0.00 K/uL [facility] DIFF METHOD Auto [facility] NEUTS 71.8 48.0 - 76.0 % [facility] LYMPHS 16.1(L) 18.0 - 41.0 % [facility] MONOS 7.7 4.0 - 11.0 % [facility] EOS 3.2 0.0 - 5.0 % [facility] BASOS 0.7 0.0 - 1.5 % [facility] Granulocytes, immature (%) 0.5 0.0 - 0.9 % [facility] ABSOLUTE NEUTS 3.18 1.92 - 7.60 K/uL [facility] ABSOLUTE LYMPHS 0.71(L) 0.72 - 4.10 K/uL [facility] ABSOLUTE MONOS 0.34 0.16 - 1.10 K/uL [facility] ABSOLUTE EOS 0.14 0.00 - 0.50 K/uL [facility] ABSOLUTE BASOS 0.03 0.00 - 0.15 K/uL [facility] Granulocytes, immature 0.02 0.00 - 0.09 K/uL [facility] Blood 01/20/2025 1:31 PM EDT 01/20/2025 1:37 PM EDT us Charity Phoenix MBBS LAB BLOOD BKR ORDERABLES F inal Result [facility] [address] [place] [address] * CT CHEST WITH CONTRAST (01/11/2025 11:10 AM EDT) Anatomical Region Laterality Modality Chest Computed Tomogra phy 01/14/2025 9:09 AM EDT Impressions 01/14/2025 9:19 AM EDT 1. Left pleural effusion has increased in size from prior study. Attention on follow-up advised. 2. Small 2 to 3 mm right lower lobe nodules are stable. 3. No new or enlarging pulmonary nodules. 4. Stable posttreatment changes in the lungs. Narrative 01/14/2025 9:[address] CHEST WITH CONTRAST Referring clinician's provided indication for this examination in [facility]: * Pancreatic adenocarcinoma, monitor TECHNIQUE: Multidetector CT of the chest was performed with intravenous contrast using tailored dose modulation techniques. COMPARISON: Prior studies, including 10/01/2024 FINDINGS: Devices/Tubes/Lines: Right chest wall port with catheter tip at the cavoatrial junction. Lungs: Stable focal left perihilar and suprahilar lung volume loss, retraction and traction bronchiectasis. Stable medial right upper lobe paramediastinal lung volume loss. Findings are consistent with post treatment change and are stable Stable 2 to 3 mm right lower lobe nodules (series 5, images 163 and 189). Pleura: Small right pleural effusion, increased in size from prior study. No pneumothorax. Mediastinum: The thyroid gland is not well visualized. Mild amount of coronary calcifications. Stable small pericardial effusion. Lymph Nodes: No enlarged supraclavicular, axillary, mediastinal, or hilar lymph nodes. Upper Abdomen: Please see concurrent abdominal CT for abdominal findings. Chest Wall: No acute abnormality. Bones: Degenerative disc changes throughout the thoracic spine. No destructive bone lesion. Procedure Note Morteza So MD - 01/14/2025 CT CHEST WITH CONTRAST Referring clinician's provided indication for this examination in [facility]: *Pancreatic adenocarcinoma, monitor TECHNIQUE: Multidetector CT of the chest was performed with intravenouscontrast using tailored dose modulation techniques. COMPARISON: Prior studies, including 10/01/2024 FINDINGS: Devices/Tubes/Lines: Right chest wall port with catheter tip at thecavoatrial junction. Lungs: Stable focal left perihilar and suprahilar lung volume loss,retraction and traction bronchiectasis. Stable medial right upper lobeparamediastinal lung volume loss. Findings are consistent with posttreatment change and are stable Stable 2 to 3 mm right lower lobe nodules (series 5, images 163 [id number]). Pleura: Small right pleural effusion, increased in size from prior study.No pneumothorax. Mediastinum: The thyroid gland is not well visualized. Mild amount ofcoronary calcifications. Stable small pericardial effusion. Lymph Nodes: No enlarged supraclavicular, axillary, mediastinal, or hilarlymph nodes. Upper Abdomen: Please see concurrent abdominal CT for abdominalfindings. Chest Wall: No acute abnormality. Bones: Degenerative disc changes throughout the thoracic spine. Nodestructive bone lesion. IMPRESSION: 1. Left pleural effusion has increased in size from prior study.Attention on follow-up advised. 2. Small 2 to 3 mm right lower lobe nodules are stable. 3. No new or enlarging pulmonary nodules. 4. Stable posttreatment changes in the lungs. Charity BELLO IMG CT CHEST Final Resu lt * CT ABDOMEN/PELVIS WITH CONTRAST (01/11/2025 11:10 AM EDT) Anatomical Region Laterality Modality Abdomen, Pelvis Computed Tomogra phy 01/14/2025 6:54 AM EDT Impressions 01/14/2025 7:24 AM EDT Since 10/01/2024: No significant interval change in the appearance of the pancreatic head/uncinate process mass. No new vessel involvement. No evidence of metastatic disease in abdomen or pelvis. Narrative 01/14/2025 7:[address] ABDOMEN/PELVIS WITH CONTRAST Referring clinician's provided indication for this examination in Epic: * Pancreatic adenocarcinoma, monitor TECHNIQUE: Multidetector-row CT of the abdomen and pelvis was performed after administration of intravenous contrast using tailored dose modulation techniques. Images were reconstructed in the axial, coronal, and sagittal planes. COMPARISON: CT ABDOMEN/PELVIS WITH CONTRAST FINDINGS: Lower Chest: Reported separately. Liver: No suspicious focal lesions. A few scattered subcentimeter hypodensities are unchanged, for example in segment 7 (5:49) and segment 4A (5:16). Biliary: Noninflamed gallbladder. Cholelithiasis. No biliary ductal dilatation. Spleen: No splenomegaly or focal lesions. Pancreas: Pancreatic head mass/uncinate process is difficult to measure, likely 1.2 x 1.4 cm (5:122), inseparable from the adjacent duodenum. Similar soft tissue thickening abuts the proximal superior mesenteric vein, proximal splenic vein, and superior mesenteric artery, some of which may be related to postradiation change. Attention on follow-up imaging. No vessel narrowing. No pancreatic main duct dilatation. Adrenal Glands: No nodules. Kidneys/Ureters: No solid masses, stones, or hydronephrosis. Bowel: Gastrojejunostomy. No distention or wall thickening. Noninflamed colonic diverticuli. Peritoneum/Retroperitoneum: No masses, pneumoperitoneum, or fluid. Lymph Nodes: No lymphadenopathy. Pelvic Organs/Bladder: Unchanged 2.3 cm left adnexal cystic lesion. Nondistended bladder which limits full assessment of wall thickening. Vessels: Atherosclerotic calcifications. Patent portal vein. Bones/Soft Tissues: Skeletal degenerative changes. No suspicious lytic or blastic lesions. Procedure Note Vimal Carballo MD - 01/14/2025 CT ABDOMEN/PELVIS WITH CONTRAST Referring clinician's provided indication for this examination in Epic: *Pancreatic adenocarcinoma, monitor TECHNIQUE: Multidetector-row CT of the abdomen and pelvis was performedafter administration of intravenous contrast using tailored dosemodulation techniques. Images were reconstructed in the axial, coronal,and sagittal planes. COMPARISON: CT ABDOMEN/PELVIS WITH CONTRAST FINDINGS: Lower Chest: Reported separately. Liver: No suspicious focal lesions. A few scattered subcentimeterhypodensities are unchanged, for example in segment 7 (5:49) and [id number] (5:16). Biliary: Noninflamed gallbladder. Cholelithiasis. No biliary ductaldilatation. Spleen: No splenomegaly or focal lesions. Pancreas: Pancreatic head mass/uncinate process is difficult to measure,likely 1.2 x 1.4 cm (5:122), inseparable from the adjacent duodenum.Similar soft tissue thickening abuts the proximal superior mesentericvein, proximal splenic vein, and superior mesenteric artery, some of whichmay be related to postradiation change. Attention on follow-up imaging. Novessel narrowing. No pancreatic main duct dilatation. Adrenal Glands: No nodules. Kidneys/Ureters: No solid masses, stones, or hydronephrosis. Bowel: Gastrojejunostomy. No distention or wall thickening. Noninflamedcolonic diverticuli. Peritoneum/Retroperitoneum: No masses, pneumoperitoneum, or fluid. Lymph Nodes: No lymphadenopathy. Pelvic Organs/Bladder: Unchanged 2.3 cm left adnexal cystic lesion.Nondistended bladder which limits full assessment of wall thickening. Vessels: Atherosclerotic calcifications. Patent portal vein. Bones/Soft Tissues: Skeletal degenerative changes. No suspicious lytic orblastic lesions. IMPRESSION: Since 10/01/2024: No significant interval change in the appearance of the pancreatichead/uncinate process mass. No new vessel involvement. No evidence of metastatic disease in abdomen or pelvis. Charity BELLO IMG CT ABD/PELVIS Final Re sult from Last 3 Months Insurance MEDICARE PART A & B [facility] MEDICARE SUPPLEMENT MEDICARE PART A & B Member Subscriber Plan / Payer ( fective 2016-Present) Name:Aziza Bolanos Member ID:[id number] Relation to Subscriber:Self Name:Aziza Bolanos Subscriber ID:[id number] Payer ID:[id number] Group ID:Not on file Type:Medicare Address: [employer] [address] MEDICARE SUPPLEMENT MEDICARE PART A & B Member Subscriber Plan / Payer ( fective 2016-) Name:Aziza Bolanos Member ID:[id number] Relation to Subscriber:Self Name:Aziza Bolanos Subscriber ID:[id number] Payer ID:[id number] Group ID:Not on file Type:Medicare Address: [employer] [address] MEDICARE SUPPLEMENT MEDICARE PART A & B MEDICARE SUPPLEMENT MEDICARE PART A & [place] [address] [place] [address] MEDICARE SUPPLEMENT MEDICARE PART A & [place] [address] [place] [address] [place] [address] MEDICARE PART A & B [facility] MEDICARE SUPPLEMENT MEDICARE PART A & B [facility] MEDICARE SUPPLEMENT MEDICARE PART A & B [facility] MEDICARE SUPPLEMENT MEDICARE PART A & B Member Subscriber Plan / Payer (Ef fective 2016-Present) Name:Aziza Bolanos Member ID:[id number] Relation to Subscriber:Self Name:Aziza Bolanos Subscriber ID:[id number] Payer ID:[id number] Group ID:Not on file Type:Medicare Address: [employer] [address] [address] [facility] MEDICARE SUPPLEMENT Advance Directives For more information, please contact: [phone] (9AM - 5PM [facility], Saturday-Saturday) * Full Code (Latest Code Status on File) Date Activated Date Inactivated Comments 11/08/2023 7:24 AM Question Answer Comments Code Status Confirmed With: Patient Code Status Communicated To: Inpatient Attending Care Teams Computerized Table Cutter Relationship Specialty Start Date End Date Mindy Lin MD [address] [place] [phone] PCP - General Internal Medicine 07/16/24 Charity Phoenix MBBS [email or web address] Primary Oncologist Hematology and Oncology 02/04/23 Nancy Contreras CNP [address] [place] [address] [email or web address] Nurse Practitioner Medical Oncology 05/16/23 Mary Lou Mcfarland PA-C [address] [place] [phone] [email or web address] Physician Clerical Aide Teacher 01/11/25 Additional Source Comments The information contained in this document represents components of the legal health record. It is not the complete legal health record.[facility]
--- OUTSIDE RECORDS SUMMARY | 2025-02-26 11:35 | XMS_ITS | Encounter Summary ---
Author Organization [facility] Address [address] [place] [address] Phone Care Team Providers Care School Speech Language Pathologist Name Role Phone Charity PhoenixBS Unavailable Ben Nancy SUPPORT SERVICES MANAGER Unavailable Mindy Lin MD Primary Care Provider Mary Lou Mcfarland PA-C Unavailable Encounter Details Date Type Department Care Team (Late st Contact Info) Description 10/08/2024 Procedure Pass [facility], Ct Scan - [address] [address] Social History Tobacco Use Types Packs/Day Years [...] st Contact Info) Description 02/01/2025 Procedure Pass [address] [address] 02/01/[address] [address] 03/24/2025 10:00 AM EST Infusion [facility] Center at [address] [address] Charity Phoneix MBBS [address] [place] [address] [email or web address] 04/29/2025 11:15 AM EST Appointment [address] [address] Charity Phoenix MBBS [address] [place] [phone] [email or web address] 05/06/2025 10:00 AM EST Blood Draw [facility] [address] [place] [address] Charity Phoenix MBBS [address] [place] [address] [email or web address] 05/06/2025 11:00 AM EST Office Visit [facility] Center at [address] [place] [address] Charity Phoenix MBBS [address] [place] [phone] [email or web address] documented as of this encounter Visit Diagnoses Not on filedocumented in this encounter Care Teams School Speech Language Pathologist Relationship Specialty Start Date End Date Mindy Lin MD [address] [place] [address] PCP - General Internal Medicine 07/16/24 Charity Phoenix MBBS [email or web address] Primary Oncologist Hematology and Oncology 02/04/23 Nancy Contreras CNP [address] [place] [phone] [email or web address] Nurse Practitioner Medical Oncology 05/16/23 Mary Lou Mcfarland PA-C [address] [place] [phone] [email or web address] Physician Volleyball Assembler 01/11/25 documented as of this encounter Additional Source Comments The information contained in this document represents components of the legal health record. It is not the complete legal health record.[facility]
--- OUTSIDE RECORDS SUMMARY | 2025-02-26 11:35 | XMS_ITS | Encounter Summary ---
Author Organization [facility] Address [address] [place] [address] Phone Care Team Providers Care Soft Shoe Dancer Name Role Phone Florentino Medeiros MD Primary Care Provider Charity Phoenix MBBS Unavailable [phone] Nancy Contreras CNP Unavailable Mindy Lin MD Primary Care Provider Mary Lou Mcfarland-C Unavailable [phone] Encounter Details Date Type Department Care Team (Late st Contact Info) Description 03/20/2023 Procedure Pass [facility], Ct Scan - [facility] [address] [place] [address] Social History Tobacco Use Types Packs/Day Years [...] st Contact Info) Description 02/01/2025 Procedure Pass [address] [address] 02/01/2025 Procedure Pass [address] [address] 03/24/2025 10:00 AM EST Infusion [facility] Center at [address] [address] Charity Phoenix MBBS [address] [place] [phone] [email or web address] 04/29/2025 11:15 AM EST Appointment [address] [address] Charity Phoenix MBBS [address] [place] [phone] [email or web address] 05/06/2025 10:00 AM EST Blood Draw [facility] [address] [address] Charity Phoenix MBBS [address] [place] [phone] [email or web address] 05/06/2025 11:00 AM EST Office Visit [facility] at Sandra Benitez [address] [place] [address] Charity Phoenix MBBS [address] [place] [address] [email or web address] documented as of this encounter Visit Diagnoses Not on filedocumented in this encounter Additional Health Concerns Infection Onset Date Last Indicated Resolved Time CoV-Risk 05/17/2023 05/17/2023 05/28/2023 1:23 AM EST CoV-Risk 05/16/2024 05/16/2024 05/27/2024 1:22 AM EST Influenza A 05/16/2024 05/16/2024 05/23/2024 1:22 AM EST documented as of this encounter Care Teams Soft Shoe Dancer Relationship Specialty Start Date End Date Florentino Medeiros MD [address] [place] [address] Dr RICHARDS [address] [place] [address] PCP - General Internal Medicine 10/17/19 07/15/24 Mindy Lin MD [address] [place] [address] PCP - General Internal Medicine 07/16/24 Charity Phoenix MBBS [address] [place] [address] Dr RICHARDS [address] [place] [phone] [email or web address] Primary Oncologist Hematology and Oncology 02/04/23 Nancy Contreras CNP [address] [place] [phone] [email or web address] Nurse Practitioner Medical Oncology 05/16/23 Mary Lou Mcfarland PA-C [address] [place] [phone] [email or web address] Physician Program Project Manager 01/11/25 documented as of this encounter Additional Source Comments The information contained in this document represents components of the legal health record. It is not the complete legal health record.[facility]
--- OUTSIDE RECORDS SUMMARY | 2025-02-26 11:35 | XMS_ITS | Encounter Summary ---
Author Organization [facility] Address [address] [place] [address] Care Team Providers Care Patch Press Operator Name Role Phone Florentino Medeiros Primary Care Provider [phone] Encounter Details Date Type Department Care Team (Late st Contact Info) Description 04/26/2017 Lab Requisition [facility] [address] [place] [phone] Vahe Bull MD [address] [place] [address] [phone] Social History Tobacco Use Types Packs/Day Years [...] of this encounter Procedures * Due to [place] [employer] law, this organization might not be sharing negative HIV tests. Procedure Name Priority Date/Time Associated Diagnosis Comments TISSUE EXAM Routine 03/28/2017 documented in this encounter Results * Due to [place] [employer] law, this organization might not be sharing negative HIV tests. * (ABNORMAL) Tissue Exam (03/28/2017) Final Diagnosis Review of Outside Slides Received from [facility], [place], [place], Labeled [id number] , Procedure Date 03/28/17: A- Lung (Left [...] diagnosis. [place] MANUAL 04/26/2017 2:03 PM EST [facility] - [facility] at 1403 EST Clinical History Metastatic poorly differentiated squamous cell carcinoma. [employer] MANUAL 04/26/2017 2:03 PM EST [facility] - [facility] Gross Description Client Facility: [facility] Slide Identification: [id number] Number of Glass Slides Received: 11 Number of Blocks Received: 0 Client Pathologist: Dr. Fransico Choi Accompanying Report Received: Yes [place] MANUAL 04/26/2017 2:03 PM EST [facility] - [facility] Embedded Images [facility] MAN[facility] 04/26/2017 2:03 PM EST [facility] - [facility] Resulting Agency Case was signed out at [facility], Department of Pathology, [facility] 3 CLIA [id number] [facility] MANUAL 04/26/2017 2:03 PM EST [facility] - [facility] Abnormal Yes(A) (none) [place] MANUAL 04/26/2017 2:03 PM EST [facility] - [facility] Report Header Surgical Pathology Report Case: [id number] Authorizing Provider: Vahe Bull MD Collected: 03/28/2017 Pathologist: Harley Brandt MD Received: 04/26/2017 1159 Specimen: Lung, Left Upper Lobe 04/26/2017 2:03 PM EST [facility] - [facility] Tissue specimen (specimen) Entire upper lobe of left lung / Unknown 03/28/2017 04/26/2017 11:59 AM EST us Vahe Bull MD LAB PATHOLOGY/CYTOLOGY ORDERABLES Final Result [facility] - [facility] [address] [place] [address], documented in this encounter Visit Diagnoses Not on filedocumented in this encounter Care Teams Patch Press Operator Relationship Specialty Start Date End Date Florentino Medeiros [address] [place] [address] dr Prasanna Mims, [place] [address] PCP - General Internal Medicine 04/25/17 documented as of this encounter
--- OUTSIDE RECORDS SUMMARY | 2025-02-26 11:35 | XMS_ITS | Encounter Summary ---
Author Organization [facility] Address [address] [place] [address] Phone Care Team Providers Care Professional Builder Name Role Phone Florentino Medeiros MD Primary Care Provider Charity Phoenix MBBS Unavailable [phone] Nancy Contreras CNP Unavailable Mindy Lin MD Primary Care Provider Mary Lou Mcfarland-C Unavailable [phone] Encounter Details Date Type Department Care Team (Late st Contact Info) Description 01/28/2024 Procedure Pass [facility], Ct Scan - [facility] [address] [place] [address] Social History Tobacco Use Types Packs/Day Years [...] Contact Info) Description 02/01/2025 Procedure Pass [address] [address] 02/01/2025 Procedure Pass [address] [address] 03/24/2025 10:00 AM EST Infusion [facility] at [address] [address] Charity Phoenix MBBS [address] [place] [address] [email or web address] 04/29/2025 11:15 AM EST Appointment [address] [address] Charity Phoenix MBBS [address] [place] [phone] [email or web address] 05/06/2025 10:00 AM EST Blood Draw [facility] [address] [place] [address] Charity Phoenix MBBS [address] [place] [address] [email or web address] 05/06/2025 11:00 AM EST Office Visit [facility] at [place] [address] [place] [address] Charity Phoenix MBBS [address] [place] [phone] [email or web address] documented as of this encounter Visit Diagnoses Not on filedocumented in this encounter Additional Health Concerns Infection Onset Date Last Indicated Resolved Time CoV-Risk 05/16/2024 05/16/2024 05/27/2024 1:22 AM EST Influenza A 05/16/2024 05/16/2024 05/23/2024 1:22 AM EST documented as of this encounter Care Teams Professional Builder Relationship Specialty Start Date End Date Florentino Medeiros MD [address] [place] [address] [place] [address] PCP - General Internal Medicine 10/17/19 07/15/24 Mindy Lin MD [address] [place] [address] PCP - General Internal Medicine 07/16/24 Charity Phoenix MBBS [address] [place] [address] [place] [phone] [email or web address] Primary Oncologist Hematology and Oncology 02/04/23 Nancy Contreras CNP [address] [place] [address] [email or web address] Nurse Practitioner Medical Oncology 05/16/23 Mary Lou Mcfarland PA-C [address] [place] [phone] [email or web address] Physician Electorate Officer 01/11/25 documented as of this encounter Additional Source Comments The information contained in this document represents components of the legal health record. It is not the complete legal health record.[facility]
--- OUTSIDE RECORDS SUMMARY | 2025-02-26 11:35 | XMS_ITS | Patient Health Record ---
[facility] Address [address] [facility] [place] [address] Care Team Providers Care Greenhouse Specialist Name Role Phone Florentino Medeiros MD Primary Care Provider Andrea Barkley Unavailable [phone] Reason For Referral No Information Medications Medication [...] W/U Status Risk Notes Problem Hallux valgus ([id number]) Hallux Valgus (735.0) Active confirmed Plan Of Treatment No Information Insurance Providers Payer Name Payer Address Payer Phone Subscriber Number Group Number Insured Name Patient Relationship to Insured Coverage Start Date Coverage End Date [facility] [address] [place] [address] [id number] Aziza Bolanos Self - patient is the insured Medical (General) History Medical History History ICD Code Cholesterol thyroid disorder joint implants/screws Surgical History Surgery Date(Month/Year) throat polyp removed 2008
--- OUTSIDE RECORDS SUMMARY | 2025-02-26 11:35 | XMS_ITS | Encounter Summary ---
Author Organization [facility] Address [address] [place] [address] Phone Care Team Providers Care Aviation Project Manager Name Role Phone Florentino Medeiros MD Primary Care Provider Charity Phoenix MBBS Unavailable Nancy Contreras CNP Unavailable Mindy Lin MD Primary Care Provider [phone] Mary Lou Mfcarland-C Unavailable Encounter Details Date Type Department Care Team (Late st Contact Info) Description 03/20/2023 Procedure Pass [facility], Ct Scan - [facility] [address] [place] [address] Social History Tobacco Use Types Packs/Day Years [...] st Contact Info) Description 02/01/2025 Procedure Pass [address] [address] 02/01/2025 Procedure Pass [address] [address] 03/24/2025 10:00 AM EST Infusion [facility] at [address] [address] Charity Phoenix MBBS [address] [place] [phone] [email or web address] 04/29/2025 11:15 AM EST Appointment [address] [address] Charity Phoenix MBBS [address] [place] [phone] [email or web address] 05/06/2025 10:00 AM EST Blood Draw [facility] [address] [address] Charity Phoenix MBBS [address] [place] [address] [email or web address] 05/06/2025 11:00 AM EST Office Visit [facility] at [place] [address] [place] [address] Charity Phoenix MBBS [address] [place] [address] [email or web address] documented as of this encounter Visit Diagnoses Not on filedocumented in this encounter Additional Health Concerns Infection Onset Date Last Indicated Resolved Time CoV-Risk 05/17/2023 05/17/2023 05/28/2023 1:23 AM EST CoV-Risk 05/16/2024 05/16/2024 05/27/2024 1:22 AM EST Influenza A 05/16/2024 05/16/2024 05/23/2024 1:22 AM EST documented as of this encounter Care Teams Aviation Project Manager Relationship Specialty Start Date End Date Florentino Medeiros MD [address] [place] [address] Dr RICHARDS [address] [place] [phone] PCP - General Internal Medicine 10/17/19 07/15/24 Mindy Lin MD [address] [place] [address] PCP - General Internal Medicine 07/16/24 Charity Phoenix MBBS [address] [place] [address] Dr RICHARDS [address] [place] [phone] [email or web address] Primary Oncologist Hematology and Oncology 02/04/23 Nancy Contreras CNP [address] [place] [phone] [email or web address] Nurse Practitioner Medical Oncology 05/16/23 Mary Lou Mcfarland PA-C [address] [place] [phone] [email or web address] Physician Parcel Carrier 01/11/25 documented as of this encounter Additional Source Comments The information contained in this document represents components of the legal health record. It is not the complete legal health record.[facility]
--- OUTSIDE RECORDS SUMMARY | 2025-02-26 11:35 | XMS_ITS | Encounter Summary ---
Author Organization [facility] Address [address] [place] [address] Phone Care Team Providers Care Gifted Teacher Name Role Phone Charity PhoenixBS Unavailable Ben Nancy SLD TEACHER Unavailable Mindy Lni MD Primary Care Provider Mary Lou Mcfaralnd PA-C Unavailable Encounter Details Date Type Department Care Team (Late st Contact Info) Description 10/08/2024 Procedure Pass [facility], Ct Scan - [address] [address] Social History Tobacco Use Types Packs/Day Years [...] Contact Info) Description 02/01/2025 Procedure Pass [address] [address] 02/01/[address] [address] 03/24/2025 10:[address] [facility] at [address] [address] Charity Phoenix MBBS [address] [place] [phone] [email or web address] 04/29/2025 11:15 AM EST Appointment [address] [address] Charity Phoenix MBBS [address] [place] [phone] [email or web address] 05/06/2025 10:00 AM EST Blood Draw [facility] [address] [place] [address] Charity Phoenix MBBS [address] [place] [address] [email or web address] 05/06/2025 11:00 AM EST Office Visit [facility] at [place] [address] [place] [address] Charity Phoenix MBBS [address] [place] [phone] [email or web address] documented as of this encounter Visit Diagnoses Not on filedocumented in this encounter Care Teams Gifted Teacher Relationship Specialty Start Date End Date Mindy Lni MD [address] [place] [phone] PCP - General Internal Medicine 07/16/24 Charity Phoenix MBBS [email or web address] Primary Oncologist Hematology and Oncology 02/04/23 Nancy Contreras CNP [address] [place] [address] [email or web address] Nurse Practitioner Medical Oncology 05/16/23 Mary Lou Mcfarland PA-C [address] [place] [address] [email or web address] Physician Industrial Safety Engineer 01/11/25 documented as of this encounter Additional Source Comments The information contained in this document represents components of the legal health record. It is not the complete legal health record.[facility]
--- OUTSIDE RECORDS SUMMARY | 2025-02-26 11:35 | XMS_ITS | Clinical Summary ---
Author Organization [facility] Address [address] [place] [address] Care Team Providers Care Substation Electrician Supervisor Name Role Phone Florentino Medeiros Primary Care Provider [phone] Allergies No known active allergies Medications atorvastatin [...] DTaP,Tdap,and Td Vaccines (1 - Tdap) 10/02/[address] Lung Cancer Screening (Baseline) 10/02/2001 Osteoporosis Screening 10/02/2001 Pneumococcal Vaccine: 50+ Years (1 of 1 - PCV) 10/02/2001 Zoster Vaccines (1 of 2) 10/02/2001 Alcohol/Substance Use Screening 04/08/2024 Health Care Proxy Review 04/08/2024 Influenza Vaccine (#1) 2024 COVID-19 Vaccine (4 - 2024-2 6 season) 2024 03/14/2021, 06/28/2020, 05/31/2020 RSV Vaccine (60+ years old a nd patients) (1 - 1-dose 75+ series) 10/02/2026 Hepatitis B Vaccines Aged Out No long er eligible based on patient's age to complete this topic Insurance MEDICARE [facility] Care Teams Substation Electrician Supervisor Relationship Specialty Start Date End Date Florentino Medeiros [address] [place] [address] [place] [address] PCP - General Internal Medicine 04/25/17
--- OUTSIDE RECORDS SUMMARY | 2025-02-26 11:36 | XMS_ITS ---
Author Organization [facility] Address [address] [place] [address] Phone Care Team Providers Care General Contractor Name Role Phone Charity Phoenix MBBS Unavailable [phone] [employer] PRESS OPERATOR Unavailable Mindy Lin MD Primary Care Provider Mary Lou Mcfarland PA-C Unavailable [phone] Active Problems Patient Care Coordination No te [...] Patient is going to meet with our renewals specialist to discuss this further. Thank you very [...] Patient is going to meet with our renewals specialist to discuss this further. Thank you very [...] the multidisciplinary GI cancer oncology team at [facility]. Options were discussed including upfront surgical [...] disease. I discussed the case with the [place] team and consensus is to proceed with [...] cyst for which she was seen by lead refinery supervisor LFTs have normalized Return for follow-up in [...] the multidisciplinary GI cancer oncology team at [facility]. Options were discussed including upfront surgical [...] disease. I discussed the case with the [place] team and consensus is to proceed with [...] which she is going to see her lead refinery supervisor Return for follow-up in 3 months with [...] the multidisciplinary GI cancer oncology team at [facility]. Options were discussed including upfront surgical [...] disease. I discussed the case with the [place] team and consensus is to proceed with [...] the multidisciplinary GI cancer oncology team at [facility]. Options were discussed including upfront surgical [...] disease. I discussed the case with the [place] team and consensus is to proceed with [...] the multidisciplinary GI cancer oncology team at [facility]. Options were discussed including upfront surgical [...] disease. I discussed the case with the [place] team and consensus is to proceed with [...] the multidisciplinary GI cancer oncology team at [facility]. Options were discussed including upfront surgical [...] disease. I discussed the case with the [place] team and consensus is to proceed with [...] the multidisciplinary GI cancer oncology team at [facility]. Options were discussed including upfront surgical resection followed by adjuvant therapy versus neoadjuvant chemotherapy to down size the tumor and then resection. After discussion decision was made to proceed with neoadjuvant chemotherapy to be the best option for her. Patient is going to get neoadjuvant chemotherapy here locally at [facility]. She will undergo her surgery and radiation therapy in [place]. After discussing the above-mentioned patient agreed to [...] this. I discussed the case with the [place] team and consensus is to proceed with [...] this. I have requested to follow-up with [facility] team so that she can undergo her planned surgical resection. RECOMMENDATIONS: Follow up with [facility] team regarding surgical resection of her pancreatic cancer I have sent a message to [facility] team Continue to monitor anemia Continue [...] the multidisciplinary GI cancer oncology team at [facility]. Options were discussed including upfront surgical resection followed by adjuvant therapy versus neoadjuvant chemotherapy to down size the tumor and then resection. After discussion decision was made to proceed with neoadjuvant chemotherapy to be the best option for her. Patient is going to get neoadjuvant chemotherapy here locally at [facility]. She will undergo her surgery and radiation therapy in [place]. After discussing the above-mentioned patient agreed to [...] this. I discussed the case with the [place] team and consensus is to proceed with concurrent chemoradiation therapy followed by surgical evaluation. I discussed various concurrent chemotherapy options with her including infusional 5-FU, capecitabine, gemcitabine. I recommended concurrent capecitabine/Xeloda chemotherapy with RT. I discussed potential side effects from this approach including but not limited to allergic reactions, zlsm-svh-elwz syndrome, diarrhea, nausea and pancytopenia's. I also [...] evaluation for surgical resection Follow up with [facility] team after CT scans Continue to [...] the multidisciplinary GI cancer oncology team at [facility]. Options were discussed including upfront surgical resection followed by adjuvant therapy versus neoadjuvant chemotherapy to down size the tumor and then resection. After discussion decision was made to proceed with neoadjuvant chemotherapy to be the best option for her. Patient is going to get neoadjuvant chemotherapy here locally at [facility] [place]. She will undergo her surgery and radiation therapy in [place]. After discussing the above-mentioned patient agreed to [...] this. I discussed the case with the [place] team and consensus is to proceed with concurrent chemoradiation therapy followed by surgical evaluation. I discussed various concurrent chemotherapy options with her including infusional 5-FU, capecitabine, gemcitabine. I recommended concurrent capecitabine/Xeloda chemotherapy with RT. I discussed potential side effects from this approach including but not limited to allergic reactions, mdyd-fsd-vood syndrome, diarrhea, nausea and pancytopenia's. I also [...] the multidisciplinary GI cancer oncology team at [facility]. Options were discussed including upfront surgical resection followed by adjuvant therapy versus neoadjuvant chemotherapy to down size the tumor and then resection. After discussion decision was made to proceed with neoadjuvant chemotherapy to be the best option for her. Patient is going to get neoadjuvant chemotherapy here locally at [facility]. She will undergo her surgery and radiation therapy in [place]. After discussing the above-mentioned patient agreed to [...] this. I discussed the case with the [place] team and consensus is to proceed with concurrent chemoradiation therapy followed by surgical evaluation. I discussed various concurrent chemotherapy options with her including infusional 5-FU, capecitabine, gemcitabine. I recommended concurrent capecitabine/Xeloda chemotherapy with RT. I discussed potential side effects from this approach including but not limited to allergic reactions, iskw-exl-rpdj syndrome, diarrhea, nausea and pancytopenia's. I also [...] the multidisciplinary GI cancer oncology team at [facility]. Options were discussed including upfront surgical resection followed by adjuvant therapy versus neoadjuvant chemotherapy to down size the tumor and then resection. After discussion decision was made to proceed with neoadjuvant chemotherapy to be the best option for her. Patient is going to get neoadjuvant chemotherapy here locally at [facility]. She will undergo her surgery and radiation therapy in [place]. After discussing the above-mentioned patient agreed to [...] this. I discussed the case with the [place] team and consensus is to proceed with concurrent chemoradiation therapy followed by surgical evaluation. I discussed various concurrent chemotherapy options with her including infusional 5-FU, capecitabine, gemcitabine. I recommended concurrent capecitabine/Xeloda chemotherapy with RT. I discussed potential side effects from this approach including but not limited to allergic reactions, qwfh-mik-zypy syndrome, diarrhea, nausea and pancytopenia's. I also [...] the multidisciplinary GI cancer oncology team at [facility]. Options were discussed including upfront surgical resection followed by adjuvant therapy versus neoadjuvant chemotherapy to down size the tumor and then resection. After discussion decision was made to proceed with neoadjuvant chemotherapy to be the best option for her. Patient is going to get neoadjuvant chemotherapy here locally at [facility]. She will undergo her surgery and radiation therapy in [place]. After discussing the above-mentioned patient agreed to [...] this. I discussed the case with the [place] team and consensus is to proceed with concurrent chemoradiation therapy followed by surgical evaluation. I discussed various concurrent chemotherapy options with her including infusional 5-FU, capecitabine, gemcitabine. I recommended concurrent capecitabine/Xeloda chemotherapy with RT. I discussed potential side effects from this approach including but not limited to allergic reactions, metk-yul-otrl syndrome, diarrhea, nausea and pancytopenia's. I also [...] the multidisciplinary GI cancer oncology team at [facility]. Options were discussed including upfront surgical resection followed by adjuvant therapy versus neoadjuvant chemotherapy to down size the tumor and then resection. After discussion decision was made to proceed with neoadjuvant chemotherapy to be the best option for her. Patient is going to get neoadjuvant chemotherapy here locally at [facility] center. She will undergo her surgery and radiation therapy in [place]. After discussing the above-mentioned patient agreed to [...] this. I discussed the case with the [place] team and consensus is to proceed with concurrent chemoradiation therapy followed by surgical evaluation. I discussed various concurrent chemotherapy options with her including infusional 5-FU, capecitabine, gemcitabine. I recommended concurrent capecitabine/Xeloda chemotherapy with RT. I discussed potential side effects from this approach including but not limited to allergic reactions, jndn-zuu-frze syndrome, diarrhea, nausea and pancytopenia's. Patient signed [...] the multidisciplinary GI cancer oncology team at [facility]. Options were discussed including upfront surgical resection followed by adjuvant therapy versus neoadjuvant chemotherapy to down size the tumor and then resection. After discussion decision was made to proceed with neoadjuvant chemotherapy to be the best option for her. Patient is going to get neoadjuvant chemotherapy here locally at [facility]. She will undergo her surgery and radiation therapy in [place]. After discussing the above-mentioned patient agreed to [...] this. I discussed the case with the [place] team and consensus is to proceed with [...] the multidisciplinary GI cancer oncology team at [facility]. Options were discussed including upfront surgical resection followed by adjuvant therapy versus neoadjuvant chemotherapy to down size the tumor and then resection. After discussion decision was made to proceed with neoadjuvant chemotherapy to be the best option for her. Patient is going to get neoadjuvant chemotherapy here locally at [facility] center. She will undergo her surgery and radiation therapy in [place]. After discussing the above-mentioned patient agreed to [...] about this. I recommended a follow-up with [place] team to see what is next in her treatment. Initial plan was to proceed with surgical resection after neoadjuvant chemotherapy. I have sent a message to her team in [place]. RECOMMENDATIONS: Follow-up with [place] team in regards to the next step [...] the multidisciplinary GI cancer oncology team at [facility]. Options were discussed including upfront surgical resection followed by adjuvant therapy versus neoadjuvant chemotherapy to down size the tumor and then resection. After discussion decision was made to proceed with neoadjuvant chemotherapy to be the best option for her. Patient is going to get neoadjuvant chemotherapy here locally at [facility] center. She will undergo her surgery and radiation therapy in [place]. I discussed side effects from chemotherapy including [...] after 8 cycles Patient will follow-up with [facility] team after 8 cycles of chemotherapy [...] the multidisciplinary GI cancer oncology team at [facility]. Options were discussed including upfront surgical resection followed by adjuvant therapy versus neoadjuvant chemotherapy to down size the tumor and then resection. After discussion decision was made to proceed with neoadjuvant chemotherapy to be the best option for her. Patient is going to get neoadjuvant chemotherapy here locally at [facility] [place]. She will undergo her surgery and radiation therapy in [place]. I discussed side effects from chemotherapy including [...] the multidisciplinary GI cancer oncology team at [facility]. Options were discussed including upfront surgical resection followed by adjuvant therapy versus neoadjuvant chemotherapy to down size the tumor and then resection. After discussion decision was made to proceed with neoadjuvant chemotherapy to be the best option for her. Patient is going to get neoadjuvant chemotherapy here locally at [facility]. She will undergo her surgery and radiation therapy in [place]. I discussed side effects from chemotherapy including [...] the multidisciplinary GI cancer oncology team at [facility]. Options were discussed including upfront surgical resection followed by adjuvant therapy versus neoadjuvant chemotherapy to down size the tumor and then resection. After discussion decision was made to proceed with neoadjuvant chemotherapy to be the best option for her. Patient is going to get neoadjuvant chemotherapy here locally at [facility]. She will undergo her surgery and radiation therapy in [place]. I discussed side effects from chemotherapy including [...] the multidisciplinary GI cancer oncology team at [facility]. Options were discussed including upfront surgical resection followed by adjuvant therapy versus neoadjuvant chemotherapy to down size the tumor and then resection. After discussion decision was made to proceed with neoadjuvant chemotherapy to be the best option for her. Patient is going to get neoadjuvant chemotherapy here locally at [facility]. She will undergo her surgery and radiation therapy in [place]. I discussed side effects from chemotherapy including [...] the multidisciplinary GI cancer oncology team at [facility]. Options were discussed including upfront surgical resection followed by adjuvant therapy versus neoadjuvant chemotherapy to down size the tumor and then resection. After discussion decision was made to proceed with neoadjuvant chemotherapy to be the best option for her. Patient is going to get neoadjuvant chemotherapy here locally at [facility] center. She will undergo her surgery and radiation therapy in [place]. I discussed side effects from chemotherapy including [...] f pancreas Treatment Medications No medications scheduled. Past Treatment and Therapy Plans TREATMENT PLAN Plan Name Start Date Discontinue Date Treatment Medications Discontinue Reason Plan Provider Cycles CAPECITABINE WITH XRT - 5 DAY PER WEEK SCHEDULE 07/30/19 24 02/01/2025 capecitabine (XELODA) a. Therapy Complete Charity Phoenix MBBS 1 of 1 cycle started CAPECITABINE WITH XRT - 5 DAY PER [...]
== END 2025-02-26 11:31 | disposition home or self-care (01) ==
LOC: HO.HMCFM 10:46
PROVIDERS: Visit Provider Internal Medicine
DX: E03.9 Hypothyroidism, unspecified (principal); R73.09 Other abnormal glucose; M25.872 Other specified joint disorders, left ankle and foot; Z85.07 Personal history of malignant neoplasm of pancreas; Z85.118 Personal history of other malignant neoplasm of bronchus and lung

== ENCOUNTER 2025-02-26 10:46 | Outpatient (REF) | payer MEDICARE, OTHER, SELFPAY ==
[2025-02-26 14:47] LABS: Cholesterol 120 mg/dL (<200); HDL Cholesterol 51 mg/dL (>40); Triglycerides 107 mg/dL (<150)
== END 2025-02-26 10:47 | disposition home or self-care (01) ==
LOC: HO.WFDLDS 10:46
PROVIDERS: Visit Provider Internal Medicine
DX: M25.572 Pain in left ankle and joints of left foot (principal); E03.9 Hypothyroidism, unspecified; R73.09 Other abnormal glucose; F41.9 Anxiety disorder, unspecified; C25.9 Malignant neoplasm of pancreas, unspecified; Z13.220 Encounter for screening for lipoid disorders; Z79.899 Other long term (current) drug therapy; Z91.81 History of falling
CPT/HCPCS: 36415; 80061; 83036; 84443; 96127; 99212

== ENCOUNTER 2025-03-23 10:36 | Outpatient (REF) | payer MEDICARE, OTHER, SELFPAY ==
--- OUTSIDE RECORDS SUMMARY | 2024-02-19 04:30 | XMS_ITS ---
Author Organization Vimal Head III, MD Address [address] [address] [place] [address] Care Team Providers Care Product Development Actuary Name Role Phone CarterMindy Lott ([place]) Primary Care Provider Un available Dr. Vimal Head III Unavailable [phone] Allergies Allergen (clinical drug ingredient) Drug/Non Drug Allergy documented on EMR Reaction Allergy Type Onset Date Status No Known Drug Allergy Unknown Drug Allergy Active REASON FOR VISIT History of stage III non-small cell lung cancer Medications Medication SIG (Take, Route, Frequency, Duration) Notes Start Date End Date Status Creon [id number] UNIT TAKE 1 CAPSULE ( 36,000 UNITS [...] Date Provider Diagnosis Vimal Head III, MD [address] [place] [address] [place] [address] 02/19/2024 Vimal Head Malignant neoplasm o f [...] oxaliplatin. A [place] was then [place] [facility] but the [place] was inoperable. She was then treated aggressively with intraoperative radiation therapy. She is now receiving adjuvant chemotherapy at [facility] in [facility]. 02/19/2024 Former smoker (ICD-10 - Z87.891) [...] Sig Start Date Stop Date Notes Creon [id number] UNIT TAKE 1 CAPSULE ( 36,000 UNITS [...] pancreatic tumor Provider Name:Vimal Chaitanya Sonido , 09/21/2025 10:30:00 AM, [address] [place] [address] [address], [place] [address], [place], [address], Progress Notes * SYDNIE BOLANOSDOB:1950 ([age] yo F)Acc No.[id number]:02/19/2024 Progress Notes Patient: SYDNIE CARVALHO Provider: Akua Head MD :1950 A ge:73 Y S ex:Female Date:02/19/2024 Address:[address] [place], [place] [address] Pcp:Florentino Medeiros MD Subjective: * Chief Complaints: [...] a pancreatic tumor on November 04 at [facility]. The tumor was involved with her vascular [...] Diagno stic Procedure: H [facility]10/2023 * Family [...] x-cigarette smoker S he was born in [place], [place]. She has been to Morteza, who she calls Duplia, since 1974. They are both retired school teachers. They have 2 children, Sofía and Angélica, and 2 grandchildren. They live in [place]. She began smoking at the age of [...] MOUTH EVERY DAY AT BEDTIME Oral Not-Taking/PRNCreon [id number] UNIT Capsule Delayed Release Particles TAKE 1 CAPSULE (36,000 UNITS OF LIPASE TOTAL) BY MOUTH 3 (THREE) TIMES A DAY WITH MEALS. Oral Medication List reviewed and reconciled with the patientNot-Taking/PRN Creon [id number] UNIT Capsule Delayed Release Particles TAKE 1 [...] oxaliplatin. A resection was then [place] [facility] but the [place] was inoperable. She was then treated aggressively with intraoperative radiation therapy. She is now receiving adjuvant chemotherapy at [facility] in [facility]. 2 . F ormer smoker - [...] Akua Head MD Date: 04/20/2023 Generated for Cheyennedonovan rosado/Jesusita/eTransmitting on: 05/24/2024 01:26 PM EST History and Physical Notes * HPI [...]
--- OUTSIDE RECORDS SUMMARY | 2024-08-18 04:30 | XMS_ITS ---
Author Organization Vimal Head III, MD Address [address] [place] [address] [address] [place] [address] Care Team Providers Care Road Engineer Name Role Phone CarterMindy Lott ([place]) Primary Care Provider Un available Dr. Vimal Head III Unavailable Allergies Allergen (clinical drug ingredient) Drug/Non Drug Allergy documented on EMR Reaction Allergy Type Onset Date Status No Known Drug Allergy Unknown Drug Allergy Active REASON FOR VISIT Stage IIIA non-small cell lung cancer in remission, Pancreatic cancer, undergoing therapy, Hypothyroidism Medications Medication SIG (Take, Route, Frequency, Duration) Notes Start Date End Date Status Atorvastatin Calcium 20 MG TAKE 1 TABLET BY MOUTH EVERY DAY Oral Active Levothyroxine Sodium 112 MCG TAKE 1 TABL ET BY MOUTH ONCE A DAY Oral Active Propranolol HCl ER 80 MG TAKE ONE CAPSUL E BY MOUTH TWICE A DAY Oral Active clonazePAM 1 MG (Schedule IV Drug) T MALIA 1 TABLET BY MOUTH EVERY DAY AT BEDTIME Oral Active Creon [id number] UNIT TAKE 1 CAPSULE ( 36,000 UNITS OF LIPASE TOTAL) BY MOUTH 3 (THREE) TIMES A DAY WITH MEALS. Oral Active Omeprazole 20 MG 1 capsule 1/2 to 1 h our before morning meal Orally Once a day 08/18/2024 Active Social History Tobacco Use: Social History [...] Non-User Ex-cigaret te smoker Vital Signs Temperature 97.0 degrees Fahrenheit 08/19/19 25 Heart Rate 70 /min 08/18/2024 Height 62 in 08/18/2024 Weight 140 lbs 08/18/2024 BMI 25.6 kg/m2 08/18/2024 Encounters Encounter Location Date Provider Diagnosis Vimal Head III, MD [address] [place] [address] [place] [address] 08/18/2024 Vimal Head Malignant neoplasm o f head of pancreas C25.0 ; Squamous cell carcinoma of left lung C34.92 ; Acquired hypothyroidism E03.9 ; Chronic cough R05 ; Overweight (BMI 25.0-29.9) E66.3 and Former smoker Z87.891 Assessments Encounter Date Diagnosis (ICD Code) Assessment Notes Treat ment Notes Treatment Clinical Notes 08/18/2024 Malignant neoplasm of head of pancreas (ICD-10 - C25.0) When the tumor was discovered she was treated with neoadjuvant chemotherapy consisting of fluorouracil, leucovorin, irinotecan and oxaliplatin. A resection was then attempted at [facility] but the tumor was inoperable. She was then treated aggressively with intraoperative radiation therapy. She then received adjuvant chemotherapy at [facility] in [facility]. She has finished her treatment at this point and is being observed at 4 month intervals. 08/18/2024 Squamous cell carcinoma of left lung (ICD-10 - C34.92) There was no sign of recurrent lung cancer on today's examination. 08/18/2024 Acquired hypothyroidism (ICD-10 - E03.9) She has been compliant with her thyroid medication and her levels are euthyroid. 08/18/2024 Chronic cough (ICD-10 - R05) Her cough continues but she has had no hemoptysis. 08/18/2024 Overweight (BMI 25.0-29.9) (ICD-10 - E66.3) Her body mass index is 29. I recommended she stabilize her weight at this level until her treatment is done. 08/18/2024 Former smoker (ICD-10 - Z87.891) She seems motivated not to smoke. We discussed means by which relapse could be prevented in times of stress and illness. Plan Of Treatment Medication Medication Name Sig Start Date Stop Date Notes Atorvastatin Calcium 20 MG TAKE 1 TABLET BY MOUTH EVERY DAY Oral Levothyroxine Sodium 112 MCG TAKE 1 TABL ET BY MOUTH ONCE A DAY Oral Propranolol HCl ER 80 MG TAKE ONE CAPSUL E BY MOUTH TWICE A DAY Oral clonazePAM 1 MG (Schedule IV Drug) T MALIA 1 TABLET BY MOUTH EVERY DAY AT BEDTIME Oral Creon [id number] UNIT TAKE 1 CAPSULE ( 36,000 UNITS OF LIPASE TOTAL) BY MOUTH 3 (THREE) TIMES A DAY WITH MEALS. Oral Omeprazole 20 MG 1 capsule 1/2 to 1 h our before morning meal Orally Once a day 08/18/2024 Next Appt Details Follow Up: 3 Months, Reason: OV Provider Name:Vimal Head , 09/21/2025 10:30:00 AM, [address] [place] [address], [address], Progress Notes * SYDNIE BOLANOSDOB:1950 ([age] yo F)Acc No.[id number]:08/18/2024 Progress Notes Patient: SYDNIE CARVALHO Provider: Akua Head MD :1950 A ge:73 Y S ex:Female Date:08/18/2024 Address:[address] [place] [address], [facility] Pcp:Mindy Saunders Subjective: * Chief Complaints: * S tage IIIA non-small cell lung cancer in remissionPancreatic cancer, undergoing therapyHypothyroidism * HPI: C OVID-19 Screening: S yuli returns for medical management of numerous issues. She has been treated at [facility] for inoperable cancer of the pancreas with immunotherapy. She feels healthy and well and is able to eat and drink without nausea or vomiting. 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 Her weight is stable. She has been compliant with all of her medications. S he has an appointment with Dr. Lehman, gastroenterology at [facility], for an upper endoscopy. She is taking omeprazole from the rubber engraver. Her last chemotherapy was in June of 2023. She completed radiation in August of 2023 as well. Questions H ave you had any new onset fever, chills, cough, congestion, sore throat, shortness of breath, muscle aches? N o * ROS: G eneral/Constitutional: pain o nly normal aches and pains. C hills d enies.?Fatigue a dmits. F ever d enies. E NT: Decreased hearing d enies. R espiratory: Cough d enies. C ardiovascular: Chest pain with exertion d enies. D yspnea on exertion?denies. S hortness of breath d enies. G astrointestinal: Constipation o ccasional. D ecreased appetite d enies. [...] Hospitalization/Major Diagno stic Procedure: H ospitalized at [facility] for surgery on november 0410/2023 * Family History: F ather: 65 yrs, emphysema. M other: alive 92 yrs, Alive and well, diagnosed with Hyperlipidemia. 6 brother(s) , 4 sister(s) . 2 daughter(s) - healthy. . She has a twin brother who has had a stroke. There is no family history of malignancy. * Social History: T obacco Use: T obacco Use/Smoking P drake is a f ormer smoker H ow long has it been since you last smoked??> 10 years A dditional Findings: Tobacco Non-User E x-cigarette smoker S he was born in [place], [place]. She has been to Morteza, who she calls [employer], since 1974. They are both retired school teachers. They have 2 children, Sofía and Angélica, and 2 grandchildren. They live in [place]. She began smoking at the age of 20 and stopped recently. * Medications: T akingOmeprazole 20 MG Capsule Delayed Release 1 capsule 1/2 to 1 hour before morning meal Orally Once a day Propranolol HCl ER 80 MG Capsule Extended [...] MOUTH EVERY DAY AT BEDTIME Oral Creon [id number] UNIT Capsule Delayed Release Particles TAKE 1 CAPSULE (36,000 UNITS OF LIPASE TOTAL) BY MOUTH 3 (THREE) TIMES A DAY WITH MEALS. Oral Medication List reviewed and reconciled with the patientTaking Omeprazole 20 MG Capsule Delayed Release 1 capsule 1/2 to 1 hour before morning meal Orally Once a day Taking Propranolol HCl ER 80 MG Capsule [...] EVERY DAY AT BEDTIME Oral Taking Creon [id number] UNIT Capsule Delayed Release Particles TAKE 1 CAPSULE (36,000 UNITS OF LIPASE TOTAL) BY MOUTH 3 (THREE) TIMES A DAY WITH MEALS. Oral Medication List reviewed and reconciled with the patient * Allergies: N o Known Drug Allergyno[Allergies Verified] Objective: * Vitals: H t: 62, Wt:140, BMI:25.6, HR:70, Temp:97.0, Wt-k.5. * Examination: G eneral Examination: GENERAL APPEARANCE: [...] or vascular bruits. LUNGS: c lear to auscultation . BREASTS: N ot examined. ABDOMEN: o verweight, no ascites, no guarding or rigidity, no hepatosplenomegaly, no hernias present, no masses palpable, no organomegaly, no rebound tenderness. RECTAL EXAM: n ot examined. MUSCULOSKELETAL: e [...] oxaliplatin. A resection was then attempted at [facility] but the tumor was inoperable. She was then treated aggressively with intraoperative radiation therapy. She then received adjuvant chemotherapy at [facility] in [facility]. She has finished her treatment at this point and is being observed at 4 month intervals. 2 . S quamous cell carcinoma of left lung - C34.92 N otes :There was no sign of recurrent lung cancer on today's examination. 3 . A cquired hypothyroidism - E03.9 N otes :She has been compliant with her thyroid medication and her levels are euthyroid. 4 . C hronic cough - R05 N otes :Her cough continues but she has had no hemoptysis. 5 . O verweight (BMI 25.0-29.9) - E66.3 N otes :Her body mass index is 29. I recommended she stabilize her weight at this level until her treatment is done. 6 . F ambermer smoker - Z87.891 N otes :She seems motivated not to smoke. We discussed means by which relapse could be prevented in times of stress and illness. Plan: * Treatment: * Procedure Codes: * Preventive Medicine: Counseling: C are goal follow-up plan: Counseling for abnormal BMI given Y es Above Normal BMI Follow-up D ietary needs education S moking/Tobacco Use Patient counseled on the dangers of tobacco use and urged to quit. 0 08/18/2024 * Follow Up: 3 Months (Reason: OV) * Images: * Sign off status: Completed true * Provider: Akua Head MD Date: 0 08/18/2024 Generated for Cheyennei alonzo/Jesusita/eTransmitting on: 1 05/24/2024 01:26 PM EST History and Physical Notes * HPI (History of Present Illness) Category Sub-Category Detail Notes COVID-19 Screening Questions Have you had any new onset fever, chills, cough, congestion, sore throat, shortness of breath, muscle aches?: No Examination Category Sub-Category Detail Notes General Examination [...] or vascular bruits LUNGS: clear to auscultatio n ABDOMEN: overweight, no ascit es, no guarding or rigidity, no hepatosplenomegaly, no hernias present, no masses palpable, no organomegaly, no rebound tenderness NEUROLOGIC: alert and oriented, cranial nerves 2-12 [...]
--- OUTSIDE RECORDS SUMMARY | 2024-11-18 04:45 | XMS_ITS ---
Author Organization Vimal Head III, MD Address [address] [place] [address] Care Team Providers Care Maple Sugar Maker Name Role Phone CarterMindy Lott ([place]) Primary Care Provider Un available Dr. Vimal Head III Unavailable [phone] Allergies Allergen (clinical drug ingredient) Drug/Non Drug Allergy documented on EMR Reaction Allergy Type Onset Date Status No Known Drug Allergy Unknown Drug Allergy Active REASON FOR VISIT Stage III lung cancer, Cancer the pancreas Medications Medication SIG (Take, Route, Frequency, Duration) Notes Start Date End Date Status Propranolol HCl ER 80 MG TAKE ONE CAPSUL E BY MOUTH TWICE A DAY Oral Active Levothyroxine Sodium 112 MCG TAKE 1 TABL ET BY MOUTH ONCE A DAY Oral Active Atorvastatin Calcium 20 MG TAKE 1 TABLET BY MOUTH EVERY DAY Oral Active Creon [id number] UNIT TAKE 1 CAPSULE ( 36,000 UNITS OF LIPASE TOTAL) BY MOUTH 3 (THREE) TIMES A DAY WITH MEALS. Oral Active clonazePAM 1 MG (Schedule IV Drug) T MALIA 1 TABLET BY MOUTH EVERY DAY AT BEDTIME Oral Active Omeprazole 20 MG 1 capsule [...] smoker Vital Signs Temperature 97.2 degrees Fahrenheit 11/19/19 25 Blood pressure systolic 97 mm Hg 11/19/19 25 Blood pressure diastolic 45 mm Hg 025 Heart Rate 70 /min 11/18/2024 Height 62 in 11/18/2024 Weight 140 lbs 11/18/2024 BMI 25.6 kg/m2 11/18/2024 Encounters Encounter Location Date Provider Diagnosis Vimal Head III, MD [address] [place] [address] [place] [address] 11/18/2024 Vimal Head Malignant neoplasm o f head of pancreas C25.0 ; Squamous cell carcinoma of left lung C34.92 ; Chronic cough R05 ; Overweight (BMI 25.0-29.9) E66.3 ; Acquired hypothyroidism E03.9 ; Tremor R25.1 ; Hypercholesterolemia E78.00 and Former smoker Z87.891 Assessments Encounter Date Diagnosis (ICD Code) Assessment Notes T reatment Notes Treatment Clinical Notes 11/18/2024 Malignant neoplasm o f head of pancreas (ICD-10 - C25.0) When the tumor was discovered she was treated with neoadjuvant chemotherapy consisting of fluorouracil, leucovorin, irinotecan and oxaliplatin. A resection was then attempted at [facility] but the tumor was inoperable. She was then treated aggressively with intraoperative radiation therapy. She then received adjuvant chemotherapy at [facility] in [facility]. She has finished her treatment at this point and is being observed at 4 month intervals. 11/18/2024 Squamous cell carcin abhay of left lung (ICD-10 - C34.92) There was no sign of recurrent lung cancer on today's examination. 11/18/2024 Chronic cough (ICD-1 0 - R05) Her cough continues but she has had no hemoptysis. 11/18/2024 Overweight (BMI 25.0-29.9) (ICD-10 - E66.3) Her body mass index is 29. I recommended she stabilize her weight at this level until her treatment is done. 11/18/2024 Acquired hypothyroid ism (ICD-10 - E03.9) She has been compliant with her thyroid medication and her levels are euthyroid. 11/18/2024 Tremor (ICD-10 - R25.1) There dawson s been no change in the mild tremor. 11/18/2024 Hypercholesterolemia (ICD-10 - E78.00) The current lipid profile shows continued good control of her lipids. No change in her regimen is needed. 11/18/2024 Former smoker (ICD-1 0 - Z87.891) She seems motivated not to smoke. We discussed means by which relapse could be prevented in times of stress and illness. Plan Of Treatment Medication Medication Name Sig Start Date Stop Date Notes Propranolol HCl ER 80 MG TAKE ONE CAPSUL E BY MOUTH TWICE A DAY Oral Levothyroxine Sodium 112 MCG TAKE 1 TABL ET BY MOUTH ONCE A DAY Oral Atorvastatin Calcium 20 MG TAKE 1 TABLET BY MOUTH EVERY DAY Oral Creon [id number] UNIT TAKE 1 CAPSULE ( 36,000 UNITS OF LIPASE TOTAL) BY MOUTH 3 (THREE) TIMES A DAY WITH MEALS. Oral clonazePAM 1 MG (Schedule IV Drug) T MALIA 1 TABLET BY MOUTH EVERY DAY AT BEDTIME Oral Omeprazole 20 MG 1 capsule 1/2 to 1 h our before morning meal Orally Once a day 08/18/2024 Next Appt Details Follow Up: 3 Months, Reason: ov Provider Name:Vimal Head , 09/21/2025 10:30:00 AM, [address] [place] [address] [address], [place], [address], Progress Notes * SYDNIE BOLANOSDOB:1950 ([age] yo F)Acc No.[id number]:11/18/2024 Progress Notes Patient: SYDNIE CARVALHO Provider: Akua Head MD :1950 A ge:74 Y S ex:Female Date:11/18/2024 Address:[address] [place] [address], [id number] Pcp:Mindy Saunders ([place]) Subjective: * Chief Complaints: * 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 Since her last visit she had an upper endoscopy at [facility] by Dr. Lehman who told her she had ulcers. He told her she does not have celiac disease. On October 08 she saw the medical oncologist. She is not receiving any treatment today. Her CA-19-[address] scan of the abdomen was done and showed no sign of recurrence. Questions H ave you had any new onset fever, chills, cough, congestion, sore throat, shortness of breath, muscle aches? N o * ROS: G eneral/Constitutional: pain o nly normal aches and pains. C hills d enies.?Fatigue a dmits. F ever d enies. E NT: Decreased hearing d enies. R espiratory: Cough n on-productive. C ardiovascular: Chest pain with exertion d enies. D yspnea on exertion?denies. S hortness of breath d enies. G astrointestinal: Constipation d enies. D ecreased appetite d enies.?Diarrhea d enies. H eartburn d enies. N ausea d enies. R ectal bleeding?denies. V omiting d enies. H ematology: bruising d enies. p etechiae d enies. S wollen glands n one have been noted. G enitourinary: Frequent urination d enies. M usculoskeletal: Muscle aches d enies. P [...] Hospitalization/Major Diagno stic Procedure: H ospitalized at [facility] for surgery on november 0410/2023 * Family History: F ather: 65 yrs, emphysema. M other: alive 92 yrs, Alive and well, diagnosed with Hyperlipidemia. 6 brother(s) , 4 sister(s) . 2 daughter(s) - healthy. . She has a twin brother who has had a stroke. There is no family history of malignancy. * Social History: T obacco Use: T obacco Use/Smoking P atrafael is a f ormer smoker H ow long has it been since you last smoked??> 10 years A dditional Findings: Tobacco Non-User E x-cigarette smoker S he was born in [place], [place]. She has been to Morteza, who she calls Ecrebo, since 1974. They are both retired school teachers. They have 2 children, Sofía and Angélica, and 2 grandchildren. They live in [place]. She began smoking at the age of 20 and stopped recently. * Medications: T akingPropranolol HCl ER 80 MG Capsule Extended Release 24 Hour TAKE ONE CAPSULE BY MOUTH TWICE A DAY Oral Atorvastatin Calcium 20 MG Tablet TAKE 1 TABLET BY MOUTH EVERY DAY Oral Levothyroxine Sodium 100 MCG Capsule 1 capsule in the morning on an empty stomach Orally Once a day clonazePAM 1 MG Tablet (Schedule IV Drug) TAKE 1 TABLET BY MOUTH EVERY DAY AT BEDTIME Oral Creon 89906-699671 UNIT Capsule Delayed Release Particles TAKE 1 CAPSULE (36,000 UNITS OF LIPASE TOTAL) BY MOUTH 3 (THREE) TIMES A DAY WITH MEALS. Oral Omeprazole 20 MG Capsule Delayed Release 1 capsule 1/2 to 1 hour before morning meal Orally Once a day Medication List reviewed and reconciled with the patientTaking Propranolol HCl ER 80 MG Capsule Extended Release 24 Hour TAKE ONE CAPSULE BY MOUTH TWICE A DAY Oral Taking Atorvastatin Calcium 20 MG Tablet TAKE 1 TABLET BY MOUTH EVERY DAY Oral Taking Levothyroxine Sodium 100 MCG Capsule 1 capsule in the morning on an empty stomach Orally Once a day Taking clonazePAM 1 MG Tablet (Schedule IV Drug) TAKE 1 TABLET BY MOUTH EVERY DAY AT BEDTIME Oral Taking Creon 79738-134971 UNIT Capsule Delayed Release Particles TAKE 1 CAPSULE (36,000 UNITS OF LIPASE TOTAL) BY MOUTH 3 (THREE) TIMES A DAY WITH MEALS. Oral Taking Omeprazole 20 MG Capsule Delayed Release 1 capsule 1/2 to 1 hour before morning meal Orally Once a day Medication List reviewed and reconciled with the patient * Allergies: N o Known Drug Allergyno[Allergies Verified] Objective: * Vitals: H t: 62, Wt:140, BMI:25.6, BP:97/45, HR:70, Temp:97.2, Wt-k.5. * Examination: G eneral Examination: GENERAL APPEARANCE: p leasant, well nourished, well developed, in no acute distress, calm and relaxed: overweight: woman. HEAD: a traumatic, normocephalic. EYES: e [...] auscultation . BREASTS: N ot examined. ABDOMEN: b owel sounds normal, no ascites, no organomegaly, no mass: overweight. RECTAL EXAM: n ot examined. MUSCULOSKELETAL: e [...] oxaliplatin. A resection was then attempted at [facility] but the tumor was inoperable. She was then treated aggressively with intraoperative radiation therapy. She then received adjuvant chemotherapy at [facility] in [facility]. She has finished her treatment at this point and is being observed at 4 month intervals. 2 . S quamous cell carcinoma of left lung - C34.92 N otes :There was no sign of recurrent lung cancer on today's examination. 3 . C hronic cough - R05 N otes :Her cough continues but she has had no hemoptysis. 4 . O verweight (BMI 25.0-29.9) - E66.3 N otes :Her body mass index is 29. I recommended she stabilize her weight at this level until her treatment is done. 5 . A cquired hypothyroidism - E03.9 N otes :She has been compliant with her thyroid medication and her levels are euthyroid. 6 . T remor - R25.1 N otes :There has been no change in the mild tremor. 7 . H ypercholesterolemia - E78.00 N otes :The current lipid profile shows continued good control of her lipids. No change in her regimen is needed. 8 . F ormer smoker - Z87.891 N otes :She seems motivated not to smoke. We discussed means by which relapse could be prevented in times of stress and illness. Plan: * Treatment: * Procedure Codes: * Preventive Medicine: Counseling: C are goal follow-up plan: Counseling for abnormal BMI given Y es Above Normal BMI Follow-up D ietary management education, guidance, and counseling S moking/Tobacco Use Patient counseled on the dangers of tobacco use and urged to quit. 0 11/18/2024 * Follow Up: 3 Months (Reason: ov) * Images: * Sign off status: Completed true * Provider: Akua Head MD Date: 0 11/18/2024 Generated for Chanelle rosado/Jesusita/Jaswinderitting on: 1 05/24/2024 01:27 PM EST History and Physical Notes * HPI (History of Present Illness) Category Sub-Category Detail Notes COVID-19 Screening Questions Have you had any new onset fever, chills, cough, congestion, sore throat, shortness of breath, muscle aches?: No Examination Category Sub-Category Detail Notes General Examination GENERAL APPEARANCE: pleasant , well nourished, well developed, in no acute distress, calm and relaxed: overweight: woman HEAD: atraumatic, normocep halic EYES: eomi, perrla, anicte rose, conjugate EARS: normal NOSE: septum intact NECK/THYROID: no jugular venous di stention, no carotid bruit, thyroid normal HEART: no clicks, gallops, murmurs, or rubs, regular rhythm, S1, S2 normal, no s3, or vascular bruits LUNGS: clear to auscultatio n ABDOMEN: bowel sounds normal, no ascites, no organomegaly, no mass: overweight NEUROLOGIC: alert and oriented, cranial nerves 2-12 [...]
--- OUTSIDE RECORDS SUMMARY | 2024-11-26 06:38 | XMS_ITS ---
Author Organization Vimal Head III, MD Address [address] [place] [address] [place] [address] Care Team Providers Care Physicist Astrophysics Name Role Phone Mindy Saunders ([place]) Primary Care Provider Un available Dr. Vimal Head III Unavailable REASON FOR VISIT Rx Request Medications Medication SIG (Take, Route, Frequency, Duration) Notes Start Date End Date Status Ciprofloxacin HCl 250 MG 1 tablet Orally every 12 hrs for 7 days 11/26/2024 12/03/2024 Active Social History Sex Assigned At : Social History Observation Description Sex Assigned At Female Encounters Encounter Location Date Provider Diagnosis Vimal Head III, MD [address] [place] [address] [place] [address] 11/26/2024 Vimal Head Plan Of Treatment Medication Medication Name Sig Start Date Stop Date Notes Ciprofloxacin HCl 250 MG 1 tablet Orally every 12 hrs for 7 days 11/26/2024 12/03/2024 Next Appt Details Provider Name:Vimal Head , 09/21/2025 10:30:00 AM, [address] [place] [address] [place], [address], Progress Notes * SYDNIE BOLANOSDOB:1950 ([age] yo F)Acc No.[id number]:11/26/2024 Patient: SYDNIE CARVALHO :1950 A ge:74 Y S ex:Female Address:[address] [place] [address], [place], [address] * Refills Start Ciprofloxacin HCl Tablet, 250 MG, Orally, 14 Tablet, 1 tablet, every 12 hrs, 7 days, Refills=0 * true * Date: Generated for Chanelle rosado/Jesusita/Luciasmitting on: 1 05/24/2024 01:25 PM EST
--- OUTSIDE RECORDS SUMMARY | 2024-11-26 10:59 | XMS_ITS ---
Author Organization Vimal Head III, MD Address [address] [place] [address] [place] [address] Care Team Providers Care Pipe And Boiler Covers Supervisor Name Role Phone Mindy Saunders ([place]) Primary Care Provider Un available Dr. Vimal [...] Date Provider Diagnosis Vimal Head III, MD [address] [place] [address] [place] [address] 11/26/2024 Vimal Head Plan Of Treatment Medication Medication Name Sig Start Date Stop Date Notes Ciprofloxacin HCl 250 MG 1 tablet Orally every 12 hrs for 7 days 11/26/2024 12/03/2024 Next Appt Details Provider Name:Vimal Head , 09/21/2025 10:30:00 AM, [address] [place] [address] [place], [address], Progress Notes * SYDNIE BOLANOSDOB:1950 ([age] yo F)Acc No.[id number]:11/26/2024 Patient: SYDNIE CARVALHO :1950 A ge:74 Y S ex:Female Address:[address] [place] [address], [place], [address] * Refills Start Ciprofloxacin HCl Tablet, 250 MG, Orally, 14 Tablet, 1 tablet, every 12 hrs, 7 days, Refills=0 * true * Date: Generated for Chanelle rosado/Jesusita/Luciasmitting on: 1 05/24/2024 01:28 PM EST
--- NOTE | ~2025-03-23 | XR_ITS ---
EXAMINATION: XR ANKLE, LEFT CLINICAL INFORMATION: M25.572 - Pain in left ankle and joints of left foot ; lateral swelling and pain 3 weeks after fall. COMPARISON: None available. TECHNIQUE: AP, lateral, and mortise views of the left ankle. FINDINGS: There is a subacute appearing nondisplaced fracture of the tip of the lateral malleolus. There are tiny avulsion fractures arising from the tip of the medial malleolus, as well as the far medial talus abutting the medial malleolus. No definite posterior malleolar fracture. The subtalar joints appear normal. There is a small dorsal calcaneal spur. There is an ankle joint effusion and there is diffuse soft tissue swelling about the ankle. XR/XR ankle LT min 3V IMPRESSION: 1. Nondisplaced fracture tip of the lateral malleolus. 2. Tiny avulsion fractures arising from the medial malleolus tip. 3. Diffuse soft tissue swelling. Electronically signed by: Steven Webber MD 03/23/2025 11:06 AM REBECA
--- OUTSIDE RECORDS SUMMARY | 2025-03-23 05:00 | XMS_ITS ---
Author Organization Vimal Head III, MD Address [address] [place] [address] Care Team Providers Care Hazardous Material Specialist Name Role Phone CarterMindy Lott ([place]) Primary Care Provider Un available Dr. Vimal Head III Unavailable Allergies Allergen (clinical drug ingredient) Drug/Non Drug Allergy documented on EMR Reaction Allergy Type Onset Date Status No Known Drug Allergy Unknown Drug Allergy Active REASON FOR VISIT Followup Medications Medication SIG (Take, Route, Frequency, Duration) Notes Start Date End Date Status Omeprazole 20 MG 1 capsule 1/2 to 1 h our before morning meal Orally Once a day 08/18/2024 Active Creon [id number] UNIT TAKE 1 CAPSULE ( 36,000 UNITS OF LIPASE TOTAL) BY MOUTH 3 (THREE) TIMES A DAY WITH MEALS. Oral Active clonazePAM 1 MG (Schedule IV Drug) T MALIA 1 TABLET BY MOUTH EVERY DAY AT BEDTIME Oral Active Levothyroxine Sodium 112 MCG TAKE 1 TABL ET BY MOUTH ONCE A DAY Oral Active Atorvastatin Calcium 20 MG TAKE 1 TABLET BY MOUTH EVERY DAY Oral Active Propranolol HCl ER 80 MG TAKE ONE CAPSUL E BY MOUTH TWICE A DAY Oral Active Social History Tobacco Use: [...] Non-User Ex-cigaret te smoker Vital Signs Temperature 96.8 degrees Fahrenheit 03/23/20 25 Blood pressure systolic 122 mm Hg 03/23/20 25 Blood pressure diastolic 56 mm Hg 025 Heart Rate 74 /min 03/23/2025 Height 62 in 03/23/2025 Weight 149 lbs 03/23/2025 BMI 27.25 kg/m2 03/23/2025 Encounters Encounter Location Date Provider Diagnosis Vimal Head III, MD [address] [place] [address] [place] [id number] 03/23/2025 Vimal Head Malignant neoplasm of head of pancreas C25.0 Assessments Encounter Date Diagnosis (ICD Code) Assessment Notes Treatment Notes Treatment Clinical Notes 03/23/2025 Malignant neoplasm of head of pancreas (ICD-10 - C25.0) When the tumor was discovered she was treated with neoadjuvant chemotherapy consisting of fluorouracil, leucovorin, irinotecan and oxaliplatin. A resection was then attempted at [facility] but the tumor was inoperable. She was then treated aggressively with intraoperative radiation therapy. She then received adjuvant chemotherapy at [facility] in [facility]. She has finished her treatment at this point and is being observed at 4 month intervals. Plan Of Treatment Medication Medication Name Sig Start Date Stop Date Notes Omeprazole 20 MG 1 capsule 1/2 to 1 h our before morning meal Orally Once a day 08/18/2024 Creon [id number] UNIT TAKE 1 CAPSULE ( 36,000 UNITS OF LIPASE TOTAL) BY MOUTH 3 (THREE) TIMES A DAY WITH MEALS. Oral clonazePAM 1 MG (Schedule IV Drug) T MALIA 1 TABLET BY MOUTH EVERY DAY AT BEDTIME Oral Levothyroxine Sodium 112 MCG TAKE 1 TABL ET BY MOUTH ONCE A DAY Oral Atorvastatin Calcium 20 MG TAKE 1 TABLET BY MOUTH EVERY DAY Oral Propranolol HCl ER 80 MG TAKE ONE CAPSUL E BY MOUTH TWICE A DAY Oral Next Appt Details Provider Name:Vimal Head , 09/21/2025 10:30:00 AM, [address] [place] [address] [address]UR[address] ABURTO, [place], [phone], Progress Notes * LEYLA BOLANOS:1950 ([age] yo F)Acc No.[id number]:03/23/2025 Progress Notes Patient: SYDNIE CARVALHO Provider: Akua Head MD :1950 A ge:74 Y S ex:Female Date:03/23/2025 Address:[address] [place] [address], [place], [id number] Pcp:Mindy Saunders ([place]) Subjective: * Chief Complaints: * 1 . Followup. * HPI: C OVID-19 Screening: lung and pancreas ok,. Questions H ave you had any new [...] Depressed mood d enies. 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 2018, Former smoker, Chronic cough, Obesity, Duodenitis. * Surgical History: r emoval of polyp fron the larynx 12 yrs ago, upper endoscopy Dr Anand 07/2022, Surgery for pancreatic tumor on november 0410/2023, Left thoracotomy . * Hospitalization/Major Diagno stic Procedure: H ospitalized at [facility] for surgery on november 0410/2023. * Family History: F ather: 65 yrs, [...] x-cigarette smoker S he was born in [place], [place]. She has been to Morteza, who she calls Empathica, since 1974. They are both retired school teachers. They have 2 children, Sofía and Angélica, and 2 grandchildren. They live in [place]. She began smoking at the age of 20 and stopped recently. * Medications: T aking Propranolol HCl ER 80 MG Capsule Extended Release 24 Hour TAKE ONE CAPSULE BY MOUTH TWICE A DAY Oral , Taking Atorvastatin Calcium 20 MG Tablet TAKE 1 TABLET BY MOUTH EVERY DAY Oral , Taking Levothyroxine Sodium 100 MCG Capsule TAKE 1 TABLET BY MOUTH ONCE A DAY Oral , Taking clonazePAM 1 MG Tablet (Schedule IV Drug) TAKE 1 TABLET BY MOUTH EVERY DAY AT BEDTIME Oral , Taking Creon [id number] UNIT Capsule Delayed Release Particles TAKE 1 CAPSULE (36,000 UNITS OF LIPASE TOTAL) BY MOUTH 3 (THREE) TIMES A DAY WITH MEALS. Oral , Taking Omeprazole 20 MG Capsule Delayed Release 1 capsule 1/2 to 1 hour before morning meal Orally Once a day , Medication List reviewed and reconciled with the patient * Allergies: N o Known Drug Allergy. Objective: * Vitals: H t: 62, Wt:149, BMI:27.25, BP:122/56, HR:74, Temp:96.8, Wt-k.59. * Examination: G eneral Examination: GENERAL APPEARANCE: p leasant, well nourished, well developed, in no acute distress, calm and relaxed. HEAD: a traumatic, normocephalic. EYES: e susan, [...] LUNGS: c lear to auscultation . BREASTS: no masses palpable bilaterally. ABDOMEN: b owel sounds normal, no ascites, no organomegaly, no mass. RECTAL EXAM: n ot examined. MUSCULOSKELETAL: e xtremities unremarkable, no clubbing, cyanosis or edema. PERIPHERAL PULSES: n ormal. NEUROLOGIC: a lert and oriented, cranial nerves 2-12 grossly intact, deep tendon reflexes 2+ symmetrical, motor strength normal upper and lower extremities, sensory exam intact. PSYCH: a lert, oriented. Assessment: * Assessment: 1. M alignant neoplasm of head of pancreas - C25.0 N otes :When the tumor was discovered she was treated with neoadjuvant chemotherapy consisting of fluorouracil, leucovorin, irinotecan and oxaliplatin. A resection was then attempted at [facility] but the tumor was inoperable. She was then treated aggressively with intraoperative radiation therapy. She then received adjuvant chemotherapy at [facility] in [facility]. She has finished her treatment at this point and is being observed at 4 month intervals. Plan: * Treatment: * Images: * The named appointment provid er may or may not be the originator of this progress note, and it is not deemed complete until electronically signed by the appointment provider. Sign off status: Pending * Provider: Akua Head MD Date: 05/24/2024 Generated for Chanelle rosado/Jesusita/Jaswinderitting on: 05/24/2024 01:26 PM EST History and Physical Notes * HPI (History of Present Illness) Category Sub-Category Detail Notes COVID-19 Screening Questions Have you had any new onset fever, chills, cough, congestion, sore throat, shortness of breath, muscle aches?: No Examination Category Sub-Category Detail Notes General Examination GENERAL APPEARANCE: pleasant , well nourished, well developed, in no acute distress, calm and relaxed HEAD: atraumatic, normocep halic EYES: eomi, perrla, anicte rose, conjugate EARS: normal NOSE: septum intact NECK/THYROID: no jugular venous di stention, no carotid bruit, thyroid normal HEART: no clicks, gallops, murmurs, or rubs, regular rhythm, S1, S2 normal, no s3, or vascular bruits LUNGS: clear to auscultatio n ABDOMEN: bowel sounds normal, no ascites, no organomegaly, no mass NEUROLOGIC: alert and oriented, cranial nerves 2-12 grossly intact, deep tendon reflexes 2+ symmetrical, motor strength normal upper and lower extremities, sensory exam intact SKIN: no suspicious lesion s, anicteric PERIPHERAL PULSES: normal BREASTS: no masses palpable b ilaterally MUSCULOSKELETAL: extremities unremark able, no clubbing, cyanosis or edema LYMPH NODES: no enlarged lymph no joseph,spleen normal RECTAL EXAM: not examined PSYCH: alert, oriented ORAL CAVITY: normal, unremarkable
--- OUTSIDE RECORDS SUMMARY | 2025-03-23 13:26 | XMS_ITS | Encounter Summary ---
Author Organization [facility] Address [address] [place] [id number] Care Team Providers Care Gun Repair Clerk Name Role Phone Mindy Saunders MD Primary Care Provider Encounter Details Date Type Department Care Team (Latest Contact Info) Description 12/15/2024 Lab Requisition [facility] [address] [facility] [place] [address] Kameron Evans MD [address] [address] Encounter for gynecological examination (general) [...] lesion or malignancy 12/18/2024 8:37 AM EDT [facility] at 0837 EDT General Categorization Negative 12/18/2024 8:37 AM EDT [facility] Specimen Adequacy Satisfactory for evaluation, endocervical/bobby sformation zone component present 12/18/2024 8:37 AM EDT [facility] Pap Methodology Liquid Based Pap Test 12/18/2024 8:37 AM EDT [facility] Disclaimer The Pap test is a screening test which carries an inherent false negative rate. These test results should be correlated with the patient's clinical findings and history. This Pap test was processed using an automated screening system. Technical cytopathology services provided by [facility], at [address] [place] [address] (CLIA # [id number]/Kaitlyn Choi MD, Horticulture Worker.) 12/18/2024 8:37 AM EDT [facility] Console Pap Interpretation Reported 12/18/2024 8:37 AM EDT [facility] Brushing/Spatula Cervix uteri structure / Unknown 12/14/2024 12/15/2024 7:13 AM EDT us Kameron Eavns MD LAB CYTOLOGY ORDERABLES Final Result [facility] [address] [place] [address], documented in this encounter Visit Diagnoses Diagnosis Encounter for gynecological examination (general) (routine) without abnormal findings documented in this encounter Care Teams Gun Repair Clerk Relationship Specialty Start Date End Date Mindy Saunders MD [address] [place] [address] PCP - General Internal Medicine 12/15/24 documented as of this encounter
--- OUTSIDE RECORDS SUMMARY | 2025-03-23 13:26 | XMS_ITS | Encounter Summary ---
Author Organization [facility] Address [address] [place] [address] Phone Care Team Providers Care Commissary Steward Name Role Phone Florentino Medeiros MD Primary Care Provider Charity Phoenix MBBS Unavailable [phone] Nancy Contreras CNP Unavailable Mindy Lin MD Primary Care Provider [phone] Mary Lou Mcfarland PA-C Unavailable [phone] Encounter Details Date Type Department Care Team (Late st Contact Info) Description 09/03/2023 Procedure Pass [facility], Ct Scan - [facility] [address] [place] [address] Social History Tobacco Use Types Packs/Day Years [...] 8:55 PM EST Sexual Orientation Straight 05/17/2023 8 :55 PM EST documented as of this encounter Plan of Treatment Upcoming Encounters Date Type Department Care Team (Late st Contact Info) Description 02/01/2025 Procedure Pass [address] [address] 02/01/2025 Procedure Pass [address] [address] 03/24/2025 10:00 AM EST Infusion [facility] at [address] [address] Charity Phoenix MBBS [address] [place] [address] [email or web address] 04/29/2025 11:15 AM EST Appointment [address] [address] Charity Phoenix MBBS [address] [place] [address] [email or web address] 05/06/2025 10:00 AM EST Blood Draw [facility] [address] [address] Charity Phoenix MBBS [address] [place] [address] [email or web address] 05/06/2025 11:00 AM EST Office Visit [facility] at [place] [address] [place] [address] Charity Phoenix MBBS [address] [place] [address] [email or web address] documented as of this encounter Visit Diagnoses Not on filedocumented in this encounter Additional Health Concerns Infection Onset Date Last Indicated Resolved Time CoV-Risk 05/16/2024 05/16/2024 05/27/2024 1:22 AM EST Influenza A 05/16/2024 05/16/2024 05/23/2024 1:22 AM EST documented as of this encounter Care Teams Commissary Steward Relationship Specialty Start Date End Date Florentino Medeiros MD [address] [place] [address] Dr RICHARDS [address] [place] [address] PCP - General Internal Medicine 10/17/19 07/15/24 Mindy Lin MD [address] [place] [address] PCP - General Internal Medicine 07/16/24 Charity Phoenix MBBS [address] [place] [address] Dr RICHARDS [address] [place] [address] [email or web address] Primary Oncologist Hematology and Oncology 02/04/23 Nancy Contreras CNP [address] [place] [address] [email or web address] Nurse Practitioner Medical Oncology 05/16/23 Mary Lou Mcfarland PA-C [address] [place] [address] [email or web address] Physician Barrel Painter 01/11/25 documented as of this encounter Additional Source Comments The information contained in this document represents components of the legal health record. It is not the complete legal health record.[facility]
--- OUTSIDE RECORDS SUMMARY | 2025-03-23 13:26 | XMS_ITS | Clinical Summary ---
Author Organization 299 [facility] Address [address] [place] [address] Phone Care Team Providers Care Sleeve Tailor Name Role Phone Mindy Saunders MD Primary Care Provider [phone] Social History Tobacco Use Types Packs/Day Years [...] complete this topic Insurance MEDICARE Care Teams Sleeve Tailor Relationship Specialty Start Date End Date Mindy Saunders MD [address] [place] [phone] PCP - General Internal Medicine 12/15/24
--- OUTSIDE RECORDS SUMMARY | 2025-03-23 13:26 | XMS_ITS | Encounter Summary ---
Author Organization [facility] Address [address] [place] [address] Phone Care Team Providers Care Substation Superintendent Name Role Phone Florentino Medeiros MD Primary Care Provider Charity Phoenix MBBS Unavailable [phone] Nancy Contreras CNP Unavailable Mindy Lin MD Primary Care Provider Mary Lou Mcfarland PA-C Unavailable [phone] Encounter Details Date Type Department Care Team (Late st Contact Info) Description 09/03/2023 Procedure Pass [facility] [address] [place] [address] Social History Tobacco Use Types Packs/Day Years [...] Contact Info) Description 02/01/2025 Procedure Pass [address] [address] 02/01/2025 Procedure Pass [address] [address] 03/24/2025 10:[address] [facility] at [address] [address] Charity Phoenix MBBS [address] [place] [address] [email or web address] 04/29/2025 11:15 AM EST Appointment [address] [address] Charity Phoenix MBBS [address] [place] [address] [email or web address] 05/06/2025 10:00 AM EST Blood Draw [facility] Phleb [address] [address] Charity Phoenix MBBS [address] [place] [address] [email or web address] 05/06/2025 11:00 AM EST Office Visit [facility] at [place] [address] [place] [address] Charity Phoenix MBBS [address] [place] [address] [email or web address] documented as of this encounter Visit Diagnoses Not on filedocumented in this encounter Additional Health Concerns Infection Onset Date Last Indicated Resolved Time CoV-Risk 05/16/2024 05/16/2024 05/27/2024 1:22 AM EST Influenza A 05/16/2024 05/16/2024 05/23/2024 1:22 AM EST documented as of this encounter Care Teams Substation Superintendent Relationship Specialty Start Date End Date Florentino Medeiros MD [address] [place] [address] Dr RICHARDS [address] [place] [address] PCP - General Internal Medicine 10/17/19 07/15/24 Mindy Lin MD [address] [place] [address] PCP - General Internal Medicine 07/16/24 Charity Phoenix MBBS [address] [place] [address] Dr RICHARDS [address] [place] [address] [email or web address] Primary Oncologist Hematology and Oncology 02/04/23 Nancy Contreras CNP [address] [place] [address] [email or web address] Nurse Practitioner Medical Oncology 05/16/23 Mary Lou Mcfarland PA-C [address] [place] [address] [email or web address] Physician Event Specialist Food Demonstrator 01/11/25 documented as of this encounter Additional Source Comments The information contained in this document represents components of the legal health record. It is not the complete legal health record.[facility]
--- OUTSIDE RECORDS SUMMARY | 2025-03-23 13:26 | XMS_ITS | Encounter Summary ---
Author Organization [facility] Address [address] [place] [address] Phone Care Team Providers Care Loader Malt House Name Role Phone Florentino Medeiros MD Primary Care Provider Charity Phoenix MBBS Unavailable Nancy Contreras CNP Unavailable Mindy Lin MD Primary Care Provider Mary Lou Mcfarland PA-C Unavailable Encounter Details Date Type Department Care Team (Late st Contact Info) Description 02/18/2023 Procedure Pass [facility] Cardiovascular And Interventional Radiology [address] [place] [address] Social History Tobacco Use Types Packs/Day Years [...] st Contact Info) Description 02/01/2025 Procedure Pass [address] [address] 02/01/2025 Procedure Pass [address] [address] 03/24/2025 10:00 AM EST Infusion [facility] at [address] [address] Charity Phoenix MBBS [address] [place] [address] [email or web address] 04/29/2025 11:15 AM EST Appointment [address] [address] Charity Phoenix MBBS [address] [place] [address] [email or web address] 05/06/2025 10:00 AM EST Blood Draw [facility] Phleb [address] [address] Charity Phoenix MBBS [address] [place] [address] [email or web address] 05/06/2025 11:00 AM EST Office Visit [facility] at [place] [address] [place] [address] Charity Phoenix MBBS [address] [place] [address] [email or web address] documented as of this encounter Visit Diagnoses Not on filedocumented in this encounter Additional Health Concerns Infection Onset Date Last Indicated Resolved Time CoV-Risk 05/17/2023 05/17/2023 05/28/2023 1:23 AM EST CoV-Risk 05/16/2024 05/16/2024 05/27/2024 1:22 AM EST Influenza A 05/16/2024 05/16/2024 05/23/2024 1:22 AM EST documented as of this encounter Care Teams Loader Malt House Relationship Specialty Start Date End Date Florentino Medeiros MD [address] [place] [address] Dr RICHARDS [address] [place] [address] PCP - General Internal Medicine 10/17/19 07/15/24 Mindy Lin MD [address] [place] [address] PCP - General Internal Medicine 07/16/24 Charity Phoenix MBBS [address] [place] [address] [place] [address] [email or web address] Primary Oncologist Hematology and Oncology 02/04/23 Nancy Contreras CNP [address] [place] [address] [email or web address] Nurse Practitioner Medical Oncology 05/16/23 Mary Lou Mcfarland PA-C [address] [place] [address] Physician Otolaryngologist 01/11/25 documented as of this encounter Additional Source Comments The information contained in this document represents components of the legal health record. It is not the complete legal health record.[facility]
--- OUTSIDE RECORDS SUMMARY | 2025-03-23 13:27 | XMS_ITS | Encounter Summary ---
Author Organization [facility] Address [address] [place] [address] Phone Care Team Providers Care Fire Production Operator Name Role Phone Florentino Medeiros MD Primary Care Provider Charity Phoenix MBBS Unavailable [phone] Nancy Contreras CNP Unavailable Mindy Lin MD Primary Care Provider [phone] Mary Lou Mcfarland PA-C Unavailable [phone] Encounter Details Date Type Department Care Team (Late st Contact Info) Description 06/27/2024 Procedure Pass [facility], Ct Scan - [facility] [address] [place] [address] Social History Tobacco Use Types Packs/Day Years [...] 7:03 AM EDT Shin Gaines, ANH * [place] Suicide Severity Rating Scale (Screener/Recent Self-Report) Question [...] (Late st Contact Info) Description 02/01/[address] [address] 02/01/[address] [address] 03/24/2025 10:00 AM EST Infusion [facility] at [address] [address] Charity Phoenix [address] [address] [email or web address] 04/29/2025 11:15 AM EST Appointment [facility], Ct Scan - [address] [address] Charity Phoenix MBBS [address] [place] [address] [email or web address] 05/06/2025 10:00 AM EST Blood Draw [facility] Phleb [address] [address] Charity Phoenix MBBS [address] [place] [address] [email or web address] 05/06/2025 11:00 AM EST Office Visit [facility] at [address] [address] Charity Phoenix MBBS [address] [place] [address] [email or web address] documented as of this encounter Visit Diagnoses Not on filedocumented in this encounter Care Teams Fire Production Operator Relationship Specialty Start Date End Date Florentino Medeiros MD [address] [place] [address] [place] [address] PCP - General Internal Medicine 10/17/19 07/15/24 Mindy Lin MD [address] [place] [address] PCP - General Internal Medicine 07/16/24 Charity Phoenix MBBS [address] [place] [address] [place] [address] [email or web address] .[email or web address] Primary Oncologist Hematology and Oncology 02/04/23 Nancy Contreras CNP [address] [place] [address] Nurse Practitioner Medical Oncology 05/16/23 Mary Lou Mcfarland PA-C [address] [place] [address] Physician Fowl Blood Tester 01/11/25 documented as of this encounter Additional Source Comments The information contained in this document represents components of the legal health record. It is not the complete legal health record.[facility]
--- OUTSIDE RECORDS SUMMARY | 2025-03-23 13:27 | XMS_ITS | Encounter Summary ---
Author Organization [facility] Address [address] [place] [address] Phone Care Team Providers Care Cone Machine Operator Name Role Phone Florentino Medeiros MD Primary Care Provider Charity Phoenix MBBS Unavailable Nancy Contreras CNP Unavailable Mindy Lin MD Primary Care Provider Mary Lou Mcfarland PA-C Unavailable Encounter Details Date Type Department Care Team (Late st Contact Info) Description 07/02/2024 Procedure Pass [facility], Ct Scan - [facility] 30 [place] [address] Social History Tobacco Use Types Packs/Day Years [...] st Contact Info) Description 02/01/2025 Procedure Pass [address] [address] 02/01/2025 Procedure Pass [address] [address] 03/24/2025 10:00 AM EST Infusion [facility] at [address] [address] Charity Phoenix MBBS [address] [place] [address] [email or web address] 04/29/2025 11:15 AM EST Appointment [address] [address] Charity Phoenix MBBS [address] [place] [address] [email or web address] 05/06/2025 10:00 AM EST Blood Draw [facility] Phleb MG 30 [place] [address] Charity Phoenix MBBS 30 [place] [address] [email or web address] 05/06/2025 11:00 AM EST Office Visit [facility] at [place] [address] [place] [address] Charity Phoenix MBBS [address] [place] [address] [email or web address] documented as of this encounter Visit Diagnoses Not on filedocumented in this encounter Care Teams Cone Machine Operator Relationship Specialty Start Date End Date Florentino Medeiros MD [address] [place] [address] [place] [address] PCP - General Internal Medicine 10/17/19 07/15/24 Mindy Lin MD [address] [place] [address] PCP - General Internal Medicine 07/16/24 Charity Phoenix MBBS [address] [place] [address] [place] [address] [email or web address] Primary Oncologist Hematology and Oncology 02/04/23 Nancy Contreras CNP [address] [place] [address] [email or web address] Nurse Practitioner Medical Oncology 05/16/23 Mary Lou Mcfarland PA-C [address] [place] [address] [email or web address] Physician Train Control Technician 01/11/25 documented as of this encounter Additional Source Comments The information contained in this document represents components of the legal health record. It is not the complete legal health record.[facility]
--- OUTSIDE RECORDS SUMMARY | 2025-03-23 13:27 | XMS_ITS | Encounter Summary ---
Author Organization [facility] Address [address] [place] [address] Phone Care Team Providers Care Principal Archaeologist Name Role Phone Florentino Medeiros MD Primary Care Provider Charity Phoenix MBBS Unavailable Nancy Contreras CNP Unavailable Mindy Lin MD Primary Care Provider Mary Lou Mcfarland PA-C Unavailable Encounter Details Date Type Department Care Team (Late st Contact Info) Description 01/22/2023 Procedure Pass [facility], Parve[place] [address] [facility], 2nd Floor, [address] [place] [address] Social History Tobacco Use Types Packs/Day Years [...] st Contact Info) Description 02/01/2025 Procedure Pass [address] [address] 02/01/[address] [address] 03/24/2025 10:00 AM EST Infusion [facility] at [address] [address] Charity Phoenix MBBS [address] [place] [address] [email or web address] 04/29/2025 11:15 AM EST Appointment [address] [address] Charity Phoenix MBBS [address] [place] [address] [email or web address] 05/06/2025 10:00 AM EST Blood Draw [facility] Phleb [address] [address] Charity Phoenix MBBS [address] [place] [address] [email or web address] 05/06/2025 11:00 AM EST Office Visit [facility] at [facility] 30 [place] [address] Charity Phoenix MBBS 30 [place] [address] [email or web address] documented as of this encounter Visit Diagnoses Not on filedocumented in this encounter Additional Health Concerns Infection Onset Date Last Indicated Resolved Time CoV-Risk 05/17/2023 05/17/2023 05/28/2023 1:23 AM EST CoV-Risk 05/16/2024 05/16/2024 05/27/2024 1:22 AM EST Influenza A 05/16/2024 05/16/2024 05/23/2024 1:22 AM EST documented as of this encounter Care Teams Principal Archaeologist Relationship Specialty Start Date End Date Florentino Medeiros MD [address] [place] [address] Dr RICHARDS [address] [place] [address] PCP - General Internal Medicine 10/17/19 07/15/24 Mindy Lin MD [address] [place] [address] PCP - General Internal Medicine 07/16/24 Charity Phoenix MBBS [address] [place] [address] Dr RICHARDS [address] [place] [address] [email or web address] Primary Oncologist Hematology and Oncology 02/04/23 Nancy Contreras CNP [address] [place] [address] [email or web address] Nurse Practitioner Medical Oncology 05/16/23 Mary Lou Mcfarland PA-C [address] [place] [address] [email or web address] Physician Insulator Tester 01/11/25 documented as of this encounter Additional Source Comments The information contained in this document represents components of the legal health record. It is not the complete legal health record.[facility]
--- OUTSIDE RECORDS SUMMARY | 2025-03-23 13:27 | XMS_ITS | Encounter Summary ---
Author Organization [facility] Address [address] [place] [address] Phone Care Team Providers Care Mba Internship Name Role Phone Florentino Medeiros MD Primary Care Provider Charity Phoenix MBBS Unavailable Nancy Contreras CNP Unavailable Mindy Lin MD Primary Care Provider Mary Lou Mcfarland PA-C Unavailable [phone] Encounter Details Date Type Department Care Team (Late st Contact Info) Description 06/27/2024 Procedure Pass [facility], Ct Scan - [facility] [address] [place] [address] Social History Tobacco Use Types Packs/Day Years [...] 7:03 AM EDT Shin Gaines, ANH * [place] Suicide Severity Rating Scale (Screener/Recent Self-Report) Question [...] (Late st Contact Info) Description 02/01/[address] [address] 02/01/[address] [address] 03/24/2025 10:00 AM EST Infusion [facility] at [address] [address] Charity Phoenix [address] [address] [email or web address] 04/29/2025 11:15 AM EST Appointment [facility], Ct Scan - [address] [address] Charity Phoenix MBBS [address] [place] [address] [email or web address] 05/06/2025 10:00 AM EST Blood Draw [facility] Phleb [address] [address] Charity Phoenix MBBS [address] [place] [address] [email or web address] 05/06/2025 11:00 AM EST Office Visit [facility] at [address] [address] Charity Phoenix MBBS [address] [place] [address] [email or web address] documented as of this encounter Visit Diagnoses Not on filedocumented in this encounter Care Teams Mba Internship Relationship Specialty Start Date End Date Florentino Medeiros MD [address] [place] [address] [place] [address] PCP - General Internal Medicine 10/17/19 07/15/24 Mindy Lin MD [address] [place] [address] PCP - General Internal Medicine 07/16/24 Charity Phoenix MBBS [address] [place] [address] [place] [address] [email or web address] Primary Oncologist Hematology and Oncology 02/04/23 Nancy Contreras CNP [address] [place] [address] Nurse Practitioner Medical Oncology 05/16/23 Mary Lou Mcfarland PA-C [address] [place] [address] Physician Windchill Administrator 01/11/25 documented as of this encounter Additional Source Comments The information contained in this document represents components of the legal health record. It is not the complete legal health record.[facility]
--- OUTSIDE RECORDS SUMMARY | 2025-03-23 13:27 | XMS_ITS | Patient Health Record ---
Author Organization Vimal Head III, MD Address [address] [place] [address] [address] [place] [address] Care Team Providers Care Fabric Inspector Name Role Phone CarterMindy Lott ([place]) Primary Care Provider Un available Dr. Vimal [...] Orally Once a day 08/18/2024 Active Creon [id number] UNIT TAKE 1 CAPSULE ( 36,000 UNITS [...] Problem Status W/U Status Risk Notes Problem 97685556 Chronic cough (R05) Active confirmed Her cough continues but she has had no hemoptysis. Problem 0946078 Former smoker (Z87.891) Active confirmed She seems motivated not to smoke. We discussed means by which relapse could be prevented in times of stress and illness. Problem 597993274 Overweight (BMI 25.0-29.9) (E66.3) Active confirmed Her body mass index is 29. I recommended she stabilize her weight at this level until her treatment is done. Problem 656844468 Malignant neoplasm of head of pancreas (C25.0) Active confirmed When the tumor was discovered she was treated with neoadjuvant chemotherapy consisting of fluorouracil, leucovorin, irinotecan and oxaliplatin. A resection was then attempted at [facility] but the tumor was inoperable. She was then treated aggressively with intraoperative radiation therapy. She then received adjuvant chemotherapy at [facility] in [facility]. She has finished her treatment at this point and is being observed at 4 month intervals. Problem 946593247 Acquired hypothyroidism (E03.9) Active confirmed She has been compliant with her thyroid medication and her levels are euthyroid. 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 Problem 86161101 Hypercholestero lemia (E78.00) Active confirmed The current lipid profile shows continued good control of her lipids. No change in her regimen is needed. Problem 90929213 Tremor (R25.1) Active confirmed There has been no change in the mild tremor. 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 Villanueva. She continues with hoarseness. Vital Signs Heart Rate 74 /min 03/23/2025 Temperature 96.8 degrees Fahrenheit 03/23/2025 Blood pressure diastolic 56 mm Hg 03/23/2025 Height 62 in 03/23/2025 Blood pressure systolic 122 mm Hg 03/23/2025 Weight 149 lbs 03/23/2025 BMI 27.25 kg/m2 03/23/2025 Encounters Encounter Location Date Provider Diagnosis Vimal Head III, MD [address] [place] [address] [place] [address] 03/23/2025 Vimal Head Malignant neoplasm o f head of pancreas C25.0 Vimal Head III, MD [address] [place] [address] [place] [address] 08/18/2024 Vimal Head Malignant neoplasm o f head of pancreas C25.0 ; Squamous cell carcinoma of left lung C34.92 ; Acquired hypothyroidism E03.9 ; Chronic cough R05 ; Overweight (BMI 25.0-29.9) E66.3 and Former smoker Z87.891 Vimal Head III, MD [address] [place] [address] [place] [address] 11/18/2024 Vimal Head Malignant neoplasm o f head of pancreas C25.0 ; Squamous cell carcinoma of left lung C34.92 ; Chronic cough R05 ; Overweight (BMI 25.0-29.9) E66.3 ; Acquired hypothyroidism E03.9 ; Tremor R25.1 ; Hypercholesterolemia E78.00 and Former smoker Z87.891 Vimal Head III, MD [address] [place] [address] [place] [address] 11/26/2024 Vimal Head III, MD [address] [place] [address] [place] [address] 11/26/2024 Vimal Head Assessments Encounter Date Diagnosis (ICD Code) Assessment Notes T reatment Notes Treatment Clinical Notes 03/23/2025 Malignant neoplasm o f head of pancreas (ICD-10 - C25.0) When the tumor was discovered she was treated with neoadjuvant chemotherapy consisting of fluorouracil, leucovorin, irinotecan and oxaliplatin. A resection was then attempted at [facility] but the tumor was inoperable. She was then treated aggressively with intraoperative radiation therapy. She then received adjuvant chemotherapy at [facility] in [facility]. She has finished her treatment at this point and is being observed at 4 month intervals. 08/18/2024 Malignant neoplasm o f head of pancreas (ICD-10 - C25.0) When the tumor was discovered she was treated with neoadjuvant chemotherapy consisting of fluorouracil, leucovorin, irinotecan and oxaliplatin. A resection was then attempted at [facility] but the tumor was inoperable. She was then treated aggressively with intraoperative radiation therapy. She then received adjuvant chemotherapy at [facility] in [facility]. She has finished her treatment at [...] oxaliplatin. A resection was then attempted at [facility] but the tumor was inoperable. She was then treated aggressively with intraoperative radiation therapy. She then received adjuvant chemotherapy at [facility] in [facility]. She has finished her treatment at [...] Provider Name:Vimal Head , 09/21/2025 10:30:00 AM, [address] [place] [address] [address] MAURICE Evens, [place], [address], Insurance Providers Payer Name Payer Address Payer Phone Subscriber Number Group Number Insured Name Patient Relationship to Insured Coverage Start Date Coverage End Date MEDICARE NGS [address] [facility] [phone] [id number] SYDNIE BOLANOS Self - patient is the insured [address] [place] [phone] [id number] SYDNIE BOLANOS Self - patient is the [...] ago Hospitalization History Reason Date(Month/Year) Hospitalized at [facility] for surgery on november 0410/2023
--- OUTSIDE RECORDS SUMMARY | 2025-03-23 13:27 | XMS_ITS | Encounter Summary ---
Author Organization [facility] Address [address] [place] [address] Phone Care Team Providers Care Auto Service Station Attendant Name Role Phone Florentino Medeiros MD Primary Care Provider Charity Phoenix MBBS Unavailable Nancy Contreras CNP Unavailable Mindy Lin MD Primary Care Provider [phone] Mary Lou Mcfarland PA-C Unavailable [phone] Encounter Details Date Type Department Care Team (Late st Contact Info) Description 01/22/2023 Procedure Pass [facility], [address] [facility], 2nd Floor, [address] [place] [address] Social History Tobacco Use Types Packs/Day Years [...] st Contact Info) Description 02/01/2025 Procedure Pass [address] [address] 02/01/[address] [address] 03/24/2025 10:00 AM EST Infusion [facility] at [address] [address] Charity Phoenix MBBS [address] [place] [address] [email or web address] 04/29/2025 11:15 AM EST Appointment [address] [address] Charity Phoenix MBBS [address] [place] [address] [email or web address] 05/06/2025 10:00 AM EST Blood Draw [facility] [address] [address] Charity Phoenix MBBS [address] [place] [address] [email or web address] 05/06/2025 11:00 AM EST Office Visit [facility] [address] [place] [address] Charity Phoenix MBBS [address] [place] [address] [email or web address] documented as of this encounter Visit Diagnoses Not on filedocumented in this encounter Additional Health Concerns Infection Onset Date Last Indicated Resolved Time CoV-Risk 05/17/2023 05/17/2023 05/28/2023 1:23 AM EST CoV-Risk 05/16/2024 05/16/2024 05/27/2024 1:22 AM EST Influenza A 05/16/2024 05/16/2024 05/23/2024 1:22 AM EST documented as of this encounter Care Teams Auto Service Station Attendant Relationship Specialty Start Date End Date Florentino Medeiros MD [address] [place] [address] Dr RICHARDS [address] [place] [address] PCP - General Internal Medicine 10/17/19 07/15/24 Mindy Lin MD [address] [place] [address] PCP - General Internal Medicine 07/16/24 Charity Phoenix MBBS [address] [place] [address] Dr RICHARDS [address] [place] [address] [email or web address] Primary Oncologist Hematology and Oncology 02/04/23 Nancy Contreras CNP [address] [place] [address] [email or web address] Nurse Practitioner Medical Oncology 05/16/23 Mary Lou Mcfarland PA-C [address] [place] [address] [email or web address] Physician Project Asst 01/11/25 documented as of this encounter Additional Source Comments The information contained in this document represents components of the legal health record. It is not the complete legal health record.[facility]
--- OUTSIDE RECORDS SUMMARY | 2025-03-23 13:27 | XMS_ITS | Encounter Summary ---
Author Organization [facility] Address [address] [place] [address] Phone Care Team Providers Care Pit Crew Support Worker Name Role Phone Florentino Medeiros MD Primary Care Provider Charity Phoenix MBBS Unavailable Nancy Contreras CNP Unavailable Mindy Lin MD Primary Care Provider Mary Lou Mcfarland PA-C Unavailable Encounter Details Date Type Department Care Team (Late st Contact Info) Description 07/02/2024 Procedure Pass [facility], Ct Scan - [facility] [address] [place] [address] Social History Tobacco Use Types Packs/Day Years [...] st Contact Info) Description 02/01/2025 Procedure Pass [address] [address] 02/01/2025 Procedure Pass [address] [address] 03/24/2025 10:00 AM EST Infusion [facility] at [address] [address] Charity Phoenix MBBS [address] [place] [address] [email or web address] 04/29/2025 11:15 AM EST Appointment [address] [address] Charity Phoenix MBBS [address] [place] [address] [email or web address] 05/06/2025 10:00 AM EST Blood Draw [facility] MG [address] [place] [address] Charity Phoenix MBBS [address] [place] [address] [email or web address] 05/06/2025 11:00 AM EST Office Visit [facility] [place] [address] [place] [address] Charity Phoenix MBBS [address] [place] [address] [email or web address] documented as of this encounter Visit Diagnoses Not on filedocumented in this encounter Care Teams Pit Crew Support Worker Relationship Specialty Start Date End Date Florentino Medeiros MD [address] [place] [address] [place] [address] PCP - General Internal Medicine 10/17/19 07/15/24 Mindy Lin MD [address] [place] [address] PCP - General Internal Medicine 07/16/24 Charity Phoenix MBBS [address] [place] [address] [place] [address] [email or web address] Primary Oncologist Hematology and Oncology 02/04/23 Nancy Contreras CNP [address] [place] [address] [email or web address] Nurse Practitioner Medical Oncology 05/16/23 Mary Lou Mcfarland PA-C [address] [place] [address] [email or web address] Physician Blow Mold Operator 01/11/25 documented as of this encounter Additional Source Comments The information contained in this document represents components of the legal health record. It is not the complete legal health record.[facility]
--- OUTSIDE RECORDS SUMMARY | 2025-03-23 13:27 | XMS_ITS | Encounter Summary ---
Author Organization [facility] Address [address] [place] [address] Phone Care Team Providers Care Associate Financial Analyst Name Role Phone Florentino Medeiros MD Primary Care Provider Charity Phoenix MBBS Unavailable Nancy Contreras CNP Unavailable Mindy Lin MD Primary Care Provider [phone] Mary Lou Mcfarland PA-C Unavailable Encounter Details Date Type Department Care Team (Late st Contact Info) Description 06/03/2023 Procedure Pass [facility], Ct Scan - [facility] [address] [place] [address] Social History Tobacco Use Types Packs/Day Years [...] st Contact Info) Description 02/01/2025 Procedure Pass [address] [address] 02/01/2025 Procedure Pass [address] [address] 03/24/2025 10:00 AM EST Infusion [facility] at [address] [address] Charity Phoenix MBBS [address] [place] [address] [email or web address] 04/29/2025 11:15 AM EST Appointment [address] [address] Charity Phoenix MBBS [address] [place] [address] [email or web address] 05/06/2025 10:00 AM EST Blood Draw [facility] [address] [address] Charity Phoenix MBBS [address] [place] [address] [email or web address] 05/06/2025 11:00 AM EST Office Visit [facility] at [place] [address] [place] [address] Charity Phoenix MBBS 30 [place] [address] [email or web address] documented as of this encounter Visit Diagnoses Not on filedocumented in this encounter Additional Health Concerns Infection Onset Date Last Indicated Resolved Time CoV-Risk 05/16/2024 05/16/2024 05/27/2024 1:22 AM EST Influenza A 05/16/2024 05/16/2024 05/23/2024 1:22 AM EST documented as of this encounter Care Teams Associate Financial Analyst Relationship Specialty Start Date End Date Florentino Medeiros MD [address] [place] [address] Dr RICHARDS [address] [place] [address] PCP - General Internal Medicine 10/17/19 07/15/24 Mindy Lin MD [address] [place] [address] PCP - General Internal Medicine 07/16/24 Charity Phoenix MBBS [address] [place] [address] Dr RICHARDS [address] [place] [address] [email or web address] Primary Oncologist Hematology and Oncology 02/04/23 Nancy Contreras CNP [address] [place] [address] [email or web address] Nurse Practitioner Medical Oncology 05/16/23 Mary Lou Mcfarland PA-C [address] [place] [address] [email or web address] Physician Chemical Process Equipment Operator 01/11/25 documented as of this encounter Additional Source Comments The information contained in this document represents components of the legal health record. It is not the complete legal health record.[facility]
--- OUTSIDE RECORDS SUMMARY | 2025-03-23 13:27 | XMS_ITS | Encounter Summary ---
Author Organization [facility] Address [address] [place] [address] Phone Care Team Providers Care Clinical Support Tech Name Role Phone Florentino Medeiros MD Primary Care Provider Charity Phoenix MBBS Unavailable [phone] Nancy Contreras CNP Unavailable Mindy Lin MD Primary Care Provider [phone] Mary Lou Mcfarland PA-C Unavailable [phone] Encounter Details Date Type Department Care Team (Late st Contact Info) Description 06/03/2023 Procedure Pass [facility], Ct Scan - [facility] [address] [place] [address] Social History Tobacco Use Types Packs/Day Years [...] st Contact Info) Description 02/01/2025 Procedure Pass [address] [address] 02/01/2025 Procedure Pass [address] [address] 03/24/2025 10:00 AM EST Infusion [facility] at [address] [address] Charity Phoenix MBBS [address] [place] [address] [email or web address] 04/29/2025 11:15 AM EST Appointment [address] [address] Charity Phoenix MBBS [address] [place] [address] [email or web address] 05/06/2025 10:00 AM EST Blood Draw [facility] [address] [address] Charity Phoenix MBBS [address] [place] [address] [email or web address] 05/06/2025 11:00 AM EST Office Visit [facility] at [place] [address] [place] [address] Charity Phoenix MBBS 30 [place] [address] [email or web address] documented as of this encounter Visit Diagnoses Not on filedocumented in this encounter Additional Health Concerns Infection Onset Date Last Indicated Resolved Time CoV-Risk 05/16/2024 05/16/2024 05/27/2024 1:22 AM EST Influenza A 05/16/2024 05/16/2024 05/23/2024 1:22 AM EST documented as of this encounter Care Teams Clinical Support Tech Relationship Specialty Start Date End Date Florentino Medeiros MD [address] [place] [address] Dr RICHARDS [address] [place] [address] PCP - General Internal Medicine 10/17/19 07/15/24 Mindy Lin MD [address] [place] [address] PCP - General Internal Medicine 07/16/24 Charity Phoenix MBBS [address] [place] [address] Dr RICHARDS [address] [place] [address] [email or web address] Primary Oncologist Hematology and Oncology 02/04/23 Nancy Contreras CNP [address] [place] [address] [email or web address] Nurse Practitioner Medical Oncology 05/16/23 Mary Lou Mcfarland PA-C [address] [place] [address] [email or web address] Physician Industrial Maintenance Repairer 01/11/25 documented as of this encounter Additional Source Comments The information contained in this document represents components of the legal health record. It is not the complete legal health record.[facility]
--- OUTSIDE RECORDS SUMMARY | 2025-03-23 13:27 | XMS_ITS | Encounter Summary ---
Author Organization [facility] Address [address] [place] [address] Phone Care Team Providers Care Chili Pepper Grinder Name Role Phone Florentino Medeiros MD Primary Care Provider Charity Phoenix MBBS Unavailable [phone] Nancy Contreras CNP Unavailable Mindy Lin MD Primary Care Provider Mary Lou Mcfraland PA-C Unavailable [phone] Encounter Details Date Type Department Care Team (Late st Contact Info) Description 07/08/2024 Procedure Pass [facility] [address] [place] [address] Social History Tobacco Use Types Packs/Day Years [...] st Contact Info) Description 02/01/2025 Procedure Pass [facility], Ct Scan - [address] [address] 02/01/2025 Procedure Pass [facility], Ct Scan - [address] [address] 03/24/2025 10:00 AM EST Infusion [facility] at [address] [address] Charity Phoenix MBBS [address] [place] [address] [email or web address] 04/29/2025 11:15 AM EST Appointment [facility], Ct Scan - [address] [address] Charity Phoenix MBBS [address] [place] [address] [email or web address] 05/06/2025 10:00 AM EST Blood Draw [facility] [address] [address] Charity Phoenix MBBS [address] [place] [address] [email or web address] 05/06/2025 11:00 AM EST Office Visit [facility] at [address] [address] Charity Phoenix MBBS [address] [place] [address] [email or web address] documented as of this encounter Visit Diagnoses Not on filedocumented in this encounter Care Teams Chili Pepper Grinder Relationship Specialty Start Date End Date Florentino Medeiros MD [address] [place] [address] [place] [address] PCP - General Internal Medicine 10/17/19 07/15/24 Mindy Lin MD [address] [place] [address] PCP - General Internal Medicine 07/16/24 Charity Phoenix MBBS [address] [place] [address] [place] [address] [email or web address] Primary Oncologist Hematology and Oncology 02/04/23 Nancy Contreras CNP [address] [place] [address] Nurse Practitioner Medical Oncology 05/16/23 Mary Lou Mcfarland PA-C [address] [place] [address] [email or web address] Physician Clamper 01/11/25 documented as of this encounter Additional Source Comments The information contained in this document represents components of the legal health record. It is not the complete legal health record.[facility]
--- OUTSIDE RECORDS SUMMARY | 2025-03-23 13:28 | XMS_ITS | Clinical Summary ---
Author Organization [facility] Address [address] [place] [id number] Phone Care Team Providers Care Internal Audit Consultant Name Role Phone Charity Phoenix MBBS Unavailable Ben Nancy CNP Unavailable Mindy Lin MD Primary Care Provider Mary Lou Mcfarland PA-C Unavailable Allergies No known active allergies Medications levothyroxine [...] Patient is going to meet with our grief counsellor to discuss this further. Thank you very [...] Patient is going to meet with our grief counsellor to discuss this further. Thank you very [...] the multidisciplinary GI cancer oncology team at [facility]. Options were discussed including upfront surgical [...] disease. I discussed the case with the [place] team and consensus is to proceed with [...] cyst for which she was seen by orientation and mobility specialist LFTs have normalized Return for follow-up in [...] the multidisciplinary GI cancer oncology team at [facility]. Options were discussed including upfront surgical [...] disease. I discussed the case with the [place] team and consensus is to proceed with [...] which she is going to see her orientation and mobility specialist Return for follow-up in 3 months with [...] the multidisciplinary GI cancer oncology team at [facility]. Options were discussed including upfront surgical [...] disease. I discussed the case with the [place] team and consensus is to proceed with [...] the multidisciplinary GI cancer oncology team at [facility]. Options were discussed including upfront surgical [...] disease. I discussed the case with the [place] team and consensus is to proceed with [...] the multidisciplinary GI cancer oncology team at [facility]. Options were discussed including upfront surgical [...] disease. I discussed the case with the [place] team and consensus is to proceed with [...] the multidisciplinary GI cancer oncology team at [facility]. Options were discussed including upfront surgical [...] disease. I discussed the case with the [place] team and consensus is to proceed with [...] the multidisciplinary GI cancer oncology team at [facility]. Options were discussed including upfront surgical resection followed by adjuvant therapy versus neoadjuvant chemotherapy to down size the tumor and then resection. After discussion decision was made to proceed with neoadjuvant chemotherapy to be the best option for her. Patient is going to get neoadjuvant chemotherapy here locally at [facility]. She will undergo her surgery and radiation therapy in [place]. After discussing the above-mentioned patient agreed to [...] this. I discussed the case with the [place] team and consensus is to proceed with [...] this. I have requested to follow-up with [facility] team so that she can undergo her planned surgical resection. RECOMMENDATIONS: Follow up with [facility] team regarding surgical resection of her pancreatic cancer I have sent a message to [facility] team Continue to monitor anemia Continue [...] the multidisciplinary GI cancer oncology team at [facility]. Options were discussed including upfront surgical resection followed by adjuvant therapy versus neoadjuvant chemotherapy to down size the tumor and then resection. After discussion decision was made to proceed with neoadjuvant chemotherapy to be the best option for her. Patient is going to get neoadjuvant chemotherapy here locally at [facility]. She will undergo her surgery and radiation therapy in [place]. After discussing the above-mentioned patient agreed to [...] this. I discussed the case with the [place] team and consensus is to proceed with concurrent chemoradiation therapy followed by surgical evaluation. I discussed various concurrent chemotherapy options with her including infusional 5-FU, capecitabine, gemcitabine. I recommended concurrent capecitabine/Xeloda chemotherapy with RT. I discussed potential side effects from this approach including but not limited to allergic reactions, ecok-moh-mflz syndrome, diarrhea, nausea and pancytopenia's. I also [...] evaluation for surgical resection Follow up with [facility] team after CT scans Continue to [...] the multidisciplinary GI cancer oncology team at [facility]. Options were discussed including upfront surgical resection followed by adjuvant therapy versus neoadjuvant chemotherapy to down size the tumor and then resection. After discussion decision was made to proceed with neoadjuvant chemotherapy to be the best option for her. Patient is going to get neoadjuvant chemotherapy here locally at [facility]. She will undergo her surgery and radiation therapy in [place]. After discussing the above-mentioned patient agreed to [...] this. I discussed the case with the [place] team and consensus is to proceed with concurrent chemoradiation therapy followed by surgical evaluation. I discussed various concurrent chemotherapy options with her including infusional 5-FU, capecitabine, gemcitabine. I recommended concurrent capecitabine/Xeloda chemotherapy with RT. I discussed potential side effects from this approach including but not limited to allergic reactions, ttno-rep-vlmp syndrome, diarrhea, nausea and pancytopenia's. I also [...] the multidisciplinary GI cancer oncology team at [facility]. Options were discussed including upfront surgical resection followed by adjuvant therapy versus neoadjuvant chemotherapy to down size the tumor and then resection. After discussion decision was made to proceed with neoadjuvant chemotherapy to be the best option for her. Patient is going to get neoadjuvant chemotherapy here locally at [facility] cancer center. She will undergo her surgery and radiation therapy in [place]. After discussing the above-mentioned patient agreed to [...] this. I discussed the case with the [place] team and consensus is to proceed with concurrent chemoradiation therapy followed by surgical evaluation. I discussed various concurrent chemotherapy options with her including infusional 5-FU, capecitabine, gemcitabine. I recommended concurrent capecitabine/Xeloda chemotherapy with RT. I discussed potential side effects from this approach including but not limited to allergic reactions, pxlb-icu-gnzq syndrome, diarrhea, nausea and pancytopenia's. I also [...] the multidisciplinary GI cancer oncology team at [facility]. Options were discussed including upfront surgical resection followed by adjuvant therapy versus neoadjuvant chemotherapy to down size the tumor and then resection. After discussion decision was made to proceed with neoadjuvant chemotherapy to be the best option for her. Patient is going to get neoadjuvant chemotherapy here locally at [facility] cancer center. She will undergo her surgery and radiation therapy in [place]. After discussing the above-mentioned patient agreed to [...] this. I discussed the case with the [place] team and consensus is to proceed with concurrent chemoradiation therapy followed by surgical evaluation. I discussed various concurrent chemotherapy options with her including infusional 5-FU, capecitabine, gemcitabine. I recommended concurrent capecitabine/Xeloda chemotherapy with RT. I discussed potential side effects from this approach including but not limited to allergic reactions, cbns-lhq-atid syndrome, diarrhea, nausea and pancytopenia's. I also [...] the multidisciplinary GI cancer oncology team at [facility]. Options were discussed including upfront surgical resection followed by adjuvant therapy versus neoadjuvant chemotherapy to down size the tumor and then resection. After discussion decision was made to proceed with neoadjuvant chemotherapy to be the best option for her. Patient is going to get neoadjuvant chemotherapy here locally at [facility]. She will undergo her surgery and radiation therapy in [place]. After discussing the above-mentioned patient agreed to [...] this. I discussed the case with the [place] team and consensus is to proceed with concurrent chemoradiation therapy followed by surgical evaluation. I discussed various concurrent chemotherapy options with her including infusional 5-FU, capecitabine, gemcitabine. I recommended concurrent capecitabine/Xeloda chemotherapy with RT. I discussed potential side effects from this approach including but not limited to allergic reactions, hafu-iyl-ezom syndrome, diarrhea, nausea and pancytopenia's. I also [...] the multidisciplinary GI cancer oncology team at [facility]. Options were discussed including upfront surgical resection followed by adjuvant therapy versus neoadjuvant chemotherapy to down size the tumor and then resection. After discussion decision was made to proceed with neoadjuvant chemotherapy to be the best option for her. Patient is going to get neoadjuvant chemotherapy here locally at [facility]. She will undergo her surgery and radiation therapy in [place]. After discussing the above-mentioned patient agreed to [...] this. I discussed the case with the [place] team and consensus is to proceed with concurrent chemoradiation therapy followed by surgical evaluation. I discussed various concurrent chemotherapy options with her including infusional 5-FU, capecitabine, gemcitabine. I recommended concurrent capecitabine/Xeloda chemotherapy with RT. I discussed potential side effects from this approach including but not limited to allergic reactions, ahyr-qsp-ackr syndrome, diarrhea, nausea and pancytopenia's. Patient signed [...] the multidisciplinary GI cancer oncology team at [facility]. Options were discussed including upfront surgical resection followed by adjuvant therapy versus neoadjuvant chemotherapy to down size the tumor and then resection. After discussion decision was made to proceed with neoadjuvant chemotherapy to be the best option for her. Patient is going to get neoadjuvant chemotherapy here locally at [facility]. She will undergo her surgery and radiation therapy in [place]. After discussing the above-mentioned patient agreed to [...] this. I discussed the case with the [place] team and consensus is to proceed with [...] the multidisciplinary GI cancer oncology team at [facility]. Options were discussed including upfront surgical resection followed by adjuvant therapy versus neoadjuvant chemotherapy to down size the tumor and then resection. After discussion decision was made to proceed with neoadjuvant chemotherapy to be the best option for her. Patient is going to get neoadjuvant chemotherapy here locally at [facility]. She will undergo her surgery and radiation therapy in [place]. After discussing the above-mentioned patient agreed to [...] about this. I recommended a follow-up with [place] team to see what is next in her treatment. Initial plan was to proceed with surgical resection after neoadjuvant chemotherapy. I have sent a message to her team in [place]. RECOMMENDATIONS: Follow-up with [place] team in regards to the next step [...] the multidisciplinary GI cancer oncology team at [facility]. Options were discussed including upfront surgical resection followed by adjuvant therapy versus neoadjuvant chemotherapy to down size the tumor and then resection. After discussion decision was made to proceed with neoadjuvant chemotherapy to be the best option for her. Patient is going to get neoadjuvant chemotherapy here locally at [facility] cancer center. She will undergo her surgery and radiation therapy in [place]. I discussed side effects from chemotherapy including [...] after 8 cycles Patient will follow-up with [facility] team after 8 cycles of chemotherapy [...] the multidisciplinary GI cancer oncology team at [facility]. Options were discussed including upfront surgical resection followed by adjuvant therapy versus neoadjuvant chemotherapy to down size the tumor and then resection. After discussion decision was made to proceed with neoadjuvant chemotherapy to be the best option for her. Patient is going to get neoadjuvant chemotherapy here locally at [facility] cancer center. She will undergo her surgery and radiation therapy in [place]. I discussed side effects from chemotherapy including [...] the multidisciplinary GI cancer oncology team at [facility]. Options were discussed including upfront surgical resection followed by adjuvant therapy versus neoadjuvant chemotherapy to down size the tumor and then resection. After discussion decision was made to proceed with neoadjuvant chemotherapy to be the best option for her. Patient is going to get neoadjuvant chemotherapy here locally at [facility] cancer comerio. She will undergo her surgery and radiation therapy in [place]. I discussed side effects from chemotherapy including [...] the multidisciplinary GI cancer oncology team at [facility]. Options were discussed including upfront surgical resection followed by adjuvant therapy versus neoadjuvant chemotherapy to down size the tumor and then resection. After discussion decision was made to proceed with neoadjuvant chemotherapy to be the best option for her. Patient is going to get neoadjuvant chemotherapy here locally at [facility] cancer center. She will undergo her surgery and radiation therapy in [place]. I discussed side effects from chemotherapy including [...] the multidisciplinary GI cancer oncology team at [facility]. Options were discussed including upfront surgical resection followed by adjuvant therapy versus neoadjuvant chemotherapy to down size the tumor and then resection. After discussion decision was made to proceed with neoadjuvant chemotherapy to be the best option for her. Patient is going to get neoadjuvant chemotherapy here locally at [facility] cancer center. She will undergo her surgery and radiation therapy in [place]. I discussed side effects from chemotherapy including [...] the multidisciplinary GI cancer oncology team at [facility]. Options were discussed including upfront surgical resection followed by adjuvant therapy versus neoadjuvant chemotherapy to down size the tumor and then resection. After discussion decision was made to proceed with neoadjuvant chemotherapy to be the best option for her. Patient is going to get neoadjuvant chemotherapy here locally at [facility] cancer center. She will undergo her surgery and radiation therapy in [place]. I discussed side effects from chemotherapy including [...] Description 02/01/2025 4:00 PM EDT Office Visit [facility] at [address] [address] Charity Phoenix MBBS Malignant neoplasm of head of pancreas (Primary Dx) 01/20/2025 1:30 PM EDT - 01/20/2025 11:59 PM EDT Hospital Encounter [facility] [address] [address] Charity Phoenix MBBS Discharge Disposition: Home or Self Care 01/20/2025 Orders Only [facility] at [address] [address] Charity Phoenix MBBS Malignant neoplasm of head of pancreas (Primary Dx) 01/11/2025 10:20 AM EDT - 01/11/2025 11:59 PM EDT Hospital Encounter [facility], Ct Scan - [address] [address] Charity Phoenix MBBS Discharge Disposition: Home or Self Care 10/08/2024 Procedure Pass [facility], Ct Scan - [facility] [address] [place] [address] 10/08/2024 Procedure Pass [facility], Dc Scan [facility] [address] [place] [address] from Last 3 Months Immunizations No known [...] Contact Info) Description 02/01/2025 Procedure Pass [address] [address] 02/01/2025 Procedure Pass [address] [address] 03/24/2025 10:00 AM EST Infusion [facility] at [address] [address] Charity Phoenix MBBS [address] [place] [id number] [email or web address] 04/29/2025 11:15 AM EST Appointment [address] [address] Charity Phoenix MBBS [address] [place] [address] [email or web address] 05/06/2025 10:00 AM EST Blood Draw [facility] [address] [address] Charity Phoenix MBBS [address] [place] [address] [email or web address] 05/06/2025 11:00 AM EST Office Visit [facility] at [facility] [address] [place] [address] Charity Phoenix MBBS [address] [place] [address] [email or web address] Health Maintenance Due Date Last Done [...] this topic Medical Devices Implanted Type Area Aviation Technician Aircraft Device Identifier Shelf Expiration Date Model / Serial / Lot Port Dignity 6.6fr Infusion Mid Size Attachable Silicone Filled Suture Hole - [id number] Implanted:Qty: 1 on 02/18/2023 by Shin Claros MD at [facility] Right: Chest Wall MEDCOMP [id number] 02/05/2027 [id number] / / [id number] Procedures Procedure Name Priority Date/Time Associated Diagnosis [...] VITAMIN K1 0.81 0.10 - 2.20 ng/mL [facility] MED[facility]PATH [address] Comment: (NOTE) ADDITIONAL INFORMATION This test was developed and its performance characteristics determined by [facility] in a manner consistent with CLIA requirements. This test has not been cleared or approved by the U.S. Food and Drug Administration. Blood 01/20/2025 1:44 PM EDT 01/20/2025 1:53 PM EDT Charity REYNA LAB BLOOD ORDERABLES Final Result Performing Organization Address [facility] de Phone Number [facility] MED/PATH [address] [place] [address] * Vitamin A (01/20/2025 1:44 PM EDT) [facility] VITAMIN A 34.5 32.5 - 78.0 mcg/dL [facility] MED/PATH SUPERIOR Comment: (NOTE) ADDITIONAL INFORMATION This test was developed and its performance characteristics determined by [facility] in a manner consistent with CLIA requirements. This test has not been cleared or approved by the U.S. Food and Drug Administration. Blood 01/20/2025 1:44 PM EDT 01/20/2025 1:53 PM EDT Charity REYNA LAB BLOOD ORDERABLES Final Result Performing Organization Address [facility] de Phone Number [facility] MED/PATH [address] [place] [address] * 25-OH vitamin D (01/20/2025 1:44 PM EDT) Pathologist [facility] 25 [place] VIT D (TOTAL) 30 30 - 60 ng/mL [facility] Blood 01/20/2025 1:44 PM EDT 01/20/2025 1:53 PM EDT Charity Phoenix [facility] LAB BLOOD BKR ORDERABLES F inal Result Performing Organization Address City/[facility]/ZIP Co de Phone Number [facility] [address] [place] [address] * Vitamin E (01/20/2025 1:44 PM EDT) VIT E, A-TOCOPHEROL 9.4 5.5 - 17.0 mg/L [facility] MED/PATH [address]PERIOR Comment: (NOTE) ADDITIONAL INFORMATION This test was developed and its performance characteristics determined by [facility] in a manner consistent with CLIA requirements. This test has not been cleared or approved by the U.S. Food and Drug Administration. Blood 01/20/2025 1:44 PM EDT 01/20/2025 1:53 PM EDT Charity Phoenix [facility] LAB BLOOD ORDERABLES Final Result Performing Organization Address [facility] Co de Phone Number [facility] MED/PATH SUPER[address] [place] [address] * (ABNORMAL) Comprehensive metabolic panel (01/20/2025 1:31 PM EDT) Pathologist [facility] SODIUM 141 133 - 146 mmol/L [facility] POTASSIUM 3.9 3.3 - 5.1 mmol/L [facility] CHLORIDE 104 96 - 108 mmol/L [facility] CO2 27 21 - 35 mmol/L [facility] BUN 13 6 - 19 mg/dL [facility] CREATININE 0.70 0.5 - 1.5 mg/dL [facility] GLUCOSE 124(H) 70 - 99 mg/dL [facility] ALBUMIN 4.1 3.9 - 4.8 g/dL [facility] TOTAL PROTEIN 6.3(L) 6.5 - 8.0 g/dL [facility] CALCIUM 9.4 8.4 - 10.3 mg/dL [facility] ALKALINE PHOSPHATASE 126(H) 39 - 117 U/L [facility] TOTAL BILIRUBIN 0.5 0.0 - 1.2 mg/dL [facility] AST 27 0 - 37 U/L [facility] ALT 27 0 - 40 U/L [facility] GLOBULIN 2.2 1 - 4.8 g/dL [facility] EGFR 91 >59 mL/min/1.7 3m2 [facility] Comment:Estimated glomerular filtration rate calculated using the CKD-EPI refit equation. ANION GAP 14 10 - 20 mmol/L [facility] Blood 01/20/2025 1:31 PM EDT 01/20/2025 1:37 PM EDT [facility] LAB BLOOD BKR ORDERABLES F inal Result Performing Organization Address City/[facility]/ZIP Co de Phone Number [address] [address] * CA-19-9 (01/20/2025 1:31 PM EDT) CA 19-9 4 <35 U/mL [facility] Comment: Test Methodology Mariana [id number] Patient results determined by assays using different manufacturers or methods may not be comparable. Blood 01/20/2025 1:31 PM EDT 01/20/2025 1:37 PM EDT [employer]d D [place] [employer] LAB BLOOD BKR ORDERABLES F inal Result Performing Organization Address City/[facility]/ZIP Co de Phone Number [address] [address] * (ABNORMAL) CBC and differential (01/20/2025 1:31 PM EDT) WBC 4.42 4.00 - 11.00 K/uL [facility] RBC 3.54(L) 4.00 - 5.20 M/uL [facility] HGB 10.3(L) 12.0 - 16.0 g/dL [facility] HCT 33.0(L) 36.0 - 46.0 % [facility] PLT 204 150 - 450 K/uL [facility] MCV 93.2 80.0 - 100.0 fL [facility] MCH 29.1 27.0 - 31.0 pg [facility] MCHC 31.2(L) 32.0 - 36.0 g/dL [facility] RDW 13.4 11.5 - 14.5 % [facility] MPV 9.1 8.4 - 12.0 fL [facility] NRBC 0.00 0.00 /100 WBCs [facility] ABSOLUTE NRBC 0.00 0.00 K/uL [facility] DIFF METHOD Auto [facility] NEUTS 71.8 48.0 - 76.0 % [facility] LYMPHS 16.1(L) 18.0 - 41.0 % [facility] MONOS 7.7 4.0 - 11.0 % [facility] EOS 3.2 0.0 - 5.0 % [facility] BASOS 0.7 0.0 - 1.5 % [facility] Granulocytes, immature (%) 0.5 0.0 - 0.9 % [facility] ABSOLUTE NEUTS 3.18 1.92 - 7.60 K/uL [facility] ABSOLUTE LYMPHS 0.71(L) 0.72 - 4.10 K/uL [facility] ABSOLUTE MONOS 0.34 0.16 - 1.10 K/uL [facility] ABSOLUTE EOS 0.14 0.00 - 0.50 K/uL [facility] ABSOLUTE BASOS 0.03 0.00 - 0.15 K/uL [facility] Granulocytes, immature 0.02 0.00 - 0.09 K/uL [facility] Blood 01/20/2025 1:31 PM EDT 01/20/2025 1:37 PM EDT us Charity Phoenix MBBS LAB BLOOD BKR ORDERABLES F inal Result [facility] [address] [place] [address] * CT CHEST WITH CONTRAST (01/11/2025 11:10 [...] clinician's provided indication for this examination in [facility]: * Pancreatic adenocarcinoma, monitor TECHNIQUE: Multidetector CT [...] clinician's provided indication for this examination in [facility]: *Pancreatic adenocarcinoma, monitor TECHNIQUE: Multidetector CT of [...] lower lobe nodules (series 5, images 163 [id number]). Pleura: Small right pleural effusion, increased in [...] for example in segment 7 (5:49) and [id number] (5:16). Biliary: Noninflamed gallbladder. Cholelithiasis. No biliary [...] Months Insurance MEDICARE PART A & B [facility] MEDICARE SUPPLEMENT MEDICARE PART A & B Member Subscriber Plan / Payer ( fective 2016-Present) Name:Aziza Bolanos Member ID:[id number] Relation to Subscriber:Self Name:Aziza Bolanos Subscriber ID:[id number] Payer ID:[id number] Group ID:Not on file Type:Medicare Address: [address] MEDICARE SUPPLEMENT MEDICARE PART A & B Member Subscriber Plan / Payer ( fective 2016-) Name:Aziza Bolanos Member ID:[id number] Relation to Subscriber:Self Name:Aziza Bolanos Subscriber ID:[id number] Payer ID:[id number] Group ID:Not on file Type:Medicare Address: [address] MEDICARE SUPPLEMENT MEDICARE PART A & B MEDICARE SUPPLEMENT MEDICARE PART A & [place] [address] [place] [address] MEDICARE SUPPLEMENT MEDICARE PART A & [place] [address] [address] [place] [address] [place] [address] MEDICARE PART A & B [facility] MEDICARE SUPPLEMENT MEDICARE PART A & B [facility] MEDICARE SUPPLEMENT MEDICARE PART A & B [facility] MEDICARE SUPPLEMENT MEDICARE PART A & B Member Subscriber Plan / Payer (Ef fective 2016-Present) Name:Aziza Bolanos Member ID:[id number] Relation to Subscriber:Self Name:Aziza Bolanos Subscriber ID:[id number] Payer ID:[id number] Group ID:Not on file Type:Medicare Address: [address] [address] [facility] MEDICARE SUPPLEMENT Advance Directives For more information, please contact: [phone] (9AM - 5PM [facility], Saturday-Saturday) * Full Code (Latest Code Status on File) Date Activated Date Inactivated Comments 11/08/2023 7:24 AM Question Answer Comments Code Status Confirmed With: Patient Code Status Communicated To: Inpatient Attending Care Teams Internal Audit Consultant Relationship Specialty Start Date End Date Mindy Lin MD [address] [place] [address] [phone] PCP - General Internal Medicine 07/16/24 Charity Phoenix MBBS [email or web address] Primary Oncologist Hematology and Oncology 02/04/23 Nancy Contreras CNP [address] [place] [address] [email or web address] Nurse Practitioner Medical Oncology 05/16/23 Mary Lou Mcfarland PA-C [address] [place] [address] [email or web address] Physician Packing Machine Operator 01/11/25 Additional Source Comments The information contained in this document represents components of the legal health record. It is not the complete legal health record.[facility]
--- OUTSIDE RECORDS SUMMARY | 2025-03-23 13:28 | XMS_ITS | Clinical Summary ---
Author Organization [facility] Address [address] [place] [address] Care Team Providers Care Shiatsu Therapist Name Role Phone Florentino Medeiros Primary Care Provider [phone] Allergies No known active allergies Medications atorvastatin [...] age to complete this topic Insurance MEDICARE [facility] Care Teams Shiatsu Therapist Relationship Specialty Start Date End Date Florentino Medeiros [address] [place] [address] [place] [address] PCP - General Internal Medicine 04/25/17
--- OUTSIDE RECORDS SUMMARY | 2025-03-23 13:28 | XMS_ITS | Encounter Summary ---
Author Organization [facility] Address [address] [place] [address] Phone Care Team Providers Care Abstractor Name Role Phone Charity PhoenixBS Unavailable Ben Nancy ACID PUMPER Unavailable Mindy Lin MD Primary Care Provider Mary Lou Mcfarland PA-C Unavailable [phone] Encounter Details Date Type Department Care Team (Late st Contact Info) Description 10/08/2024 Procedure Pass [facility], Ct Scan - [address] [address] Social History Tobacco Use Types Packs/Day Years [...] st Contact Info) Description 02/01/2025 Procedure Pass [address] [address] 02/01/[address] [address] 03/24/2025 10:00 AM EST Infusion [facility] at [address] [address] Charity Phoenix MBBS [address] [place] [address] [email or web address] 04/29/2025 11:15 AM EST Appointment [address] [address] Charity Phoenix MBBS [address] [place] [address] [email or web address] 05/06/2025 10:00 AM EST Blood Draw [facility] [address] [place] [address] Charity Phoenix MBBS [address] [place] [address] [email or web address] 05/06/2025 11:00 AM EST Office Visit [facility] at [place] [address] [place] [address] Charity Phoenix MBBS [address] [place] [address] [email or web address] documented as of this encounter Visit Diagnoses Not on filedocumented in this encounter Care Teams Abstractor Relationship Specialty Start Date End Date Mindy Lin MD [address] [place] [address] PCP - General Internal Medicine 07/16/24 Charity Phoenix MBBS [email or web address] Primary Oncologist Hematology and Oncology 02/04/23 Nancy Contreras CNP [address] [place] [address] [email or web address] Nurse Practitioner Medical Oncology 05/16/23 Mary Lou Mcfarland PA-C [address] [place] [address] [email or web address] Physician Director [employer] 01/11/25 documented as of this encounter Additional Source Comments The information contained in this document represents components of the legal health record. It is not the complete legal health record.[facility]
--- OUTSIDE RECORDS SUMMARY | 2025-03-23 13:28 | XMS_ITS | Encounter Summary ---
Author Organization [facility] Address [address] [place] [address] Phone Care Team Providers Care Electro Winning Operator Name Role Phone Florentino Medeiros MD Primary Care Provider Charity Phoenix MBBS Unavailable [phone] Nancy Contreras COTTON TIER Unavailable Mindy Lin MD Primary Care Provider [phone] Mary Lou Mcfarland PA-C Unavailable [phone] Encounter Details Date Type Department Care Team (Late st Contact Info) Description 11/05/2023 Procedure Pass [facility] [address] [place] [address] Social History Tobacco Use Types [...] 6:07 PM EDT Nandini Luna, ANH * [place] Suicide Severity Rating Scale (Screener/Recent Self-Report) Question [...] (Late st Contact Info) Description 02/01/[address] [address] 02/01/[address] [address] 03/24/2025 10:00 AM EST Infusion [facility] at [address] [address] [address]ity [address] [address] [email or web address] 04/29/2025 11:15 AM EST Appointment [facility], Ct Scan - [address] [address] Charity Phoenix MBBS [address] [place] [address] [email or web address] 05/06/2025 10:00 AM EST Blood Draw [facility] Phleb [address] [address] Charity Phoenix MBBS [address] [place] [address] [email or web address] 05/06/2025 11:00 AM EST Office Visit [facility] at [address] [address] [address]ity Phoenix [address] [address] [email or web address] documented as of this encounter Visit Diagnoses Not on filedocumented in this encounter Additional Health Concerns Infection Onset Date Last Indicated Resolved Time CoV-Risk 05/16/2024 05/16/2024 05/27/2024 1:22 AM EST Influenza A 05/16/2024 05/16/2024 05/23/2024 1:22 AM EST documented as of this encounter Care Teams Electro Winning Operator Relationship Specialty Start Date End Date Florentino Medeiros MD [address] [place] [address] [place] [address] PCP - General Internal Medicine 10/17/19 07/15/24 Mindy Lin MD [address] [place] [address] PCP - General Internal Medicine 07/16/24 Charity Phoenix MBBS [address] [place] [address] [place] [address] [email or web address] Primary Oncologist Hematology and Oncology 02/04/23 Nancy Contreras CNP [address] [place] [address] Nurse Practitioner Medical Oncology 05/16/23 Mary Lou Mcfarland PA-C [address] [place] [address] Physician Traveling Buyer 01/11/25 documented as of this encounter Additional Source Comments The information contained in this document represents components of the legal health record. It is not the complete legal health record.[facility]
--- OUTSIDE RECORDS SUMMARY | 2025-03-23 13:28 | XMS_ITS | Encounter Summary ---
Author Organization [facility] Address [address] [place] [address] Phone Care Team Providers Care Geoscience Technician Name Role Phone Florentino Medeiros MD Primary Care Provider Charity Phoenix MBBS Unavailable Nancy Contreras CNP Unavailable Mindy Lin MD Primary Care Provider Mary Lou Mcfarland PA-C Unavailable [phone] Encounter Details Date Type Department Care Team (Late st Contact Info) Description 01/28/2024 Procedure Pass [facility], Ct Scan - [facility] [address] [place] [address] Social History Tobacco Use Types Packs/Day Years [...] Contact Info) Description 02/01/2025 Procedure Pass [address] [address] 02/01/2025 Procedure Pass [address] [address] 03/24/2025 10:00 AM EST Infusion [facility] at [address] [address] Charity Phoenix MBBS [address] [place] [address] [email or web address] 04/29/2025 11:15 AM EST Appointment [address] [address] Charity Phoenix MBBS [address] [place] [address] [email or web address] 05/06/2025 10:00 AM EST Blood Draw [facility]le[facility] [address] [place] [address] Charity Phoenix MBBS [address] [place] [address] [email or web address] 05/06/2025 11:00 AM EST Office [facility] at [place] [address] [place] [address] Charity Phoenix MBBS [address] [place] [address] [email or web address] documented as of this encounter Visit Diagnoses Not on filedocumented in this encounter Additional Health Concerns Infection Onset Date Last Indicated Resolved Time CoV-Risk 05/16/2024 05/16/2024 05/27/2024 1:22 AM EST Influenza A 05/16/2024 05/16/2024 05/23/2024 1:22 AM EST documented as of this encounter Care Teams Geoscience Technician Relationship Specialty Start Date End Date Florentino Medeiros MD [address] [place] [address] [place] [address] PCP - General Internal Medicine 10/17/19 07/15/24 Mindy Lin MD [address] [place] [address] PCP - General Internal Medicine 07/16/24 Charity Phoenix MBBS [address] [place] [address] [place] [address] [email or web address] Primary Oncologist Hematology and Oncology 02/04/23 Nancy Contreras CNP [address] [place] [address] [email or web address] Nurse Practitioner Medical Oncology 05/16/23 Mary Lou Mcfarland PA-C [address] [place] [address] [email or web address] Physician Outdoor Fitness Trainer 01/11/25 documented as of this encounter Additional Source Comments The information contained in this document represents components of the legal health record. It is not the complete legal health record.[facility]
--- OUTSIDE RECORDS SUMMARY | 2025-03-23 13:28 | XMS_ITS | Encounter Summary ---
Author Organization [facility] Address [address] [place] [address] Phone Care Team Providers Care Sports Team Manager Name Role Phone Charity PhoenixBS Unavailable Ben Nancy COMMUNICATIONS OPERATOR Unavailable Mindy Lin MD Primary Care Provider [phone] Mary Lou Mcfarland PA-C Unavailable [phone] Encounter Details Date Type Department Care Team (Late st Contact Info) Description 10/08/2024 Procedure Pass [facility], Ct Scan - [address] [address] Social History Tobacco Use Types Packs/Day Years [...] st Contact Info) Description 02/01/2025 Procedure Pass [address] [address] 02/01/[address] [address] 03/24/2025 10:00 AM EST Infusion [facility] at [address] [address] Charity Phoenix MBBS [address] [place] [address] [email or web address] 04/29/2025 11:15 AM EST Appointment [address] [address] Charity Phoenix MBBS [address] [place] [address] [email or web address] 05/06/2025 10:00 AM EST Blood Draw [facility] [address] [place] [address] Charity Phoenix MBBS [address] [place] [address] [email or web address] 05/06/2025 11:00 AM EST Office Visit [facility] at [place] [address] [place] [address] Charity Phoenix MBBS [address] [place] [address] [email or web address] documented as of this encounter Visit Diagnoses Not on filedocumented in this encounter Care Teams Sports Team Manager Relationship Specialty Start Date End Date Mindy Lin MD [address] [place] [address] PCP - General Internal Medicine 07/16/24 Charity Phoenix MBBS [email or web address] Primary Oncologist Hematology and Oncology 02/04/23 Nancy Contreras CNP [address] [place] [address] [email or web address] Nurse Practitioner Medical Oncology 05/16/23 Mary Lou Mcfarland PA-C [address] [place] [address] [email or web address] Physician Collar Pointer 01/11/25 documented as of this encounter Additional Source Comments The information contained in this document represents components of the legal health record. It is not the complete legal health record.[facility]
--- OUTSIDE RECORDS SUMMARY | 2025-03-23 13:28 | XMS_ITS | Encounter Summary ---
Author Organization [facility] Address [address] [place] [address] Phone Care Team Providers Care Machine Molder Squeeze Name Role Phone Florentino Medeiros MD Primary Care Provider Charity Phoenix MBBS Unavailable Nancy Contreras CNP Unavailable Mindy Lin MD Primary Care Provider [phone] Mary Lou Mcfarland PA-C Unavailable Encounter Details Date Type Department Care Team (Late st Contact Info) Description 01/28/2024 Procedure Pass [facility], Ct Scan - [facility] [address] [place] [address] Social History Tobacco Use Types Packs/Day Years [...] st Contact Info) Description 02/01/2025 Procedure Pass [address] [address] 02/01/2025 Procedure Pass [address] [address] 03/24/2025 10:00 AM EST Infusion [facility] at [address] [address] Charity Phoenix MBBS [address] [place] [address] [email or web address] 04/29/2025 11:15 AM EST Appointment [address] [address] Charity Phoenix MBBS [address] [place] [address] [email or web address] 05/06/2025 10:00 AM EST Blood Draw [facility] Phle[facility] [address] [place] [address] Charity Phoenix MBBS [address] [place] [address] [email or web address] 05/06/2025 11:00 AM EST Office Visit [facility] at [place] [address] [place] [address] Charity Phoenix MBBS [address] [place] [address] [email or web address] documented as of this encounter Visit Diagnoses Not on filedocumented in this encounter Additional Health Concerns Infection Onset Date Last Indicated Resolved Time CoV-Risk 05/16/2024 05/16/2024 05/27/2024 1:22 AM EST Influenza A 05/16/2024 05/16/2024 05/23/2024 1:22 AM EST documented as of this encounter Care Teams Machine Molder Squeeze Relationship Specialty Start Date End Date Florentino Medeiros MD [address] [place] [address] [place] [address] PCP - General Internal Medicine 10/17/19 07/15/24 Mindy Lin MD [address] [place] [address] PCP - General Internal Medicine 07/16/24 Charity Phoenix MBBS [address] [place] [address] [place] [address] [email or web address] Primary Oncologist Hematology and Oncology 02/04/23 Nancy Contreras CNP [address] [place] [address] [email or web address] Nurse Practitioner Medical Oncology 05/16/23 Mary Lou Mcfarland PA-C [address] [place] [address] [email or web address] Physician Lighting Specialist 01/11/25 documented as of this encounter Additional Source Comments The information contained in this document represents components of the legal health record. It is not the complete legal health record.[facility]
--- OUTSIDE RECORDS SUMMARY | 2025-03-23 13:29 | XMS_ITS ---
Author Organization [facility] Address [address] [place] [address] Phone Care Team Providers Care Shale Planer Operator Name Role Phone Charity Phoenix MBBS Unavailable BenNancy SNAPPER ON Unavailable Mindy Lin MD Primary Care Provider Mary Lou Mcfarland PA-C Unavailable [phone] Active Problems Patient Care Coordination No [...] Patient is going to meet with our data integrity analyst to discuss this further. Thank you very [...] Patient is going to meet with our data integrity analyst to discuss this further. Thank you very [...] the multidisciplinary GI cancer oncology team at [facility]. Options were discussed including upfront surgical resection [...] disease. I discussed the case with the [facility] team and consensus is to proceed with [...] cyst for which she was seen by assistant manager quality management LFTs have normalized Return for follow-up in [...] the multidisciplinary GI cancer oncology team at [facility]. Options were discussed including upfront surgical resection [...] disease. I discussed the case with the [facility] team and consensus is to proceed with [...] which she is going to see her assistant manager quality management Return for follow-up in 3 months with [...] the multidisciplinary GI cancer oncology team at [facility]. Options were discussed including upfront surgical resection [...] disease. I discussed the case with the [facility] team and consensus is to proceed with [...] the multidisciplinary GI cancer oncology team at [facility]. Options were discussed including upfront surgical resection [...] disease. I discussed the case with the [facility] team and consensus is to proceed with [...] the multidisciplinary GI cancer oncology team at [facility]. Options were discussed including upfront surgical resection [...] disease. I discussed the case with the [facility] team and consensus is to proceed with [...] the multidisciplinary GI cancer oncology team at [facility]. Options were discussed including upfront surgical resection [...] disease. I discussed the case with the [facility] team and consensus is to proceed with [...] the multidisciplinary GI cancer oncology team at [facility]. Options were discussed including upfront surgical resection followed by adjuvant therapy versus neoadjuvant chemotherapy to down size the tumor and then resection. After discussion decision was made to proceed with neoadjuvant chemotherapy to be the best option for her. Patient is going to get neoadjuvant chemotherapy here locally at [facility]. She will undergo her surgery and radiation therapy in [place]. After discussing the above-mentioned patient agreed to [...] this. I discussed the case with the [facility] team and consensus is to proceed with [...] this. I have requested to follow-up with [facility] team so that she can undergo her planned surgical resection. RECOMMENDATIONS: Follow up with [facility] team regarding surgical resection of her pancreatic cancer I have sent a message to [facility] team Continue to monitor anemia Continue to [...] the multidisciplinary GI cancer oncology team at [facility]. Options were discussed including upfront surgical resection followed by adjuvant therapy versus neoadjuvant chemotherapy to down size the tumor and then resection. After discussion decision was made to proceed with neoadjuvant chemotherapy to be the best option for her. Patient is going to get neoadjuvant chemotherapy here locally at [facility]. She will undergo her surgery and radiation therapy in [place]. After discussing the above-mentioned patient agreed to [...] this. I discussed the case with the [facility] team and consensus is to proceed with concurrent chemoradiation therapy followed by surgical evaluation. I discussed various concurrent chemotherapy options with her including infusional 5-FU, capecitabine, gemcitabine. I recommended concurrent capecitabine/Xeloda chemotherapy with RT. I discussed potential side effects from this approach including but not limited to allergic reactions, ecrm-kat-ocky syndrome, diarrhea, nausea and pancytopenia's. I also [...] evaluation for surgical resection Follow up with [facility] team after CT scans Continue to monitor [...] the multidisciplinary GI cancer oncology team at [facility]. Options were discussed including upfront surgical resection followed by adjuvant therapy versus neoadjuvant chemotherapy to down size the tumor and then resection. After discussion decision was made to proceed with neoadjuvant chemotherapy to be the best option for her. Patient is going to get neoadjuvant chemotherapy here locally at [facility] [place]. She will undergo her surgery and radiation therapy in [place]. After discussing the above-mentioned patient agreed to [...] this. I discussed the case with the [facility] team and consensus is to proceed with concurrent chemoradiation therapy followed by surgical evaluation. I discussed various concurrent chemotherapy options with her including infusional 5-FU, capecitabine, gemcitabine. I recommended concurrent capecitabine/Xeloda chemotherapy with RT. I discussed potential side effects from this approach including but not limited to allergic reactions, huxl-snk-lnog syndrome, diarrhea, nausea and pancytopenia's. I also [...] the multidisciplinary GI cancer oncology team at [facility]. Options were discussed including upfront surgical resection followed by adjuvant therapy versus neoadjuvant chemotherapy to down size the tumor and then resection. After discussion decision was made to proceed with neoadjuvant chemotherapy to be the best option for her. Patient is going to get neoadjuvant chemotherapy here locally at [facility]. She will undergo her surgery and radiation therapy in [place]. After discussing the above-mentioned patient agreed to [...] this. I discussed the case with the [facility] team and consensus is to proceed with concurrent chemoradiation therapy followed by surgical evaluation. I discussed various concurrent chemotherapy options with her including infusional 5-FU, capecitabine, gemcitabine. I recommended concurrent capecitabine/Xeloda chemotherapy with RT. I discussed potential side effects from this approach including but not limited to allergic reactions, inow-iwv-mzfn syndrome, diarrhea, nausea and pancytopenia's. I also [...] the multidisciplinary GI cancer oncology team at [facility]. Options were discussed including upfront surgical resection followed by adjuvant therapy versus neoadjuvant chemotherapy to down size the tumor and then resection. After discussion decision was made to proceed with neoadjuvant chemotherapy to be the best option for her. Patient is going to get neoadjuvant chemotherapy here locally at [facility]. She will undergo her surgery and radiation therapy in [place]. After discussing the above-mentioned patient agreed to [...] this. I discussed the case with the [facility] team and consensus is to proceed with concurrent chemoradiation therapy followed by surgical evaluation. I discussed various concurrent chemotherapy options with her including infusional 5-FU, capecitabine, gemcitabine. I recommended concurrent capecitabine/Xeloda chemotherapy with RT. I discussed potential side effects from this approach including but not limited to allergic reactions, audm-pvr-ovlu syndrome, diarrhea, nausea and pancytopenia's. I also [...] the multidisciplinary GI cancer oncology team at [facility]. Options were discussed including upfront surgical resection followed by adjuvant therapy versus neoadjuvant chemotherapy to down size the tumor and then resection. After discussion decision was made to proceed with neoadjuvant chemotherapy to be the best option for her. Patient is going to get neoadjuvant chemotherapy here locally at [facility]. She will undergo her surgery and radiation therapy in [place]. After discussing the above-mentioned patient agreed to [...] this. I discussed the case with the [facility] team and consensus is to proceed with concurrent chemoradiation therapy followed by surgical evaluation. I discussed various concurrent chemotherapy options with her including infusional 5-FU, capecitabine, gemcitabine. I recommended concurrent capecitabine/Xeloda chemotherapy with RT. I discussed potential side effects from this approach including but not limited to allergic reactions, ruzv-kkz-srvx syndrome, diarrhea, nausea and pancytopenia's. I also [...] the multidisciplinary GI cancer oncology team at [facility]. Options were discussed including upfront surgical resection followed by adjuvant therapy versus neoadjuvant chemotherapy to down size the tumor and then resection. After discussion decision was made to proceed with neoadjuvant chemotherapy to be the best option for her. Patient is going to get neoadjuvant chemotherapy here locally at [facility] cancer center. She will undergo her surgery and radiation therapy in [place]. After discussing the above-mentioned patient agreed to [...] this. I discussed the case with the [facility] team and consensus is to proceed with concurrent chemoradiation therapy followed by surgical evaluation. I discussed various concurrent chemotherapy options with her including infusional 5-FU, capecitabine, gemcitabine. I recommended concurrent capecitabine/Xeloda chemotherapy with RT. I discussed potential side effects from this approach including but not limited to allergic reactions, rosv-gtu-mvnr syndrome, diarrhea, nausea and pancytopenia's. Patient signed [...] the multidisciplinary GI cancer oncology team at [facility]. Options were discussed including upfront surgical resection followed by adjuvant therapy versus neoadjuvant chemotherapy to down size the tumor and then resection. After discussion decision was made to proceed with neoadjuvant chemotherapy to be the best option for her. Patient is going to get neoadjuvant chemotherapy here locally at [facility]. She will undergo her surgery and radiation therapy in [place]. After discussing the above-mentioned patient agreed to [...] this. I discussed the case with the [facility] team and consensus is to proceed with [...] the multidisciplinary GI cancer oncology team at [facility]. Options were discussed including upfront surgical resection followed by adjuvant therapy versus neoadjuvant chemotherapy to down size the tumor and then resection. After discussion decision was made to proceed with neoadjuvant chemotherapy to be the best option for her. Patient is going to get neoadjuvant chemotherapy here locally at [facility] cancer center. She will undergo her surgery and radiation therapy in [place]. After discussing the above-mentioned patient agreed to [...] about this. I recommended a follow-up with [facility] team to see what is next in her treatment. Initial plan was to proceed with surgical resection after neoadjuvant chemotherapy. I have sent a message to her team in [place]. RECOMMENDATIONS: Follow-up with [facility] team in regards to the next step [...] the multidisciplinary GI cancer oncology team at [facility]. Options were discussed including upfront surgical resection followed by adjuvant therapy versus neoadjuvant chemotherapy to down size the tumor and then resection. After discussion decision was made to proceed with neoadjuvant chemotherapy to be the best option for her. Patient is going to get neoadjuvant chemotherapy here locally at [facility] cancer center. She will undergo her surgery and radiation therapy in [place]. I discussed side effects from chemotherapy including [...] after 8 cycles Patient will follow-up with [facility] team after 8 cycles of chemotherapy regarding [...] the multidisciplinary GI cancer oncology team at [facility]. Options were discussed including upfront surgical resection followed by adjuvant therapy versus neoadjuvant chemotherapy to down size the tumor and then resection. After discussion decision was made to proceed with neoadjuvant chemotherapy to be the best option for her. Patient is going to get neoadjuvant chemotherapy here locally at [facility] [place]. She will undergo her surgery and radiation therapy in [place]. I discussed side effects from chemotherapy including [...] the multidisciplinary GI cancer oncology team at [facility]. Options were discussed including upfront surgical resection followed by adjuvant therapy versus neoadjuvant chemotherapy to down size the tumor and then resection. After discussion decision was made to proceed with neoadjuvant chemotherapy to be the best option for her. Patient is going to get neoadjuvant chemotherapy here locally at [facility]. She will undergo her surgery and radiation therapy in [place]. I discussed side effects from chemotherapy including [...] the multidisciplinary GI cancer oncology team at [facility]. Options were discussed including upfront surgical resection followed by adjuvant therapy versus neoadjuvant chemotherapy to down size the tumor and then resection. After discussion decision was made to proceed with neoadjuvant chemotherapy to be the best option for her. Patient is going to get neoadjuvant chemotherapy here locally at [facility]. She will undergo her surgery and radiation therapy in [place]. I discussed side effects from chemotherapy including [...] the multidisciplinary GI cancer oncology team at [facility]. Options were discussed including upfront surgical resection followed by adjuvant therapy versus neoadjuvant chemotherapy to down size the tumor and then resection. After discussion decision was made to proceed with neoadjuvant chemotherapy to be the best option for her. Patient is going to get neoadjuvant chemotherapy here locally at [facility]. She will undergo her surgery and radiation therapy in [place]. I discussed side effects from chemotherapy including [...] the multidisciplinary GI cancer oncology team at [facility]. Options were discussed including upfront surgical resection followed by adjuvant therapy versus neoadjuvant chemotherapy to down size the tumor and then resection. After discussion decision was made to proceed with neoadjuvant chemotherapy to be the best option for her. Patient is going to get neoadjuvant chemotherapy here locally at [facility] cancer center. She will undergo her surgery and radiation therapy in [place]. I discussed side effects from chemotherapy including [...] IVPBoxaliplatin (ELOXATIN) IVPB a. Therapy Complete Charity Phoeinx MBBS 8 of 11 cycles started Lifetime [...]
--- OUTSIDE RECORDS SUMMARY | 2025-03-23 13:29 | XMS_ITS | Encounter Summary ---
Author Organization [facility] Address [address] [place] [address] Phone Care Team Providers Care Retail Event Assistant Name Role Phone Florentino Medeiros MD Primary Care Provider Charity Phoenix MBBS Unavailable Nancy Contreras CNP Unavailable Mindy Lin MD Primary Care Provider [phone] Mary Lou Mcfarland PA-C Unavailable [phone] Encounter Details Date Type Department Care Team (Late st Contact Info) Description 03/20/2023 Procedure Pass [facility], Ct Scan - [facility] [address] [place] [address] Social History Tobacco Use Types Packs/Day Years [...] st Contact Info) Description 02/01/2025 Procedure Pass [address] [address] 02/01/2025 Procedure Pass [address] [address] 03/24/2025 10:00 AM EST Infusion [facility] at [address] [address] Charity Phoenix MBBS [address] [place] [address] [email or web address] 04/29/2025 11:15 AM EST Appointment [address] [address] Charity Phoenix MBBS [address] [place] [phone] [email or web address] 05/06/2025 10:00 AM EST Blood Draw [facility] [address] [address] Charity Phoenix MBBS [address] [place] [address] [email or web address] 05/06/2025 11:00 AM EST Office Visit [facility] at [facility] [address] [place] [address] Charity Phoenix MBBS [address] [place] [address] [email or web address] documented as of this encounter Visit Diagnoses Not on filedocumented in this encounter Additional Health Concerns Infection Onset Date Last Indicated Resolved Time CoV-Risk 05/17/2023 05/17/2023 05/28/2023 1:23 AM EST CoV-Risk 05/16/2024 05/16/2024 05/27/2024 1:22 AM EST Influenza A 05/16/2024 05/16/2024 05/23/2024 1:22 AM EST documented as of this encounter Care Teams Retail Event Assistant Relationship Specialty Start Date End Date Florentino Medeiros MD [address] [place] [address] Dr RICHARDS [address] [place] [address] PCP - General Internal Medicine 10/17/19 07/15/24 Mindy Lin MD [address] [place] [address] PCP - General Internal Medicine 07/16/24 Charity Phoenix MBBS [address] [place] [address] [place] [address] [email or web address] Primary Oncologist Hematology and Oncology 02/04/23 Nancy Contreras CNP [address] [place] [id number] [email or web address] Nurse Practitioner Medical Oncology 05/16/23 Mary Lou Mcfarland PA-C [address] [place] [address] [email or web address] Physician Monitor Worker 01/11/25 documented as of this encounter Additional Source Comments The information contained in this document represents components of the legal health record. It is not the complete legal health record.[facility]
--- OUTSIDE RECORDS SUMMARY | 2025-03-23 13:29 | XMS_ITS | Encounter Summary ---
Author Organization [facility] Address [address] [place] [address] Care Team Providers Care Phys Ther Name Role Phone Florentino Medeiros Primary Care Provider [phone] Encounter Details Date Type Department Care Team (Late st Contact Info) Description 04/26/2017 Lab Requisition [facility] [address] [place] [id number] Vahe Bull MD [address] [place] [id number] Social History Tobacco Use Types Packs/Day Years [...] of this encounter Procedures * Due to [place] NumberFour law, this organization might not be sharing negative HIV tests. Procedure Name Priority Date/Time Associated Diagnosis Comments TISSUE EXAM Routine 03/28/2017 documented in this encounter Results * Due to [place] NumberFour law, this organization might not be sharing negative HIV tests. * (ABNORMAL) Tissue Exam (03/28/2017) Final Diagnosis Review of Outside Slides Received from [facility], [place], [place], Labeled [id number] , Procedure Date 03/28/17: A- Lung (Left [...] diagnosis. [facility] MANUAL 04/26/2017 2:03 PM EST [facility] ANATOMIC PATHOLOGY - [facility] THREE at 1403 EST Clinical History Metastatic poorly differentiated squamous cell carcinoma. [facility] MANUAL 04/26/2017 2:03 PM EST [facility] ANATOMIC PATHOLOGY - [facility] THREE Gross Description Client Facility: [facility] Slide Identification: [id number] Number of Glass Slides Received: 11 Number of Blocks Received: 0 Client Pathologist: Dr. Fransico Choi Accompanying Report Received: Yes [facility] [place] MANUAL 04/26/2017 2:03 PM EST [facility] ANATOMIC PATHOLOGY - [facility] THREE Embedded Images [facility] MANUAL 04/26/2017 2:03 PM EST [facility] ANATOMIC PATHOLOGY - [facility] THREE Resulting Agency Case was signed out at [facility], Department of Pathology, [facility] 3 CLIA [id number] [facility] MANUAL 04/26/2017 2:03 PM EST [facility] ANATOMIC PATHOLOGY - [facility] THREE Abnormal Yes(A) (none) [facility] [place] MANUAL 04/26/2017 2:03 PM EST [facility] ANATOMIC PATHOLOGY - [facility] THREE Report Header Surgical Pathology Report Case: [id number] Authorizing Provider: Vahe Bull MD Collected: 03/28/2017 Pathologist: Harley Brandt MD Received: 04/26/2017 1159 Specimen: Lung, Left Upper Lobe 04/26/2017 2:03 PM EST [facility] ANATOMIC PATHOLOGY - [facility] THREE Tissue specimen (specimen) Entire upper lobe of left lung / Unknown 03/28/2017 04/26/2017 11:59 AM EST us Vahe Bull MD LAB PATHOLOGY/CYTOLOGY ORDERABLES Final Result [facility] ANATOMIC PATHOLOGY - [facility] THREE [address] [place] [address], documented in this encounter Visit Diagnoses Not on filedocumented in this encounter Care Teams Phys Ther Relationship Specialty Start Date End Date Florentino Medeiros [address] [place] [address] dr Prasanna Mims, [place] [address] PCP - General Internal Medicine 04/25/17 documented as of this encounter
--- OUTSIDE RECORDS SUMMARY | 2025-03-23 13:29 | XMS_ITS | Encounter Summary ---
Author Organization [facility] Address [address] [place] [address] Phone Care Team Providers Care Industrial Engineering Professor Name Role Phone Florentino Medeiros MD Primary Care Provider Charity Phoenix MBBS Unavailable [phone] Nancy Contreras CNP Unavailable Mindy Lin MD Primary Care Provider Mary Lou Mcfarland PA-C Unavailable Encounter Details Date Type Department Care Team (Late st Contact Info) Description 03/20/2023 Procedure Pass [facility], Ct Scan - [facility] [address] [place] [address] Social History Tobacco Use Types Packs/Day Years [...] st Contact Info) Description 02/01/2025 Procedure Pass [address] [address] 02/01/2025 Procedure Pass [address] [address] 03/24/2025 10:00 AM EST Infusion [facility] at [address] [address] Charity Phoenix MBBS [address] [place] [id number] [email or web address] 04/29/2025 11:15 AM EST Appointment [address] [address] Charity Phoenix MBBS [address] [place] [phone] [email or web address] 05/06/2025 10:00 AM EST Blood Draw [facility] [address] [address] Charity Phoenix MBBS [address] [place] [id number] [email or web address] 05/06/2025 11:00 AM EST Office Visit [facility] at [facility] Benite[facility] [address] [place] [address] Charity Phoenix MBBS [address] [place] [address] [email or web address] documented as of this encounter Visit Diagnoses Not on filedocumented in this encounter Additional Health Concerns Infection Onset Date Last Indicated Resolved Time CoV-Risk 05/17/2023 05/17/2023 05/28/2023 1:23 AM EST CoV-Risk 05/16/2024 05/16/2024 05/27/2024 1:22 AM EST Influenza A 05/16/2024 05/16/2024 05/23/2024 1:22 AM EST documented as of this encounter Care Teams Industrial Engineering Professor Relationship Specialty Start Date End Date Florentino Medeiros MD [address] [place] [address] Dr RICHARDS [address] [place] [phone] PCP - General Internal Medicine 10/17/19 07/15/24 Mindy Lin MD [address] [place] [id number] PCP - General Internal Medicine 07/16/24 Charity Phoenix MBBS [address] [place] [address] [place] [address] [email or web address] Primary Oncologist Hematology and Oncology 02/04/23 Nancy Contreras CNP [address] [place] [id number] [email or web address] Nurse Practitioner Medical Oncology 05/16/23 Mary Lou Mcfarland PA-C [address] [place] [phone] [email or web address] Physician Marking Devices Assembler 01/11/25 documented as of this encounter Additional Source Comments The information contained in this document represents components of the legal health record. It is not the complete legal health record.[facility]
--- OUTSIDE RECORDS SUMMARY | 2025-03-23 13:29 | XMS_ITS | Patient Health Record ---
Author Organization [facility] Address [address] [facility] [place] [address] Care Team Providers Care Component Lab Tech Name Role Phone Florentino Medeiros MD Primary Care Provider Andrea Barkley Unavailable [phone] Reason For Referral No Information Medications Medication [...] W/U Status Risk Notes Problem Hallux valgus ([id number]) Hallux Valgus (735.0) Active confirmed Plan Of Treatment No Information Insurance Providers Payer Name Payer Address Payer Phone Subscriber Number Group Number Insured Name Patient Relationship to Insured Coverage Start Date Coverage End Date [facility] [address] [facility] [place] [address] [id number] Aziza Bolanos Self - patient is the insured Medical (General) History Medical History History ICD Code Cholesterol thyroid disorder joint implants/screws Surgical History Surgery Date(Month/Year) throat polyp removed 2008
== END 2025-03-23 10:37 | disposition home or self-care (01) ==
LOC: HO.XRAY 10:36
PROVIDERS: PCP Internal Medicine; Visit Provider Internal Medicine
DX: M25.572 Pain in left ankle and joints of left foot (principal)
CPT/HCPCS: 73610

== ENCOUNTER → 2025-03-23 10:45 | Outpatient (BNV) | payer MEDICARE, OTHER, SELFPAY | PROVIDERS: PCP Internal Medicine; Visit Provider Radiology Diagnostic Radiology | DX: S82.65XA Nondisplaced fracture of lateral malleolus of left fibula, initial encounter for closed fracture (principal) | CPT/HCPCS: 73610 ==